=== PATIENT | male | born 1970 | race Caucasian/White ===

== ENCOUNTER 2016-12-28 08:43 | Inpatient (IN) | payer SELFPAY ==
[2016-12-28] MEDS ORDERED: ACETAMINOPHEN 325 MG SUPP.RECT PR ONE ×2 (09:20→09:38)
[2016-12-28] MEDS ORDERED: ACETAMINOPHEN 650 MG SUPP.RECT PR ONE ×2 (09:21→09:37)
[2016-12-28 09:29] LABS: ABSOLUTE MONOCYTES (AUTO) 1.3 10^3/uL (0.1-1.4); ABSOLUTE NEUT (AUTO) 7.9 10^3/uL (1.7-8.2); BASOPHILS % (AUTO) 0.4 % (0-2); HEMATOCRIT 46.1 % (37.9-51.0); HEMOGLOBIN 15.9 g/dL (13.5-17.0); HGB HCT DIFFERENCE 1.6; LYMPHOCYTES % (AUTO) 9.4 % (13-45); MEAN CORPUSCULAR HEMOGLOBIN 31.9 pg (27.0-33.4); MEAN CORPUSCULAR HGB CONC 34.5 g/dL (32.0-36.0); MEAN CORPUSCULAR VOLUME 92 fl (80-97); RED CELL DISTRIBUTION WIDTH 14.1 % (11.5-14.0); SEGMENTED NEUTROPHILS % (AUTO) 77.2 % (42-78); WHITE BLOOD COUNT 10.2 10^3/uL (4.0-10.5)
[2016-12-28] MEDS ORDERED: LIDOCAINE 1% INJ-PF (10 MG/ML) 30 ML SDV INJ ONE (09:38)
[2016-12-28 09:40] LABS: ALANINE AMINOTRANSFERASE 122 U/L (21-72); ALBUMIN 5.6 g/dL (3.5-5.0); ALKALINE PHOSPHATASE 91 U/L (38-126); ANION GAP 18 (5-19); ASPARTATE AMINO TRANSFERASE 123 U/L (17-59); BILIRUBIN,TOTAL 0.9 mg/dL (0.2-1.3); BLOOD UREA NITROGEN 10 mg/dL (7-20); CALCIUM 10.4 mg/dL (8.4-10.2); CARBON DIOXIDE 23 mmol/L (22-30); CHLORIDE 94 mmol/L (98-107); CREATININE RESULT 0.89 mg/dL (0.52-1.25); GLUCOSE 109 mg/dL (75-110); POTASSIUM 4.3 mmol/L (3.6-5.0); SODIUM 134.7 mmol/L (137-145); TOTAL PROTEIN 8.8 g/dL (6.3-8.2)
[2016-12-28 09:41] LABS: ALCOHOL < 10 mg/dL (NONE DETECTED)
[2016-12-28] MEDS ORDERED: PROPOFOL INJ 200 MG/20 ML VIAL IV ONE (09:52)
[2016-12-28] MEDS ORDERED: NORMAL SALINE 1000 ML 1,000 ML IV PRN ×3 (10:26→14:59)
[2016-12-28] MEDS ORDERED: CEFTRIAXONE 2 GM/D5W RTU 50 ML IV ONE (10:27)
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
[2016-12-28] MEDS ORDERED: MIDAZOLAM 2 MG/2 ML INJ ONE ×2 (10:33→11:26)
[2016-12-28] MEDS ORDERED: PROPOFOL 100 ML IV ONE ×2 (10:44→12:34)
[2016-12-28] MEDS ORDERED: ETOMIDATE INJ/PF 20 MG/10 ML SDV IV ONE (11:11)
[2016-12-28] MEDS ORDERED: MIDAZOLAM HCL 100 ML IV ONE (11:23)
--- NOTE | 2016-12-28 11:34 | EKG REPORT ---
SEVERITY:- ABNORMAL ECG - SINUS TACHYCARDIA PROBABLE LEFT ATRIAL ABNORMALITY ABNRM R PROG, CONSIDER ASMI OR LEAD PLACEMENT : Confirmed by: Jan Preston 28-Dec-2016 11:33:39
[2016-12-28] MEDS ORDERED: VANCOMYCIN HCL INJ 1000 MG VIAL IV ONE (11:50)
[2016-12-28 12:08] LABS: APPEARANCE,URINE CLEAR; BILIRUBIN,URINE NEGATIVE (NEGATIVE); GLUCOSE, URINE NEGATIVE (NEGATIVE); KETONES,URINE NEGATIVE (NEGATIVE); LEUKOCYTE ESTERASE,URINE NEGATIVE (NEGATIVE); NITRITE,URINE NEGATIVE (NEGATIVE); PROTEIN,URINE 100 mg/dL (NEGATIVE); URINE SPECIFIC GRAVITY 1.009; UROBILINOGEN,URINE NEGATIVE mg/dL (<2.0)
[2016-12-28 12:24] LABS: URINE BARBITURATES SCREEN NEGATIVE; URINE METHADONE SCREEN NEGATIVE; URINE OPIATES LOW NEGATIVE; URINE PHENCYCLIDINE SCREEN NEGATIVE
[2016-12-28] MEDS ORDERED: VANCOMYCIN HCL 0 MG in DEXTROSE 5%-WATER 250 ML IV NR (13:15)
[2016-12-28] MEDS ORDERED: VANCOMYCIN HCL 1,500 MG in DEXTROSE 5%-WATER 250 ML IV ONE (14:00)
--- NOTE | 2016-12-28 14:29 | PSYCHOLOGICAL NOTE ---
Psych Note - Psych Note Psych Note: Patient presented to [facility] ED for altered mental status. Patient has been intubated; mental health assessment will have to be conducted at a later time. Clinician will conduct daily check in to reevaluate mental status.
[2016-12-28] MEDS ORDERED: SUCCINYLCHOLINE CHLORIDE INJ 200 MG/10 ML VIAL ONE (14:53)
[2016-12-28] MEDS: NORMAL SALINE 1000 ML 1,000 ML with POTASSIUM CHLORIDE 20 MEQ, MAGNESIUM SULFATE 8 MEQ,... IV PRN ×5 (15:47)
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
[2016-12-28] MEDS: NORMAL SALINE 500 ML with ROCURONIUM BROMIDE 500 MG IV PRN ×2 (17:40)
[2016-12-28] MEDS: ACYCLOVIR SODIUM 800 MG in NORMAL SALINE 250 ML IV SCH (18:11)
[2016-12-28 18:25] LABS: ARTERIAL BLOOD BASE EXCESS 0.2 mmol/L; ARTERIAL BLOOD O2 SATURATION 90.1 % (94-98)
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
[2016-12-28] MEDS ORDERED: INFLUENZA ADLT QUAD (36MOS+) 2016-17 VAC 0.5 ML SYR IM PRN (18:45)
[2016-12-28] MEDS: PROPOFOL 100 ML IV PRN ×2 (19:44→21:48)
[2016-12-28] MEDS: CEFTRIAXONE 2 GM/D5W RTU 50 ML IV SCH (21:48)
[2016-12-28] MEDS: VANCOMYCIN HCL 1,000 MG in DEXTROSE 5%-WATER 250 ML IV SCH (21:50)
[2016-12-28] MEDS ORDERED: PANTOPRAZOLE SODIUM 40 MG VIAL IV SCH (22:00)
[2016-12-28 22:20] LABS: CREATINE KINASE MB 4.56 ng/mL (<4.55); TROPONIN I 0.015 ng/mL
[2016-12-28] MEDS ORDERED: PANTOPRAZOLE SODIUM 40 MG VIAL IV ONE (23:45)
[2016-12-29] MEDS: PROPOFOL 100 ML IV PRN ×6 (00:59→22:23)
[2016-12-29] MEDS: MIDAZOLAM HCL 100 ML IV PRN ×3 (01:21→17:20)
[2016-12-29] MEDS: ACYCLOVIR SODIUM 800 MG in NORMAL SALINE 250 ML IV SCH ×3 (01:22→17:19)
[2016-12-29] MEDS: NORMAL SALINE 500 ML with ROCURONIUM BROMIDE 500 MG IV PRN ×6 (03:10→22:23)
[2016-12-29 04:18] LABS: ABSOLUTE LYMPHOCYTES (AUTO) 1.2 10^3/uL (0.5-4.7); ABSOLUTE MONOCYTES (AUTO) 1.1 10^3/uL (0.1-1.4); ABSOLUTE NEUT (AUTO) 5.8 10^3/uL (1.7-8.2); BASOPHILS % (AUTO) 0.5 % (0-2); EOSINOPHILS % (AUTO) 0.4 % (0-6); HEMATOCRIT 43.8 % (37.9-51.0); HEMOGLOBIN 14.6 g/dL (13.5-17.0); LYMPHOCYTES % (AUTO) 14.4 % (13-45); MEAN CORPUSCULAR HEMOGLOBIN 31.5 pg (27.0-33.4); MEAN CORPUSCULAR HGB CONC 33.3 g/dL (32.0-36.0); MEAN CORPUSCULAR VOLUME 95 fl (80-97); MONOCYTES % (AUTO) 13.8 % (3-13); RED BLOOD COUNT 4.64 10^6/uL (4.35-5.55); RED CELL DISTRIBUTION WIDTH 14.5 % (11.5-14.0); SEGMENTED NEUTROPHILS % (AUTO) 70.9 % (42-78); WHITE BLOOD COUNT 8.2 10^3/uL (4.0-10.5)
[2016-12-29 04:21] LABS: PROTHROMBIN TIME 13.8 SEC (11.4-15.4)
[2016-12-29 04:22] LABS: PARTIAL THROMBOPLASTIN TIME 27.5 SEC (23.5-35.8)
[2016-12-29 04:32] LABS: MAGNESIUM 2.8 mg/dL (1.6-2.3)
[2016-12-29 04:33] LABS: PHOSPHORUS 4.2 mg/dL (2.5-4.5)
[2016-12-29 04:40] LABS: PREALBUMIN 20.6 mg/dL (17.6-36.0)
[2016-12-29 04:45] LABS: CREATINE KINASE MB 4.36 ng/mL (<4.55)
[2016-12-29 04:50] LABS: TROPONIN I < 0.012 ng/mL
[2016-12-29] MEDS: DEXTROSE 5%-NORMAL SALINE 1,000 ML IV PRN (04:59)
[2016-12-29] MEDS: VANCOMYCIN HCL 1,000 MG in DEXTROSE 5%-WATER 250 ML IV SCH ×3 (05:00→21:08)
[2016-12-29 06:25] LABS: ARTERIAL BLOOD BASE EXCESS -0.1 mmol/L; ARTERIAL BLOOD O2 SATURATION 91.3 % (94-98)
--- NOTE | 2016-12-29 08:30 | PDOC PROGRESS REPORT ---
Subjective Progress Note for:: 12/29/16 Subjective:: Patient was admitted yesterday with alcohol withdrawal and seizures ;severe encephalopathy with agitation , confusion and aggressive behavior Fever of unknown etiology He was i will ntubated in the emergency room to protect his airway; sedated; paralyzed with rocuronium and empirically treated for acute meningitis With ceftriaxone and vancomycin This morning patient is still intubated mechanically ventilated He did have any significant upper GI bleed during the night with red blood and coffee-ground which seems to have subsided He still has a low-grade fever; Chest x-ray was performed is unremarkable ED he does not have an elevated white blood count Physical Exam Vital Signs: Temp Pulse Resp BP Pulse Ox 99.2 F 99 12 185/101 H 97 12/29/16 08:00 12/29/16 08:00 12/29/16 08:00 12/29/16 08:00 12/29/16 08:00 Intake & Output 12/28/16 12/29/16 12/30/16 00:59 00:59 00:59 Intake Total 3050 Output Total 4325 1875 Balance -1275 -1875 Weight 87.8 kg 93 kg General appearance: PRESENT: mild distress, well-developed, well-nourished Head exam: PRESENT: atraumatic, normocephalic Eye exam: PRESENT: conjunctiva pink, EOMI, PERRLA. ABSENT: scleral icterus Respiratory exam: PRESENT: rhonchi, symmetrical, wheezes - Bilaterally Cardiovascular exam: PRESENT: RRR. ABSENT: diastolic murmur, rubs, systolic murmur Pulses: PRESENT: normal dorsalis pedis pul GI/Abdominal exam: PRESENT: normal bowel sounds, other - pulsations palpable mid abdomen no bruit. ABSENT: ascites Gentrourinary exam: ABSENT: ecchymosis, lesions Extremities exam: PRESENT: full ROM. ABSENT: calf tenderness, clubbing, pedal edema Neurological exam: PRESENT: other - Sedated and paralyzed Skin exam: PRESENT: dry, intact, warm. ABSENT: cyanosis, rash Results Laboratory Results: 12/29/16 03:57 12/28/16 12/28/16 12/29/16 14:34 18:08 03:57 WBC RBC Hgb Hct MCV MCH MCHC RDW Plt Count Seg Neutrophils % Lymphocytes % Monocytes % Eosinophils % Basophils % Absolute Neutrophils Absolute Lymphocytes Absolute Monocytes Absolute Eosinophils Absolute Basophils Carbonic Acid 1.35 HCO3/H2CO3 Ratio 19:1 ABG pH 7.38 ABG pCO2 44.9 ABG pO2 59.3 L ABG HCO3 25.7 ABG O2 Saturation 90.1 L ABG Base Excess 0.2 FiO2 45% Lactic Acid 1.2 0.8 Phosphorus Magnesium Ammonia Prealbumin Amylase Lipase TSH 12/29/16 12/29/16 12/29/16 03:57 03:57 03:57 WBC 8.2 RBC 4.64 Hgb 14.6 Hct 43.8 MCV 95 MCH 31.5 MCHC 33.3 RDW 14.5 H Plt Count 144 L Seg Neutrophils % 70.9 Lymphocytes % 14.4 Monocytes % 13.8 H Eosinophils % 0.4 Basophils % 0.5 Absolute Neutrophils 5.8 Absolute Lymphocytes 1.2 Absolute Monocytes 1.1 Absolute Eosinophils 0.0 Absolute Basophils 0.0 Carbonic Acid HCO3/H2CO3 Ratio ABG pH ABG pCO2 ABG pO2 ABG HCO3 ABG O2 Saturation ABG Base Excess FiO2 Lactic Acid Phosphorus 4.2 Magnesium 2.8 H Ammonia < 8.7 L Prealbumin 20.6 Amylase 65 Lipase 102.0 TSH 12/29/16 12/29/16 03:57 06:12 WBC RBC Hgb Hct MCV MCH MCHC RDW Plt Count Seg Neutrophils % Lymphocytes % Monocytes % Eosinophils % Basophils % Absolute Neutrophils Absolute Lymphocytes Absolute Monocytes Absolute Eosinophils Absolute Basophils Carbonic Acid 1.96 H HCO3/H2CO3 Ratio 14:1 ABG pH 7.26 L ABG pCO2 65.0 H ABG pO2 70.5 L ABG HCO3 28.7 H ABG O2 Saturation 91.3 L ABG Base Excess -0.1 FiO2 45% Lactic Acid Phosphorus Magnesium Ammonia Prealbumin Amylase Lipase TSH 0.55 12/28/16 12/28/16 12/29/16 21:44 21:44 03:57 Creatine Kinase 4118 H 3091 H CK-MB (CK-2) 4.56 H Troponin I 0.015 12/29/16 12/29/16 03:57 03:57 Creatine Kinase Cancelled CK-MB (CK-2) 4.36 Troponin I < 0.012 Impressions: Chest/Abdomen CTA 12/28/16 00:00 IMPRESSION: Small areas of patchy consolidation are present in the right middle and right upper lobes.. NO PULMONARY EMBOLI. Head CT 12/28/16 17:03 IMPRESSION: No acute intracranial findings.Small amounts of fluid are present in the all the paranasal sinuses consistent with acute disease. Chest X-Ray 12/29/16 06:00 IMPRESSION: STABLE APPEARANCE. NO ACUTE FINDINGS. Assessment & Plan - Diagnosis (1) Metabolic encephalopathy Is this a current diagnosis for this admission?: YesPlan: Likely secondary to sepsis and alcohol withdrawal Altered mental status may also be secondary to neuroleptic malignant syndrome Patient is empirically treated as acute bacterial meningitis and or meningoencephalitis We will initiate droplet precautions it is impossible to evaluate the patient at this time as he is heavily sedated and paralyzed (2) Alcohol withdrawal Qualifiers: Complication of substance-induced condition: with delirium Qualified Code(s): F10.231 - Alcohol dependence with withdrawal delirium Is this a current diagnosis for this admission?: YesPlan: continue the Versed drip (3) Sepsis Qualifiers: Sepsis type: sepsis due to unspecified organism Qualified Code(s): A41.9 - Sepsis, unspecified organism Is this a current diagnosis for this admission?: YesPlan: As above Lactic acid is down Continue Vanco ceftriaxone and acyclovir (4) On mechanically assisted ventilation Is this a current diagnosis for this admission?: Yes (5) Rhabdomyolysis Is this a current diagnosis for this admission?: YesPlan: Continue hydration Renal function is adequate at this time High CPK may also be related to neuroleptic malignant syndrome Continue Versed Avoid neuroleptic medications (6) GI bleed Qualifiers: GI bleed type/associated pathology: unspecified gastrointestinal hemorrhage type Qualified Code(s): K92.2 - Gastrointestinal hemorrhage, unspecified Is this a current diagnosis for this admission?: YesPlan: Upper GI bleed last night The NG tube is clear now; bleeding has stopped and H&H is stable Maybe secondary to gastritis Although patient is clinically but disease and may have esophageal varices continue Protonix if bleeding reccurs patient may need to be transferred for GI evaluation (7) Bronchospasm Is this a current diagnosis for this admission?: YesPlan: Patient has wheezes to this morning He may have underlying COPD We will initiate nebs - Time Critical Time spent with patient: 35 or more minutes
[2016-12-29 08:36] LABS: HEMATOCRIT 42.3 % (37.9-51.0); HEMOGLOBIN 14.2 g/dL (13.5-17.0); HGB HCT DIFFERENCE 0.3; MEAN CORPUSCULAR HEMOGLOBIN 31.6 pg (27.0-33.4); MEAN CORPUSCULAR HGB CONC 33.5 g/dL (32.0-36.0); MEAN CORPUSCULAR VOLUME 94 fl (80-97); RED BLOOD COUNT 4.49 10^6/uL (4.35-5.55); RED CELL DISTRIBUTION WIDTH 14.2 % (11.5-14.0); WHITE BLOOD COUNT 8.2 10^3/uL (4.0-10.5)
[2016-12-29 08:46] LABS: ALANINE AMINOTRANSFERASE 81 U/L (21-72); ALBUMIN 4.2 g/dL (3.5-5.0); ALKALINE PHOSPHATASE 70 U/L (38-126); ANION GAP 9 (5-19); ASPARTATE AMINO TRANSFERASE 82 U/L (17-59); BILIRUBIN,TOTAL 0.7 mg/dL (0.2-1.3); BLOOD UREA NITROGEN 7 mg/dL (7-20); CALCIUM 8.2 mg/dL (8.4-10.2); CARBON DIOXIDE 29 mmol/L (22-30); CHLORIDE 105 mmol/L (98-107); CREATININE RESULT 0.75 mg/dL (0.52-1.25); GLUCOSE 142 mg/dL (75-110); POTASSIUM 4.1 mmol/L (3.6-5.0); TOTAL PROTEIN 6.4 g/dL (6.3-8.2)
--- NOTE | 2016-12-29 08:55 | PSYCHOLOGICAL NOTE ---
Psych Note - Psych Note Psych Note: Patient presented to [facility] ED for altered mental status. Patient has been intubated; mental health assessment will have to be conducted at a later time. Daily checks will be conducted to assessment cognitive status to ascertain ability to communicate/engage in evaluation.
[2016-12-29 08:56] LABS: CREATINE KINASE 2731 U/L (55-170)
[2016-12-29 08:57] LABS: CREATINE KINASE MB 3.77 ng/mL (<4.55)
[2016-12-29 09:02] LABS: TROPONIN I < 0.012 ng/mL
[2016-12-29] MEDS: ENOXAPARIN SODIUM INJ 40 MG/0.4 ML DISP.SYRIN SUBCUT SCH (10:02)
[2016-12-29] MEDS: CEFTRIAXONE 2 GM/D5W RTU 50 ML IV SCH ×2 (10:06→21:07)
[2016-12-29] MEDS: HYDRALAZINE HCL INJ/PF 20 MG/1 ML SDV IV PRN (10:13)
[2016-12-29] MEDS: NORMAL SALINE 100 ML with PANTOPRAZOLE SODIUM 80 MG IV PRN ×4 (10:14→17:21)
[2016-12-29] MEDS: NORMAL SALINE 1000 ML 1,000 ML with POTASSIUM CHLORIDE 20 MEQ, MAGNESIUM SULFATE 8 MEQ,... IV PRN ×5 (10:19)
[2016-12-29 11:14] LABS: ARTERIAL BLOOD BASE EXCESS -5.1 mmol/L; ARTERIAL BLOOD O2 SATURATION 87.6 % (94-98)
[2016-12-29] MEDS ORDERED: PROMETHAZINE HCL INJ 25 MG/1 ML VIAL ONE (11:51)
[2016-12-29] MEDS ORDERED: DIPHENHYDRAMINE HCL 50 MG/ML VIAL ONE (11:51)
[2016-12-29] MEDS ORDERED: NALOXONE HCL INJ/PF 0.4 MG/1 ML SDV ONE (11:51)
[2016-12-29] MEDS ORDERED: ONDANSETRON HCL INJ/PF 4 MG/2 ML SDV ONE (11:51)
[2016-12-29] MEDS ORDERED: MIDAZOLAM 2 MG/2 ML INJ ONE (11:52)
[2016-12-29] MEDS ORDERED: FENTANYL CITRATE INJ/PF 100 MCG/2 ML AMPUL ONE (11:52)
[2016-12-29] MEDS ORDERED: GLUCAGON,HUMAN RECOMB 1 MG INJ ONE (11:52)
[2016-12-29] MEDS ORDERED: FLUMAZENIL INJ 0.5 MG/5 ML VIAL IV ONE (11:52)
[2016-12-29] MEDS ORDERED: EPINEPHRINE INJ 1 MG/10 ML DISP.SYRIN ONE (11:52)
--- NOTE | 2016-12-29 12:43 | Operative Report ---
Operative Report DATE OF SURGERY: 12/29/16 Operative Report: The risks benefits and alternatives of the procedure explained to the patient in detail and informed consent is obtained that GIF Olympus video scope was inserted into the patient's mouth and hypopharynx the esophagus is identified intubated and insufflated the scope was then advanced through the esophagus stomach and duodenum retroflexion maneuver is done the esophagus stomach and first and second portions of the duodenum examined PREOPERATIVE DIAGNOSIS: GI bleed, coffee-ground emesis question esophageal varices POSTOPERATIVE DIAGNOSIS: Esophageal ulceration not actively bleeding. Likely due to NG tube trauma. Nodular gastritis. No varices noted OPERATION: EGD with biopsy SURGEON: AURA KOHLI ANESTHESIA: LMAC TISSUE REMOVED OR ALTERED: Gastric specimen obtained rule out Helicobacter pylori COMPLICATIONS: None. ESTIMATED BLOOD LOSS: none. INTRAOPERATIVE FINDINGS: As noted above no esophageal varices. Esophageal ulceration. No active bleeding. Gastritis. No gastric ulcers. First and second portions of the duodenum normal PROCEDURE: Patient tolerated the procedure well He remains intubated Keep nothing by mouth Follow H&H Transfuse if necessary PPI as needed May need patient transfer if rebleeds
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
[2016-12-29] MEDS: IPRATROPIUM/ALBUTEROL 0.5-2.5 MG/3 ML AMPUL NEB SCH ×2 (14:14→20:24)
[2016-12-29 15:54] LABS: ARTERIAL BLOOD O2 SATURATION 94.8 % (94-98)
[2016-12-29 16:34] LABS: HEMATOCRIT 41.9 % (37.9-51.0); HEMOGLOBIN 13.9 g/dL (13.5-17.0); HGB HCT DIFFERENCE -0.2; MEAN CORPUSCULAR HGB CONC 33.2 g/dL (32.0-36.0); MEAN CORPUSCULAR VOLUME 93 fl (80-97); RED BLOOD COUNT 4.49 10^6/uL (4.35-5.55); RED CELL DISTRIBUTION WIDTH 14.4 % (11.5-14.0); WHITE BLOOD COUNT 11.3 10^3/uL (4.0-10.5)
[2016-12-29 17:45] LABS: ANION GAP 8 (5-19); BLOOD UREA NITROGEN 7 mg/dL (7-20); CALCIUM 8.7 mg/dL (8.4-10.2); CARBON DIOXIDE 28 mmol/L (22-30); CHLORIDE 106 mmol/L (98-107); CREATININE RESULT 0.74 mg/dL (0.52-1.25); GLUCOSE 122 mg/dL (75-110); POTASSIUM 3.7 mmol/L (3.6-5.0)
[2016-12-30] MEDS: IPRATROPIUM/ALBUTEROL 0.5-2.5 MG/3 ML AMPUL NEB SCH ×4 (01:05→20:40)
[2016-12-30] MEDS: DEXTROSE 5%-NORMAL SALINE 1,000 ML IV PRN (01:10)
[2016-12-30] MEDS: ACYCLOVIR SODIUM 800 MG in NORMAL SALINE 250 ML IV SCH ×3 (01:53→17:14)
[2016-12-30] MEDS: PROPOFOL 100 ML IV PRN ×6 (01:53→17:13)
[2016-12-30] MEDS: MIDAZOLAM HCL 100 ML IV PRN ×3 (01:53→17:15)
[2016-12-30] MEDS: NORMAL SALINE 100 ML with PANTOPRAZOLE SODIUM 80 MG IV PRN ×2 (02:24)
[2016-12-30] MEDS: HYDRALAZINE HCL INJ/PF 20 MG/1 ML SDV IV PRN ×2 (04:55→11:05)
[2016-12-30 05:13] LABS: ARTERIAL BLOOD BASE EXCESS 1.3 mmol/L
[2016-12-30] MEDS: VANCOMYCIN HCL 1,000 MG in DEXTROSE 5%-WATER 250 ML IV SCH (06:04)
[2016-12-30 06:11] LABS: ABSOLUTE EOSINOPHILS # (AUTO) 0.1 10^3/uL (0.0-0.6); ABSOLUTE LYMPHOCYTES (AUTO) 0.6 10^3/uL (0.5-4.7); ABSOLUTE MONOCYTES (AUTO) 0.9 10^3/uL (0.1-1.4); ABSOLUTE NEUT (AUTO) 7.2 10^3/uL (1.7-8.2); BASOPHILS % (AUTO) 0.5 % (0-2); EOSINOPHILS % (AUTO) 1.2 % (0-6); HEMATOCRIT 41.4 % (37.9-51.0); HEMOGLOBIN 13.8 g/dL (13.5-17.0); LYMPHOCYTES % (AUTO) 7.1 % (13-45); MEAN CORPUSCULAR HEMOGLOBIN 31.3 pg (27.0-33.4); MEAN CORPUSCULAR HGB CONC 33.4 g/dL (32.0-36.0); MEAN CORPUSCULAR VOLUME 94 fl (80-97); MONOCYTES % (AUTO) 10.1 % (3-13); RED CELL DISTRIBUTION WIDTH 14.3 % (11.5-14.0); SEGMENTED NEUTROPHILS % (AUTO) 81.1 % (42-78); WHITE BLOOD COUNT 8.9 10^3/uL (4.0-10.5)
[2016-12-30 06:34] LABS: ALANINE AMINOTRANSFERASE 66 U/L (21-72); ALBUMIN 3.5 g/dL (3.5-5.0); ALKALINE PHOSPHATASE 71 U/L (38-126); ANION GAP 9 (5-19); ASPARTATE AMINO TRANSFERASE 59 U/L (17-59); BILIRUBIN,TOTAL 0.5 mg/dL (0.2-1.3); BLOOD UREA NITROGEN 7 mg/dL (7-20); CALCIUM 8.5 mg/dL (8.4-10.2); CARBON DIOXIDE 28 mmol/L (22-30); CHLORIDE 107 mmol/L (98-107); CREATININE RESULT 0.81 mg/dL (0.52-1.25); GLUCOSE 122 mg/dL (75-110); MAGNESIUM 2.2 mg/dL (1.6-2.3); PHOSPHORUS 3.4 mg/dL (2.5-4.5); POTASSIUM 4.1 mmol/L (3.6-5.0); SODIUM 143.5 mmol/L (137-145); TOTAL PROTEIN 6.6 g/dL (6.3-8.2)
[2016-12-30] MEDS: NORMAL SALINE 500 ML with ROCURONIUM BROMIDE 500 MG IV PRN ×4 (09:35→17:14)
[2016-12-30] MEDS ORDERED: ACETYLCYSTEINE 10% NEB 400 MG/4 ML VIAL NEB PRN (10:00)
[2016-12-30] MEDS: LISINOPRIL 10 MG TABLET NG SCH ×2 (10:14→21:10)
[2016-12-30] MEDS: ENOXAPARIN SODIUM INJ 40 MG/0.4 ML DISP.SYRIN SUBCUT SCH (10:14)
[2016-12-30] MEDS: AMLODIPINE BESYLATE 10 MG TABLET NG SCH (10:15)
[2016-12-30] MEDS: CEFTRIAXONE 2 GM/D5W RTU 50 ML IV SCH ×2 (10:15→21:09)
[2016-12-30] MEDS: NORMAL SALINE 1000 ML 1,000 ML IV PRN (10:16)
[2016-12-30] MEDS: NORMAL SALINE 1000 ML 1,000 ML with POTASSIUM CHLORIDE 20 MEQ, MAGNESIUM SULFATE 8 MEQ,... IV PRN ×5 (10:17)
[2016-12-30] MEDS: ACETAMINOPHEN SOLN 325 MG/10.15 ML UDCUP PO PRN ×3 (10:51→23:52)
--- NOTE | 2016-12-30 11:01 | PDOC PROGRESS REPORT ---
Subjective Progress Note for:: 12/30/16 Subjective:: Patient is still febrile with a temperature 101 to 102 He is requiring higher FiO2 Still paralyzed and sedated Endoscopy was performed yesterday and was suggestive of an esophageal ulcer There were no esophageal varices There was no active bleeding PPI will be continued Chest x-ray done today is suggestive of left lower lobe collapse Physical Exam Vital Signs: Temp Pulse Resp BP Pulse Ox 102.2 F H 111 H 18 186/95 H 99 12/30/16 10:00 12/30/16 10:00 12/30/16 10:00 12/30/16 10:00 12/30/16 10:00 Intake & Output 12/29/16 12/30/16 12/31/16 00:59 00:59 00:59 Intake Total 3050 4732 3027 Output Total 4325 3785 1035 Balance -4931 165 5925 Weight 87.8 kg 93 kg 95.4 kg General appearance: PRESENT: mild distress, well-developed, well-nourished Head exam: PRESENT: atraumatic, normocephalic Eye exam: PRESENT: conjunctiva pink, EOMI, PERRLA. ABSENT: scleral icterus Neck exam: ABSENT: carotid bruit, JVD, lymphadenopathy, thyromegaly Respiratory exam: PRESENT: rhonchi - Bilaterally. ABSENT: accessory muscle use Cardiovascular exam: PRESENT: RRR. ABSENT: diastolic murmur, rubs, systolic murmur Pulses: PRESENT: normal dorsalis pedis pul GI/Abdominal exam: PRESENT: normal bowel sounds, soft. ABSENT: distended, guarding, mass, organolmegaly, rebound, tenderness Rectal exam: PRESENT: deferred Extremities exam: PRESENT: full ROM. ABSENT: calf tenderness, clubbing, pedal edema Results Laboratory Results: 12/30/16 06:00 12/30/16 06:00 12/29/16 12/29/16 12/29/16 10:45 15:45 16:05 WBC 11.3 H RBC 4.49 Hgb 13.9 Hct 41.9 MCV 93 MCH 31.0 MCHC 33.2 RDW 14.4 H Plt Count 149 L Seg Neutrophils % Lymphocytes % Monocytes % Eosinophils % Basophils % Absolute Neutrophils Absolute Lymphocytes Absolute Monocytes Absolute Eosinophils Absolute Basophils Carbonic Acid 1.39 H 1.29 HCO3/H2CO3 Ratio 15:1 20:1 ABG pH 7.29 L 7.42 ABG pCO2 46.3 H 42.8 ABG pO2 59.3 L 72.7 L ABG HCO3 21.7 26.8 H ABG O2 Saturation 87.6 L 94.8 ABG Base Excess -5.1 2.0 FiO2 40% 50% Sodium Potassium Chloride Carbon Dioxide Anion Gap BUN Creatinine Est GFR ( Amer) Est GFR (Non-Af Amer) Glucose Calcium Phosphorus Magnesium Total Bilirubin AST ALT Alkaline Phosphatase Total Protein Albumin 12/29/16 12/29/16 12/30/16 16:05 17:15 05:00 WBC RBC Hgb Hct MCV MCH MCHC RDW Plt Count Seg Neutrophils % Lymphocytes % Monocytes % Eosinophils % Basophils % Absolute Neutrophils Absolute Lymphocytes Absolute Monocytes Absolute Eosinophils Absolute Basophils Carbonic Acid 1.55 H HCO3/H2CO3 Ratio 17:1 ABG pH 7.35 ABG pCO2 51.6 H ABG pO2 61.1 L ABG HCO3 27.8 H ABG O2 Saturation 90.0 L ABG Base Excess 1.3 FiO2 50% Sodium Cancelled 142.0 Potassium Cancelled 3.7 Chloride Cancelled 106 Carbon Dioxide Cancelled 28 Anion Gap Cancelled 8 BUN Cancelled 7 Creatinine Cancelled 0.74 Est GFR ( Amer) Cancelled > 60 Est GFR (Non-Af Amer) Cancelled > 60 Glucose Cancelled 122 H Calcium Cancelled 8.7 Phosphorus Magnesium Total Bilirubin AST ALT Alkaline Phosphatase Total Protein Albumin 12/30/16 12/30/16 06:00 06:00 WBC 8.9 RBC 4.40 Hgb 13.8 Hct 41.4 MCV 94 MCH 31.3 MCHC 33.4 RDW 14.3 H Plt Count 152 Seg Neutrophils % 81.1 H Lymphocytes % 7.1 L Monocytes % 10.1 Eosinophils % 1.2 Basophils % 0.5 Absolute Neutrophils 7.2 Absolute Lymphocytes 0.6 Absolute Monocytes 0.9 Absolute Eosinophils 0.1 Absolute Basophils 0.0 Carbonic Acid HCO3/H2CO3 Ratio ABG pH ABG pCO2 ABG pO2 ABG HCO3 ABG O2 Saturation ABG Base Excess FiO2 Sodium 143.5 Potassium 4.1 Chloride 107 Carbon Dioxide 28 Anion Gap 9 BUN 7 Creatinine 0.81 Est GFR ( Amer) > 60 Est GFR (Non-Af Amer) > 60 Glucose 122 H Calcium 8.5 Phosphorus 3.4 Magnesium 2.2 Total Bilirubin 0.5 AST 59 ALT 66 Alkaline Phosphatase 71 Total Protein 6.6 Albumin 3.5 12/28/16 12/28/16 12/29/16 21:44 21:44 03:57 Creatine Kinase 4118 H 3091 H CK-MB (CK-2) 4.56 H Troponin I 0.015 12/29/16 12/29/16 12/29/16 03:57 03:57 08:24 Creatine Kinase Cancelled 2731 H CK-MB (CK-2) 4.36 Troponin I < 0.012 12/29/16 08:24 Creatine Kinase CK-MB (CK-2) 3.77 Troponin I < 0.012 Impressions: Chest/Abdomen CTA 12/28/16 00:00 IMPRESSION: Small areas of patchy consolidation are present in the right middle and right upper lobes.. NO PULMONARY EMBOLI. Head CT 12/28/16 17:03 IMPRESSION: No acute intracranial findings.Small amounts of fluid are present in the all the paranasal sinuses consistent with acute disease. Chest X-Ray 12/30/16 06:00 IMPRESSION: Interval development of complete opacity of the left lower lobe. Suspect mucous plug with left lower lobe collapse. SUPPORT DEVICE(S) IN EXPECTED LOCATIONS. Assessment & Plan - Diagnosis (1) Metabolic encephalopathy Is this a current diagnosis for this admission?: Yes (2) Alcohol withdrawal Qualifiers: Complication of substance-induced condition: with delirium Qualified Code(s): F10.231 - Alcohol dependence with withdrawal delirium Is this a current diagnosis for this admission?: Yes (3) Sepsis Qualifiers: Sepsis type: sepsis due to unspecified organism Qualified Code(s): A41.9 - Sepsis, unspecified organism Is this a current diagnosis for this admission?: YesPlan: Source is still unclear Patient is empirically treated for meningitis and aspiration pneumonia Diagnosis of neuroleptic malignant syndrome has not been excluded Continue benzos Discontinue psychotropic agents, anticholinergic, serotonergic agents . Continue ceftriaxone and vancomycin acyclovir and clindamycin A spinal tap will be performed when patient's condition permits (4) On mechanically assisted ventilation Is this a current diagnosis for this admission?: YesPlan: Patient developed collapse of the left lower lobe Likely secondary to mucous plugs Patient may have had also aspiration pneumonia We will add clindamycin 600 mg every 8 hours to present IV antibiotics Mucomyst and chest PT also were ordered Dr. Sanchez was notified and will be in to perform bronchoscopy (5) Rhabdomyolysis Is this a current diagnosis for this admission?: YesPlan: Is improving CPK on the downward trend (6) GI bleed Qualifiers: GI bleed type/associated pathology: unspecified gastrointestinal hemorrhage type Qualified Code(s): K92.2 - Gastrointestinal hemorrhage, unspecified Is this a current diagnosis for this admission?: YesPlan: Resolved GI bleed was secondary to an esophageal ulcer Continue PPI (7) Bronchospasm Is this a current diagnosis for this admission?: Yes - Time Critical Time spent with patient: 25-34 minutes
[2016-12-30] MEDS: MORPHINE SULFATE 10 MG/ML INJ IV PRN ×3 (11:05→23:52)
[2016-12-30] MEDS ORDERED: IPRATROPIUM/ALBUTEROL 0.5-2.5 MG/3 ML AMPUL NEB ONE (11:06)
[2016-12-30] MEDS: CLINDAMYCIN 600 MG/D5W RTU 600 MG/50 ML RTUPB IV SCH ×2 (12:26→20:09)
[2016-12-30] MEDS: SUCRALFATE SUSP 1 GM/10 ML UDCUP NG SCH ×3 (12:26→23:52)
[2016-12-30] MEDS: ACETYLCYSTEINE 10% NEB 400 MG/4 ML VIAL NEB SCH ×2 (13:38→20:00)
[2016-12-30] MEDS: VANCOMYCIN HCL 1,500 MG in DEXTROSE 5%-WATER 250 ML IV SCH ×2 (13:46→21:34)
[2016-12-30 17:09] LABS: FLUID APPEARANCE CLOUDY; FLUID RBC AVERAGE 2.5; FLUID RBC SIDE 1 2; FLUID RBC SIDE 2 3; FLUID TYPE BRONCHIAL WASH
[2016-12-30 17:10] LABS: FLUID RBC DILUENT USED NONE USED; FLUID RBC DILUTION FACTOR 1; TOTAL RBC SQUARES COUNTED FLD 225
[2016-12-30] MEDS: PANTOPRAZOLE SODIUM 40 MG VIAL IV SCH (21:09)
[2016-12-30] MEDS ORDERED: VANCOMYCIN HCL INJ 500 MG VIAL ONE (21:20)
[2016-12-30] MEDS ORDERED: VANCOMYCIN HCL INJ 1000 MG VIAL ONE (21:21)
[2016-12-31] MEDS: PROPOFOL 100 ML IV PRN ×6 (00:46→21:22)
[2016-12-31] MEDS: ACYCLOVIR SODIUM 800 MG in NORMAL SALINE 250 ML IV SCH ×3 (01:25→17:18)
[2016-12-31] MEDS: MIDAZOLAM HCL 100 ML IV PRN ×2 (02:12→12:41)
[2016-12-31] MEDS: CLINDAMYCIN 600 MG/D5W RTU 600 MG/50 ML RTUPB IV SCH ×3 (03:03→19:58)
[2016-12-31] MEDS: ACETYLCYSTEINE 10% NEB 400 MG/4 ML VIAL NEB SCH ×4 (03:11→21:22)
[2016-12-31] MEDS: IPRATROPIUM/ALBUTEROL 0.5-2.5 MG/3 ML AMPUL NEB SCH ×4 (03:12→21:22)
[2016-12-31] MEDS: NORMAL SALINE 500 ML with ROCURONIUM BROMIDE 500 MG IV PRN ×2 (03:23)
[2016-12-31] MEDS: SUCRALFATE SUSP 1 GM/10 ML UDCUP NG SCH ×3 (05:02→17:18)
[2016-12-31] MEDS: VANCOMYCIN HCL 1,500 MG in DEXTROSE 5%-WATER 250 ML IV SCH ×3 (05:04→21:19)
[2016-12-31 05:12] LABS: ABSOLUTE EOSINOPHILS # (AUTO) 0.1 10^3/uL (0.0-0.6); ABSOLUTE LYMPHOCYTES (AUTO) 0.9 10^3/uL (0.5-4.7); ABSOLUTE MONOCYTES (AUTO) 0.8 10^3/uL (0.1-1.4); ABSOLUTE NEUT (AUTO) 4.4 10^3/uL (1.7-8.2); BASOPHILS % (AUTO) 0.7 % (0-2); EOSINOPHILS % (AUTO) 2.3 % (0-6); HEMATOCRIT 34.9 % (37.9-51.0); HGB HCT DIFFERENCE -0.1; LYMPHOCYTES % (AUTO) 14.5 % (13-45); MEAN CORPUSCULAR HEMOGLOBIN 31.5 pg (27.0-33.4); MEAN CORPUSCULAR HGB CONC 33.3 g/dL (32.0-36.0); MEAN CORPUSCULAR VOLUME 95 fl (80-97); RED BLOOD COUNT 3.68 10^6/uL (4.35-5.55); RED CELL DISTRIBUTION WIDTH 14.1 % (11.5-14.0); SEGMENTED NEUTROPHILS % (AUTO) 69.5 % (42-78); WHITE BLOOD COUNT 6.3 10^3/uL (4.0-10.5)
[2016-12-31 05:16] LABS: HEMOGLOBIN 11.6 g/dL (13.5-17.0)
[2016-12-31 05:24] LABS: ALANINE AMINOTRANSFERASE 49 U/L (21-72); ALBUMIN 2.6 g/dL (3.5-5.0); ALKALINE PHOSPHATASE 56 U/L (38-126); ANION GAP 5 (5-19); ASPARTATE AMINO TRANSFERASE 42 U/L (17-59); BILIRUBIN,TOTAL 0.3 mg/dL (0.2-1.3); BLOOD UREA NITROGEN 6 mg/dL (7-20); CALCIUM 8.1 mg/dL (8.4-10.2); CARBON DIOXIDE 31 mmol/L (22-30); CHLORIDE 104 mmol/L (98-107); CREATINE KINASE 950 U/L (55-170); CREATININE RESULT 0.73 mg/dL (0.52-1.25); GLUCOSE 100 mg/dL (75-110); SODIUM 139.6 mmol/L (137-145); TOTAL PROTEIN 5.2 g/dL (6.3-8.2)
[2016-12-31 05:38] LABS: ARTERIAL BLOOD BASE EXCESS 1.2 mmol/L; ARTERIAL BLOOD O2 SATURATION 95.3 % (94-98)
--- NOTE | 2016-12-31 07:50 | PDOC PROGRESS REPORT ---
Subjective Progress Note for:: 12/31/16 Subjective:: Patient underwent bronchoscopy yesterday and his respiratory status is very much improved Is now oxygenating well at 40% FiO2 His blood pressure is lower And he hasn't had any arrhythmia He is tolerating tube feedings well Attempt a to her wean rocuronium will be made today if possible Physical Exam Vital Signs: Temp Pulse Resp BP Pulse Ox 98.6 F 87 18 105/58 L 97 12/31/16 02:00 12/31/16 03:16 12/31/16 06:01 12/31/16 06:01 12/31/16 06:01 Intake & Output 12/30/16 12/31/16 01/01/17 00:59 00:59 00:59 Intake Total 4768 7353 2637 Output Total 3781 2065 215 Balance 983 5288 2422 Weight 93 kg 95.4 kg 100.5 kg General appearance: PRESENT: well-developed, well-nourished Head exam: PRESENT: atraumatic, normocephalic Eye exam: PRESENT: conjunctiva pink, EOMI, PERRLA. ABSENT: scleral icterus Ear exam: PRESENT: normal external ear exam Mouth exam: PRESENT: moist, tongue midline Neck exam: ABSENT: carotid bruit, JVD, lymphadenopathy, thyromegaly Respiratory exam: PRESENT: decreased breath sounds, rhonchi. ABSENT: rales, wheezes Cardiovascular exam: PRESENT: RRR. ABSENT: diastolic murmur, rubs, systolic murmur Pulses: PRESENT: normal dorsalis pedis pul Vascular exam: PRESENT: normal capillary refill GI/Abdominal exam: PRESENT: normal bowel sounds, soft. ABSENT: distended, guarding, mass, organolmegaly, rebound, tenderness Rectal exam: PRESENT: deferred Extremities exam: PRESENT: full ROM. ABSENT: calf tenderness, clubbing, pedal edema Neurological exam: PRESENT: other - Sedated and paralyzed Skin exam: PRESENT: dry, intact, warm. ABSENT: cyanosis, rash Results Laboratory Results: 12/31/16 04:26 12/31/16 04:26 12/30/16 12/31/16 12/31/16 11:52 04:26 04:26 WBC 6.3 RBC 3.68 L Hgb 11.6 L D Hct 34.9 L MCV 95 MCH 31.5 MCHC 33.3 RDW 14.1 H Plt Count 139 L Seg Neutrophils % 69.5 Lymphocytes % 14.5 Monocytes % 13.0 Eosinophils % 2.3 Basophils % 0.7 Absolute Neutrophils 4.4 Absolute Lymphocytes 0.9 Absolute Monocytes 0.8 Absolute Eosinophils 0.1 Absolute Basophils 0.0 Carbonic Acid HCO3/H2CO3 Ratio ABG pH ABG pCO2 ABG pO2 ABG HCO3 ABG O2 Saturation ABG Base Excess FiO2 Sodium 139.6 Potassium 4.0 Chloride 104 Carbon Dioxide 31 H Anion Gap 5 BUN 6 L Creatinine 0.73 Est GFR ( Amer) > 60 Est GFR (Non-Af Amer) > 60 Glucose 100 Calcium 8.1 L Total Bilirubin 0.3 AST 42 ALT 49 Alkaline Phosphatase 56 Total Protein 5.2 L Albumin 2.6 L Fluid Type BRONCHIAL WASH Fluid Source LUNG Fluid Color STRAW Fluid Appearance CLOUDY Fluid Viscosity SLIGHTLY VISCOUS Fluid WBC 798 Fluid RBC 2 12/31/16 05:16 WBC RBC Hgb Hct MCV MCH MCHC RDW Plt Count Seg Neutrophils % Lymphocytes % Monocytes % Eosinophils % Basophils % Absolute Neutrophils Absolute Lymphocytes Absolute Monocytes Absolute Eosinophils Absolute Basophils Carbonic Acid 1.56 H HCO3/H2CO3 Ratio 17:1 ABG pH 7.35 ABG pCO2 51.7 H ABG pO2 81.1 ABG HCO3 27.6 H ABG O2 Saturation 95.3 ABG Base Excess 1.2 FiO2 40% Sodium Potassium Chloride Carbon Dioxide Anion Gap BUN Creatinine Est GFR ( Amer) Est GFR (Non-Af Amer) Glucose Calcium Total Bilirubin AST ALT Alkaline Phosphatase Total Protein Albumin Fluid Type Fluid Source Fluid Color Fluid Appearance Fluid Viscosity Fluid WBC Fluid RBC 12/28/16 12/28/16 12/29/16 21:44 21:44 03:57 Creatine Kinase 4118 H 3091 H CK-MB (CK-2) 4.56 H Troponin I 0.015 12/29/16 12/29/16 12/29/16 03:57 03:57 08:24 Creatine Kinase Cancelled 2731 H CK-MB (CK-2) 4.36 Troponin I < 0.012 12/29/16 12/31/16 08:24 04:26 Creatine Kinase 950 H CK-MB (CK-2) 3.77 Troponin I < 0.012 Impressions: Chest/Abdomen CTA 12/28/16 00:00 IMPRESSION: Small areas of patchy consolidation are present in the right middle and right upper lobes.. NO PULMONARY EMBOLI. Head CT 12/28/16 17:03 IMPRESSION: No acute intracranial findings.Small amounts of fluid are present in the all the paranasal sinuses consistent with acute disease. Chest X-Ray 12/31/16 06:00 IMPRESSION: Endotracheal tube tip at the level of the clavicular heads, 6 to 7 cm above the brandon. No focal infiltrates. No pleural effusion. No pneumothorax. Assessment & Plan - Diagnosis (1) Metabolic encephalopathy Is this a current diagnosis for this admission?: YesPlan: Patient is paralyzed and sedated Impossible to evaluate his metabolic encephalopathy Encephalopathy likely secondary to alcohol withdrawal Neuroleptic malignant syndrome cannot be ruled out Sepsis secondary to pneumonia likely Patient is still treated empirically for meningitis Continue antibiotics Patient to be reevaluated in 24-48 hours (2) Alcohol withdrawal Qualifiers: Complication of substance-induced condition: with delirium Qualified Code(s): F10.231 - Alcohol dependence with withdrawal delirium Is this a current diagnosis for this admission?: Yes (3) Sepsis Qualifiers: Sepsis type: sepsis due to unspecified organism Qualified Code(s): A41.9 - Sepsis, unspecified organism Is this a current diagnosis for this admission?: YesPlan: Continue broad-spectrum antibiotics we have added clindamycin yesterday (4) On mechanically assisted ventilation Is this a current diagnosis for this admission?: Yes (5) Rhabdomyolysis Is this a current diagnosis for this admission?: YesPlan: Is improving CPKs now in the 900 range Renal function is intact (6) GI bleed Qualifiers: GI bleed type/associated pathology: unspecified gastrointestinal hemorrhage type Qualified Code(s): K92.2 - Gastrointestinal hemorrhage, unspecified Is this a current diagnosis for this admission?: YesPlan: Was secondary to esophageal ulcer Continue Protonix , continue Carafate (7) Bronchospasm Is this a current diagnosis for this admission?: Yes (8) On tube feeding diet Is this a current diagnosis for this admission?: YesPlan: Feedings well tolerated Continue oxepa as ordered - Time Critical Time spent with patient: 25-34 minutes
[2016-12-31] MEDS: NORMAL SALINE 1000 ML 1,000 ML IV PRN (09:26)
[2016-12-31] MEDS: NORMAL SALINE 1000 ML 1,000 ML with POTASSIUM CHLORIDE 20 MEQ, MAGNESIUM SULFATE 8 MEQ,... IV PRN ×5 (09:27)
[2016-12-31] MEDS: LISINOPRIL 10 MG TABLET NG SCH ×2 (09:27→21:21)
[2016-12-31] MEDS: PANTOPRAZOLE SODIUM 40 MG VIAL IV SCH ×2 (09:27→21:18)
[2016-12-31] MEDS: ENOXAPARIN SODIUM INJ 40 MG/0.4 ML DISP.SYRIN SUBCUT SCH (09:28)
[2016-12-31] MEDS: MORPHINE SULFATE 10 MG/ML INJ IV PRN ×2 (09:30→20:11)
[2016-12-31] MEDS: CEFTRIAXONE 2 GM/D5W RTU 50 ML IV SCH ×2 (09:30→21:19)
[2016-12-31] MEDS: AMLODIPINE BESYLATE 10 MG TABLET NG SCH (09:31)
[2017-01-01] MEDS: SUCRALFATE SUSP 1 GM/10 ML UDCUP NG SCH ×4 (00:18→17:15)
[2017-01-01] MEDS: NORMAL SALINE 1000 ML 1,000 ML IV PRN (00:18)
[2017-01-01] MEDS: MIDAZOLAM HCL 100 ML IV PRN ×3 (01:49→21:22)
[2017-01-01] MEDS: PROPOFOL 100 ML IV PRN ×7 (01:49→21:22)
[2017-01-01] MEDS: ACYCLOVIR SODIUM 800 MG in NORMAL SALINE 250 ML IV SCH (01:51)
[2017-01-01] MEDS: IPRATROPIUM/ALBUTEROL 0.5-2.5 MG/3 ML AMPUL NEB SCH ×4 (02:13→19:49)
[2017-01-01] MEDS: ACETYLCYSTEINE 10% NEB 400 MG/4 ML VIAL NEB SCH ×4 (02:13→19:49)
[2017-01-01] MEDS: CLINDAMYCIN 600 MG/D5W RTU 600 MG/50 ML RTUPB IV SCH ×3 (03:56→19:58)
[2017-01-01] MEDS: VANCOMYCIN HCL 1,500 MG in DEXTROSE 5%-WATER 250 ML IV SCH (05:02)
[2017-01-01 05:37] LABS: ARTERIAL BLOOD BASE EXCESS 3.4 mmol/L; ARTERIAL BLOOD O2 SATURATION 94.4 % (94-98)
[2017-01-01 06:32] LABS: ABSOLUTE BASOPHILS # (AUTO) 0.1 10^3/uL (0.0-0.2); ABSOLUTE EOSINOPHILS # (AUTO) 0.4 10^3/uL (0.0-0.6); ABSOLUTE MONOCYTES (AUTO) 0.8 10^3/uL (0.1-1.4); ABSOLUTE NEUT (AUTO) 2.8 10^3/uL (1.7-8.2); BASOPHILS % (AUTO) 1.1 % (0-2); EOSINOPHILS % (AUTO) 7.5 % (0-6); HEMATOCRIT 34.3 % (37.9-51.0); HEMOGLOBIN 11.5 g/dL (13.5-17.0); HGB HCT DIFFERENCE 0.2; LYMPHOCYTES % (AUTO) 19.6 % (13-45); MEAN CORPUSCULAR HEMOGLOBIN 31.7 pg (27.0-33.4); MEAN CORPUSCULAR HGB CONC 33.6 g/dL (32.0-36.0); MEAN CORPUSCULAR VOLUME 94 fl (80-97); MONOCYTES % (AUTO) 16.1 % (3-13); RED BLOOD COUNT 3.64 10^6/uL (4.35-5.55); RED CELL DISTRIBUTION WIDTH 14.5 % (11.5-14.0); SEGMENTED NEUTROPHILS % (AUTO) 55.7 % (42-78)
[2017-01-01 06:33] LABS: ANION GAP 7 (5-19); BLOOD UREA NITROGEN 8 mg/dL (7-20); CALCIUM 8.5 mg/dL (8.4-10.2); CARBON DIOXIDE 29 mmol/L (22-30); CHLORIDE 104 mmol/L (98-107); CREATININE RESULT 0.62 mg/dL (0.52-1.25); GLUCOSE 92 mg/dL (75-110); POTASSIUM 3.8 mmol/L (3.6-5.0); SODIUM 139.8 mmol/L (137-145)
--- NOTE | 2017-01-01 07:46 | PDOC PROGRESS REPORT ---
Subjective Progress Note for:: 01/01/17 Subjective:: Patient is doing extremely well His mentation was appropriate when the sedation was withdrawn Rocuronium has been discontinued Patient's balance is to a positive for about 10 KG A lot of secretions are now suction from the ET tube Physical Exam Vital Signs: Temp Pulse Resp BP Pulse Ox 97.9 F 78 18 128/82 H 98 01/01/17 06:00 01/01/17 04:00 01/01/17 06:01 01/01/17 06:01 01/01/17 06:01 Intake & Output 12/31/16 01/01/17 01/02/17 00:59 00:59 00:59 Intake Total 7353 5963 2226 Output Total 2065 1509 800 Balance 5288 4454 1426 Weight 95.4 kg 100.5 kg 103.2 kg General appearance: PRESENT: no acute distress, well-developed, well-nourished Head exam: PRESENT: atraumatic, normocephalic Eye exam: PRESENT: conjunctiva pink, EOMI, PERRLA. ABSENT: scleral icterus Ear exam: PRESENT: normal external ear exam Mouth exam: PRESENT: moist, tongue midline Neck exam: ABSENT: carotid bruit, JVD, lymphadenopathy, thyromegaly Respiratory exam: PRESENT: rhonchi, wheezes. ABSENT: rales Cardiovascular exam: PRESENT: RRR. ABSENT: diastolic murmur, rubs, systolic murmur Pulses: PRESENT: normal dorsalis pedis pul Vascular exam: PRESENT: normal capillary refill GI/Abdominal exam: PRESENT: normal bowel sounds, soft. ABSENT: distended, guarding, mass, organolmegaly, rebound, tenderness Rectal exam: PRESENT: deferred Extremities exam: PRESENT: full ROM. ABSENT: calf tenderness, clubbing, pedal edema Skin exam: PRESENT: dry, intact, warm. ABSENT: cyanosis, rash Results Laboratory Results: 01/01/17 05:28 01/01/17 05:28 01/01/17 01/01/17 01/01/17 05:18 05:28 05:28 WBC 5.0 RBC 3.64 L Hgb 11.5 L Hct 34.3 L MCV 94 MCH 31.7 MCHC 33.6 RDW 14.5 H Plt Count 144 L Seg Neutrophils % 55.7 Lymphocytes % 19.6 Monocytes % 16.1 H Eosinophils % 7.5 H Basophils % 1.1 Absolute Neutrophils 2.8 Absolute Lymphocytes 1.0 Absolute Monocytes 0.8 Absolute Eosinophils 0.4 Absolute Basophils 0.1 Carbonic Acid 1.32 HCO3/H2CO3 Ratio 21:1 ABG pH 7.43 ABG pCO2 43.8 ABG pO2 69.9 L ABG HCO3 28.3 H ABG O2 Saturation 94.4 ABG Base Excess 3.4 FiO2 35% Sodium 139.8 Potassium 3.8 Chloride 104 Carbon Dioxide 29 Anion Gap 7 BUN 8 Creatinine 0.62 Est GFR ( Amer) > 60 Est GFR (Non-Af Amer) > 60 Glucose 92 Calcium 8.5 12/28/16 15:33 Sputum Gram Stain - Final 12/28/16 12/28/16 12/29/16 21:44 21:44 03:57 Creatine Kinase 4118 H 3091 H CK-MB (CK-2) 4.56 H Troponin I 0.015 12/29/16 12/29/16 12/29/16 03:57 03:57 08:24 Creatine Kinase Cancelled 2731 H CK-MB (CK-2) 4.36 Troponin I < 0.012 12/29/16 12/31/16 08:24 04:26 Creatine Kinase 950 H CK-MB (CK-2) 3.77 Troponin I < 0.012 Impressions: Chest/Abdomen CTA 12/28/16 00:00 IMPRESSION: Small areas of patchy consolidation are present in the right middle and right upper lobes.. NO PULMONARY EMBOLI. Head CT 12/28/16 17:03 IMPRESSION: No acute intracranial findings.Small amounts of fluid are present in the all the paranasal sinuses consistent with acute disease. Chest X-Ray 12/31/16 06:00 IMPRESSION: Endotracheal tube tip at the level of the clavicular heads, 6 to 7 cm above the brandon. No focal infiltrates. No pleural effusion. No pneumothorax. Assessment & Plan - Diagnosis (1) Metabolic encephalopathy Is this a current diagnosis for this admission?: YesPlan: Secondary to sepsis or alcohol withdrawal or post ictal state Has improved It appears that the patient is awake and alert when they sedation is withdrawn Is very unlikely that the patient has meningitis Source of SEPSIS likely was likely aspiration pneumonia EEG will be performed when patient is off sedation and extubated (2) Alcohol withdrawal Qualifiers: Complication of substance-induced condition: with delirium Qualified Code(s): F10.231 - Alcohol dependence with withdrawal delirium Is this a current diagnosis for this admission?: YesPlan: Continue Versed drip Continue thiamine (3) Sepsis Qualifiers: Sepsis type: sepsis due to unspecified organism Qualified Code(s): A41.9 - Sepsis, unspecified organism Is this a current diagnosis for this admission?: YesPlan: All cultures are negative so far Continue clindamycin IV We will discontinue ceftriaxone and vancomycin at this time (4) On mechanically assisted ventilation Is this a current diagnosis for this admission?: Yes (5) Rhabdomyolysis Is this a current diagnosis for this admission?: YesPlan: Has resolved CPK K elevation may have been related to an NMS (6) GI bleed Qualifiers: GI bleed type/associated pathology: unspecified gastrointestinal hemorrhage type Qualified Code(s): K92.2 - Gastrointestinal hemorrhage, unspecified Is this a current diagnosis for this admission?: YesPlan: Resolved Secondary to esophageal ulcer Continue Protonix Continue Carafate (7) Bronchospasm Is this a current diagnosis for this admission?: Yes (8) On tube feeding diet Is this a current diagnosis for this admission?: YesPlan: Tube feedings are on hold as patient was vomiting yesterday We will keep them on hold for another day, as we hope that patient will be extubated within 24-48 hours and diet may be initiated (9) Fluid overload Qualifiers: Hypervolemia type: unspecified Qualified Code(s): E87.70 - Fluid overload, unspecified Is this a current diagnosis for this admission?: YesPlan: We'll diurese - Time Critical Time spent with patient: 25-34 minutes
[2017-01-01] MEDS ORDERED: FUROSEMIDE INJ/PF 40 MG/4 ML SDV IV ONE (08:15)
[2017-01-01] MEDS: ENOXAPARIN SODIUM INJ 40 MG/0.4 ML DISP.SYRIN SUBCUT SCH (09:27)
[2017-01-01] MEDS: AMLODIPINE BESYLATE 10 MG TABLET NG SCH (09:56)
[2017-01-01] MEDS: PANTOPRAZOLE SODIUM 40 MG VIAL IV SCH ×2 (09:59→21:22)
[2017-01-01] MEDS: LISINOPRIL 10 MG TABLET NG SCH ×2 (09:59→21:21)
[2017-01-01] MEDS: MORPHINE SULFATE 10 MG/ML INJ IV PRN (09:59)
[2017-01-01] MEDS: NORMAL SALINE 1000 ML 1,000 ML with POTASSIUM CHLORIDE 20 MEQ, MAGNESIUM SULFATE 8 MEQ,... IV PRN ×5 (10:02)
[2017-01-01 15:37] LABS: A/G RATIO 1.3 (0.7-1.7); ALBUMIN 2 3.6 g/dL (2.9-4.4); ALPHA-1-GLOBULIN 2 0.3 g/dL (0.0-0.4); GAMMA GLOBULIN 0.8 g/dL (0.4-1.8); PROTEIN TOTAL SERUM 6.4 g/dL (6.0-8.5)
[2017-01-02] MEDS: SUCRALFATE SUSP 1 GM/10 ML UDCUP NG SCH ×3 (01:07→13:04)
[2017-01-02] MEDS: IPRATROPIUM/ALBUTEROL 0.5-2.5 MG/3 ML AMPUL NEB SCH ×4 (02:04→21:51)
[2017-01-02] MEDS: ACETYLCYSTEINE 10% NEB 400 MG/4 ML VIAL NEB SCH ×4 (02:04→21:51)
[2017-01-02] MEDS: PROPOFOL 100 ML IV PRN ×2 (02:08→08:51)
[2017-01-02] MEDS: NORMAL SALINE 1000 ML 1,000 ML IV PRN (02:08)
[2017-01-02] MEDS: CLINDAMYCIN 600 MG/D5W RTU 600 MG/50 ML RTUPB IV SCH ×3 (03:36→21:07)
[2017-01-02] MEDS: MIDAZOLAM HCL 100 ML IV PRN (03:37)
[2017-01-02 05:42] LABS: ARTERIAL BLOOD BASE EXCESS 2.4 mmol/L; ARTERIAL BLOOD O2 SATURATION 93.8 % (94-98)
[2017-01-02] MEDS ORDERED: SUCRALFATE SUSP 1 GM/10 ML UDCUP ONE (06:41)
[2017-01-02] MEDS: ENOXAPARIN SODIUM INJ 40 MG/0.4 ML DISP.SYRIN SUBCUT SCH (08:17)
[2017-01-02] MEDS: PANTOPRAZOLE SODIUM 40 MG VIAL IV SCH (09:14)
[2017-01-02] MEDS: AMLODIPINE BESYLATE 10 MG TABLET NG SCH (09:14)
[2017-01-02] MEDS: LISINOPRIL 10 MG TABLET NG SCH ×2 (09:14→21:08)
[2017-01-02] MEDS ORDERED: LORAZEPAM INJ 2 MG/1 ML VIAL IV PRN ×3 (12:55→20:49)
--- NOTE | 2017-01-02 15:32 | PDOC PROGRESS REPORT ---
Subjective Progress Note for:: 01/02/17 Subjective:: Reason for follow-up visit: Follow-up metabolic encephalopathy, and aspiration pneumonia, acute hypoxic respiratory failure, likely alcohol withdrawal Hospital course: "PRAMOD PRECIADO is a 46 year old male Brought to the ED altered agitated, tremulous Patient had to be intubated in the emergency room and placed on the Versed and propofol drip for sedation Further history is not available as family is not at the bedside Patient has had multiple visits to this emergency room with diagnosis of psychiatric illness, suicidal ideation, schizophrenia And alcohol abuse and withdrawal Patient was initially found to be febrile and a diagnosis of meningitis was entertained Spinal tap could not be performed and patient is empirically treated as an acute meningitis and sepsis He was subsequently admitted under hospitalist service to ICU" CT scan of the chest showed segmental atelectasis in the right middle and right upper lobes consistent with possible aspiration pneumonia for which he has received antibiotics per Dr. Judd. The patient remained intubated on mechanical ventilation until self extubation this morning. So far has been able to maintain his airway and adequate oxygenation though still requiring FiO2 of roughly 40%. Subjective: Patient remains confused and at times uncooperative with staff requiring soft restraints to prevent his pulling out lifelines. Staff know him from previous visits state this is his usual course. Review of systems: Unobtainable due to patient's mental state Physical Exam Vital Signs: Temp Pulse Resp BP Pulse Ox 98.6 F 108 H 20 167/110 H 95 01/02/17 12:00 01/02/17 14:15 01/02/17 14:15 01/02/17 14:00 01/02/17 14:15 Intake & Output 01/01/17 01/02/17 01/03/17 06:59 06:59 06:59 Intake Total 9437 7583 60 Output Total 7011 9737 4249 Balance 8832 -5073 -7591 Weight 103.2 kg 97.8 kg EXAM GENERAL: Disheveled, confused; well developed, well nourished; no obese; alert and awake but not oriented to person, place, time, or situation HEENT: normocephalic, atraumatic; no conjunctival injection, no scleral icterus ; oral mucosa moist; RESPIRATORY: no accessory muscle use, no increased WOB, good air entry bilaterally; no wheezes, rales, rhonchi; no inspiratory crackles CARDIO: no JVD; RRR; no systolic murmur; no tachycardia GI: soft; nondistended; normal bowel sounds; no hepato spleno megaly; no rebound, rigidity, guarding; nontender VASCULAR: no carotid bruit; no abdominal bruit; no pallor; 2+ radial, DP pulse ; normal capillary refill EXTREMITIES: no calf tender; no palpable cords in calf; no clubbing, cyanosis , bilateral ankle pedal edema PSYCH: Flat affect, agitated mood SKIN: warm; moist; no petechiae; no telengectasias; no jaundice; no rash NEURO: Moves all 4 extremities and will follow simple one-step commands, 2+ patellar reflexes bilaterally. Results Laboratory Results: 01/01/17 05:28 01/01/17 05:28 12/29/16 01/02/17 03:57 05:40 Carbonic Acid 1.19 HCO3/H2CO3 Ratio 22:1 ABG pH 7.45 ABG pCO2 39.4 ABG pO2 65.8 L ABG HCO3 26.5 H ABG O2 Saturation 93.8 L ABG Base Excess 2.4 FiO2 30% Total Protein 6.4 Albumin 3.6 12/30/16 11:52 Bronchial Washings Fungal Smear - Final 12/30/16 11:52 Bronchial Washings Fungal Smear - Final 12/30/16 11:52 Bronchial Washings Fungal Smear - Final 12/28/16 14:34 Blood Blood Culture - Final NO GROWTH IN 5 DAYS 12/30/16 11:52 Bronchial Washings Gram Stain - Final 12/30/16 11:52 Bronchial Washings Bronchial Washings Culture - Final NO GROWTH 3 DAYS 12/30/16 11:52 Bronchial Washings AFB Smear Concentration - Final 12/30/16 11:52 Bronchial Washings Acid Fast Bacilli Smear - Final 12/28/16 15:33 Sputum Gram Stain - Final 12/28/16 15:33 Sputum Sputum Culture - Final NORMAL PIOTR 12/28/16 12/28/16 12/29/16 21:44 21:44 03:57 Creatine Kinase 4118 H 3091 H CK-MB (CK-2) 4.56 H Troponin I 0.015 12/29/16 12/29/16 12/29/16 03:57 03:57 08:24 Creatine Kinase Cancelled 2731 H CK-MB (CK-2) 4.36 Troponin I < 0.012 12/29/16 12/31/16 08:24 04:26 Creatine Kinase 950 H CK-MB (CK-2) 3.77 Troponin I < 0.012 Impressions: Chest/Abdomen CTA 12/28/16 00:00 IMPRESSION: Small areas of patchy consolidation are present in the right middle and right upper lobes.. NO PULMONARY EMBOLI. Head CT 12/28/16 17:03 IMPRESSION: No acute intracranial findings.Small amounts of fluid are present in the all the paranasal sinuses consistent with acute disease. Chest X-Ray 01/02/17 00:00 IMPRESSION: NO ACUTE RADIOGRAPHIC FINDING IN THE CHEST. Status: Image reviewed by me - Chest x-ray reviewed by me and agree with radiology. Assessment & Plan - Diagnosis (1) Aspiration pneumonia Qualifiers: Aspiration pneumonia type: unspecified Laterality: right Lung location: middle lobe of lung Qualified Code(s): J69.0 - Pneumonitis due to inhalation of food and vomit Is this a current diagnosis for this admission?: YesPlan: Continue clindamycin, supplemental O2, pulmonary toilet this patient will tolerate. (2) Acute respiratory failure with hypoxia Is this a current diagnosis for this admission?: YesPlan: He self extubated this morning continue to monitor his respiratory status utilizing noninvasive positive pressure ventilation if possible and as needed (3) Alcohol withdrawal Qualifiers: Complication of substance-induced condition: with delirium Qualified Code(s): F10.231 - Alcohol dependence with withdrawal delirium Is this a current diagnosis for this admission?: YesPlan: Continue intermittent Ativan and careful monitoring in the ICU. Per staff, he has history of rapid decompensation and severe withdrawal symptoms. (4) Bronchospasm Is this a current diagnosis for this admission?: YesPlan: Resolved. Not evident on today's exam. (5) GI bleed Qualifiers: GI bleed type/associated pathology: unspecified gastrointestinal hemorrhage type Qualified Code(s): K92.2 - Gastrointestinal hemorrhage, unspecified Is this a current diagnosis for this admission?: YesPlan: Send stool for guaiac testing. Continue PPI and Carafate. Monitor H&H. No obvious source for overt blood loss at present. (6) Metabolic encephalopathy Is this a current diagnosis for this admission?: YesPlan: Likely multifactorial and largely related to his alcohol use. Acute meningitis ruled out per Dr. Judd, please see her notes. (7) Rhabdomyolysis Is this a current diagnosis for this admission?: YesPlan: Improved with IV fluids. Likely related to his chronic alcohol use. (8) Sepsis Qualifiers: Sepsis type: sepsis due to unspecified organism Qualified Code(s): A41.9 - Sepsis, unspecified organism Is this a current diagnosis for this admission?: YesPlan: Evidenced by tachypnea, tachycardia and source with the aspiration pneumonia. Improved - Time Time Spent with patient: 35 or more minutes Anticipated discharge: Other - Unclear - Plan Summary Plan Summary: Continue care in the ICU monitoring carefully for alcohol withdrawal symptoms. Follow up labs in the morning. Start physical therapy as patient will allow
--- NOTE | 2017-01-02 17:02 | PSYCHOLOGICAL NOTE ---
Psych Note - Psych Note Psych Note: Patient is a 46 year old male who has been admitted to [facility] Hospitalist[facility] due to acute alcohol withdrawal requiring intubation. Note, patient self extubated this morning and this afternoon is awake and able to engage in conversation. Patient is known to this clinician for multiple previous presentations while acutely intoxicated seeking assistance with SI and or detox treatment. Historically, patient would present overnight intoxicated well into the BAL of 300's range requesting assistance with detox or reporting SI. Patient would be clinically sober in the morning and deny suicidal ideations and further report not wanting treatment. Additionally, patient is known to have numerous barriers to treatment, to include no income, no insurance, no transportation, and few supports. 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 Patient states he had an "episode." Patient denies wanting to harm himself or anyone else. At this time it is unclear if the patient is guarded with information or not oriented to the circumstance prior to his arrival. Will attempt to gather collateral information and reevaluate at a later time. Person to Notify Morro Porter ([id number]) states the patient lives in the camper in front of his. Brother states the patient mostly stays to himself in the camper and works a little on the side. Brother reports that he does not really know what happened prior to the patient coming to the ED. Brother reports he was just told that the patient was going through alcohol withdrawals. He states the patient's girlfriend may know and provider her information, noted below. Patient's girlfriend, Perico Rasheed [phone] states: the patient walked to his nephews and they were at home and went to bed. She states around 02 or 03 in the morning he was running through the house, and attempted to open the window but broke it. He then sat on the bed, fell forward and hit his head on the tv. She states he got back up but then had a seizure. She states she called 911 and he was coherent when EMS left, and then they went back to bed; however, he had another seizure about 30-40 minutes later, and then started running around in the house disoriented yelling, etc. so she called 911 again. She states he had another seizure and this time was foaming in the mouth so he was brought in. She states he was trying to cut back on his ETOH intake and only had 2 shots that day. She states they have been dating for 2 months and was just made aware from his brother that he was schizophrenic. She denies that there was any sort of aggressive outburst, SI, or HI. She describes the events as the patient waking up from a nightmare and trying to get away, but experiencing seizure activity throughout the episode. Patient was alert and communicating. Mood was irritable with congruent affect. Patient denied suicidal/homicidal ideations, intent, plan, or means. Patient denies A/V H. Thought processes were limited and or guarded. Conversational speech was WNL for this patient. Intellectual abilities were estimated within average range. Attention and focus were poor. Insight, judgment, and impulse control were poor. 291.9 (F10.99) Unspecified Alcohol-Related Disorder 298.9 (F29) Unspecified Schizophrenia Spectrum and Other Psychotic Disorder, per history Will track patient and reevaluate again tomorrow, possibly to allow for additional time to orient post extubation.
[2017-01-02] MEDS: ACETAMINOPHEN SOLN 325 MG/10.15 ML UDCUP PO PRN (21:07)
[2017-01-02] MEDS: LORAZEPAM INJ 2 MG/1 ML VIAL IV PRN (21:08)
[2017-01-02] MEDS ORDERED: IPRATROPIUM/ALBUTEROL 0.5-2.5 MG/3 ML AMPUL NEB PRN (22:15)
[2017-01-03] MEDS ORDERED: SUCRALFATE SUSP 1 GM/10 ML UDCUP ONE (00:48)
[2017-01-03] MEDS: SUCRALFATE SUSP 1 GM/10 ML UDCUP NG SCH ×4 (01:09→17:10)
[2017-01-03] MEDS: LORAZEPAM INJ 2 MG/1 ML VIAL IV PRN ×3 (01:10→21:48)
[2017-01-03] MEDS: NORMAL SALINE 1000 ML 1,000 ML IV PRN (01:11)
[2017-01-03] MEDS: HYDRALAZINE HCL INJ/PF 20 MG/1 ML SDV IV PRN (02:24)
[2017-01-03 03:57] LABS: ABSOLUTE BASOPHILS # (AUTO) 0.1 10^3/uL (0.0-0.2); ABSOLUTE EOSINOPHILS # (AUTO) 0.3 10^3/uL (0.0-0.6); ABSOLUTE LYMPHOCYTES (AUTO) 1.7 10^3/uL (0.5-4.7); ABSOLUTE MONOCYTES (AUTO) 1.2 10^3/uL (0.1-1.4); BASOPHILS % (AUTO) 0.5 % (0-2); EOSINOPHILS % (AUTO) 2.8 % (0-6); HEMATOCRIT 40.3 % (37.9-51.0); HGB HCT DIFFERENCE 1.1; MEAN CORPUSCULAR HEMOGLOBIN 31.4 pg (27.0-33.4); MEAN CORPUSCULAR HGB CONC 34.1 g/dL (32.0-36.0); MEAN CORPUSCULAR VOLUME 92 fl (80-97); MONOCYTES % (AUTO) 10.3 % (3-13); RED BLOOD COUNT 4.39 10^6/uL (4.35-5.55); RED CELL DISTRIBUTION WIDTH 13.6 % (11.5-14.0); SEGMENTED NEUTROPHILS % (AUTO) 71.4 % (42-78)
[2017-01-03 03:59] LABS: PROTHROMBIN TIME 13.3 SEC (11.4-15.4)
[2017-01-03 04:10] LABS: WHITE BLOOD COUNT 11.3 10^3/uL (4.0-10.5)
[2017-01-03 04:11] LABS: HEMOGLOBIN 13.8 g/dL (13.5-17.0)
[2017-01-03 04:16] LABS: ALANINE AMINOTRANSFERASE 77 U/L (21-72); ALBUMIN 3.5 g/dL (3.5-5.0); ALKALINE PHOSPHATASE 71 U/L (38-126); ANION GAP 12 (5-19); ASPARTATE AMINO TRANSFERASE 127 U/L (17-59); BILIRUBIN,TOTAL 0.9 mg/dL (0.2-1.3); BLOOD UREA NITROGEN 11 mg/dL (7-20); CALCIUM 9.9 mg/dL (8.4-10.2); CARBON DIOXIDE 27 mmol/L (22-30); CHLORIDE 101 mmol/L (98-107); CREATININE RESULT 0.59 mg/dL (0.52-1.25); GLUCOSE 104 mg/dL (75-110); MAGNESIUM 1.8 mg/dL (1.6-2.3); PHOSPHORUS 3.7 mg/dL (2.5-4.5); POTASSIUM 3.9 mmol/L (3.6-5.0); TOTAL PROTEIN 6.8 g/dL (6.3-8.2)
[2017-01-03] MEDS: CLINDAMYCIN 600 MG/D5W RTU 600 MG/50 ML RTUPB IV SCH ×3 (05:04→19:42)
--- NOTE | 2017-01-03 08:04 | PDOC PROGRESS REPORT ---
Subjective Progress Note for:: 01/03/17 Subjective:: pathology has returned showing the presence of H.Pylori he does have esophageal ulceration likely to stasis of previously inserted OG tube no further bleeding is noted he will need to be treated patient does not want to be in the hospital will be very difficult at times he will need 2 week treatment with dual antibiotics of amoxicillin 1 gram po bid Biaxin 500mg po BID PPI daily along with Bismuth 262mg chewables BID if it is not likely that he will either start treatment or be able to complete then I would not start treatment since the organisms could become resistant due to incomplete treatment patient does have abnormal LFT's too, likely due to continuing alcohol use Physical Exam Vital Signs: Temp Pulse Resp BP Pulse Ox 98.3 F 111 H 24 H 153/102 H 85 L 01/03/17 04:00 01/02/17 23:00 01/03/17 06:01 01/03/17 06:00 01/03/17 06:01 Intake & Output 01/02/17 01/03/17 01/04/17 06:59 06:59 06:59 Intake Total 3688 2948 Output Total 5529 4228 Balance -8210 -2406 Weight 97.8 kg 91.3 kg General appearance: PRESENT: well-developed, well-nourished Head exam: PRESENT: atraumatic, normocephalic Eye exam: PRESENT: EOMI, PERRLA. ABSENT: nystagmus, periorbital swelling, scleral icterus Mouth exam: PRESENT: moist Neck exam: ABSENT: meningismus, tenderness, thyromegaly Respiratory exam: PRESENT: clear to auscultation hilda, symmetrical, unlabored Cardiovascular exam: PRESENT: RRR, +S1, +S2. ABSENT: gallop, rubs Pulses: PRESENT: normal carotid pulses GI/Abdominal exam: PRESENT: hypoactive bowel sounds, soft. ABSENT: rebound, rigid, tenderness Extremities exam: ABSENT: joint swelling Musculoskeletal exam: PRESENT: full ROM Neurological exam: PRESENT: alert, awake, oriented to time, reflexes normal, CN II-XII grossly intact Psychiatric exam: PRESENT: agitated Skin exam: PRESENT: normal color. ABSENT: mottled, pallor, petechiae, urticaria , vesicles Results Laboratory Results: 01/03/17 03:42 01/03/17 03:42 01/03/17 01/03/1717 03:42 03:42 03:42 WBC 11.3 H D RBC 4.39 Hgb 13.8 D Hct 40.3 MCV 92 MCH 31.4 MCHC 34.1 RDW 13.6 Plt Count 195 Seg Neutrophils % 71.4 Lymphocytes % 15.0 Monocytes % 10.3 Eosinophils % 2.8 Basophils % 0.5 Absolute Neutrophils 8.0 Absolute Lymphocytes 1.7 Absolute Monocytes 1.2 Absolute Eosinophils 0.3 Absolute Basophils 0.1 Sodium 140.0 Potassium 3.9 Chloride 101 Carbon Dioxide 27 Anion Gap 12 BUN 11 Creatinine 0.59 Est GFR ( Amer) > 60 Est GFR (Non-Af Amer) > 60 Glucose 104 Calcium 9.9 Phosphorus 3.7 Magnesium 1.8 Total Bilirubin 0.9 AST 127 H ALT 77 H Alkaline Phosphatase 71 Ammonia 14.9 Total Protein 6.8 Albumin 3.5 12/30/16 11:52 Bronchial Washings Fungal Smear - Final 12/30/16 11:52 Bronchial Washings Fungal Smear - Final 12/30/16 11:52 Bronchial Washings Fungal Smear - Final 12/28/16 14:34 Blood Blood Culture - Final NO GROWTH IN 5 DAYS 12/30/16 11:52 Bronchial Washings Gram Stain - Final 12/30/16 11:52 Bronchial Washings Bronchial Washings Culture - Final NO GROWTH 3 DAYS 12/30/16 11:52 Bronchial Washings AFB Smear Concentration - Final 12/30/16 11:52 Bronchial Washings Acid Fast Bacilli Smear - Final 12/28/16 12/28/16 12/29/16 21:44 21:44 03:57 Creatine Kinase 4118 H 3091 H CK-MB (CK-2) 4.56 H Troponin I 0.015 12/29/16 12/29/16 12/29/16 03:57 03:57 08:24 Creatine Kinase Cancelled 2731 H CK-MB (CK-2) 4.36 Troponin I < 0.012 12/29/16 12/31/16 08:24 04:26 Creatine Kinase 950 H CK-MB (CK-2) 3.77 Troponin I < 0.012 Impressions: Chest/Abdomen CTA 12/28/16 00:00 IMPRESSION: Small areas of patchy consolidation are present in the right middle and right upper lobes.. NO PULMONARY EMBOLI. Head CT 12/28/16 17:03 IMPRESSION: No acute intracranial findings.Small amounts of fluid are present in the all the paranasal sinuses consistent with acute disease. Chest X-Ray 01/02/17 00:00 IMPRESSION: NO ACUTE RADIOGRAPHIC FINDING IN THE CHEST. Assessment & Plan - Diagnosis (1) Alcohol withdrawal Qualifiers: Complication of substance-induced condition: with delirium Qualified Code(s): F10.231 - Alcohol dependence with withdrawal delirium Is this a current diagnosis for this admission?: YesPlan: substance abuse counselling however with patient's history, ? if he will continue destructive behavior (2) GI bleed Qualifiers: GI bleed type/associated pathology: unspecified gastrointestinal hemorrhage type Qualified Code(s): K92.2 - Gastrointestinal hemorrhage, unspecified Is this a current diagnosis for this admission?: YesPlan: stable esophageal ulcer stable PPI (3) Abnormal LFTs Plan: due to etoh hepatitis continue to follow (4) Helicobacter pylori gastritis Plan: recommendations as noted above again would not start medications if there is any chance there could be non compliance
[2017-01-03] MEDS: ENOXAPARIN SODIUM INJ 40 MG/0.4 ML DISP.SYRIN SUBCUT SCH (09:16)
[2017-01-03] MEDS: PANTOPRAZOLE SODIUM 40 MG VIAL IV SCH ×2 (10:50→17:10)
[2017-01-03] MEDS: LISINOPRIL 10 MG TABLET PO SCH ×2 (10:50→21:48)
[2017-01-03] MEDS: LORAZEPAM 0.5 MG TABLET PO SCH ×2 (10:51→17:10)
[2017-01-03] MEDS: AMLODIPINE BESYLATE 10 MG TABLET PO SCH (10:51)
--- NOTE | 2017-01-03 14:23 | PSYCHOLOGICAL NOTE ---
Psych Note - Psych Note Psych Note: Conducted check in with patient who is a 46 year old male admitted to [facility] and is now 24 hours post self-extubation. Patient today is accompanied by his girlfriend and another female friend or family members. Patient provided verbal consent so speak in front of these individuals. Patient states he is feeling well. Discussed with patient management of his psychiatric illness, to include medication compliance, engaging in treatment, and maintaining sobriety. Patient states, "it is worth a try." Discussed with patient how he would manage the afore mentioned concerns. Patient states he does not have a plan on how he would follow up. Patient was unable to verbalize any previous medications, and could not or would not verbalize his specific symptoms. Note, patient's girlfriend did engage in conversation as well , and reported they do not have transportation. She did add that his primary symptom was paranoia, in relation to "the outside" and "other people." Neither girlfriend or patient could or would identify a specific period of sobriety from alcohol which included paranoia. Patient is A&O. Mood is euthymic with smiling affect. Patient denied suicidal/ homicidal ideations, intent, plan, or means. Patient denies A/V h; delusions not noted. Thought processes were organized. Conversational speech was WNL for this patient. Intellectual abilities were estimated within average range. Attention and focus were fair. Insight, judgment, and impulse control were poor. 291.9 (F10.99) Unspecified Alcohol-Related Disorder 298.9 (F29) Unspecified Schizophrenia Spectrum and Other Psychotic Disorder, per history Patient is psychiatrically cleared for discharge. Patient has the necessary resources as he has been provided them numerous times in the past, as well as has prior treatment history with [facility]. Patient is not considered a good candidate for further psychiatric inpatient treatment or pharmacological intervention due to his chronic alcohol abuse, treatment noncompliance, and poor insight which is well documented throughout his chart. Patient is strongly encouraged to follow up with his identified provider, [facility] and pursue services to assist him with maintaining sobriety, and treating his reported psychiatric illness. Patient denies suicidal/homicidal ideations. I consulted with Dr. Cash in regards to the care and management of this patient. Hospitalist made aware of disposition and recommendations.
--- NOTE | 2017-01-03 15:58 | PDOC PROGRESS REPORT ---
Subjective Progress Note for:: 01/03/17 Subjective:: Reason for follow-up visit: Follow-up metabolic encephalopathy, and aspiration pneumonia, acute hypoxic respiratory failure, likely alcohol withdrawal Hospital course: "PRAMOD PRECIADO is a 46 year old male Brought to the ED altered agitated, tremulous Patient had to be intubated in the emergency room and placed on the Versed and propofol drip for sedation Further history is not available as family is not at the bedside Patient has had multiple visits to this emergency room with diagnosis of psychiatric illness, suicidal ideation, schizophrenia And alcohol abuse and withdrawal Patient was initially found to be febrile and a diagnosis of meningitis was entertained Spinal tap could not be performed and patient is empirically treated as an acute meningitis and sepsis He was subsequently admitted under hospitalist service to ICU" CT scan of the chest showed segmental atelectasis in the right middle and right upper lobes consistent with possible aspiration pneumonia for which he has received antibiotics per Dr. Judd. The patient remained intubated on mechanical ventilation until self extubation January 02. So far has been able to maintain his airway and adequate oxygenation though still requiring supplemental O2. Subjective: Patient remains confused but no longer uncooperative with staff or requiring soft restraints. Staff know him from previous visits state this is his usual course. Patient reports attempts at alcohol cessation prior to his presentation, acknowledging that he cut back to 2 shots of hard liquor daily which is a significant reduction in his usual daily dose. He also reports alcohol withdrawal seizures every time his attempted to do this in the past and usually presents to the hospital in similar fashion. This likely accounts for his presentation and aspiration pneumonia. He denies chest pain, palpitations, nausea or vomiting, fevers or chills. He reports breathlessness with minimal exertion. He is much more calm, cooperative and interactive with staff. ROS: per HPI plus a total of 10 systems reviewed, pertinent positives and negatives noted above, remaining systems negative. Physical Exam Vital Signs: Temp Pulse Resp BP Pulse Ox 98.1 F 87 16 139/94 H 100 01/03/17 12:00 01/03/17 12:00 01/03/17 15:00 01/03/17 12:00 01/03/17 12:00 Intake & Output 01/02/17 01/03/17 01/04/17 06:59 06:59 06:59 Intake Total 8985 0808 1021 Output Total 6965 4225 800 Balance -3280 -1277 221 Weight 97.8 kg 91.3 kg EXAM GENERAL: Disheveled, not as confused; well developed, well nourished; no obese; alert and awake and oriented to person, place, time, and situation HEENT: normocephalic, atraumatic; no conjunctival injection, no scleral icterus ; oral mucosa moist; RESPIRATORY: no accessory muscle use, no increased WOB, good air entry bilaterally; no wheezes, rales, rhonchi; no inspiratory crackles; still on 2 L supplemental O2 CARDIO: no JVD; RRR; no systolic murmur; no tachycardia GI: soft; nondistended; normal bowel sounds; no hepato spleno megaly; no rebound, rigidity, guarding; nontender to palpation VASCULAR: no carotid bruit; no abdominal bruit; no pallor; 2+ radial, DP pulse ; normal capillary refill EXTREMITIES: no calf tender; no palpable cords in calf; no clubbing, cyanosis ; 1+ bilateral ankle pedal edema PSYCH: Flat affect, calm mood SKIN: warm; moist; no petechiae; no telengectasias; no jaundice; no rash NEURO: Moves all 4 extremities and will follow simple one-step commands, 2+ patellar reflexes bilaterally. Results Laboratory Results: 01/03/17 03:42 01/03/17 03:42 01/03/17 01/03/17 01/03/17 03:42 03:42 03:42 WBC 11.3 H D RBC 4.39 Hgb 13.8 D Hct 40.3 MCV 92 MCH 31.4 MCHC 34.1 RDW 13.6 Plt Count 195 Seg Neutrophils % 71.4 Lymphocytes % 15.0 Monocytes % 10.3 Eosinophils % 2.8 Basophils % 0.5 Absolute Neutrophils 8.0 Absolute Lymphocytes 1.7 Absolute Monocytes 1.2 Absolute Eosinophils 0.3 Absolute Basophils 0.1 Sodium 140.0 Potassium 3.9 Chloride 101 Carbon Dioxide 27 Anion Gap 12 BUN 11 Creatinine 0.59 Est GFR ( Amer) > 60 Est GFR (Non-Af Amer) > 60 Glucose 104 Calcium 9.9 Phosphorus 3.7 Magnesium 1.8 Total Bilirubin 0.9 AST 127 H ALT 77 H Alkaline Phosphatase 71 Ammonia 14.9 Total Protein 6.8 Albumin 3.5 12/30/16 11:52 Bronchial Washings Fungal Smear - Final 12/30/16 11:52 Bronchial Washings Fungal Smear - Final 12/30/16 11:52 Bronchial Washings Fungal Smear - Final 12/28/16 14:34 Blood Blood Culture - Final NO GROWTH IN 5 DAYS 12/28/16 12/28/16 12/29/16 21:44 21:44 03:57 Creatine Kinase 4118 H 3091 H CK-MB (CK-2) 4.56 H Troponin I 0.015 12/29/16 12/29/16 12/29/16 03:57 03:57 08:24 Creatine Kinase Cancelled 2731 H CK-MB (CK-2) 4.36 Troponin I < 0.012 12/29/16 12/31/16 08:24 04:26 Creatine Kinase 950 H CK-MB (CK-2) 3.77 Troponin I < 0.012 Labs reviewed. Pathology came back positive for H. pylori. Overall trend of his labs are reassuring. Impressions: Chest/Abdomen CTA 12/28/16 00:00 IMPRESSION: Small areas of patchy consolidation are present in the right middle and right upper lobes.. NO PULMONARY EMBOLI. Head CT 12/28/16 17:03 IMPRESSION: No acute intracranial findings.Small amounts of fluid are present in the all the paranasal sinuses consistent with acute disease. Chest X-Ray 01/02/17 00:00 IMPRESSION: NO ACUTE RADIOGRAPHIC FINDING IN THE CHEST. Status: Imported from PACS - Reports reviewed previously Assessment & Plan - Diagnosis (1) Aspiration pneumonia Qualifiers: Aspiration pneumonia type: unspecified Laterality: right Lung location: middle lobe of lung Qualified Code(s): J69.0 - Pneumonitis due to inhalation of food and vomit Is this a current diagnosis for this admission?: YesPlan: Improved. Continue clindamycin, supplemental O2, pulmonary toilet as this patient will tolerate. (2) Acute respiratory failure with hypoxia Is this a current diagnosis for this admission?: YesPlan: Improved. As above (3) Alcohol withdrawal Qualifiers: Complication of substance-induced condition: with delirium Qualified Code(s): F10.231 - Alcohol dependence with withdrawal delirium Is this a current diagnosis for this admission?: YesPlan: Schedule low-dose and Continue intermittent Ativan. Okay for transfer to floor. Per staff, he has history of rapid decompensation and severe withdrawal symptoms. Per patient has a history of alcohol withdrawal seizures. (4) Bronchospasm Is this a current diagnosis for this admission?: YesPlan: Resolved. Not evident on today's exam. (5) GI bleed Qualifiers: GI bleed type/associated pathology: unspecified gastrointestinal hemorrhage type Qualified Code(s): K92.2 - Gastrointestinal hemorrhage, unspecified Is this a current diagnosis for this admission?: YesPlan: PUD with H. Pylori proven on Bx. ideally will need typical treatment is unclear whether the patient would be compliant thereby raising his risk of antibiotic resistance. For now we'll continue PPI therapy. Appreciate gastroenterology's input. (6) Metabolic encephalopathy Is this a current diagnosis for this admission?: YesPlan: Improved. Likely multifactorial and largely related to his alcohol use and withdrawal seizure at presentation. Acute meningitis ruled out per Dr. Judd, please see her notes. (7) Rhabdomyolysis Is this a current diagnosis for this admission?: YesPlan: Improved with IV fluids. Likely related to his chronic alcohol use. Check again in a.m. (8) Sepsis Qualifiers: Sepsis type: sepsis due to unspecified organism Qualified Code(s): A41.9 - Sepsis, unspecified organism Is this a current diagnosis for this admission?: YesPlan: Evidenced by tachypnea, tachycardia and source with the aspiration pneumonia. Improved with the above treatment. Continue same. - Time Time Spent with patient: 35 or more minutes
[2017-01-04] MEDS: SUCRALFATE SUSP 1 GM/10 ML UDCUP NG SCH ×2 (00:14→06:11)
[2017-01-04] MEDS: CLINDAMYCIN 600 MG/D5W RTU 600 MG/50 ML RTUPB IV SCH (04:29)
[2017-01-04] MEDS: ENOXAPARIN SODIUM INJ 40 MG/0.4 ML DISP.SYRIN SUBCUT SCH (08:06)
[2017-01-04] MEDS: PANTOPRAZOLE SODIUM 40 MG VIAL IV SCH (09:25)
[2017-01-04] MEDS ORDERED: ACETAMINOPHEN 325 MG TABLET ONE (09:37)
[2017-01-04] MEDS: AMLODIPINE BESYLATE 10 MG TABLET PO SCH (09:42)
[2017-01-04] MEDS: LORAZEPAM 0.5 MG TABLET PO SCH (09:43)
[2017-01-04] MEDS: LISINOPRIL 10 MG TABLET PO SCH (09:43)
[2017-01-04] MEDS ORDERED: INFLUENZA ADLT QUAD (36MOS+) 2016-17 VAC 0.5 ML SYR IM PRN (11:12)
[2017-01-04 11:14] VITALS: BP 136/86
--- NOTE | 2017-01-04 17:28 | PDOC DISCHARGE SUMMARY ---
General - Admit/Disc Date/PCP Admission Date/Primary Care Provider: 12/28/16 13:14 Discharge Date: 01/04/17 - Discharge Diagnosis (1) Aspiration pneumonia Is this a current diagnosis for this admission?: YesSummary: Successfully extubated several days ago and weaned off supplemental O2 he is currently 98% on room air for this provider at the bedside. He is to continue a 10 day course of Augmentin with rescue inhaler and a course of systemic steroids. (2) Acute respiratory failure with hypoxia Is this a current diagnosis for this admission?: YesSummary: Resolved. As above (3) Alcohol withdrawal Is this a current diagnosis for this admission?: YesSummary: Continue a gradual Ativan taper over the course of the next several days to prevent alcohol withdrawal seizures. He was once again counseled on alcohol cessation. (4) Bronchospasm Is this a current diagnosis for this admission?: YesSummary: Improved though not completely resolved. Continue course of systemic steroids and rescue inhaler as needed. (5) GI bleed Is this a current diagnosis for this admission?: YesSummary: Secondary to peptic ulcer discovered on endoscopy. He is also H. pylori positive however it seems clear to me by his behaviors and the financial stressors he suffers that he will not be compliant with appropriate medical regimen and is more likely to induce drug resistance than eradication. Therefore he'll be treated with PPI therapy and Carafate for the next 30 days. (6) Metabolic encephalopathy Is this a current diagnosis for this admission?: YesSummary: Resolved. Back to baseline. (7) Rhabdomyolysis Is this a current diagnosis for this admission?: YesSummary: Alcohol induced. Improved. Urine output is good, renal function is good. Instructed to maintain adequate hydration preferably with water and not alcohol. (8) Sepsis Is this a current diagnosis for this admission?: YesSummary: Resolved - Additional Information Resuscitation Status: Full Code Discharge Diet: As Tolerated Discharge Activity: Activity As Tolerated Home Medications: Acetaminophen [Tylenol Soln 325 mg/10.15 ml Udcup] 650 mg PO Q4HP PRN udc 01/04 Albuterol Sulfate [Proair Respiclick] 90 mcg IH QIDP PRN #1 aer.pow.[email or web address] 01/04/17 Amlodipine Besylate [Norvasc 10 mg Tablet] 10 mg PO DAILY #30 tablet 01/04/17 Amox Tr/Potassium Clavulanate [Augmentin 875-125 mg Tablet] 1 tab PO BID #20 tablet 01/04/17 Bismuth Subsalicylate [Bismuth] 262 mg PO BID #60 tab.chew 01/04/17 Lansoprazole [Prevacid 30 Mg Odt Tablet] 30 mg PO BID #60 tab.rap.dr 01/04/17 Lisinopril [Prinivil 10 mg Tablet] 20 mg PO Q12 #30 tablet 01/04/17 Lorazepam [Ativan 0.5 mg Tablet] 0.5 mg PO BID #10 tablet 01/04/17 Prednisone 20 mg PO BID #14 tablet 01/04/17 History of Present Illness Patient complains of: Brought to the ED altered agitated, tremulous. Patient had to be intubated in the emergency room and placed on the Versed and propofol drip for sedation History of Present Illness: PRAMOD PRECIADO is a 46 year old maleBrought to the ED altered agitated, tremulous Patient had to be intubated in the emergency room and placed on the Versed and propofol drip for sedation Hospital Course Hospital Course: Reason for follow-up visit: Follow-up metabolic encephalopathy, and aspiration pneumonia, acute hypoxic respiratory failure, likely alcohol withdrawal Hospital course: "PRAMOD PRECIADO is a 46 year old male Further history is not available as family is not at the bedside Patient has had multiple visits to this emergency room with diagnosis of psychiatric illness, suicidal ideation, schizophrenia And alcohol abuse and withdrawal Patient was initially found to be febrile and a diagnosis of meningitis was entertained Spinal tap could not be performed and patient is empirically treated as an acute meningitis and sepsis He was subsequently admitted under hospitalist service to ICU" CT scan of the chest showed segmental atelectasis in the right middle and right upper lobes consistent with possible aspiration pneumonia for which he has received antibiotics per Dr. Judd. The patient remained intubated on mechanical ventilation until self extubation January 02. So far has been able to maintain his airway and adequate oxygenation though still requiring supplemental O2. Patient remained at times confused but no longer uncooperative with staff or requiring soft restraints and is fully oriented and cooperative with me on the day of discharge. Staff know him from previous visits state this is his usual course. Patient reports attempts at alcohol cessation prior to his presentation , acknowledging that he cut back to 2 shots of hard liquor daily which is a significant reduction in his usual daily dose. He also reports alcohol withdrawal seizures every time his attempted to do this in the past and usually presents to the hospital in similar fashion. This likely accounts for his presentation and aspiration pneumonia. He denies chest pain, palpitations, nausea or vomiting, fevers or chills. He reports breathlessness with minimal exertion. He is much more calm, cooperative and interactive with staff. He had a calcaneal hospital course but seems to return to baseline. He is up ambulating independently in the halls without gait abnormality or difficulty, he is tolerating his diet without difficulty he is weaned off supplemental oxygen and though he still has cough and some mild bronchospasm I believe this can be managed adequately at home with appropriate therapies. Prescriptions were written for the appropriate medications including course of antibiotics and systemic steroids as well as antihypertensive medications and a titration schedule for short course of Ativan to prevent recurrent alcohol withdrawal seizures. He was counseled yet again on alcohol cessation as now would be a good time if able. board worker was consulted and will provide what assistance is available within the community for his medications. Case was discussed with his sister by phone who readily acknowledges the likelihood he will return to drinking. She is attempting to get him through SSI and disability so he can get the necessary medical attention and ongoing treatment to try to prevent recurrence in the future. She will be coming down to look after him as of January 27. She has several excellent questions that I attempted answered to the best of my ability she seems satisfied with my answers and cares received here understanding he remains in a very difficult situation based on his lifestyle choices. He is however hemodynamically stable for discharge home and cannot justify continued hospitalization at this point. The patient himself is anxious for discharge home and informs me he will likely sign out AGAINST MEDICAL ADVICE evening if I don't send him home. Physical Exam Vital Signs: Temp Pulse Resp BP Pulse Ox 98.6 F 105 H 20 136/86 H 96 01/04/17 11:13 01/04/17 11:13 01/04/17 11:13 01/04/17 11:13 01/04/17 11:13 Intake & Output 01/03/17 01/04/17 01/05/17 06:59 06:59 06:59 Intake Total 2948 2818 Output Total 4221 1000 Balance -1277 1818 Weight 91.3 kg 94.5 kg EXAM GENERAL: Disheveled, not as confused; well developed, well nourished; no obese; alert and awake and oriented to person, place, time, and situation HEENT: normocephalic, atraumatic; no conjunctival injection, no scleral icterus ; oral mucosa moist; RESPIRATORY: no accessory muscle use, no increased WOB, good air entry bilaterally; faint end expiratory wheezes, but no rales, rhonchi; and no inspiratory crackles; weaned off supplemental O2 and maintaining adequate oxygenation on room air. CARDIO: no JVD; RRR; no systolic murmur; no tachycardia GI: soft; nondistended; normal bowel sounds; no hepato spleno megaly; no rebound, rigidity, guarding; nontender to palpation VASCULAR: no carotid bruit; no abdominal bruit; no pallor; 2+ radial, DP pulse ; normal capillary refill EXTREMITIES: no calf tender; no palpable cords in calf; no clubbing, cyanosis ; 1+ bilateral ankle pedal edema PSYCH: Flat affect, calm mood SKIN: warm; moist; no petechiae; no telengectasias; no jaundice; no rash NEURO: Moves all 4 extremities and will follow commands, 2+ patellar reflexes bilaterally, ambulating independently in the hallway. Results Laboratory Results: 01/03/17 03:42 01/03/17 03:42 12/28/16 12/28/16 12/29/16 21:44 21:44 03:57 Creatine Kinase 4118 H 3091 H CK-MB (CK-2) 4.56 H Troponin I 0.015 12/29/16 12/29/16 12/29/16 03:57 03:57 08:24 Creatine Kinase Cancelled 2731 H CK-MB (CK-2) 4.36 Troponin I < 0.012 12/29/16 12/31/16 01/04/17 08:24 04:26 03:55 Creatine Kinase 950 H 1944 H CK-MB (CK-2) 3.77 Troponin I < 0.012 Impressions: Chest/Abdomen CTA 12/28/16 00:00 IMPRESSION: Small areas of patchy consolidation are present in the right middle and right upper lobes.. NO PULMONARY EMBOLI. Head CT 12/28/16 17:03 IMPRESSION: No acute intracranial findings.Small amounts of fluid are present in the all the paranasal sinuses consistent with acute disease. Chest X-Ray 01/02/17 00:00 IMPRESSION: NO ACUTE RADIOGRAPHIC FINDING IN THE CHEST. Qualifiers PATEINT BEING DISCHARGED WITH ANY OF THE FOLLOWING DIAGNOSIS?: No VTE patient discharged on overlapping Therapy?: Yes Plan Time Spent: Greater than 30 Minutes
--- NOTE | 2017-02-01 14:30 | Operative Report ---
Operative Report DATE OF SURGERY: 12/30/16 Operative Report: As long discussion with the attending he was agreed that the left lower lobe atelectasis that was persistent whether it may well be due to mucous plugging therefore we scheduled patient for fiberoptic bronchoscopy patient was intubated and sedated and taken to the bronchoscopy suite where multiple lavages were taken of his left lower lobe all the largest that mucopurulent precipitates within the bronchoalveolar lavage fluid. No abnormalities of the distal trachea no splaying of the brandon the right mainstem bronchus right upper lobe and right bronchus intermedius right middle lobe and right lower lobe were within normal limits there were no abnormalities of the left mainstem bronchus left upper lobe or lingula there were some erythema and submucosal swelling in the left lower lobe house subsequent subsegments were lavaged to try and relieve the atelectasis the patient tolerated procedure well his postprocedure SaO2 is 100% PREOPERATIVE DIAGNOSIS: LLL atelectasis OPERATION: Fiber optic bronchoscopy bronchoalveolar SURGEON: SABINE GALVEZ ANESTHESIA: LMAC TISSUE REMOVED OR ALTERED: Left lower lobe bronchoalveolar lavage fluid COMPLICATIONS: None ESTIMATED BLOOD LOSS: none.
--- NOTE | 2017-02-01 14:32 | PDOC PROGRESS REPORT ---
Subjective Progress Note for:: 12/30/16 Subjective:: sedated discussed with Dr Judd will proceed with fiberoptic brochoscopy Physical Exam Vital Signs: Temp Pulse Resp BP Pulse Ox 102.3 F H 108 H 17 164/88 H 97 12/30/16 11:22 12/30/16 11:22 12/30/16 11:22 12/30/16 11:22 12/30/16 11:22 Intake & Output 12/29/16 12/30/16 12/31/16 06:59 06:59 06:59 Intake Total 3050 7795 Output Total 6200 2400 545 Balance -3150 5395 -545 Weight 93 kg 95.4 kg General appearance: PRESENT: disheveled Head exam: PRESENT: atraumatic, normocephalic Eye exam: PRESENT: conjunctiva pale, EOMI Mouth exam: PRESENT: moist, neck supple, tongue midline Neck exam: ABSENT: carotid bruit, JVD, lymphadenopathy, thyromegaly Respiratory exam: PRESENT: decreased breath sounds, prolonged expiratory phas, rhonchi, symmetrical - Left side greater than right, unlabored Cardiovascular exam: PRESENT: RRR, +S1, +S2 Pulses: PRESENT: normal radial pulses GI/Abdominal exam: PRESENT: normal bowel sounds, soft. ABSENT: distended, guarding, mass, organolmegaly, rebound, tenderness Rectal exam: PRESENT: deferred Gentrourinary exam: PRESENT: indwelling catheter Musculoskeletal exam: PRESENT: normal inspection Skin exam: PRESENT: dry, intact Results Laboratory Results: 12/30/16 06:00 12/30/16 06:00 12/29/16 12/29/16 12/29/16 15:45 16:05 16:05 WBC 11.3 H RBC 4.49 Hgb 13.9 Hct 41.9 MCV 93 MCH 31.0 MCHC 33.2 RDW 14.4 H Plt Count 149 L Seg Neutrophils % Lymphocytes % Monocytes % Eosinophils % Basophils % Absolute Neutrophils Absolute Lymphocytes Absolute Monocytes Absolute Eosinophils Absolute Basophils Carbonic Acid 1.29 HCO3/H2CO3 Ratio 20:1 ABG pH 7.42 ABG pCO2 42.8 ABG pO2 72.7 L ABG HCO3 26.8 H ABG O2 Saturation 94.8 ABG Base Excess 2.0 FiO2 50% Sodium Cancelled Potassium Cancelled Chloride Cancelled Carbon Dioxide Cancelled Anion Gap Cancelled BUN Cancelled Creatinine Cancelled Est GFR ( Amer) Cancelled Est GFR (Non-Af Amer) Cancelled Glucose Cancelled Calcium Cancelled Phosphorus Magnesium Total Bilirubin AST ALT Alkaline Phosphatase Total Protein Albumin 12/29/16 12/30/16 12/30/16 17:15 05:00 06:00 WBC 8.9 RBC 4.40 Hgb 13.8 Hct 41.4 MCV 94 MCH 31.3 MCHC 33.4 RDW 14.3 H Plt Count 152 Seg Neutrophils % 81.1 H Lymphocytes % 7.1 L Monocytes % 10.1 Eosinophils % 1.2 Basophils % 0.5 Absolute Neutrophils 7.2 Absolute Lymphocytes 0.6 Absolute Monocytes 0.9 Absolute Eosinophils 0.1 Absolute Basophils 0.0 Carbonic Acid 1.55 H HCO3/H2CO3 Ratio 17:1 ABG pH 7.35 ABG pCO2 51.6 H ABG pO2 61.1 L ABG HCO3 27.8 H ABG O2 Saturation 90.0 L ABG Base Excess 1.3 FiO2 50% Sodium 142.0 Potassium 3.7 Chloride 106 Carbon Dioxide 28 Anion Gap 8 BUN 7 Creatinine 0.74 Est GFR ( Amer) > 60 Est GFR (Non-Af Amer) > 60 Glucose 122 H Calcium 8.7 Phosphorus Magnesium Total Bilirubin AST ALT Alkaline Phosphatase Total Protein Albumin 12/30/16 06:00 WBC RBC Hgb Hct MCV MCH MCHC RDW Plt Count Seg Neutrophils % Lymphocytes % Monocytes % Eosinophils % Basophils % Absolute Neutrophils Absolute Lymphocytes Absolute Monocytes Absolute Eosinophils Absolute Basophils Carbonic Acid HCO3/H2CO3 Ratio ABG pH ABG pCO2 ABG pO2 ABG HCO3 ABG O2 Saturation ABG Base Excess FiO2 Sodium 143.5 Potassium 4.1 Chloride 107 Carbon Dioxide 28 Anion Gap 9 BUN 7 Creatinine 0.81 Est GFR ( Amer) > 60 Est GFR (Non-Af Amer) > 60 Glucose 122 H Calcium 8.5 Phosphorus 3.4 Magnesium 2.2 Total Bilirubin 0.5 AST 59 ALT 66 Alkaline Phosphatase 71 Total Protein 6.6 Albumin 3.5 12/28/16 12/28/16 12/29/16 21:44 21:44 03:57 Creatine Kinase 4118 H 3091 H CK-MB (CK-2) 4.56 H Troponin I 0.015 12/29/16 12/29/16 12/29/16 03:57 03:57 08:24 Creatine Kinase Cancelled 2731 H CK-MB (CK-2) 4.36 Troponin I < 0.012 12/29/16 08:24 Creatine Kinase CK-MB (CK-2) 3.77 Troponin I < 0.012 Impressions: Chest/Abdomen CTA 12/28/16 00:00 IMPRESSION: Small areas of patchy consolidation are present in the right middle and right upper lobes.. NO PULMONARY EMBOLI. Head CT 12/28/16 17:03 IMPRESSION: No acute intracranial findings.Small amounts of fluid are present in the all the paranasal sinuses consistent with acute disease. Chest X-Ray 12/30/16 06:00 IMPRESSION: Interval development of complete opacity of the left lower lobe. Suspect mucous plug with left lower lobe collapse. SUPPORT DEVICE(S) IN EXPECTED LOCATIONS. Assessment & Plan - Diagnosis (1) Alcohol withdrawal Qualifiers: Complication of substance-induced condition: with delirium Qualified Code(s): F10.231 - Alcohol dependence with withdrawal delirium Is this a current diagnosis for this admission?: Yes (2) Fever Qualifiers: Fever type: unspecified Qualified Code(s): R50.9 - Fever, unspecified Is this a current diagnosis for this admission?: YesPlan: Resolved (3) Metabolic encephalopathy Is this a current diagnosis for this admission?: Yes (4) On mechanically assisted ventilation Is this a current diagnosis for this admission?: YesPlan: awaiting abg - Time Critical Time spent with patient: 35 or more minutes
--- NOTE | 2017-02-01 14:35 | PDOC PROGRESS REPORT ---
Subjective Progress Note for:: 12/29/16 Subjective:: sedated discussed with Dr Judd will proceed with fiberoptic brochoscopy Physical Exam Vital Signs: Temp Pulse Resp BP Pulse Ox 99.6 F 96 18 183/115 H 94 12/29/16 10:00 12/29/16 10:00 12/29/16 10:00 12/29/16 10:00 12/29/16 10:00 Intake & Output 12/28/16 12/29/16 12/30/16 06:59 06:59 06:59 Intake Total 3050 Output Total 6200 560 Balance -3150 -560 Weight 93 kg General appearance: PRESENT: disheveled, obese Head exam: PRESENT: atraumatic, normocephalic Eye exam: PRESENT: conjunctiva pale, EOMI Mouth exam: PRESENT: neck supple, tongue midline Neck exam: ABSENT: carotid bruit, JVD, lymphadenopathy, thyromegaly Respiratory exam: PRESENT: decreased breath sounds, prolonged expiratory phas Cardiovascular exam: PRESENT: RRR, +S1, +S2 Pulses: PRESENT: normal radial pulses GI/Abdominal exam: PRESENT: normal bowel sounds, soft. ABSENT: distended, guarding, mass, organolmegaly, rebound, tenderness Rectal exam: PRESENT: deferred Musculoskeletal exam: PRESENT: normal inspection Neurological exam: PRESENT: awake Skin exam: PRESENT: dry, intact Results Laboratory Results: 12/29/16 08:24 12/29/16 08:24 12/28/16 12/28/16 12/29/16 14:34 18:08 03:57 WBC RBC Hgb Hct MCV MCH MCHC RDW Plt Count Seg Neutrophils % Lymphocytes % Monocytes % Eosinophils % Basophils % Absolute Neutrophils Absolute Lymphocytes Absolute Monocytes Absolute Eosinophils Absolute Basophils Carbonic Acid 1.35 HCO3/H2CO3 Ratio 19:1 ABG pH 7.38 ABG pCO2 44.9 ABG pO2 59.3 L ABG HCO3 25.7 ABG O2 Saturation 90.1 L ABG Base Excess 0.2 FiO2 45% Sodium Potassium Chloride Carbon Dioxide Anion Gap BUN Creatinine Est GFR ( Amer) Est GFR (Non-Af Amer) Glucose Lactic Acid 1.2 0.8 Calcium Phosphorus Magnesium Total Bilirubin AST ALT Alkaline Phosphatase Ammonia Total Protein Albumin Prealbumin Amylase Lipase TSH 12/29/16 12/29/16 12/29/16 03:57 03:57 03:57 WBC 8.2 RBC 4.64 Hgb 14.6 Hct 43.8 MCV 95 MCH 31.5 MCHC 33.3 RDW 14.5 H Plt Count 144 L Seg Neutrophils % 70.9 Lymphocytes % 14.4 Monocytes % 13.8 H Eosinophils % 0.4 Basophils % 0.5 Absolute Neutrophils 5.8 Absolute Lymphocytes 1.2 Absolute Monocytes 1.1 Absolute Eosinophils 0.0 Absolute Basophils 0.0 Carbonic Acid HCO3/H2CO3 Ratio ABG pH ABG pCO2 ABG pO2 ABG HCO3 ABG O2 Saturation ABG Base Excess FiO2 Sodium Potassium Chloride Carbon Dioxide Anion Gap BUN Creatinine Est GFR ( Amer) Est GFR (Non-Af Amer) Glucose Lactic Acid Calcium Phosphorus 4.2 Magnesium 2.8 H Total Bilirubin AST ALT Alkaline Phosphatase Ammonia < 8.7 L Total Protein Albumin Prealbumin 20.6 Amylase 65 Lipase 102.0 TSH 12/29/16 12/29/16 12/29/16 03:57 06:12 08:24 WBC RBC Hgb Hct MCV MCH MCHC RDW Plt Count Seg Neutrophils % Lymphocytes % Monocytes % Eosinophils % Basophils % Absolute Neutrophils Absolute Lymphocytes Absolute Monocytes Absolute Eosinophils Absolute Basophils Carbonic Acid 1.96 H HCO3/H2CO3 Ratio 14:1 ABG pH 7.26 L ABG pCO2 65.0 H ABG pO2 70.5 L ABG HCO3 28.7 H ABG O2 Saturation 91.3 L ABG Base Excess -0.1 FiO2 45% Sodium 143.0 Potassium 4.1 Chloride 105 Carbon Dioxide 29 Anion Gap 9 BUN 7 Creatinine 0.75 Est GFR ( Amer) > 60 Est GFR (Non-Af Amer) > 60 Glucose 142 H Lactic Acid Calcium 8.2 L Phosphorus Magnesium Total Bilirubin 0.7 AST 82 H ALT 81 H Alkaline Phosphatase 70 Ammonia Total Protein 6.4 Albumin 4.2 Prealbumin Amylase Lipase TSH 0.55 12/29/16 08:24 WBC 8.2 RBC 4.49 Hgb 14.2 Hct 42.3 MCV 94 MCH 31.6 MCHC 33.5 RDW 14.2 H Plt Count 139 L Seg Neutrophils % Lymphocytes % Monocytes % Eosinophils % Basophils % Absolute Neutrophils Absolute Lymphocytes Absolute Monocytes Absolute Eosinophils Absolute Basophils Carbonic Acid HCO3/H2CO3 Ratio ABG pH ABG pCO2 ABG pO2 ABG HCO3 ABG O2 Saturation ABG Base Excess FiO2 Sodium Potassium Chloride Carbon Dioxide Anion Gap BUN Creatinine Est GFR ( Amer) Est GFR (Non-Af Amer) Glucose Lactic Acid Calcium Phosphorus Magnesium Total Bilirubin AST ALT Alkaline Phosphatase Ammonia Total Protein Albumin Prealbumin Amylase Lipase TSH 12/28/16 12/28/16 12/29/16 21:44 21:44 03:57 Creatine Kinase 4118 H 3091 H CK-MB (CK-2) 4.56 H Troponin I 0.015 12/29/16 12/29/16 12/29/16 03:57 03:57 08:24 Creatine Kinase Cancelled 2731 H CK-MB (CK-2) 4.36 Troponin I < 0.012 12/29/16 08:24 Creatine Kinase CK-MB (CK-2) 3.77 Troponin I < 0.012 Impressions: Chest/Abdomen CTA 12/28/16 00:00 IMPRESSION: Small areas of patchy consolidation are present in the right middle and right upper lobes.. NO PULMONARY EMBOLI. Head CT 12/28/16 17:03 IMPRESSION: No acute intracranial findings.Small amounts of fluid are present in the all the paranasal sinuses consistent with acute disease. Chest X-Ray 12/29/16 06:00 IMPRESSION: STABLE APPEARANCE. NO ACUTE FINDINGS. Assessment & Plan - Diagnosis (1) Alcohol withdrawal Qualifiers: Complication of substance-induced condition: with delirium Qualified Code(s): F10.231 - Alcohol dependence with withdrawal delirium Is this a current diagnosis for this admission?: Yes (2) Fever Qualifiers: Fever type: unspecified Qualified Code(s): R50.9 - Fever, unspecified Is this a current diagnosis for this admission?: YesPlan: Resolved (3) Metabolic encephalopathy Is this a current diagnosis for this admission?: YesPlan: intubated and sedated (4) On mechanically assisted ventilation Is this a current diagnosis for this admission?: YesPlan: awaiting abg - Time Critical Time spent with patient: 35 or more minutes
== END 2017-01-04 12:00 | disposition home or self-care (01) | DRG 896 ==
LOC: ER 08:43 → EH 11:28 → UNDOADMIN 11:28 → EH 13:14 → 3N 01-03 15:45
PROVIDERS: ADMIT Emergency Medicine; ATTEND Emergency Medicine
PROC: 0BH17EZ Insertion of Endotracheal Airway into Trachea, Via Natural or Artificial Opening (ICD-10-PCS; principal; 2016-12-28)
PROC: 5A1955Z Respiratory Ventilation, Greater than 96 Consecutive Hours (ICD-10-PCS; 2016-12-28)
PROC: 0DB68ZX Excision of Stomach, Via Natural or Artificial Opening Endoscopic, Diagnostic (ICD-10-PCS; 2016-12-29)
PROC: 0B9B8ZX Drainage of Left Lower Lobe Bronchus, Via Natural or Artificial Opening Endoscopic, Diagnostic (ICD-10-PCS; 2016-12-30)
PROC: 3E0234Z Introduction of Serum, Toxoid and Vaccine into Muscle, Percutaneous Approach (ICD-10-PCS; 2017-01-04)
DX: F10.231 Alcohol dependence with withdrawal delirium (principal); A41.9 Sepsis, unspecified organism; J69.0 Pneumonitis due to inhalation of food and vomit; J96.01 Acute respiratory failure with hypoxia; G03.9 Meningitis, unspecified; G40.509 Epileptic seizures related to external causes, not intractable, without status epilepticus; E87.2 Acidosis; M62.82 Rhabdomyolysis; K92.2 Gastrointestinal hemorrhage, unspecified; K22.10 Ulcer of esophagus without bleeding; J98.11 Atelectasis; K70.11 Alcoholic hepatitis with ascites; G31.2 Degeneration of nervous system due to alcohol; F12.90 Cannabis use, unspecified, uncomplicated; I50.9 Heart failure, unspecified; I10 Essential (primary) hypertension; J45.909 Unspecified asthma, uncomplicated; J44.9 Chronic obstructive pulmonary disease, unspecified; K29.70 Gastritis, unspecified, without bleeding; E87.70 Fluid overload, unspecified; F31.9 Bipolar disorder, unspecified; F20.9 Schizophrenia, unspecified; B96.81 Helicobacter pylori [H. pylori] as the cause of diseases classified elsewhere; Z78.1 Physical restraint status; Z23 Encounter for immunization; Z91.19 Patient's noncompliance with other medical treatment and regimen; Z59.8 Other problems related to housing and economic circumstances
CPT/HCPCS: 31624; 36415; 43239; 70450; 71010; 71275; 80048; 80053; 80202; 80307; 81001; 82140; 82150; 82550; 82553; 82803; 83605; 83690; 83735; 84100; 84134; 84165; 84443; 84484; 85025; 85027; 85610; 85652; 85730; 86140; 87015; 87040; 87070; 87101; 87116; 87205; 87206; 88305; 88342; 89050; 90686; 93005; 93010; 94002; 94003; 94640; 94667; 94668; 99291; J0133; J0171; J0330; J0360; J0696; J1200; J1610; J1650; J1940; J2060; J2250; J2270; J2310; J2405; J2550; J2704; J3010; J3370; J3411; J3475; J3480; J3490; J7030; J7040; J7050; J7060; J7620; S0164

== ENCOUNTER 2017-01-09 10:58 | Emergency (ER) | payer SELFPAY ==
[2017-01-09 11:04] VITALS: BP 131/86
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
[2017-01-09 11:46] LABS: ABSOLUTE BASOPHILS # (AUTO) 0.1 10^3/uL (0.0-0.2); ABSOLUTE LYMPHOCYTES (AUTO) 1.2 10^3/uL (0.5-4.7); ABSOLUTE MONOCYTES (AUTO) 0.4 10^3/uL (0.1-1.4); ABSOLUTE NEUT (AUTO) 7.5 10^3/uL (1.7-8.2); BASOPHILS % (AUTO) 0.8 % (0-2); EOSINOPHILS % (AUTO) 0.1 % (0-6); HEMATOCRIT 39.4 % (37.9-51.0); HEMOGLOBIN 13.5 g/dL (13.5-17.0); HGB HCT DIFFERENCE 1.1; LYMPHOCYTES % (AUTO) 13.3 % (13-45); MEAN CORPUSCULAR HEMOGLOBIN 31.3 pg (27.0-33.4); MEAN CORPUSCULAR HGB CONC 34.2 g/dL (32.0-36.0); MEAN CORPUSCULAR VOLUME 92 fl (80-97); RED CELL DISTRIBUTION WIDTH 13.6 % (11.5-14.0); SEGMENTED NEUTROPHILS % (AUTO) 81.8 % (42-78); WHITE BLOOD COUNT 9.1 10^3/uL (4.0-10.5)
[2017-01-09 12:10] LABS: ALANINE AMINOTRANSFERASE 127 U/L (21-72); ALKALINE PHOSPHATASE 87 U/L (38-126); ANION GAP 9 (5-19); ASPARTATE AMINO TRANSFERASE 74 U/L (17-59); BILIRUBIN,TOTAL 0.6 mg/dL (0.2-1.3); BLOOD UREA NITROGEN 11 mg/dL (7-20); CALCIUM 9.8 mg/dL (8.4-10.2); CARBON DIOXIDE 28 mmol/L (22-30); CHLORIDE 100 mmol/L (98-107); CREATININE RESULT 0.69 mg/dL (0.52-1.25); GLUCOSE 112 mg/dL (75-110); POTASSIUM 4.6 mmol/L (3.6-5.0); SODIUM 137.4 mmol/L (137-145); TOTAL PROTEIN 7.8 g/dL (6.3-8.2)
[2017-01-09] MEDS ORDERED: IPRATROPIUM/ALBUTEROL 0.5-2.5 MG/3 ML AMPUL NEB ONE (12:59)
[2017-01-09] MEDS ORDERED: PREDNISONE 20 MG TABLET PO ONE (12:59)
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
== END 2017-01-09 13:45 | disposition home or self-care (01) ==
LOC: ER 10:58
DX: J44.9 Chronic obstructive pulmonary disease, unspecified (principal); J45.909 Unspecified asthma, uncomplicated; R51 Headache; I10 Essential (primary) hypertension; R06.02 Shortness of breath; R05 Cough; F17.200 Nicotine dependence, unspecified, uncomplicated
CPT/HCPCS: 94640; 99285; 36415; 85025; 80053; 71020; J7512

== ENCOUNTER 2017-02-14 17:21 | Emergency (ER) | payer SELFPAY ==
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
[2017-02-14 20:17] VITALS: BP 157/103
== END 2017-02-14 19:51 | disposition home or self-care (01) ==
LOC: ER 17:21
DX: F10.120 Alcohol abuse with intoxication, uncomplicated (principal); R53.83 Other fatigue; F17.200 Nicotine dependence, unspecified, uncomplicated; J45.901 Unspecified asthma with (acute) exacerbation; I50.9 Heart failure, unspecified; I11.0 Hypertensive heart disease with heart failure
CPT/HCPCS: 99284

== ENCOUNTER 2017-07-12 17:04 | Emergency (ER) | payer MEDICAID ==
[2017-07-12 17:34] LABS: ABSOLUTE BASOPHILS # (AUTO) 0.1 10^3/uL (0.0-0.2); ABSOLUTE EOSINOPHILS # (AUTO) 0.3 10^3/uL (0.0-0.6); ABSOLUTE LYMPHOCYTES (AUTO) 3.5 10^3/uL (0.5-4.7); ABSOLUTE MONOCYTES (AUTO) 0.9 10^3/uL (0.1-1.4); ABSOLUTE NEUT (AUTO) 3.6 10^3/uL (1.7-8.2); EOSINOPHILS % (AUTO) 3.1 % (0-6); HEMOGLOBIN 13.5 g/dL (13.5-17.0); HGB HCT DIFFERENCE 1.5; MEAN CORPUSCULAR HEMOGLOBIN 32.9 pg (27.0-33.4); MEAN CORPUSCULAR HGB CONC 34.6 g/dL (32.0-36.0); MEAN CORPUSCULAR VOLUME 95 fl (80-97); MONOCYTES % (AUTO) 10.7 % (3-13); RED CELL DISTRIBUTION WIDTH 14.3 % (11.5-14.0); SEGMENTED NEUTROPHILS % (AUTO) 43.2 % (42-78); WHITE BLOOD COUNT 8.4 10^3/uL (4.0-10.5)
[2017-07-12 17:57] LABS: ALANINE AMINOTRANSFERASE 86 U/L (21-72); ALBUMIN 4.1 g/dL (3.5-5.0); ALKALINE PHOSPHATASE 82 U/L (38-126); ANION GAP 10 (5-19); ASPARTATE AMINO TRANSFERASE 83 U/L (17-59); BILIRUBIN,DIRECT 0.3 mg/dL (0.0-0.4); BILIRUBIN,TOTAL 0.3 mg/dL (0.2-1.3); BLOOD UREA NITROGEN 7 mg/dL (7-20); CALCIUM 8.7 mg/dL (8.4-10.2); CARBON DIOXIDE 24 mmol/L (22-30); CHLORIDE 111 mmol/L (98-107); CREATINE KINASE 334 U/L (55-170); CREATININE RESULT 0.72 mg/dL (0.52-1.25); GLUCOSE 93 mg/dL (75-110); POTASSIUM 3.8 mmol/L (3.6-5.0); SODIUM 145.3 mmol/L (137-145); TOTAL PROTEIN 6.9 g/dL (6.3-8.2)
[2017-07-12] MEDS ORDERED: IBUPROFEN 600 MG TABLET PO ONE (18:03)
[2017-07-12] MEDS ORDERED: ALBUTEROL SULFATE 0.083% NEB 2.5 MG/3 ML AMPUL NEB ONE (18:03)
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
[2017-07-12 18:10] LABS: CREATINE KINASE MB 1.97 ng/mL (<4.55); TROPONIN I < 0.012 ng/mL
[2017-07-12 19:35] VITALS: BP 135/94
--- NOTE | 2017-07-12 20:31 | EKG REPORT ---
SEVERITY:- BORDERLINE ECG - SINUS TACHYCARDIA PROBABLE LEFT ATRIAL ABNORMALITY BORDERLINE T WAVE ABNORMALITIES : Confirmed by: Stefano De Santiago MD 12-Jul-2017 20:30:30
--- NOTE | 2017-07-13 15:04 | RADIOLOGY REPORT (SQ) ---
EXAM DESCRIPTION: CT CHEST WITH COMPLETED DATE/TIME: 07/12/2017 7:39 pm REASON FOR STUDY: left lung hyperlucency COMPARISON: Earlier chest radiograph TECHNIQUE: CT scan of the chest performed using helical scanning technique with dynamic intravenous contrast injection. Images reviewed with lung, soft tissue and bone windows. Reconstructed coronal and sagittal MPR images reviewed. Additional 3 dimensional post-processing performed to develop Maximal Intensity Projection images (MD P). All images stored on PACS. All CT scanners at this facility use dose modulation, iterative reconstruction, and/or weight based d osing when appropriate to reduce radiation dose to as low as reasonably achievable (ALARA). [facility]: Dose Right [facility]: CareDose [facility]: Dose Right [facility]: Teradose 4D [facility]: Planitax CONTRAST TYPE AND DOSE: 100 mL Isovue 370- low osmolar. RENAL FUNCTION: None required. The patient is less than 50 years old. RADIATION DOSE: . LIMITATIONS: None. FINDINGS: LUNGS AND PLEURA: No masses, infiltrates, pneumothorax. No pleural effusions, calcificati ons. AORTA AND GREAT VESSELS: No aneurysm or dissection. HEART: No pericardial effusion. PULMONARY ARTERIES: No emboli visualized in the main pulmonary arteries or the segmental branches. HILAR AND MEDIASTINAL STRUCTURES: No identified masses or abnormal nodes. HARDWARE: None in the chest. UPPER ABDOMEN: No acute findings. Prior surgical changes in the right upper quadrant. THYROID AND OTHER SOFT TISSUES: No masses. No adenopathy. BONES: No acute finding. 3D MIPS: Confirm above findings. OTHER: No other significant finding. IMPRESSION: No emboli visualized in the main pulmonary arteries or the segmental branches. No acute finding. TECHNICAL DOCUMENTATION: JOB ID: [id number] Quality ID # [id number]: Final reports with documentation of one or more dose reduction techniques (e.g., Au tomated exposure control, adjustment of the mA and/or kV according to patient size, use of iterative reconstruction technique) 2010 [employer]- All Rights Reserved
--- NOTE | 2017-07-13 17:13 | RADIOLOGY REPORT (SQ) ---
EXAM DESCRIPTION: CHEST SINGLE VIEW COMPLETED DATE/TIME: 07/12/2017 5:32 pm REASON FOR STUDY: bed 19 cp COMPARISON: 01/09/2017 TECHNIQUE: Frontal and lateral radiographic views of the chest acquired. NUMBER OF VIEWS: Two view. LIMITATIONS: None. FINDINGS: LUNGS AND PLEURA: There left lung is relatively hyperlucent with respect to the right. No focal consolidation, pleural effusion, or pneumothorax. MEDIASTINUM AND HILAR STRUCTURES: No masses or contour abnormalities. HEART AND VASCULAR STRUCTURES: Heart normal size. No evidence for failure. BONES: No acute findings. HARDWARE: None in the chest. OTHER: No other significant finding. IMPRESSION: HYPERLUCENT LEFT LUNG WITH RESPECT TO THE RIGHT CAN REPRESENT A WESTERMARK SIGN IN THE S ETTING OF PULMONARY EMBOLUS. CORRELATE WITH SIDE OF CHEST PAIN AND CONSIDER CTA CHEST FOR FURTHER EV ALUATION. TECHNICAL DOCUMENTATION: JOB ID: [id number] [employer]- All Rights Reserved
== END 2017-07-12 20:00 | disposition left against medical advice (07) ==
LOC: ER 17:04
DX: F10.120 Alcohol abuse with intoxication, uncomplicated (principal); G89.29 Other chronic pain; M54.5 Low back pain; R51 Headache; R05 Cough; R11.10 Vomiting, unspecified; R10.816 Epigastric abdominal tenderness; I10 Essential (primary) hypertension; R00.0 Tachycardia, unspecified; F51.5 Nightmare disorder; J44.9 Chronic obstructive pulmonary disease, unspecified; F17.200 Nicotine dependence, unspecified, uncomplicated; Z91.14 Patient's other noncompliance with medication regimen; Z53.20 Procedure and treatment not carried out because of patient's decision for unspecified reasons
CPT/HCPCS: 36415; 71010; 71260; 80053; 82550; 82553; 83690; 84484; 85025; 93005; 93010; 99281

== ENCOUNTER 2017-07-20 18:21 | Emergency (ER) | payer MEDICAID, OTHER ==
[2017-07-20] MEDS ORDERED: IPRATROPIUM/ALBUTEROL 0.5-2.5 MG/3 ML AMPUL NEB ONE (18:37)
[2017-07-20] MEDS ORDERED: DEXAMETHASONE 4 MG TABLET PO ONE (18:37)
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
--- NOTE | 2017-07-20 19:15 | RADIOLOGY REPORT (SQ) ---
EXAM DESCRIPTION: CHEST SINGLE VIEW COMPLETED DATE/TIME: 07/20/2017 6:54 pm REASON FOR STUDY: sob COMPARISON: 07/12/2017 EXAM PARAMETERS: NUMBER OF VIEWS: One view. TECHNIQUE: Single frontal radiographic view of the chest acquired. RADIATION DOSE: NA LIMITATIONS: None. FINDINGS: LUNGS AND PLEURA: Minimal subsegmental atelectasis left lung base. No opacities, masses o r pneumothorax. No pleural effusion. MEDIASTINUM AND HILAR STRUCTURES: No masses. Contour normal. HEART AND VASCULAR STRUCTURES: Heart normal in size. Normal vasculature. BONES: No acute findings. HARDWARE: None in the chest. OTHER: No other significant finding. IMPRESSION: NO ACUTE RADIOGRAPHIC FINDING IN THE CHEST. TECHNICAL DOCUMENTATION: JOB ID: [id number]
[2017-07-20 19:32] LABS: ANION GAP 17 (5-19); BLOOD UREA NITROGEN 5 mg/dL (7-20); CALCIUM 9.7 mg/dL (8.4-10.2); CARBON DIOXIDE 25 mmol/L (22-30); CHLORIDE 103 mmol/L (98-107); CREATININE RESULT 0.73 mg/dL (0.52-1.25); GLUCOSE 107 mg/dL (75-110); POTASSIUM 3.4 mmol/L (3.6-5.0); SODIUM 145.2 mmol/L (137-145)
[2017-07-20 20:00] VITALS: BP 180/116
--- NOTE | 2017-07-21 00:11 | EKG REPORT ---
SEVERITY:- ABNORMAL ECG - SINUS TACHYCARDIA PROBABLE LEFT ATRIAL ABNORMALITY ABNRM R PROG, CONSIDER ASMI OR LEAD PLACEMENT NONSPECIFIC T ABNORMALITIES, LATERAL LEADS : Confirmed by: Jan Preston 21-Jul-2017 00:11:14
== END 2017-07-20 20:00 | disposition home or self-care (01) ==
LOC: ER 18:21
DX: R07.9 Chest pain, unspecified (principal); R09.89 Other specified symptoms and signs involving the circulatory and respiratory systems; F10.120 Alcohol abuse with intoxication, uncomplicated; F17.200 Nicotine dependence, unspecified, uncomplicated; J44.9 Chronic obstructive pulmonary disease, unspecified; I10 Essential (primary) hypertension; R00.0 Tachycardia, unspecified
CPT/HCPCS: 93005; 94640; 99285; 36415; 80048; 84484; 71010; 93010; J3490; J7620

== ENCOUNTER 2017-07-22 12:23 | Inpatient (IN) | payer MEDICAID ==
[2017-07-22] MEDS ORDERED: NORMAL SALINE 1000 ML 1,000 ML IV PRN ×2 (12:26→14:34)
[2017-07-22] MEDS ORDERED: ALBUTEROL SULFATE 0.083% NEB 2.5 MG/3 ML AMPUL NEB ONE (12:26)
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
[2017-07-22] MEDS ORDERED: METOPROLOL TARTRATE PF/INJ 5 MG/5 ML SDV IV ONE (12:34)
[2017-07-22 12:48] LABS: ABSOLUTE LYMPHOCYTES (AUTO) 0.7 10^3/uL (0.5-4.7); ABSOLUTE MONOCYTES (AUTO) 0.7 10^3/uL (0.1-1.4); ABSOLUTE NEUT (AUTO) 8.9 10^3/uL (1.7-8.2); BASOPHILS % (AUTO) 0.2 % (0-2); HEMATOCRIT 41.6 % (37.9-51.0); HEMOGLOBIN 14.7 g/dL (13.5-17.0); HGB HCT DIFFERENCE 2.5; LYMPHOCYTES % (AUTO) 7.1 % (13-45); MEAN CORPUSCULAR HGB CONC 35.2 g/dL (32.0-36.0); MEAN CORPUSCULAR VOLUME 94 fl (80-97); MONOCYTES % (AUTO) 7.1 % (3-13); RED BLOOD COUNT 4.44 10^6/uL (4.35-5.55); RED CELL DISTRIBUTION WIDTH 14.7 % (11.5-14.0); SEGMENTED NEUTROPHILS % (AUTO) 85.6 % (42-78); WHITE BLOOD COUNT 10.4 10^3/uL (4.0-10.5)
[2017-07-22] MEDS ORDERED: LORAZEPAM INJ 2 MG/1 ML VIAL ONE ×2 (12:54→18:12)
[2017-07-22] MEDS ORDERED: LORAZEPAM INJ 2 MG/1 ML VIAL IV ONE ×2 (12:58→13:27)
[2017-07-22 13:12] LABS: ALANINE AMINOTRANSFERASE 90 U/L (21-72); ALBUMIN 4.5 g/dL (3.5-5.0); ALKALINE PHOSPHATASE 93 U/L (38-126); ANION GAP 15 (5-19); ASPARTATE AMINO TRANSFERASE 134 U/L (17-59); BILIRUBIN,DIRECT 0.4 mg/dL (0.0-0.4); BILIRUBIN,TOTAL 0.8 mg/dL (0.2-1.3); BLOOD UREA NITROGEN 9 mg/dL (7-20); CALCIUM 8.8 mg/dL (8.4-10.2); CARBON DIOXIDE 23 mmol/L (22-30); CHLORIDE 97 mmol/L (98-107); CREATININE RESULT 0.72 mg/dL (0.52-1.25); GLUCOSE 98 mg/dL (75-110); MAGNESIUM 2.1 mg/dL (1.6-2.3); POTASSIUM 3.2 mmol/L (3.6-5.0); SODIUM 134.7 mmol/L (137-145); TOTAL PROTEIN 7.4 g/dL (6.3-8.2)
[2017-07-22 13:24] LABS: ALCOHOL < 10 mg/dL (NONE DETECTED)
[2017-07-22 13:40] LABS: APPEARANCE,URINE CLEAR; BILIRUBIN,URINE NEGATIVE (NEGATIVE); GLUCOSE, URINE 50 mg/dL (NEGATIVE); KETONES,URINE NEGATIVE (NEGATIVE); LEUKOCYTE ESTERASE,URINE NEGATIVE (NEGATIVE); NITRITE,URINE NEGATIVE (NEGATIVE); PROTEIN,URINE 100 mg/dL (NEGATIVE); URINE SPECIFIC GRAVITY 1.013; UROBILINOGEN,URINE NEGATIVE mg/dL (<2.0)
[2017-07-22] MEDS: DILTIAZEM HCL/D5W 125 MG/125 ML RTUINJ IV PRN (13:44)
[2017-07-22] MEDS ORDERED: ACETAMINOPHEN 325 MG TABLET PO PRN (13:45)
[2017-07-22] MEDS ORDERED: ONDANSETRON HCL INJ/PF 4 MG/2 ML SDV IV PRN (13:45)
[2017-07-22 13:50] LABS: URINE BARBITURATES SCREEN NEGATIVE; URINE METHADONE SCREEN NEGATIVE; URINE OPIATES LOW NEGATIVE; URINE PHENCYCLIDINE SCREEN NEGATIVE
[2017-07-22] MEDS ORDERED: LORAZEPAM INJ 2 MG/1 ML VIAL IV PRN (14:04)
[2017-07-22] MEDS ORDERED: DIAZEPAM INJ 10 MG/2 ML DISP.SYRIN IV ONE (14:05)
[2017-07-22] MEDS ORDERED: ALBUTEROL SULFATE HFA (90 MCG/PUFF) 8 GM MDI (1 MDI/ER DISP) IH PRN (14:09)
[2017-07-22] MEDS ORDERED: ALPRAZOLAM 0.5 MG TABLET PO PRN (14:09)
[2017-07-22] MEDS ORDERED: METOPROLOL TARTRATE PF/INJ 5 MG/5 ML SDV IV PRN (14:10)
[2017-07-22] MEDS: HEPARIN SOD (PORCINE) 5,000 UNIT/ML 1 ML SYRINGE SUBCUT SCH ×2 (15:15→21:29)
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
[2017-07-22] MEDS: DIAZEPAM INJ 10 MG/2 ML DISP.SYRIN IV SCH ×2 (16:26→21:30)
[2017-07-22] MEDS: POTASSI CL 20 MEQ/50 ML RIDER 20 MEQ/50 ML RTUPB IV SCH ×3 (16:53→22:35)
[2017-07-22] MEDS: DOCUSATE SODIUM 100 MG/10 ML UDC PO SCH (17:24)
[2017-07-22] MEDS: LORAZEPAM INJ 2 MG/1 ML VIAL IV PRN (17:37)
[2017-07-22] MEDS ORDERED: DIAZEPAM 5 MG TABLET PO SCH (18:00)
[2017-07-22] MEDS ORDERED: DIAZEPAM INJ 10 MG/2 ML DISP.SYRIN ONE (18:19)
[2017-07-22] MEDS: SERTRALINE HCL 50 MG TABLET PO SCH (21:28)
[2017-07-22] MEDS: FAMOTIDINE 20 MG TABLET PO SCH (21:28)
[2017-07-22 21:42] LABS: ANION GAP 7 (5-19); BLOOD UREA NITROGEN 9 mg/dL (7-20); CALCIUM 8.4 mg/dL (8.4-10.2); CARBON DIOXIDE 26 mmol/L (22-30); CHLORIDE 100 mmol/L (98-107); CREATININE RESULT 0.75 mg/dL (0.52-1.25); GLUCOSE 91 mg/dL (75-110); POTASSIUM 3.4 mmol/L (3.6-5.0); SODIUM 132.7 mmol/L (137-145)
[2017-07-22] MEDS ORDERED: POTASSI CL 20 MEQ/50 ML RIDER 20 MEQ/50 ML RTUPB IV ONE ×2 (23:21→23:30)
[2017-07-22] MEDS: NORMAL SALINE 1000 ML 1,000 ML with POTASSIUM CHLORIDE 20 MEQ, MAGNESIUM SULFATE 8 MEQ,... IV SCH ×5 (23:23)
[2017-07-23 00:36] LABS: ADD ON TESTING BLD IN LAB ACKNOWLEDGE
[2017-07-23 00:47] LABS: CREATINE KINASE 1316 U/L (55-170)
[2017-07-23] MEDS: LORAZEPAM INJ 2 MG/1 ML VIAL IV PRN ×7 (01:34→22:59)
[2017-07-23] MEDS: DIPHENHYDRAMINE HCL 50 MG/ML VIAL IV PRN ×2 (02:08→12:30)
[2017-07-23 03:43] LABS: ABSOLUTE LYMPHOCYTES (AUTO) 1.9 10^3/uL (0.5-4.7); ABSOLUTE MONOCYTES (AUTO) 0.7 10^3/uL (0.1-1.4); BASOPHILS % (AUTO) 0.4 % (0-2); EOSINOPHILS % (AUTO) 0.2 % (0-6); HEMATOCRIT 37.7 % (37.9-51.0); HGB HCT DIFFERENCE 1.3; LYMPHOCYTES % (AUTO) 22.1 % (13-45); MEAN CORPUSCULAR HEMOGLOBIN 32.6 pg (27.0-33.4); MEAN CORPUSCULAR HGB CONC 34.4 g/dL (32.0-36.0); MEAN CORPUSCULAR VOLUME 95 fl (80-97); MONOCYTES % (AUTO) 7.9 % (3-13); RED BLOOD COUNT 3.98 10^6/uL (4.35-5.55); RED CELL DISTRIBUTION WIDTH 14.6 % (11.5-14.0); SEGMENTED NEUTROPHILS % (AUTO) 69.4 % (42-78); WHITE BLOOD COUNT 8.7 10^3/uL (4.0-10.5)
[2017-07-23 03:53] LABS: ALANINE AMINOTRANSFERASE 73 U/L (21-72); ALKALINE PHOSPHATASE 74 U/L (38-126); ANION GAP 10 (5-19); ASPARTATE AMINO TRANSFERASE 102 U/L (17-59); BILIRUBIN,DIRECT 0.5 mg/dL (0.0-0.4); BILIRUBIN,TOTAL 1.4 mg/dL (0.2-1.3); BLOOD UREA NITROGEN 9 mg/dL (7-20); CALCIUM 8.5 mg/dL (8.4-10.2); CARBON DIOXIDE 21 mmol/L (22-30); CHLORIDE 104 mmol/L (98-107); CREATINE KINASE 1162 U/L (55-170); GLUCOSE 93 mg/dL (75-110); MAGNESIUM 2.4 mg/dL (1.6-2.3); POTASSIUM 3.6 mmol/L (3.6-5.0); SODIUM 134.9 mmol/L (137-145); TOTAL PROTEIN 6.7 g/dL (6.3-8.2)
[2017-07-23] MEDS: DIAZEPAM INJ 10 MG/2 ML DISP.SYRIN IV SCH ×3 (04:00→18:07)
[2017-07-23] MEDS: DILTIAZEM HCL/D5W 125 MG/125 ML RTUINJ IV PRN ×2 (04:28→12:51)
[2017-07-23] MEDS: HEPARIN SOD (PORCINE) 5,000 UNIT/ML 1 ML SYRINGE SUBCUT SCH ×2 (05:09→12:56)
[2017-07-23] MEDS ORDERED: METOPROLOL SUCCINATE 25 MG TAB.SR.24H PO SCH ×2 (10:00)
[2017-07-23] MEDS ORDERED: LISINOPRIL 5 MG TABLET PO SCH ×2 (10:00)
[2017-07-23] MEDS: METOPROLOL TARTRATE 50 MG TABLET PO SCH ×2 (10:32→22:59)
[2017-07-23] MEDS: FAMOTIDINE 20 MG TABLET PO SCH ×2 (10:32→22:58)
[2017-07-23] MEDS: DOCUSATE SODIUM 100 MG/10 ML UDC PO SCH (10:36)
[2017-07-23] MEDS: LANSOPRAZOLE 30 MG TAB.RAP.DR PO SCH (10:36)
--- NOTE | 2017-07-23 12:02 | PDOC PROGRESS REPORT ---
Subjective Progress Note for:: 07/23/17 Subjective:: Patient is seen on morning rounds. He is not as agitated and restless since yesterday. Has been receiving [id number] sedation for his alcohol withdrawal per continues with chronic persistent atrial fibrillation rate control is improved. He is still confused. He has had no further seizure activity. Nursing report him urinating on the floor he did have small blood clots in his urine. He was straight cathed in the emergency room. Platelet count is only 67,000. There is no family at bedside. Physical Exam Vital Signs: Temp Pulse Resp BP Pulse Ox 98.3 F 110 H 21 H 146/79 H 92 07/23/17 07:52 07/23/17 11:00 07/23/17 07:52 07/23/17 11:00 07/23/17 11:00 Intake & Output 07/22/17 07/23/17 07/24/17 06:59 06:59 06:59 Intake Total 2869 Output Total 1150 Balance 1719 Weight 102.8 kg General appearance: PRESENT: no acute distress, obese - reema compexion, well- developed, well-nourished Head exam: PRESENT: atraumatic, normocephalic Eye exam: PRESENT: conjunctiva pink, EOMI, PERRLA. ABSENT: scleral icterus Ear exam: PRESENT: bleeding Mouth exam: PRESENT: moist, tongue midline Neck exam: ABSENT: carotid bruit, JVD, lymphadenopathy, thyromegaly Respiratory exam: PRESENT: clear to auscultation hilda. ABSENT: rales, rhonchi, wheezes Cardiovascular exam: PRESENT: irregular rhythm, +S1, +S2 Pulses: PRESENT: normal dorsalis pedis pul Vascular exam: PRESENT: normal capillary refill GI/Abdominal exam: PRESENT: ascites Rectal exam: PRESENT: deferred Extremities exam: PRESENT: full ROM. ABSENT: calf tenderness, clubbing, pedal edema Musculoskeletal exam: PRESENT: ambulatory, full ROM Neurological exam: PRESENT: alert, altered, CN II-XII grossly intact Psychiatric exam: PRESENT: agitated, anxious Skin exam: PRESENT: dry, intact, warm. ABSENT: cyanosis, rash Results Laboratory Results: 07/23/17 03:25 07/23/17 03:25 07/22/17 07/22/17 07/23/17 21:02 21:02 03:25 WBC 8.7 RBC 3.98 L Hgb 13.0 L Hct 37.7 L MCV 95 MCH 32.6 MCHC 34.4 RDW 14.6 H Plt Count 68 L Seg Neutrophils % 69.4 Lymphocytes % 22.1 Monocytes % 7.9 Eosinophils % 0.2 Basophils % 0.4 Absolute Neutrophils 6.0 Absolute Lymphocytes 1.9 Absolute Monocytes 0.7 Absolute Eosinophils 0.0 Absolute Basophils 0.0 Sodium 132.7 L Potassium 3.4 L Chloride 100 Carbon Dioxide 26 Anion Gap 7 BUN 9 Creatinine 0.75 Est GFR ( Amer) > 60 Est GFR (Non-Af Amer) > 60 Glucose 91 Calcium 8.4 Magnesium Total Bilirubin AST ALT Alkaline Phosphatase Ammonia Total Protein Albumin TSH 3.75 07/23/17 07/23/17 03:25 03:25 WBC RBC Hgb Hct MCV MCH MCHC RDW Plt Count Seg Neutrophils % Lymphocytes % Monocytes % Eosinophils % Basophils % Absolute Neutrophils Absolute Lymphocytes Absolute Monocytes Absolute Eosinophils Absolute Basophils Sodium 134.9 L Potassium 3.6 Chloride 104 Carbon Dioxide 21 L Anion Gap 10 BUN 9 Creatinine 0.70 Est GFR ( Amer) > 60 Est GFR (Non-Af Amer) > 60 Glucose 93 Calcium 8.5 Magnesium 2.4 H Total Bilirubin 1.4 H AST 102 H ALT 73 H Alkaline Phosphatase 74 Ammonia 24.1 Total Protein 6.7 Albumin 4.0 TSH 07/22/17 07/22/17 07/23/17 21:02 21:02 03:25 Creatine Kinase 1316 H 1162 H Troponin I 0.078 07/23/17 03:25 Creatine Kinase Troponin I 0.061 Assessment & Plan - Diagnosis (1) Alcohol withdrawal Qualifiers: Complication of substance-induced condition: with unspecified complication Qualified Code(s): F10.239 - Alcohol dependence with withdrawal, unspecified Plan: Patient was placed on IV banana bag. IV Valium [id number]. As needed Ativan. (2) Altered mental state Qualifiers: Altered mental status type: disorientation Qualified Code(s): R41.0 - Disorientation, unspecified Is this a current diagnosis for this admission?: Yes (3) Atrial fibrillation with RVR Is this a current diagnosis for this admission?: Yes Plan: Patient is on metoprolol normally. He is very noncompliant with therapy. Was started on IV diltiazem infusion with as needed IV metoprolol. (4) Seizure Is this a current diagnosis for this admission?: Yes Plan: Secondary to alcohol withdrawal, as needed Ativan. (5) Abnormal LFTs Is this a current diagnosis for this admission?: Yes Plan: Likely secondary to heavy alcohol intake. - Time Time Spent with patient: 25-34 minutes Critical Time spent with patient: 15-24 minutes Medications reviewed and adjusted accordingly: Yes Anticipated discharge: Home - Inpatient Certification Based on my medical assessment, after consideration of the patient's comorbidities, presenting symptoms, or acuity I expect that the services needed warrant INPATIENT care.: Yes I certify that my determination is in accordance with my understanding of Medicare's requirements for reasonable and necessary INPATIENT services [42 CFR 412.3e].: Yes
[2017-07-23] MEDS ORDERED: LORAZEPAM INJ 2 MG/1 ML VIAL IV ONE ×2 (14:05→15:03)
[2017-07-23] MEDS ORDERED: LORAZEPAM INJ 2 MG/1 ML VIAL ONE ×2 (14:08→15:01)
[2017-07-23] MEDS ORDERED: ALBUTEROL SULFATE HFA (90 MCG/PUFF) 200 PUFF/8.5 GM MDI IH PRN (14:20)
[2017-07-23] MEDS ORDERED: ONDANSETRON HCL INJ/PF 4 MG/2 ML SDV IV PRN (14:30)
[2017-07-23] MEDS ORDERED: HALOPERIDOL LACTATE INJ 5 MG/1 ML VIAL IV ONE (15:03)
[2017-07-23] MEDS: NICOTINE 21 MG/24 HR PATCH.TD24 TD SCH (18:07)
[2017-07-23] MEDS: DOCUSATE SODIUM 100 MG CAPSULE PO SCH (18:15)
[2017-07-23] MEDS: NORMAL SALINE 1000 ML 1,000 ML with POTASSIUM CHLORIDE 20 MEQ, MAGNESIUM SULFATE 8 MEQ,... IV SCH ×5 (18:28)
[2017-07-23] MEDS: SERTRALINE HCL 50 MG TABLET PO SCH (22:59)
[2017-07-24] MEDS: DIAZEPAM INJ 10 MG/2 ML DISP.SYRIN IV SCH ×2 (01:48→06:03)
[2017-07-24] MEDS: LORAZEPAM INJ 2 MG/1 ML VIAL IV PRN ×2 (03:28→18:16)
[2017-07-24 07:03] LABS: ANION GAP 7 (5-19); BLOOD UREA NITROGEN 10 mg/dL (7-20); CALCIUM 8.8 mg/dL (8.4-10.2); CARBON DIOXIDE 21 mmol/L (22-30); CHLORIDE 107 mmol/L (98-107); CREATININE RESULT 0.62 mg/dL (0.52-1.25); GLUCOSE 86 mg/dL (75-110); MAGNESIUM 2.3 mg/dL (1.6-2.3); POTASSIUM 3.4 mmol/L (3.6-5.0); SODIUM 135.4 mmol/L (137-145)
[2017-07-24] MEDS: FAMOTIDINE 20 MG TABLET PO SCH ×2 (09:08→21:36)
[2017-07-24] MEDS: LANSOPRAZOLE 30 MG TAB.RAP.DR PO SCH (09:08)
[2017-07-24] MEDS: METOPROLOL TARTRATE 50 MG TABLET PO SCH ×2 (09:09→21:37)
[2017-07-24] MEDS: DOCUSATE SODIUM 100 MG CAPSULE PO SCH (09:12)
[2017-07-24] MEDS ORDERED: LISINOPRIL 10 MG TABLET PO SCH (10:00)
[2017-07-24] MEDS ORDERED: (PENDING PHARMACY ID) (Prazosin Hcl [Minipress] 1 MG) PO PRN (11:25)
[2017-07-24] MEDS ORDERED: METHYLPREDNISOLONE INJ 40 MG/1 ML SDV IV SCH (11:30)
[2017-07-24] MEDS ORDERED: POTASSIUM CHLORIDE 10 MEQ TABLET.SA PO ONE (11:45)
[2017-07-24] MEDS: IPRATROPIUM/ALBUTEROL 0.5-2.5 MG/3 ML AMPUL NEB SCH ×3 (11:48→19:58)
--- NOTE | 2017-07-24 12:23 | EKG REPORT ---
SEVERITY:- ABNORMAL ECG - ATRIAL FIBRILLATION, V-RATE 105-176(NEW SINCE 07/20/17) MINIMAL ST DEPRESSION, LATERAL LEADS : Confirmed by: Breanne Forbes MD 24-Jul-2017 12:22:43
[2017-07-24] MEDS: DIAZEPAM 5 MG TABLET PO SCH ×2 (12:46→18:15)
[2017-07-24] MEDS ORDERED: THIAMINE HCL 100 MG TABLET PO ONE (13:35)
[2017-07-24] MEDS: METHYLPREDNISOLONE INJ 125 MG/2 ML SDV IV SCH ×2 (14:13→21:37)
--- NOTE | 2017-07-24 16:51 | PDOC PROGRESS REPORT ---
Subjective Progress Note for:: 07/24/17 Subjective:: Patient is picking at his telemetry leads when I see him. He is seen with nurse at bedside. Patient seen earlier today on morning rounds Patient is much improved mood gray today. He reports he is having some difficulty breathing and some diarrhea. Patient denies chest pain, abdominal pain, nausea, vomiting, fevers, chills, constipation, headache, new onset weakness. Physical Exam Vital Signs: Temp Pulse Resp BP Pulse Ox 98.3 F 86 20 149/96 H 99 07/24/17 11:33 07/24/17 15:52 07/24/17 15:52 07/24/17 11:33 07/24/17 15:52 Intake & Output 07/23/17 07/24/17 07/25/17 06:59 06:59 06:59 Intake Total 2869 2104 358 Output Total 6712 991 0933 Balance 1719 1299 -1242 Weight 102.8 kg 97.1 kg Exam: General: Awake alert and oriented x2 (not to year), no acute respiratory distress HEENT: AT/NC, PERRL, EOMI, oropharynx is moist, pink, no scleral icterus, no conjunctival injection Neck: No JVD, trachea midline Chest: Prolonged expiratory phase, wheezes bilateral inspiratory and expiratory CV: Regular rate and rhythm, normal S1 and S2, no murmur, rub, or gallop Abdomen: Soft, nontender to palpation, nondistended, active bowel sounds; no rebound, rigidity, or guarding Extremities: No cyanosis, clubbing or edema Neuro: Cranial nerves II through XII are grossly intact without focal deficits; awake alert and oriented (not to year) Psych: flat mood and affect Skin: Multiple ecchymoses on bilateral shoulder, inferior lateral ribs Results Laboratory Results: 07/23/17 03:25 07/24/17 06:40 07/24/17 06:40 Sodium 135.4 L Potassium 3.4 L Chloride 107 Carbon Dioxide 21 L Anion Gap 7 BUN 10 Creatinine 0.62 Est GFR ( Amer) > 60 Est GFR (Non-Af Amer) > 60 Glucose 86 Calcium 8.8 Magnesium 2.3 07/22/17 07/22/17 07/23/17 21:02 21:02 03:25 Creatine Kinase 1316 H 1162 H Troponin I 0.078 07/23/17 07/24/17 03:25 06:40 Creatine Kinase 660 H Troponin I 0.061 Assessment & Plan - Diagnosis (1) COPD exacerbation Is this a current diagnosis for this admission?: Yes Plan: Initiate patient on Solu-Medrol and scheduled nebulized treatments. Patient does not have a white count at this time but will consider the addition of doxycycline (2) Tobacco abuse Is this a current diagnosis for this admission?: Yes Plan: Patient has been given nicotine patch (3) Alcohol withdrawal Qualifiers: Complication of substance-induced condition: with delirium Qualified Code(s ): F10.239 - Alcohol dependence with withdrawal, unspecified Is this a current diagnosis for this admission?: Yes Plan: Patient is currently on Valium 10 mg p.o. every 6 and have decreased his Ativan to 2 mg IV every 2 hours as needed. He appears to be doing well with this. Continue folic acid, thiamine, and multivitamin. Continue to monitor on telemetry for arrhythmia and continue to check his magnesium. (4) Altered mental state Qualifiers: Altered mental status type: disorientation Qualified Code(s): R41.0 - Disorientation, unspecified Is this a current diagnosis for this admission?: Yes Plan: Secondary to above (5) Atrial fibrillation with RVR Is this a current diagnosis for this admission?: Yes Plan: Patient is currently in sinus rhythm. He is maintained on metoprolol 50 p.o. twice daily. At this time, and reluctant to begin this patient on anticoagulation due to a GI bleed history and his chronic alcoholism - Time Time Spent with patient: 25-34 minutes Medications reviewed and adjusted accordingly: Yes Anticipated discharge: Home Within: Other - 4-5 days depending on improvement of patient's symptomatology
[2017-07-24] MEDS: NICOTINE 21 MG/24 HR PATCH.TD24 TD SCH (18:16)
[2017-07-24] MEDS ORDERED: LORAZEPAM INJ 2 MG/1 ML VIAL ONE ×3 (19:29→21:05)
[2017-07-24] MEDS: NORMAL SALINE 1000 ML 1,000 ML IV PRN (19:36)
[2017-07-24] MEDS ORDERED: LORAZEPAM INJ 2 MG/1 ML VIAL IV ONE ×2 (20:00→20:30)
[2017-07-24] MEDS: SERTRALINE HCL 50 MG TABLET PO SCH (21:36)
[2017-07-25] MEDS: DIAZEPAM 5 MG TABLET PO SCH ×2 (00:08→06:18)
[2017-07-25] MEDS: LORAZEPAM INJ 2 MG/1 ML VIAL IV PRN ×3 (00:09→09:01)
[2017-07-25] MEDS ORDERED: LORAZEPAM 24 MG/240 ML BAG IV PRN (02:08)
[2017-07-25] MEDS ORDERED: MORPHINE SULFATE 10 MG/ML INJ IV ONE (02:30)
[2017-07-25] MEDS ORDERED: OLANZAPINE INJ/PF 10 MG SDV IM ONE (02:30)
[2017-07-25] MEDS: NORMAL SALINE 1000 ML 1,000 ML IV PRN (03:47)
[2017-07-25] MEDS ORDERED: LORAZEPAM INJ 2 MG/1 ML VIAL ONE (04:21)
[2017-07-25] MEDS: METHYLPREDNISOLONE INJ 125 MG/2 ML SDV IV SCH (06:19)
[2017-07-25 06:30] LABS: ABSOLUTE LYMPHOCYTES (AUTO) 0.6 10^3/uL (0.5-4.7); ABSOLUTE MONOCYTES (AUTO) 0.3 10^3/uL (0.1-1.4); ABSOLUTE NEUT (AUTO) 7.9 10^3/uL (1.7-8.2); BASOPHILS % (AUTO) 0.2 % (0-2); HEMATOCRIT 38.5 % (37.9-51.0); HEMOGLOBIN 13.5 g/dL (13.5-17.0); LYMPHOCYTES % (AUTO) 7.2 % (13-45); MEAN CORPUSCULAR HEMOGLOBIN 33.3 pg (27.0-33.4); MEAN CORPUSCULAR HGB CONC 35.2 g/dL (32.0-36.0); MEAN CORPUSCULAR VOLUME 95 fl (80-97); MONOCYTES % (AUTO) 3.5 % (3-13); RED BLOOD COUNT 4.07 10^6/uL (4.35-5.55); RED CELL DISTRIBUTION WIDTH 13.8 % (11.5-14.0); SEGMENTED NEUTROPHILS % (AUTO) 89.1 % (42-78); WHITE BLOOD COUNT 8.9 10^3/uL (4.0-10.5)
[2017-07-25 06:36] LABS: ALANINE AMINOTRANSFERASE 54 U/L (21-72); ALKALINE PHOSPHATASE 82 U/L (38-126); ANION GAP 10 (5-19); ASPARTATE AMINO TRANSFERASE 35 U/L (17-59); BILIRUBIN,DIRECT 0.4 mg/dL (0.0-0.4); BILIRUBIN,TOTAL 0.7 mg/dL (0.2-1.3); BLOOD UREA NITROGEN 11 mg/dL (7-20); CALCIUM 10.2 mg/dL (8.4-10.2); CARBON DIOXIDE 21 mmol/L (22-30); CHLORIDE 107 mmol/L (98-107); CREATININE RESULT 0.61 mg/dL (0.52-1.25); GLUCOSE 148 mg/dL (75-110); MAGNESIUM 1.9 mg/dL (1.6-2.3); SODIUM 137.7 mmol/L (137-145); TOTAL PROTEIN 6.8 g/dL (6.3-8.2)
[2017-07-25 06:43] LABS: POTASSIUM 4.5 mmol/L (3.6-5.0)
[2017-07-25] MEDS ORDERED: IPRATROPIUM/ALBUTEROL 0.5-2.5 MG/3 ML AMPUL NEB ONE (08:38)
[2017-07-25] MEDS ORDERED: ZIPRASIDONE MESYLATE INJ/PF 20 MG SDV IM ONE (08:44)
[2017-07-25] MEDS ORDERED: ENALAPRILAT DIHYDRATE INJ/PF 1.25 MG/1 ML SDV IV SCH (09:00)
[2017-07-25] MEDS: DIPHENHYDRAMINE HCL 50 MG/ML VIAL IV PRN (09:00)
[2017-07-25] MEDS: LANSOPRAZOLE 30 MG TAB.RAP.DR PO SCH (09:01)
[2017-07-25] MEDS: IPRATROPIUM/ALBUTEROL 0.5-2.5 MG/3 ML AMPUL NEB SCH ×3 (09:06→20:22)
[2017-07-25] MEDS ORDERED: PROPOFOL 100 ML IV ONE (09:44)
[2017-07-25] MEDS ORDERED: PHARMACY COMMUNICATION ORDER MC NR (09:45)
[2017-07-25] MEDS: FAMOTIDINE INJ/PF 20 MG/2 ML SDV IV SCH ×2 (09:50→21:18)
[2017-07-25] MEDS ORDERED: ACETAMINOPHEN 325 MG TABLET NG PRN (10:00)
[2017-07-25] MEDS ORDERED: THIAMINE HCL 100 MG TABLET PO SCH (10:00)
[2017-07-25] MEDS ORDERED: MULTIVITAMIN TABLET PO SCH (10:00)
[2017-07-25] MEDS ORDERED: FOLIC ACID 1 MG TABLET PO SCH (10:00)
--- NOTE | 2017-07-25 10:50 | RADIOLOGY REPORT (SQ) ---
EXAM DESCRIPTION: CHEST SINGLE VIEW COMPLETED DATE/TIME: 07/25/2017 10:28 am REASON FOR STUDY: tube placement COMPARISON: Chest films 09/28/2013, 09/10/2016, 01/01/2017, 01/09/2017, 07/20/[address] chest 12/28/2016, 07/12/2017 EXAM PARAMETERS: NUMBER OF VIEWS: One view. TECHNIQUE: Single frontal radiographic view of the chest acquired. RADIATION DOSE: NA LIMITATIONS: None. FINDINGS: Endotracheal tube tip is 7 to 8 cm above the brandon, at the level of the clavicular heads. Nasogastric tube tip and side port in the stomach. This report was called to the patient's nurse Mariana Guajardo RN, 1040 hours, 07/25/2017 LUNGS AND PLEURA: No opacities, masses or pneumothorax. No pleural effusion. MEDIASTINUM AND HILAR STRUCTURES: No masses. Contour normal. HEART AND VASCULAR STRUCTURES: Heart normal in size. Normal vasculature. BONES: No acute findings. HARDWARE: As above OTHER: Old shrapnel in the right paraspinal region IMPRESSION: No acute infiltrates. No pleural effusion. No pneumothorax. Endotracheal tube tip 7 to 8 cm above the brandon. TECHNICAL DOCUMENTATION: JOB ID: [id number]
[2017-07-25] MEDS: DIAZEPAM 5 MG TABLET NG SCH ×3 (11:09→23:56)
[2017-07-25] MEDS: LANSOPRAZOLE 30 MG TAB.RAP.DR NG SCH (11:09)
[2017-07-25] MEDS: PROPOFOL 100 ML IV PRN ×4 (11:12→21:17)
--- NOTE | 2017-07-25 11:25 | RADIOLOGY REPORT (SQ) ---
EXAM DESCRIPTION: CHEST SINGLE VIEW COMPLETED DATE/TIME: 07/25/2017 11:17 am REASON FOR STUDY: ETT adjustment COMPARISON: None. EXAM PARAMETERS: NUMBER OF VIEWS: One view. TECHNIQUE: Single frontal radiographic view of the chest acquired. RADIATION DOSE: NA LIMITATIONS: None. FINDINGS: LUNGS AND PLEURA: No opacities, masses or pneumothorax. No pleural effusion. MEDIASTINUM AND HILAR STRUCTURES: No masses. Contour normal. HEART AND VASCULAR STRUCTURES: Heart normal in size. Normal vasculature. BONES: No acute findings. HARDWARE: There is new endotracheal tube with the tip of the tube near the level of the aortic arch. An NG tube extends to the stomach. OTHER: No other significant finding. IMPRESSION: Tube placement as described. No acute pulmonary infiltrate. TECHNICAL DOCUMENTATION: JOB ID: [id number]
[2017-07-25 11:28] LABS: ARTERIAL BLOOD BASE EXCESS -3.7 mmol/L; ARTERIAL BLOOD O2 SATURATION 97.3 % (94-98)
[2017-07-25] MEDS: MIDAZOLAM HCL 100 ML IV PRN ×2 (12:39→21:17)
[2017-07-25 13:51] LABS: ARTERIAL BLOOD BASE EXCESS -1.2 mmol/L; ARTERIAL BLOOD O2 SATURATION 93.7 % (94-98)
[2017-07-25] MEDS ORDERED: METHYLPREDNISOLONE INJ 40 MG/1 ML SDV IV SCH (14:00)
[2017-07-25] MEDS ORDERED: METHYLPREDNISOLONE INJ 125 MG/2 ML SDV IV SCH (14:00)
[2017-07-25] MEDS ORDERED: FENTANYL CITRATE INJ/PF 100 MCG/2 ML AMPUL IV PRN (15:17)
[2017-07-25] MEDS ORDERED: LEVALBUTEROL HCL NEB 1.25 MG/3 ML AMPUL NEB PRN (15:19)
[2017-07-25] MEDS ORDERED: ROCURONIUM BROMIDE INJ 50 MG/5 ML VIAL IV ONE (15:26)
--- NOTE | 2017-07-25 15:40 | PDOC PROGRESS REPORT ---
Subjective Progress Note for:: 07/25/17 Subjective:: Overnight, patient became violently combative and delirious requiring transfer to the ICU for Ativan drip. This morning when I see him with the nurse present at bedside, patient is in 4 point restraints and trying to rip the seizure pads off of the bedside and threatening staff. He was given Geodon in addition to his Ativan drip which was currently running at 8 mg/h. Patient subsequently began having some difficulty protecting his airway and the election was made to intubate patient for his safety. Currently, patient is intubated, sedated, mechanically ventilated and doing well. Physical Exam Vital Signs: Temp Pulse Resp BP Pulse Ox 97.9 F 82 19 160/99 H 97 07/25/17 09:09 07/25/17 08:00 07/25/17 09:09 07/25/17 08:00 07/25/17 09:21 Intake & Output 07/24/17 07/25/17 07/26/17 06:59 06:59 06:59 Intake Total 2104 2238 Output Total 805 3450 Balance 1299 -1212 Weight 97.1 kg 99.9 kg Exam: General: Intubated, sedated, mechanically ventilated HEENT: AT/NC, PERRL, EOMI, oropharynx is moist, ET tube in place, pink, no scleral icterus, no conjunctival injection Neck: No JVD, trachea midline Chest: Left lower lobe wheezes CV: Regular rate and rhythm, normal S1 and S2, no murmur, rub, or gallop Abdomen: Soft, nontender to palpation, nondistended, active bowel sounds; no rebound, rigidity, or guarding Extremities: No cyanosis, clubbing or edema Neuro: GCS 6T Results Laboratory Results: 07/25/17 06:03 07/25/17 06:03 07/25/17 07/25/17 06:03 06:03 WBC 8.9 RBC 4.07 L Hgb 13.5 Hct 38.5 MCV 95 MCH 33.3 MCHC 35.2 RDW 13.8 Plt Count 106 L Seg Neutrophils % 89.1 H Lymphocytes % 7.2 L Monocytes % 3.5 Eosinophils % 0.0 Basophils % 0.2 Absolute Neutrophils 7.9 Absolute Lymphocytes 0.6 Absolute Monocytes 0.3 Absolute Eosinophils 0.0 Absolute Basophils 0.0 Sodium 137.7 Potassium 4.5 D Chloride 107 Carbon Dioxide 21 L Anion Gap 10 BUN 11 Creatinine 0.61 Est GFR ( Amer) > 60 Est GFR (Non-Af Amer) > 60 Glucose 148 H Calcium 10.2 Magnesium 1.9 Total Bilirubin 0.7 AST 35 ALT 54 Alkaline Phosphatase 82 Total Protein 6.8 Albumin 4.0 07/22/17 07/22/17 07/23/17 21:02 21:02 03:25 Creatine Kinase 1316 H 1162 H Troponin I 0.078 07/23/17 07/24/17 03:25 06:40 Creatine Kinase 660 H Troponin I 0.061 Assessment & Plan - Diagnosis (1) Acute respiratory failure with hypoxia Is this a current diagnosis for this admission?: Yes Plan: Patient has been intubated and we have consulted pulmonary medicine for management of his ventilator (2) COPD exacerbation Is this a current diagnosis for this admission?: Yes Plan: On Solu-Medrol and Unasyn (3) Alcohol withdrawal Qualifiers: Complication of substance-induced condition: with delirium Qualified Code(s ): F10.231 - Alcohol dependence with withdrawal delirium Is this a current diagnosis for this admission?: Yes Plan: Patient on Valium 10 mg p.o. every 6 Thiamine, folic acid, multivitamin daily Monitor electrolytes and watch for arrhythmia Versed drip Ativan as needed (4) Altered mental state Qualifiers: Altered mental status type: disorientation Qualified Code(s): R41.0 - Disorientation, unspecified Is this a current diagnosis for this admission?: Yes Plan: Secondary to above (5) Atrial fibrillation with RVR Is this a current diagnosis for this admission?: Yes Plan: Patient is currently in sinus rhythm. He is maintained on metoprolol 50 p.o. twice daily. At this time, and reluctant to begin this patient on anticoagulation due to a GI bleed history and his chronic alcoholism (6) Seizure Is this a current diagnosis for this admission?: Yes Plan: on scheduled valium and versed ggt likely 2/[address] on keppra bid (7) Aspiration pneumonia Qualifiers: Aspiration pneumonia type: unspecified Laterality: right Lung location: middle lobe of lung Qualified Code(s): J69.0 - Pneumonitis due to inhalation of food and vomit Is this a current diagnosis for this admission?: Yes Plan: Concern for aspiration pneumonia. Will collect a sputum culture and start patient on Unasyn (8) Tobacco abuse Is this a current diagnosis for this admission?: Yes Plan: Patient has been given nicotine patch (9) Obesity Qualifiers: Obesity type: due to excess calories Obesity classification: adult class 1 (BMI 30 ? 34.9) Serious obesity comorbidity presence: with serious comorbidity Body mass index: BMI 30.0-30.9 Qualified Code(s): E66.09 - Other obesity due to excess calories; Z68.30 - Body mass index (BMI) 30.0-30.9, adult Is this a current diagnosis for this admission?: Yes Plan: Consult dietary - Time Critical Time spent with patient: 35 or more minutes Medications reviewed and adjusted accordingly: Yes
[2017-07-25] MEDS: NICOTINE 21 MG/24 HR PATCH.TD24 TD SCH (18:06)
[2017-07-25] MEDS: NORMAL SALINE 1000 ML 1,000 ML with POTASSIUM CHLORIDE 20 MEQ, MAGNESIUM SULFATE 8 MEQ,... IV SCH ×5 (18:14)
[2017-07-25] MEDS: AMPICILLIN SODIUM/SULBACTAM NA 3 GM in NORMAL SALINE 100 ML IV SCH ×2 (18:16→23:57)
[2017-07-25 18:25] LABS: ARTERIAL BLOOD BASE EXCESS -0.3 mmol/L; ARTERIAL BLOOD O2 SATURATION 97.4 % (94-98)
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
[2017-07-25] MEDS: METHYLPREDNISOLONE INJ 40 MG/1 ML SDV IV SCH (21:18)
[2017-07-25] MEDS: ENALAPRILAT DIHYDRATE INJ/PF 1.25 MG/1 ML SDV IV SCH (21:20)
[2017-07-25] MEDS: METOPROLOL TARTRATE 50 MG TABLET NG SCH (21:20)
[2017-07-25] MEDS: LEVETIRACETAM 500 MG/NACL-ISO 500 MG/100 ML RTUPB IV SCH (21:22)
[2017-07-26] MEDS: PROPOFOL 100 ML IV PRN ×7 (00:39→23:46)
[2017-07-26] MEDS: IPRATROPIUM/ALBUTEROL 0.5-2.5 MG/3 ML AMPUL NEB SCH ×4 (02:00→19:42)
[2017-07-26] MEDS: ENALAPRILAT DIHYDRATE INJ/PF 1.25 MG/1 ML SDV IV SCH ×4 (03:36→21:09)
[2017-07-26 04:14] LABS: PROTHROMBIN TIME 13.2 SEC (11.4-15.4)
[2017-07-26 04:16] LABS: HEMATOCRIT 36.1 % (37.9-51.0); HEMOGLOBIN 12.6 g/dL (13.5-17.0); HGB HCT DIFFERENCE 1.7; MEAN CORPUSCULAR HEMOGLOBIN 32.9 pg (27.0-33.4); MEAN CORPUSCULAR HGB CONC 34.8 g/dL (32.0-36.0); MEAN CORPUSCULAR VOLUME 95 fl (80-97); RED BLOOD COUNT 3.81 10^6/uL (4.35-5.55); RED CELL DISTRIBUTION WIDTH 14.2 % (11.5-14.0); WHITE BLOOD COUNT 13.3 10^3/uL (4.0-10.5)
[2017-07-26 04:23] LABS: ANION GAP 11 (5-19); BLOOD UREA NITROGEN 13 mg/dL (7-20); CALCIUM 8.7 mg/dL (8.4-10.2); CARBON DIOXIDE 20 mmol/L (22-30); CHLORIDE 110 mmol/L (98-107); CREATININE RESULT 0.61 mg/dL (0.52-1.25); GLUCOSE 119 mg/dL (75-110); MAGNESIUM 2.4 mg/dL (1.6-2.3); PHOSPHORUS 4.4 mg/dL (2.5-4.5); POTASSIUM 4.2 mmol/L (3.6-5.0); SODIUM 141.3 mmol/L (137-145)
[2017-07-26 04:57] LABS: BASOPHILS % (MANUAL) 0 % (0-2); EOSINOPHILS % (MANUAL) 0 % (0-6); LYMPHOCYTES % (MANUAL) 3 % (13-45); TOTAL CELLS COUNTED 100
[2017-07-26 05:02] LABS: ANISOCYTOSIS SLIGHT; POIKILOCYTOSIS SLIGHT; POLYCHROMASIA SLIGHT; ROULEAUX SLIGHT; STOMATOCYTES SLIGHT; TOXIC GRANULATION SLIGHT; TOXIC VACUOLATION PRESENT
[2017-07-26] MEDS: AMPICILLIN SODIUM/SULBACTAM NA 3 GM in NORMAL SALINE 100 ML IV SCH ×4 (05:05→23:12)
[2017-07-26 05:06] LABS: ARTERIAL BLOOD BASE EXCESS 1.2 mmol/L; ARTERIAL BLOOD O2 SATURATION 96.2 % (94-98)
[2017-07-26] MEDS: METHYLPREDNISOLONE INJ 40 MG/1 ML SDV IV SCH ×3 (05:06→21:10)
[2017-07-26] MEDS: DIAZEPAM 5 MG TABLET NG SCH ×4 (05:06→23:12)
[2017-07-26] MEDS: NORMAL SALINE 1000 ML 1,000 ML IV PRN (05:07)
[2017-07-26] MEDS ORDERED: DEXTROSE 50%-WATER 25 GM/50 ML DISP.SYRIN IV PRN ×2 (06:21)
[2017-07-26] MEDS ORDERED: GLUCAGON,HUMAN RECOMB 1 MG INJ SUBCUT PRN (06:21)
[2017-07-26] MEDS ORDERED: DEXTROSE 40% GEL 15 GM TUBE PO PRN ×2 (06:21)
--- NOTE | 2017-07-26 06:34 | RADIOLOGY REPORT (SQ) ---
EXAM DESCRIPTION: CHEST SINGLE VIEW COMPLETED DATE/TIME: 07/26/2017 5:43 am REASON FOR STUDY: resp failure COMPARISON: 07/25/2017. EXAM PARAMETERS: NUMBER OF VIEWS: One view. TECHNIQUE: Single frontal radiographic view of the chest acquired. RADIATION DOSE: NA LIMITATIONS: None. FINDINGS: LUNGS AND PLEURA: No opacities, masses or pneumothorax. No pleural effusion. MEDIASTINUM AND HILAR STRUCTURES: No masses. Contour normal. HEART AND VASCULAR STRUCTURES: Heart normal in size. Normal vasculature. BONES: No acute findings. HARDWARE: Adequate appearing endotracheal tube and nasogastric tube. OTHER: No other significant finding. IMPRESSION: No significant interval change. TECHNICAL DOCUMENTATION: JOB ID: [id number]
--- NOTE | 2017-07-26 09:48 | PDOC PROGRESS REPORT ---
Subjective Progress Note for:: 07/26/17 Subjective:: Intubated and sedated Physical Exam Vital Signs: Temp Pulse Resp BP Pulse Ox 97.7 F 71 12 120/84 100 07/26/17 06:09 07/26/17 07:30 07/26/17 07:30 07/26/17 06:09 07/26/17 07:30 Intake & Output 07/25/17 07/26/17 07/27/17 06:59 06:59 06:59 Intake Total 2238 2102 Output Total 3450 2845 75 Balance -1212 -743 -75 Weight 99.9 kg 98.4 kg General appearance: PRESENT: no acute distress, disheveled, well-developed Head exam: PRESENT: atraumatic, normocephalic Eye exam: PRESENT: conjunctiva pale Mouth exam: PRESENT: dry mucosa, neck supple, tongue midline, other - ET tube in place Neck exam: ABSENT: carotid bruit, JVD, lymphadenopathy, thyromegaly Respiratory exam: PRESENT: decreased breath sounds, prolonged expiratory phas, rales, rhonchi, symmetrical, unlabored. ABSENT: accessory muscle use, clear to auscultation hilda, crackles, retraction, tachypnea, wheezes Cardiovascular exam: PRESENT: RRR, +S1, +S2. ABSENT: bradycardia, rubs, tachycardia Pulses: PRESENT: normal radial pulses GI/Abdominal exam: PRESENT: normal bowel sounds, soft. ABSENT: distended, guarding, mass, organolmegaly, rebound, tenderness Rectal exam: PRESENT: deferred Gentrourinary exam: PRESENT: indwelling catheter Musculoskeletal exam: PRESENT: normal inspection Skin exam: PRESENT: dry, warm Results Laboratory Results: 07/26/17 03:55 07/26/17 03:55 07/25/17 07/25/17 07/25/17 11:03 13:31 18:12 WBC RBC Hgb Hct MCV MCH MCHC RDW Plt Count Seg Neutrophils % Lymphocytes % Monocytes % Eosinophils % Basophils % Absolute Neutrophils Absolute Lymphocytes Absolute Monocytes Absolute Eosinophils Absolute Basophils Carbonic Acid 1.48 H 1.14 1.02 L HCO3/H2CO3 Ratio 15:1 20:1 22:1 ABG pH 7.29 L 7.41 7.45 ABG pCO2 49.2 H 37.9 33.9 L ABG pO2 106.2 H 67.8 L 92.7 ABG HCO3 23.3 23.2 23.0 ABG O2 Saturation 97.3 93.7 L 97.4 ABG Base Excess -3.7 -1.2 -0.3 FiO2 40% 40% 40% Sodium Potassium Chloride Carbon Dioxide Anion Gap BUN Creatinine Est GFR ( Amer) Est GFR (Non-Af Amer) Glucose Calcium Phosphorus Magnesium 07/26/17 07/26/17 07/26/17 03:55 03:55 05:00 WBC 13.3 H RBC 3.81 L Hgb 12.6 L Hct 36.1 L MCV 95 MCH 32.9 MCHC 34.8 RDW 14.2 H Plt Count 126 L Seg Neutrophils % Not Reportable Lymphocytes % Not Reportable Monocytes % Not Reportable Eosinophils % Not Reportable Basophils % Not Reportable Absolute Neutrophils Not Reportable Absolute Lymphocytes Not Reportable Absolute Monocytes Not Reportable Absolute Eosinophils Not Reportable Absolute Basophils Not Reportable Carbonic Acid 1.22 HCO3/H2CO3 Ratio 21:1 ABG pH 7.42 ABG pCO2 40.4 ABG pO2 81.2 ABG HCO3 25.7 ABG O2 Saturation 96.2 ABG Base Excess 1.2 FiO2 40% Sodium 141.3 Potassium 4.2 Chloride 110 H Carbon Dioxide 20 L Anion Gap 11 BUN 13 Creatinine 0.61 Est GFR ( Amer) > 60 Est GFR (Non-Af Amer) > 60 Glucose 119 H Calcium 8.7 Phosphorus 4.4 Magnesium 2.4 H 07/22/17 07/22/17 07/23/17 21:02 21:02 03:25 Creatine Kinase 1316 H 1162 H Troponin I 0.078 07/23/17 07/24/17 03:25 06:40 Creatine Kinase 660 H Troponin I 0.061 Impressions: Chest X-Ray 07/26/17 06:00 IMPRESSION: No significant interval change. Assessment & Plan - Diagnosis (1) Acute respiratory failure Qualifiers: Respiratory failure complication: unspecified whether with hypoxia or hypercapnia Qualified Code(s): J96.00 - Acute respiratory failure, unspecified whether with hypoxia or hypercapnia Is this a current diagnosis for this admission?: Yes Plan: Oxygenating and ventilating well so far (2) Alcohol withdrawal Qualifiers: Complication of substance-induced condition: with delirium Qualified Code(s ): F10.231 - Alcohol dependence with withdrawal delirium Is this a current diagnosis for this admission?: Yes Plan: Stable dual sedation vacation for today (3) Atrial fibrillation with RVR Is this a current diagnosis for this admission?: Yes Plan: stable vr well controlled (4) COPD exacerbation Is this a current diagnosis for this admission?: Yes Plan: Nebulized bronchodilator therapy - Time Critical Time spent with patient: 35 or more minutes
[2017-07-26] MEDS: FAMOTIDINE INJ/PF 20 MG/2 ML SDV IV SCH ×2 (10:06→21:11)
[2017-07-26] MEDS: METOPROLOL TARTRATE 50 MG TABLET NG SCH ×2 (10:06→21:11)
[2017-07-26] MEDS: LEVETIRACETAM 500 MG/NACL-ISO 500 MG/100 ML RTUPB IV SCH ×2 (10:07→21:09)
[2017-07-26] MEDS: LANSOPRAZOLE 30 MG TAB.RAP.DR NG SCH (10:07)
[2017-07-26] MEDS: MIDAZOLAM HCL 100 ML IV PRN ×2 (11:55→23:45)
--- NOTE | 2017-07-26 14:13 | PDOC PROGRESS REPORT ---
Subjective Progress Note for:: 07/26/17 Subjective:: Patient is intubated, sedated, mechanically ventilated and doing well. Unable to obtain ROS secondary to this. No acute events overnight. Physical Exam Vital Signs: Temp Pulse Resp BP Pulse Ox 99.1 F 78 14 132/86 H 99 07/26/17 13:09 07/26/17 13:25 07/26/17 13:25 07/26/17 13:09 07/26/17 13:25 Intake & Output 07/25/17 07/26/17 07/27/17 06:59 06:59 06:59 Intake Total 2238 2102 Output Total 3450 7165 500 Balance -9938 -212 -500 Weight 99.9 kg 98.4 kg Exam: General: Intubated, sedated, mechanically ventilated HEENT: AT/NC, pupils 2mm, EOMI, oropharynx is moist, ET tube in place, pink, no scleral icterus, no conjunctival injection Neck: No JVD, trachea midline Chest: CTAB CV: Regular rate and rhythm, normal S1 and S2, no murmur, rub, or gallop Abdomen: Soft, nontender to palpation, nondistended, active bowel sounds; no rebound, rigidity, or guarding Extremities: No cyanosis, clubbing or edema Neuro: GCS 3T Results Laboratory Results: 07/26/17 03:55 07/26/17 03:55 07/25/17 07/25/17 07/26/17 13:31 18:12 03:55 WBC 13.3 H RBC 3.81 L Hgb 12.6 L Hct 36.1 L MCV 95 MCH 32.9 MCHC 34.8 RDW 14.2 H Plt Count 126 L Seg Neutrophils % Not Reportable Lymphocytes % Not Reportable Monocytes % Not Reportable Eosinophils % Not Reportable Basophils % Not Reportable Absolute Neutrophils Not Reportable Absolute Lymphocytes Not Reportable Absolute Monocytes Not Reportable Absolute Eosinophils Not Reportable Absolute Basophils Not Reportable Carbonic Acid 1.14 1.02 L HCO3/H2CO3 Ratio 20:1 22:1 ABG pH 7.41 7.45 ABG pCO2 37.9 33.9 L ABG pO2 67.8 L 92.7 ABG HCO3 23.2 23.0 ABG O2 Saturation 93.7 L 97.4 ABG Base Excess -1.2 -0.3 FiO2 40% 40% Sodium Potassium Chloride Carbon Dioxide Anion Gap BUN Creatinine Est GFR ( Amer) Est GFR (Non-Af Amer) Glucose Calcium Phosphorus Magnesium 07/26/17 07/26/17 03:55 05:00 WBC RBC Hgb Hct MCV MCH MCHC RDW Plt Count Seg Neutrophils % Lymphocytes % Monocytes % Eosinophils % Basophils % Absolute Neutrophils Absolute Lymphocytes Absolute Monocytes Absolute Eosinophils Absolute Basophils Carbonic Acid 1.22 HCO3/H2CO3 Ratio 21:1 ABG pH 7.42 ABG pCO2 40.4 ABG pO2 81.2 ABG HCO3 25.7 ABG O2 Saturation 96.2 ABG Base Excess 1.2 FiO2 40% Sodium 141.3 Potassium 4.2 Chloride 110 H Carbon Dioxide 20 L Anion Gap 11 BUN 13 Creatinine 0.61 Est GFR ( Amer) > 60 Est GFR (Non-Af Amer) > 60 Glucose 119 H Calcium 8.7 Phosphorus 4.4 Magnesium 2.4 H 07/22/17 07/22/17 07/23/17 21:02 21:02 03:25 Creatine Kinase 1316 H 1162 H Troponin I 0.078 07/23/17 07/24/17 03:25 06:40 Creatine Kinase 660 H Troponin I 0.061 Impressions: Chest X-Ray 07/26/17 06:00 IMPRESSION: No significant interval change. Assessment & Plan - Diagnosis (1) Acute respiratory failure with hypoxia Is this a current diagnosis for this admission?: Yes Plan: Patient has been intubated. pulmonary medicine will manage his ventilator (2) COPD exacerbation Is this a current diagnosis for this admission?: Yes Plan: On Solu-Medrol and Unasyn Pending sputum culture. Scheduled nebulized treatments (3) Alcohol withdrawal Qualifiers: Complication of substance-induced condition: with delirium Qualified Code(s ): F10.231 - Alcohol dependence with withdrawal delirium Is this a current diagnosis for this admission?: Yes Plan: Patient on Valium 10 mg NG every 6 hrs Thiamine, folic acid, multivitamin daily Monitor electrolytes and watch for arrhythmia Versed drip Ativan for seizures only (4) Altered mental state Qualifiers: Altered mental status type: disorientation Qualified Code(s): R41.0 - Disorientation, unspecified Is this a current diagnosis for this admission?: Yes Plan: Secondary to above (5) Atrial fibrillation with RVR Is this a current diagnosis for this admission?: Yes Plan: Patient is currently in sinus rhythm. Metoprolol 50mg NG twice daily. At this time, and reluctant to begin this patient on anticoagulation due to a GI bleed history and his chronic alcoholism (6) Seizure Is this a current diagnosis for this admission?: Yes Plan: on scheduled valium and versed ggt likely 2/[address] on keppra bid (7) Aspiration pneumonia Qualifiers: Aspiration pneumonia type: unspecified Laterality: right Lung location: middle lobe of lung Qualified Code(s): J69.0 - Pneumonitis due to inhalation of food and vomit Is this a current diagnosis for this admission?: Yes Plan: Concern for aspiration pneumonia. Pending sputum culture and on Unasyn (8) Tobacco abuse Is this a current diagnosis for this admission?: Yes Plan: Patient has been given nicotine patch (9) Obesity Qualifiers: Obesity type: due to excess calories Obesity classification: adult class 1 (BMI 30 ? 34.9) Serious obesity comorbidity presence: with serious comorbidity Body mass index: BMI 30.0-30.9 Qualified Code(s): E66.09 - Other obesity due to excess calories; Z68.30 - Body mass index (BMI) 30.0-30.9, adult Is this a current diagnosis for this admission?: Yes Plan: Consult dietary - Time Time Spent with patient: 25-34 minutes Medications reviewed and adjusted accordingly: Yes
[2017-07-26] MEDS: NICOTINE 21 MG/24 HR PATCH.TD24 TD SCH (17:20)
[2017-07-26] MEDS: NORMAL SALINE 1000 ML 1,000 ML with POTASSIUM CHLORIDE 20 MEQ, MAGNESIUM SULFATE 8 MEQ,... IV SCH ×5 (17:23)
[2017-07-26] MEDS: LORAZEPAM INJ 2 MG/1 ML VIAL IV PRN (21:12)
[2017-07-27] MEDS: IPRATROPIUM/ALBUTEROL 0.5-2.5 MG/3 ML AMPUL NEB SCH ×4 (01:54→19:42)
[2017-07-27] MEDS: ENALAPRILAT DIHYDRATE INJ/PF 1.25 MG/1 ML SDV IV SCH ×3 (02:33→15:58)
[2017-07-27] MEDS: PROPOFOL 100 ML IV PRN ×8 (02:33→22:39)
[2017-07-27 04:17] LABS: ABSOLUTE LYMPHOCYTES (AUTO) 0.5 10^3/uL (0.5-4.7); ABSOLUTE MONOCYTES (AUTO) 0.6 10^3/uL (0.1-1.4); ABSOLUTE NEUT (AUTO) 6.2 10^3/uL (1.7-8.2); BASOPHILS % (AUTO) 0.2 % (0-2); HEMATOCRIT 35.8 % (37.9-51.0); HEMOGLOBIN 12.4 g/dL (13.5-17.0); HGB HCT DIFFERENCE 1.4; LYMPHOCYTES % (AUTO) 6.5 % (13-45); MEAN CORPUSCULAR HEMOGLOBIN 33.2 pg (27.0-33.4); MEAN CORPUSCULAR HGB CONC 34.7 g/dL (32.0-36.0); MEAN CORPUSCULAR VOLUME 96 fl (80-97); MONOCYTES % (AUTO) 8.7 % (3-13); RED BLOOD COUNT 3.75 10^6/uL (4.35-5.55); RED CELL DISTRIBUTION WIDTH 14.2 % (11.5-14.0); SEGMENTED NEUTROPHILS % (AUTO) 84.6 % (42-78); WHITE BLOOD COUNT 7.4 10^3/uL (4.0-10.5)
[2017-07-27 04:28] LABS: ALANINE AMINOTRANSFERASE 50 U/L (21-72); ALBUMIN 3.1 g/dL (3.5-5.0); ALKALINE PHOSPHATASE 59 U/L (38-126); ANION GAP 7 (5-19); ASPARTATE AMINO TRANSFERASE 36 U/L (17-59); BILIRUBIN,DIRECT 0.4 mg/dL (0.0-0.4); BILIRUBIN,TOTAL 0.5 mg/dL (0.2-1.3); BLOOD UREA NITROGEN 13 mg/dL (7-20); CALCIUM 8.3 mg/dL (8.4-10.2); CARBON DIOXIDE 24 mmol/L (22-30); CHLORIDE 109 mmol/L (98-107); CREATININE RESULT 0.64 mg/dL (0.52-1.25); GLUCOSE 112 mg/dL (75-110); MAGNESIUM 2.6 mg/dL (1.6-2.3); PHOSPHORUS 3.5 mg/dL (2.5-4.5); POTASSIUM 4.1 mmol/L (3.6-5.0); SODIUM 140.2 mmol/L (137-145); TOTAL PROTEIN 5.2 g/dL (6.3-8.2)
[2017-07-27 04:53] LABS: ARTERIAL BLOOD BASE EXCESS 1.8 mmol/L; ARTERIAL BLOOD O2 SATURATION 97.2 % (94-98)
[2017-07-27] MEDS: AMPICILLIN SODIUM/SULBACTAM NA 3 GM in NORMAL SALINE 100 ML IV SCH ×4 (05:26→23:25)
[2017-07-27] MEDS: METHYLPREDNISOLONE INJ 40 MG/1 ML SDV IV SCH ×3 (05:27→22:00)
[2017-07-27] MEDS: DIAZEPAM 5 MG TABLET NG SCH ×3 (05:27→22:02)
[2017-07-27] MEDS: NORMAL SALINE 1000 ML 1,000 ML IV PRN (06:02)
--- NOTE | 2017-07-27 07:14 | RADIOLOGY REPORT (SQ) ---
EXAM DESCRIPTION: CHEST SINGLE VIEW COMPLETED DATE/TIME: 07/27/2017 5:50 am REASON FOR STUDY: resp failure COMPARISON: 07/26/2017. EXAM PARAMETERS: NUMBER OF VIEWS: One view. TECHNIQUE: Single frontal radiographic view of the chest acquired. RADIATION DOSE: NA LIMITATIONS: None. FINDINGS: LUNGS AND PLEURA: Moderate opacity -layered effusion of the left lower hemithorax. Modera te left lung volume. MEDIASTINUM AND HILAR STRUCTURES: No masses. Contour normal. HEART AND VASCULAR STRUCTURES: Heart normal in size. Normal vasculature. BONES: No acute findings. HARDWARE: Adequate appearing endotracheal tube and NG tube. OTHER: No other significant finding. IMPRESSION: Small-moderate left lower lobar opacity may indicate pneumonia, atelectasis, and/or effu dejan. Lines and tubes. TECHNICAL DOCUMENTATION: JOB ID: [id number]
[2017-07-27] MEDS: FAMOTIDINE INJ/PF 20 MG/2 ML SDV IV SCH ×2 (10:32→22:01)
[2017-07-27] MEDS: LANSOPRAZOLE 30 MG TAB.RAP.DR NG SCH (10:32)
[2017-07-27] MEDS: METOPROLOL TARTRATE 50 MG TABLET NG SCH ×2 (10:32→22:02)
[2017-07-27] MEDS: LEVETIRACETAM 500 MG/NACL-ISO 500 MG/100 ML RTUPB IV SCH ×2 (10:33→22:02)
[2017-07-27] MEDS: MIDAZOLAM HCL 100 ML IV PRN ×2 (11:03→18:42)
--- NOTE | 2017-07-27 15:38 | PDOC PROGRESS REPORT ---
Subjective Progress Note for:: 07/27/17 Subjective:: Patient remains intubated, sedated, mechanically ventilated and doing well. Unable to obtain ROS secondary to this. No acute events overnight. Physical Exam Vital Signs: Temp Pulse Resp BP Pulse Ox 97.9 F 56 L 20 144/93 H 96 07/27/17 14:00 07/27/17 13:38 07/27/17 13:38 07/27/17 13:58 07/27/17 14:00 Intake & Output 07/26/17 07/27/17 07/28/17 06:59 06:59 06:59 Intake Total 2102 4329 Output Total 2845 2750 800 Balance -743 1579 -800 Weight 98.4 kg 99.1 kg Exam: General: Intubated, sedated, mechanically ventilated HEENT: AT/NC, PERRL, EOMI, oropharynx is moist, ET tube in place, pink, no scleral icterus, no conjunctival injection Neck: No JVD, trachea midline Chest: occasional rhonchi CV: Regular rate and rhythm, normal S1 and S2, no murmur, rub, or gallop Abdomen: Soft, nontender to palpation, nondistended, active bowel sounds; no rebound, rigidity, or guarding Extremities: No cyanosis, clubbing or edema Neuro: GCS 6T Results Laboratory Results: 07/27/17 04:05 07/27/17 04:05 07/27/17 07/27/17 07/27/17 04:05 04:05 04:50 WBC 7.4 RBC 3.75 L Hgb 12.4 L Hct 35.8 L MCV 96 MCH 33.2 MCHC 34.7 RDW 14.2 H Plt Count 140 L Seg Neutrophils % 84.6 H Lymphocytes % 6.5 L Monocytes % 8.7 Eosinophils % 0.0 Basophils % 0.2 Absolute Neutrophils 6.2 Absolute Lymphocytes 0.5 Absolute Monocytes 0.6 Absolute Eosinophils 0.0 Absolute Basophils 0.0 Carbonic Acid 1.13 HCO3/H2CO3 Ratio 22:1 ABG pH 7.45 ABG pCO2 37.4 ABG pO2 89.3 ABG HCO3 25.6 ABG O2 Saturation 97.2 ABG Base Excess 1.8 FiO2 35% Sodium 140.2 Potassium 4.1 Chloride 109 H Carbon Dioxide 24 Anion Gap 7 BUN 13 Creatinine 0.64 Est GFR ( Amer) > 60 Est GFR (Non-Af Amer) > 60 Glucose 112 H Calcium 8.3 L Phosphorus 3.5 Magnesium 2.6 H Total Bilirubin 0.5 AST 36 ALT 50 Alkaline Phosphatase 59 Total Protein 5.2 L Albumin 3.1 L 07/25/17 19:40 Tracheal Aspirate Gram Stain - Final 07/22/17 07/22/17 07/23/17 21:02 21:02 03:25 Creatine Kinase 1316 H 1162 H Troponin I 0.078 07/23/17 07/24/17 03:25 06:40 Creatine Kinase 660 H Troponin I 0.061 Impressions: Chest X-Ray 07/27/17 06:00 IMPRESSION: Small-moderate left lower lobar opacity may indicate pneumonia, atelectasis, and/or effusion. Lines and tubes. Assessment & Plan - Diagnosis (1) Acute respiratory failure with hypoxia Is this a current diagnosis for this admission?: Yes Plan: Patient has been intubated. pulmonary medicine will manage his ventilator Continue weaning trial (2) COPD exacerbation Is this a current diagnosis for this admission?: Yes Plan: Decrease solumedrol Unasyn day#3 Sputum culture currently growing strep pneumoniae Scheduled nebulized treatments (3) Alcohol withdrawal Qualifiers: Complication of substance-induced condition: with delirium Qualified Code(s ): F10.231 - Alcohol dependence with withdrawal delirium Is this a current diagnosis for this admission?: Yes Plan: Decrease Valium 10 mg NG every 8 hrs, patient is currently day #5-6 from last drink Thiamine, folic acid, multivitamin daily Monitor electrolytes and watch for arrhythmia Versed drip Ativan for seizures only (4) Altered mental state Qualifiers: Altered mental status type: disorientation Qualified Code(s): R41.0 - Disorientation, unspecified Is this a current diagnosis for this admission?: Yes (5) Atrial fibrillation with RVR Is this a current diagnosis for this admission?: Yes Plan: Patient is currently in sinus rhythm. Metoprolol 50mg NG twice daily. At this time, and reluctant to begin this patient on anticoagulation due to a GI bleed history and his chronic alcoholism (6) Seizure Is this a current diagnosis for this admission?: Yes Plan: on scheduled valium and versed ggt likely 2/2 etoh withdrawal Ativan for seizure only Have placed patient on Keppra as this is not his first seizure. (7) Aspiration pneumonia Qualifiers: Aspiration pneumonia type: unspecified Laterality: right Lung location: middle lobe of lung Qualified Code(s): J69.0 - Pneumonitis due to inhalation of food and vomit Is this a current diagnosis for this admission?: Yes Plan: Is currently growing Streptococcus pneumoniae. Continue pulmonary toileting, scheduled nebulous treatments, and Unasyn (8) Tobacco abuse Is this a current diagnosis for this admission?: Yes Plan: Patient has been given nicotine patch (9) Obesity Qualifiers: Obesity type: due to excess calories Obesity classification: adult class 1 (BMI 30 ? 34.9) Serious obesity comorbidity presence: with serious comorbidity Body mass index: BMI 30.0-30.9 Qualified Code(s): E66.09 - Other obesity due to excess calories; Z68.30 - Body mass index (BMI) 30.0-30.9, adult Is this a current diagnosis for this admission?: Yes - Time Time Spent with patient: 25-34 minutes Medications reviewed and adjusted accordingly: Yes
[2017-07-27] MEDS: HEPARIN SOD (PORCINE) 5,000 UNIT/ML 1 ML SYRINGE SUBCUT SCH ×2 (15:57→22:00)
[2017-07-27] MEDS ORDERED: FUROSEMIDE INJ/PF 20 MG/2 ML SDV IV ONE (16:00)
[2017-07-27] MEDS: LACTULOSE SYRUP 20 GM/30 ML UDCUP NG SCH (18:18)
[2017-07-27] MEDS: NORMAL SALINE 1000 ML 1,000 ML with POTASSIUM CHLORIDE 20 MEQ, MAGNESIUM SULFATE 8 MEQ,... IV SCH ×5 (18:20)
[2017-07-27] MEDS: NICOTINE 21 MG/24 HR PATCH.TD24 TD SCH (18:20)
[2017-07-27] MEDS: LISINOPRIL 10 MG TABLET NG SCH (22:01)
[2017-07-27] MEDS: AMLODIPINE BESYLATE 5 MG TABLET NG SCH (22:02)
[2017-07-27] MEDS: OLANZAPINE 5 MG TABLET NG SCH (22:02)
--- NOTE | 2017-07-27 22:06 | EKG REPORT ---
SEVERITY:- ABNORMAL ECG - SINUS RHYTHM PROBABLE LEFT ATRIAL ABNORMALITY NONSPECIFIC T ABNORMALITIES, ANT-LAT LEADS : Confirmed by: Jan Preston 27-Jul-2017 22:05:54
[2017-07-28] MEDS: IPRATROPIUM/ALBUTEROL 0.5-2.5 MG/3 ML AMPUL NEB SCH ×4 (01:34→20:55)
[2017-07-28 04:08] LABS: HEMATOCRIT 38.4 % (37.9-51.0); HEMOGLOBIN 13.2 g/dL (13.5-17.0); HGB HCT DIFFERENCE 1.2; MEAN CORPUSCULAR HEMOGLOBIN 32.9 pg (27.0-33.4); MEAN CORPUSCULAR HGB CONC 34.3 g/dL (32.0-36.0); MEAN CORPUSCULAR VOLUME 96 fl (80-97); RED BLOOD COUNT 4.01 10^6/uL (4.35-5.55); RED CELL DISTRIBUTION WIDTH 14.1 % (11.5-14.0); WHITE BLOOD COUNT 8.2 10^3/uL (4.0-10.5)
[2017-07-28 04:17] LABS: ALANINE AMINOTRANSFERASE 92 U/L (21-72); ALBUMIN 3.3 g/dL (3.5-5.0); ALKALINE PHOSPHATASE 65 U/L (38-126); ANION GAP 10 (5-19); ASPARTATE AMINO TRANSFERASE 64 U/L (17-59); BILIRUBIN,DIRECT 0.4 mg/dL (0.0-0.4); BILIRUBIN,TOTAL 0.5 mg/dL (0.2-1.3); BLOOD UREA NITROGEN 15 mg/dL (7-20); CALCIUM 8.7 mg/dL (8.4-10.2); CARBON DIOXIDE 25 mmol/L (22-30); CHLORIDE 106 mmol/L (98-107); CREATININE RESULT 0.69 mg/dL (0.52-1.25); GLUCOSE 121 mg/dL (75-110); MAGNESIUM 2.6 mg/dL (1.6-2.3); PHOSPHORUS 3.8 mg/dL (2.5-4.5); POTASSIUM 4.2 mmol/L (3.6-5.0); SODIUM 141.1 mmol/L (137-145); TOTAL PROTEIN 5.9 g/dL (6.3-8.2); TRIGLYCERIDES 124 mg/dL (<150)
[2017-07-28 04:52] LABS: ARTERIAL BLOOD BASE EXCESS 3.6 mmol/L; ARTERIAL BLOOD O2 SATURATION 92.9 % (94-98)
[2017-07-28] MEDS: PROPOFOL 100 ML IV PRN ×5 (04:56→23:13)
[2017-07-28 05:10] LABS: BASOPHILS % (MANUAL) 0 % (0-2); EOSINOPHILS % (MANUAL) 0 % (0-6); LYMPHOCYTES % (MANUAL) 9 % (13-45); TOTAL CELLS COUNTED 100
[2017-07-28 05:12] LABS: ANISOCYTOSIS SLIGHT; TOXIC GRANULATION 1+
[2017-07-28] MEDS: DIAZEPAM 5 MG TABLET NG SCH ×2 (05:37→14:18)
[2017-07-28] MEDS: AMPICILLIN SODIUM/SULBACTAM NA 3 GM in NORMAL SALINE 100 ML IV SCH ×4 (05:38→23:38)
[2017-07-28] MEDS: METHYLPREDNISOLONE INJ 40 MG/1 ML SDV IV SCH ×3 (05:38→21:11)
[2017-07-28] MEDS: HEPARIN SOD (PORCINE) 5,000 UNIT/ML 1 ML SYRINGE SUBCUT SCH ×3 (05:39→21:11)
--- NOTE | 2017-07-28 07:11 | RADIOLOGY REPORT (SQ) ---
EXAM DESCRIPTION: CHEST SINGLE VIEW COMPLETED DATE/TIME: 07/28/2017 6:42 am REASON FOR STUDY: resp failure COMPARISON: Chest x-ray 07/27/2017. EXAM PARAMETERS: NUMBER OF VIEWS: One view TECHNIQUE: Single frontal radiograph of the chest. RADIATION DOSE: N/A LIMITATIONS: None. FINDINGS: TEMPORARY SUPPORT DEVICES:ETT in expected location. NG tube courses below the left estee-d iaphragm in to the stomach. LUNGS AND PLEURA: Interval decrease in the left basilar airspace opacity. Ground-glass opacity at th e right lung base. MEDIASTINUM AND HILAR STRUCTURES: No masses. Contour normal. HEART AND VASCULAR STRUCTURES: Heart size normal. No overt vascular congestion. BONES: No acute findings. IMPRESSION: Interval improvement in the aeration of the left lung with decrease in the left basilar airspace opacity. Ground-glass opacity at the right lung base, may represent atelectasis or developing pneumonia. TECHNICAL DOCUMENTATION: JOB ID: [id number] 2010 [employer]- All Rights Reserved
[2017-07-28] MEDS ORDERED: FUROSEMIDE INJ/PF 20 MG/2 ML SDV IV ONE (09:30)
[2017-07-28] MEDS: AMLODIPINE BESYLATE 5 MG TABLET NG SCH ×2 (10:06→21:11)
[2017-07-28] MEDS: LACTULOSE SYRUP 20 GM/30 ML UDCUP NG SCH ×2 (10:06→17:31)
[2017-07-28] MEDS: LANSOPRAZOLE 30 MG TAB.RAP.DR NG SCH (10:06)
[2017-07-28] MEDS: METOPROLOL TARTRATE 50 MG TABLET NG SCH ×2 (10:06→21:11)
[2017-07-28] MEDS: LISINOPRIL 10 MG TABLET NG SCH ×2 (10:06→21:11)
[2017-07-28] MEDS: FAMOTIDINE INJ/PF 20 MG/2 ML SDV IV SCH ×2 (10:07→21:11)
[2017-07-28] MEDS: LEVETIRACETAM 500 MG/NACL-ISO 500 MG/100 ML RTUPB IV SCH ×2 (10:07→21:11)
[2017-07-28] MEDS: MIDAZOLAM HCL 100 ML IV PRN ×2 (10:07→20:10)
--- NOTE | 2017-07-28 14:31 | PDOC PROGRESS REPORT ---
Subjective Progress Note for:: 07/28/17 Subjective:: T-max the last 24 hours is 99.7F Patient remains intubated, sedated, mechanically ventilated and doing well. Unable to obtain ROS secondary to this. No acute events overnight. Physical Exam Vital Signs: Temp Pulse Resp BP Pulse Ox 99.3 F 83 23 H 131/106 H 97 07/28/17 12:00 07/28/17 09:38 07/28/17 09:38 07/28/17 11:58 07/28/17 13:14 Intake & Output 07/27/17 07/28/17 07/29/17 06:59 06:59 06:59 Intake Total 4329 4114 Output Total 2751 9205 2049 Balance 1578 Weight 99.1 kg 98.9 kg Exam: General: Intubated, sedated, mechanically ventilated HEENT: AT/NC, PERRL, EOMI, oropharynx is moist, ET tube in place, pink, no scleral icterus, no conjunctival injection Neck: No JVD, trachea midline Chest: coarse bilaterally CV: Regular rate and rhythm, normal S1 and S2, no murmur, rub, or gallop Abdomen: Soft, nontender to palpation, nondistended, active bowel sounds; no rebound, rigidity, or guarding Extremities: No cyanosis, clubbing or trace edema Neuro: GCS 6T Results Laboratory Results: 07/28/17 03:52 07/28/17 03:52 07/28/17 07/28/17 07/28/17 03:52 03:52 04:30 WBC 8.2 RBC 4.01 L Hgb 13.2 L Hct 38.4 MCV 96 MCH 32.9 MCHC 34.3 RDW 14.1 H Plt Count 179 Seg Neutrophils % Not Reportable Lymphocytes % Not Reportable Monocytes % Not Reportable Eosinophils % Not Reportable Basophils % Not Reportable Absolute Neutrophils Not Reportable Absolute Lymphocytes Not Reportable Absolute Monocytes Not Reportable Absolute Eosinophils Not Reportable Absolute Basophils Not Reportable Carbonic Acid 1.11 HCO3/H2CO3 Ratio 24:1 ABG pH 7.48 H ABG pCO2 36.9 ABG pO2 60.3 L ABG HCO3 27.0 H ABG O2 Saturation 92.9 L ABG Base Excess 3.6 FiO2 25% Sodium 141.1 Potassium 4.2 Chloride 106 Carbon Dioxide 25 Anion Gap 10 BUN 15 Creatinine 0.69 Est GFR ( Amer) > 60 Est GFR (Non-Af Amer) > 60 Glucose 121 H Calcium 8.7 Phosphorus 3.8 Magnesium 2.6 H Total Bilirubin 0.5 AST 64 H ALT 92 H Alkaline Phosphatase 65 Total Protein 5.9 L Albumin 3.3 L Triglycerides 124 07/25/17 19:40 Tracheal Aspirate Gram Stain - Final 07/25/17 19:40 Tracheal Aspirate Sputum Culture - Final Streptococcus Pneumoniae Normal Bobbi Absent 07/22/17 07/22/17 07/23/17 21:02 21:02 03:25 Creatine Kinase 1316 H 1162 H Troponin I 0.078 07/23/17 07/24/17 03:25 06:40 Creatine Kinase 660 H Troponin I 0.061 Impressions: Chest X-Ray 07/28/17 06:00 IMPRESSION: Interval improvement in the aeration of the left lung with decrease in the left basilar airspace opacity. Ground-glass opacity at the right lung base, may represent atelectasis or developing pneumonia. Assessment & Plan - Diagnosis (1) Acute respiratory failure with hypoxia Is this a current diagnosis for this admission?: Yes Plan: Patient has been intubated. pulmonary medicine will manage his ventilator Plan for weaning trial today (2) COPD exacerbation Is this a current diagnosis for this admission?: Yes Plan: IV solumedrol Unasyn day#4 Sputum culture currently growing strep pneumoniae Scheduled nebulized treatments (3) Alcohol withdrawal Qualifiers: Complication of substance-induced condition: with delirium Qualified Code(s ): F10.231 - Alcohol dependence with withdrawal delirium Is this a current diagnosis for this admission?: Yes Plan: Decrease Valium 10 mg NG every 12 hrs, patient is currently day #7 from last drink Thiamine, folic acid, multivitamin daily Monitor electrolytes and watch for arrhythmia Versed drip Ativan for seizures only (4) Altered mental state Qualifiers: Altered mental status type: disorientation Qualified Code(s): R41.0 - Disorientation, unspecified Is this a current diagnosis for this admission?: Yes (5) Atrial fibrillation with RVR Is this a current diagnosis for this admission?: Yes Plan: Patient is currently in sinus rhythm. Metoprolol 50mg NG twice daily. At this time, and reluctant to begin this patient on anticoagulation due to a GI bleed history and his chronic alcoholism (6) Seizure Is this a current diagnosis for this admission?: Yes Plan: on scheduled valium and versed ggt stop valium after today likely 2/2 etoh withdrawal Ativan for seizure only Keppra BID (7) Aspiration pneumonia Qualifiers: Aspiration pneumonia type: unspecified Laterality: right Lung location: middle lobe of lung Qualified Code(s): J69.0 - Pneumonitis due to inhalation of food and vomit Is this a current diagnosis for this admission?: Yes Plan: Is currently growing Streptococcus pneumoniae. Continue pulmonary toileting, scheduled nebulous treatments, and Unasyn (8) Tobacco abuse Is this a current diagnosis for this admission?: Yes Plan: Patient has been given nicotine patch (9) Obesity Qualifiers: Obesity type: due to excess calories Obesity classification: adult class 1 (BMI 30 ? 34.9) Serious obesity comorbidity presence: with serious comorbidity Body mass index: BMI 30.0-30.9 Qualified Code(s): E66.09 - Other obesity due to excess calories; Z68.30 - Body mass index (BMI) 30.0-30.9, adult Is this a current diagnosis for this admission?: Yes - Time Critical Time spent with patient: 25-34 minutes Medications reviewed and adjusted accordingly: Yes
[2017-07-28] MEDS: NICOTINE 21 MG/24 HR PATCH.TD24 TD SCH (17:30)
[2017-07-28] MEDS: NORMAL SALINE 1000 ML 1,000 ML with POTASSIUM CHLORIDE 20 MEQ, MAGNESIUM SULFATE 8 MEQ,... IV SCH ×5 (17:31)
[2017-07-28] MEDS: OLANZAPINE 5 MG TABLET NG SCH (21:11)
[2017-07-28] MEDS ORDERED: DIAZEPAM 5 MG TABLET NG SCH (22:00)
[2017-07-29] MEDS: NORMAL SALINE 1000 ML 1,000 ML IV PRN (00:46)
[2017-07-29] MEDS: IPRATROPIUM/ALBUTEROL 0.5-2.5 MG/3 ML AMPUL NEB SCH ×4 (02:43→20:39)
[2017-07-29] MEDS: PROPOFOL 100 ML IV PRN ×6 (03:04→23:57)
[2017-07-29 04:02] LABS: HEMATOCRIT 40.4 % (37.9-51.0); HEMOGLOBIN 13.9 g/dL (13.5-17.0); HGB HCT DIFFERENCE 1.3; MEAN CORPUSCULAR HEMOGLOBIN 32.5 pg (27.0-33.4); MEAN CORPUSCULAR HGB CONC 34.4 g/dL (32.0-36.0); MEAN CORPUSCULAR VOLUME 94 fl (80-97); RED BLOOD COUNT 4.28 10^6/uL (4.35-5.55); RED CELL DISTRIBUTION WIDTH 14.3 % (11.5-14.0); WHITE BLOOD COUNT 8.8 10^3/uL (4.0-10.5)
[2017-07-29 04:11] LABS: ANION GAP 10 (5-19); BLOOD UREA NITROGEN 19 mg/dL (7-20); CARBON DIOXIDE 24 mmol/L (22-30); CHLORIDE 106 mmol/L (98-107); CREATININE RESULT 0.63 mg/dL (0.52-1.25); GLUCOSE 111 mg/dL (75-110); MAGNESIUM 2.6 mg/dL (1.6-2.3); POTASSIUM 4.4 mmol/L (3.6-5.0); SODIUM 139.9 mmol/L (137-145)
[2017-07-29 04:23] LABS: BAND NEUTROPHILS % (MANUAL) 1 % (3-5); BASOPHILS % (MANUAL) 0 % (0-2); EOSINOPHILS % (MANUAL) 0 % (0-6); LYMPHOCYTES % (MANUAL) 15 % (13-45); TOTAL CELLS COUNTED 100
[2017-07-29 04:24] LABS: TOXIC GRANULATION SLIGHT
[2017-07-29 04:25] LABS: ANISOCYTOSIS SLIGHT; BURR CELLS SLIGHT; PLATELET CLUMPS PRESENT
[2017-07-29] MEDS: MIDAZOLAM HCL 100 ML IV PRN ×2 (05:20→14:27)
[2017-07-29] MEDS: AMPICILLIN SODIUM/SULBACTAM NA 3 GM in NORMAL SALINE 100 ML IV SCH ×4 (05:20→23:28)
[2017-07-29] MEDS: METHYLPREDNISOLONE INJ 40 MG/1 ML SDV IV SCH ×3 (05:21→21:02)
[2017-07-29] MEDS: HEPARIN SOD (PORCINE) 5,000 UNIT/ML 1 ML SYRINGE SUBCUT SCH ×3 (05:21→21:04)
[2017-07-29 05:57] LABS: ARTERIAL BLOOD BASE EXCESS 1.5 mmol/L; ARTERIAL BLOOD O2 SATURATION 94.8 % (94-98)
--- NOTE | 2017-07-29 06:58 | RADIOLOGY REPORT (SQ) ---
EXAM DESCRIPTION: CHEST SINGLE VIEW COMPLETED DATE/TIME: 07/29/2017 6:36 am REASON FOR STUDY: pna/resp failure COMPARISON: Chest x-ray 07/28/2017. EXAM PARAMETERS: NUMBER OF VIEWS: One view TECHNIQUE: Single frontal radiograph of the chest. RADIATION DOSE: N/A LIMITATIONS: None. FINDINGS: TEMPORARY SUPPORT DEVICES:ETT in expected location. NG tube courses below the left estee-d iaphragm in to the stomach. LUNGS AND PLEURA: No consolidation, pleural effusion or pneumothorax. MEDIASTINUM AND HILAR STRUCTURES: No masses. Contour normal. HEART AND VASCULAR STRUCTURES: Heart size normal. No overt vascular congestion. BONES: No acute findings. IMPRESSION: No acute radiographic finding in the chest. Support devices in expected locations. TECHNICAL DOCUMENTATION: JOB ID: [id number] 2010 [employer]- All Rights Reserved
[2017-07-29] MEDS: LISINOPRIL 10 MG TABLET NG SCH ×2 (09:33→21:03)
[2017-07-29] MEDS: AMLODIPINE BESYLATE 5 MG TABLET NG SCH ×2 (09:34→21:04)
[2017-07-29] MEDS: FUROSEMIDE INJ/PF 20 MG/2 ML SDV IV SCH ×2 (09:34→21:02)
[2017-07-29] MEDS: METOPROLOL TARTRATE 50 MG TABLET NG SCH ×2 (09:34→21:06)
[2017-07-29] MEDS: LACTULOSE SYRUP 20 GM/30 ML UDCUP NG SCH ×2 (09:34→18:02)
[2017-07-29] MEDS: LANSOPRAZOLE 30 MG TAB.RAP.DR NG SCH (09:34)
[2017-07-29] MEDS: FAMOTIDINE INJ/PF 20 MG/2 ML SDV IV SCH ×2 (09:34→21:02)
[2017-07-29] MEDS: LEVETIRACETAM 500 MG/NACL-ISO 500 MG/100 ML RTUPB IV SCH ×2 (09:34→21:03)
[2017-07-29] MEDS: LORAZEPAM INJ 2 MG/1 ML VIAL IV PRN (16:45)
[2017-07-29] MEDS ORDERED: PHENYTOIN SODIUM INJ/PF 250 MG/5 ML SDV IV ONE (16:49)
--- NOTE | 2017-07-29 17:46 | RADIOLOGY REPORT (SQ) ---
EXAM DESCRIPTION: CT HEAD WITHOUT COMPLETED DATE/TIME: 07/29/2017 5:37 pm REASON FOR STUDY: new seizures COMPARISON: 12/28/2016. TECHNIQUE: Axial images acquired through the brain without intravenous contrast. Images reviewed wi th bone, brain and subdural windows. Images stored on PACS. All CT scanners at this facility use dose modulation, iterative reconstruction, and/or weight based d osing when appropriate to reduce radiation dose to as low as reasonably achievable (ALARA). [facility]: Dose Right [facility]: CareDose [facility]: Dose Right [facility]: Teradose 4D [facility]: Smart Publicfast RADIATION DOSE: Up-to-date CT equipment and radiation dose reduction techniques were employed. CTDIv ol: 64.6 mGy. DLP: 1163 mGy-cm. mGy. LIMITATIONS: None. FINDINGS: VENTRICLES: Normal size and contour. CEREBRUM: No masses. No hemorrhage. No midline shift. No evidence for acute infarction. Normal gra y/white matter differentiation. No areas of low density in the white matter. CEREBELLUM: No masses. No hemorrhage. No alteration of density. No evidence for acute infarction. EXTRAAXIAL SPACES: No fluid collections. No masses. ORBITS AND GLOBE: No intra- or extraconal masses. Normal contour of globe without masses. CALVARIUM: No fracture. PARANASAL SINUSES: No fluid or mucosal thickening. SOFT TISSUES: No mass or hematoma. OTHER: No other significant finding. IMPRESSION: NORMAL BRAIN CT WITHOUT CONTRAST. COMMENT: Quality ID # [id number]: Final reports with documentation of one or more dose reduction techniques (e.g., Automated exposure control, adjustment of the mA and/or kV according to patient size, use of iterative reconstruction technique) TECHNICAL DOCUMENTATION: JOB ID: [id number]- All Rights Reserved
[2017-07-29] MEDS: NORMAL SALINE 1000 ML 1,000 ML with POTASSIUM CHLORIDE 20 MEQ, MAGNESIUM SULFATE 8 MEQ,... IV SCH ×5 (18:02)
[2017-07-29] MEDS: NICOTINE 21 MG/24 HR PATCH.TD24 TD SCH (18:02)
--- NOTE | 2017-07-29 18:15 | PDOC PROGRESS REPORT ---
Subjective Progress Note for:: 07/27/17 Subjective:: Intubated and sedated Physical Exam Vital Signs: Temp Pulse Resp BP Pulse Ox 98.6 F 60 18 144/96 H 99 07/27/17 06:00 07/27/17 07:43 07/27/17 07:43 07/27/17 05:57 07/27/17 07:43 Intake & Output 07/26/17 07/27/17 07/28/17 06:59 06:59 06:59 Intake Total 2102 4329 Output Total 2845 8840 Balance -743 1579 Weight 98.4 kg 99.1 kg General appearance: PRESENT: no acute distress, disheveled, well-developed Head exam: PRESENT: atraumatic, normocephalic Eye exam: PRESENT: conjunctiva pale Mouth exam: PRESENT: dry mucosa, neck supple, tongue midline, other - ET tube Neck exam: ABSENT: carotid bruit, JVD, lymphadenopathy, thyromegaly Respiratory exam: PRESENT: decreased breath sounds, prolonged expiratory phas, rales Cardiovascular exam: PRESENT: RRR, +S1, +S2 Pulses: PRESENT: normal radial pulses GI/Abdominal exam: PRESENT: normal bowel sounds, soft. ABSENT: distended, guarding, mass, organolmegaly, rebound, tenderness Rectal exam: PRESENT: deferred Gentrourinary exam: PRESENT: urethral discharge Musculoskeletal exam: PRESENT: normal inspection Skin exam: PRESENT: dry, warm Results Laboratory Results: 07/27/17 04:05 07/27/17 04:05 07/27/17 07/27/17 07/27/17 04:05 04:05 04:50 WBC 7.4 RBC 3.75 L Hgb 12.4 L Hct 35.8 L MCV 96 MCH 33.2 MCHC 34.7 RDW 14.2 H Plt Count 140 L Seg Neutrophils % 84.6 H Lymphocytes % 6.5 L Monocytes % 8.7 Eosinophils % 0.0 Basophils % 0.2 Absolute Neutrophils 6.2 Absolute Lymphocytes 0.5 Absolute Monocytes 0.6 Absolute Eosinophils 0.0 Absolute Basophils 0.0 Carbonic Acid 1.13 HCO3/H2CO3 Ratio 22:1 ABG pH 7.45 ABG pCO2 37.4 ABG pO2 89.3 ABG HCO3 25.6 ABG O2 Saturation 97.2 ABG Base Excess 1.8 FiO2 35% Sodium 140.2 Potassium 4.1 Chloride 109 H Carbon Dioxide 24 Anion Gap 7 BUN 13 Creatinine 0.64 Est GFR ( Amer) > 60 Est GFR (Non-Af Amer) > 60 Glucose 112 H Calcium 8.3 L Phosphorus 3.5 Magnesium 2.6 H Total Bilirubin 0.5 AST 36 ALT 50 Alkaline Phosphatase 59 Total Protein 5.2 L Albumin 3.1 L 07/25/17 19:40 Tracheal Aspirate Gram Stain - Final 07/22/17 07/22/17 07/23/17 21:02 21:02 03:25 Creatine Kinase 1316 H 1162 H Troponin I 0.078 07/23/17 07/24/17 03:25 06:40 Creatine Kinase 660 H Troponin I 0.061 Impressions: Chest X-Ray 07/27/17 06:00 IMPRESSION: Small-moderate left lower lobar opacity may indicate pneumonia, atelectasis, and/or effusion. Lines and tubes. Assessment & Plan - Diagnosis (1) Acute respiratory failure Qualifiers: Respiratory failure complication: unspecified whether with hypoxia or hypercapnia Qualified Code(s): J96.00 - Acute respiratory failure, unspecified whether with hypoxia or hypercapnia Is this a current diagnosis for this admission?: Yes (2) Alcohol withdrawal Qualifiers: Complication of substance-induced condition: with delirium Qualified Code(s ): F10.231 - Alcohol dependence with withdrawal delirium Is this a current diagnosis for this admission?: Yes (3) Atrial fibrillation with RVR Is this a current diagnosis for this admission?: Yes (4) COPD exacerbation Is this a current diagnosis for this admission?: Yes - Time Critical Time spent with patient: 25-34 minutes
--- NOTE | 2017-07-29 18:17 | PDOC PROGRESS REPORT ---
Subjective Progress Note for:: 07/28/17 Subjective:: Intubated and sedated Physical Exam Vital Signs: Temp Pulse Resp BP Pulse Ox 99.3 F 83 23 H 141/96 H 96 07/28/17 06:00 07/28/17 09:38 07/28/17 09:38 07/28/17 05:58 07/28/17 09:38 Intake & Output 07/27/17 07/28/17 07/29/17 06:59 06:59 06:59 Intake Total 4329 4114 Output Total 2750 6325 325 Balance 1579 -2211 -325 Weight 99.1 kg 98.9 kg General appearance: PRESENT: no acute distress, disheveled, thin Head exam: PRESENT: atraumatic, normocephalic Eye exam: PRESENT: conjunctiva pale Mouth exam: PRESENT: dry mucosa, neck supple, tongue midline, other Neck exam: ABSENT: carotid bruit, JVD, lymphadenopathy, thyromegaly Respiratory exam: PRESENT: decreased breath sounds, prolonged expiratory phas, rales, symmetrical, unlabored. ABSENT: chest wall tenderness, rhonchi, tachypnea Cardiovascular exam: PRESENT: RRR, +S1, +S2. ABSENT: bradycardia, irregular rhythm, tachycardia Pulses: PRESENT: normal radial pulses GI/Abdominal exam: PRESENT: normal bowel sounds, soft. ABSENT: distended, guarding, mass, organolmegaly, rebound, tenderness Rectal exam: PRESENT: deferred Gentrourinary exam: PRESENT: indwelling catheter Musculoskeletal exam: PRESENT: normal inspection Skin exam: PRESENT: dry, warm Results Laboratory Results: 07/28/17 03:52 07/28/17 03:52 07/28/17 07/28/17 07/28/17 03:52 03:52 04:30 WBC 8.2 RBC 4.01 L Hgb 13.2 L Hct 38.4 MCV 96 MCH 32.9 MCHC 34.3 RDW 14.1 H Plt Count 179 Seg Neutrophils % Not Reportable Lymphocytes % Not Reportable Monocytes % Not Reportable Eosinophils % Not Reportable Basophils % Not Reportable Absolute Neutrophils Not Reportable Absolute Lymphocytes Not Reportable Absolute Monocytes Not Reportable Absolute Eosinophils Not Reportable Absolute Basophils Not Reportable Carbonic Acid 1.11 HCO3/H2CO3 Ratio 24:1 ABG pH 7.48 H ABG pCO2 36.9 ABG pO2 60.3 L ABG HCO3 27.0 H ABG O2 Saturation 92.9 L ABG Base Excess 3.6 FiO2 25% Sodium 141.1 Potassium 4.2 Chloride 106 Carbon Dioxide 25 Anion Gap 10 BUN 15 Creatinine 0.69 Est GFR ( Amer) > 60 Est GFR (Non-Af Amer) > 60 Glucose 121 H Calcium 8.7 Phosphorus 3.8 Magnesium 2.6 H Total Bilirubin 0.5 AST 64 H ALT 92 H Alkaline Phosphatase 65 Total Protein 5.9 L Albumin 3.3 L Triglycerides 124 07/25/17 19:40 Tracheal Aspirate Gram Stain - Final 07/22/17 07/22/17 07/23/17 21:02 21:02 03:25 Creatine Kinase 1316 H 1162 H Troponin I 0.078 07/23/17 07/24/17 03:25 06:40 Creatine Kinase 660 H Troponin I 0.061 Impressions: Chest X-Ray 07/28/17 06:00 IMPRESSION: Interval improvement in the aeration of the left lung with decrease in the left basilar airspace opacity. Ground-glass opacity at the right lung base, may represent atelectasis or developing pneumonia. Assessment & Plan - Diagnosis (1) Acute respiratory failure Qualifiers: Respiratory failure complication: unspecified whether with hypoxia or hypercapnia Qualified Code(s): J96.00 - Acute respiratory failure, unspecified whether with hypoxia or hypercapnia Is this a current diagnosis for this admission?: Yes (2) Alcohol withdrawal Qualifiers: Complication of substance-induced condition: with delirium Qualified Code(s ): F10.231 - Alcohol dependence with withdrawal delirium Is this a current diagnosis for this admission?: Yes (3) Atrial fibrillation with RVR Is this a current diagnosis for this admission?: Yes (4) COPD exacerbation Is this a current diagnosis for this admission?: Yes - Time Critical Time spent with patient: 25-34 minutes
--- NOTE | 2017-07-29 20:07 | TRANSFER SUMMARY E ---
Transfer Summary NAME: PRAMOD PRECIADO : 1970 AGE: 46Y ADMITTED: 07/22/2017 TRANSFERRED: 07/29/2017 DIAGNOSES AT TIME OF TRANSFER: 1. New onset seizure. 2. Acute respiratory failure with hypoxia. 3. COPD exacerbation. 4. Alcohol withdrawal. 5. Acute encephalopathy 6. AFib with RVR. 7. Aspiration pneumonia 8. Streptococcal pneumonia. 9. Tobacco abuse 10. Alcohol abuse. 11. Obesity. 12. Elevated LFTs. 13. Marijuana abuse. HOSPITAL COURSE: The patient is a 46-year-old male who presented to the emergency department for a possible seizure. The patient is a known alcoholic, heavy smoker, noncompliant with medications, and had his last alcoholic beverage approximately 1 day prior. The patient was found again to be in AFib with RVR when he presented, and was given 20 mg of IV Cardizem by EMS en route. Initially, patient was somewhat combative and belligerent, and this improved with IV Ativan, and had no further seizure-like activity. The patient was placed on IMCU and placed on IV Valium as well as p.r.n. Ativan and banana bag. Initially, it was thought the patient had an alcohol withdrawal seizure. Patient required increasing doses of benzodiazepines due to his hyperactivity with his alcohol withdrawal and subsequently resulting in the need for intubation. The patient was doing well, intubated, with scheduled Valium as well as Versed drip. Over the last several days, the patient has grown Streptococcal pneumoniae from his sputum and has been on Unasyn for this, and has also been placed on steroids for his COPD exacerbation, which is in the process of being tapered. Today, patient's sedation was lightened significantly enough for us to get him to be more cooperative with weaning trials, and as his Valium is currently being weaned off secondary to being now more than 7 days out from last known alcohol consumption. Patient currently developed seizure-like activity and developed a seizure with rhythmic facial movements which subsequently went down his left arm. The patient had a STAT head CT which did not reveal any acute pathology and, due to our lack of Neurology, inability to get an EEG, patient was transferred to the [facility] under the care of Dr. Diaz, to whom we are grateful for his intervention. The patient, prior to leaving this facility, was given 1 g of Dilantin and Valium was reinitiated on a schedule. CURRENT MEDICATIONS: 1. Tylenol 650 mg q. 4 p.r.n. 2. DuoNeb q6h 3. Norvasc 5 mg NG q. 12. 4. Unasyn 3 g IV q. 6. 5. Sliding scale insulin. 6. Valium 10 mg NG q. 12. 7. Pepcid 20 mg q. 12. 8. Lasix 20 mg IV q. 12. 9. Heparin 5000 units subcu q. 8. 10. Lactulose 20 g NG b.i.d. 11. Prevacid 30 mg NG daily. 12. Xopenex 1.25 mg q. 2 p.r.n. 13. Keppra 500 mg IV q. 12. 14. Lisinopril 20 mg NG q. 12. 15. Ativan 2 mg IV q. 4 p.r.n. 16. Solu-Medrol 40 mg IV q. 8. 17. Lopressor 5 mg IV q. 6 p.r.n. heart rate greater than 120. 18. Lopressor 50 mg NG q. 12 scheduled. 19. Versed drip. 20. Nicoderm patch 21 mg transdermal q. day. 21. Zyprexa 5 mg NG q.h.s. 22. Propofol. 23. Normal saline at 63 mL/hour. 24. Banana bag daily. CONDITION AT TIME OF DISCHARGE: Stable. DISPOSITION: Discharge to [facility]. DIET: He is receiving tube feedings. He is on Oxepa. ACTIVITY: He is on bed rest and turn q. 2. CODE STATUS: He is a full code. His sister is his surrogate decision maker. He did, however, elect his girlfriend to initially be his surrogate decision maker. TOTAL TIME: Total time spent with patient, including physical examination, coordination of care, formulation of this plan, and discussion with consultants was 45 minutes of time. DICTATING PHYSICIAN: GRACE LOPEZ M.D. [id number] PHY#: [id number] ID: [id number] JOB#: [id number] ACCT: [id number] cc:GRACE LOPEZ M.D. > [facility]
[2017-07-29] MEDS: OLANZAPINE 5 MG TABLET NG SCH (21:06)
[2017-07-29] MEDS ORDERED: DIAZEPAM 5 MG TABLET NG SCH (22:00)
[2017-07-29] MEDS ORDERED: PROPOFOL 0 ML IV ONE (22:00)
[2017-07-30] MEDS: IPRATROPIUM/ALBUTEROL 0.5-2.5 MG/3 ML AMPUL NEB SCH ×3 (02:18→13:51)
[2017-07-30] MEDS: MIDAZOLAM HCL 100 ML IV PRN (02:47)
[2017-07-30] MEDS: LORAZEPAM INJ 2 MG/1 ML VIAL IV PRN (03:04)
[2017-07-30] MEDS: PROPOFOL 100 ML IV PRN ×3 (03:48→14:18)
[2017-07-30] MEDS: NORMAL SALINE 1000 ML 1,000 ML IV PRN (03:48)
[2017-07-30] MEDS: HEPARIN SOD (PORCINE) 5,000 UNIT/ML 1 ML SYRINGE SUBCUT SCH (05:19)
[2017-07-30] MEDS: METHYLPREDNISOLONE INJ 40 MG/1 ML SDV IV SCH ×2 (05:19→13:38)
[2017-07-30] MEDS: AMPICILLIN SODIUM/SULBACTAM NA 3 GM in NORMAL SALINE 100 ML IV SCH ×2 (05:19→13:37)
[2017-07-30 05:45] LABS: ARTERIAL BLOOD BASE EXCESS 3.3 mmol/L; ARTERIAL BLOOD O2 SATURATION 94.6 % (94-98)
[2017-07-30 06:12] LABS: HEMATOCRIT 40.1 % (37.9-51.0); HEMOGLOBIN 13.9 g/dL (13.5-17.0); HGB HCT DIFFERENCE 1.6; MEAN CORPUSCULAR HEMOGLOBIN 32.8 pg (27.0-33.4); MEAN CORPUSCULAR HGB CONC 34.8 g/dL (32.0-36.0); MEAN CORPUSCULAR VOLUME 94 fl (80-97); RED BLOOD COUNT 4.26 10^6/uL (4.35-5.55); RED CELL DISTRIBUTION WIDTH 14.4 % (11.5-14.0); WHITE BLOOD COUNT 8.9 10^3/uL (4.0-10.5)
[2017-07-30 06:22] LABS: ALANINE AMINOTRANSFERASE 153 U/L (21-72); ALBUMIN 3.2 g/dL (3.5-5.0); ALKALINE PHOSPHATASE 59 U/L (38-126); ANION GAP 9 (5-19); ASPARTATE AMINO TRANSFERASE 71 U/L (17-59); BILIRUBIN,DIRECT 0.5 mg/dL (0.0-0.4); BILIRUBIN,TOTAL 0.5 mg/dL (0.2-1.3); BLOOD UREA NITROGEN 28 mg/dL (7-20); CALCIUM 8.7 mg/dL (8.4-10.2); CARBON DIOXIDE 24 mmol/L (22-30); CHLORIDE 106 mmol/L (98-107); CREATININE RESULT 0.63 mg/dL (0.52-1.25); GLUCOSE 102 mg/dL (75-110); MAGNESIUM 2.7 mg/dL (1.6-2.3); POTASSIUM 4.5 mmol/L (3.6-5.0); SODIUM 139.2 mmol/L (137-145); TOTAL PROTEIN 5.8 g/dL (6.3-8.2)
[2017-07-30 06:40] LABS: BAND NEUTROPHILS % (MANUAL) 1 % (3-5); BASOPHILS % (MANUAL) 0 % (0-2); EOSINOPHILS % (MANUAL) 0 % (0-6); LYMPHOCYTES % (MANUAL) 19 % (13-45); TOTAL CELLS COUNTED 100
[2017-07-30 06:42] LABS: ANISOCYTOSIS SLIGHT; POIKILOCYTOSIS SLIGHT; TARGET CELLS SLIGHT; TEAR DROP CELLS SLIGHT
--- NOTE | 2017-07-30 07:25 | RADIOLOGY REPORT (SQ) ---
EXAM DESCRIPTION: CHEST SINGLE VIEW COMPLETED DATE/TIME: 07/30/2017 7:01 am REASON FOR STUDY: resp fail COMPARISON: Chest x-ray 07/29/2017. EXAM PARAMETERS: NUMBER OF VIEWS: One view TECHNIQUE: Single frontal radiograph of the chest. RADIATION DOSE: N/A LIMITATIONS: Patient positioning. FINDINGS: TEMPORARY SUPPORT DEVICES:ETT in expected location. NG tube courses below the left estee-d iaphragm in to the stomach. LUNGS AND PLEURA: The patient is rotated. No consolidation, pleural effusion or pneumothorax. MEDIASTINUM AND HILAR STRUCTURES: No masses. Contour normal. HEART AND VASCULAR STRUCTURES: Heart size normal. No overt vascular congestion. BONES: No acute findings. IMPRESSION: No acute radiographic finding in the chest. TECHNICAL DOCUMENTATION: JOB ID: [id number] [employer]- All Rights Reserved
--- NOTE | 2017-07-30 09:54 | PDOC PROGRESS REPORT ---
Subjective Progress Note for:: 07/29/17 Subjective:: Intubated and sedated Physical Exam Vital Signs: Temp Pulse Resp BP Pulse Ox 98.8 F 77 18 133/92 H 96 07/29/17 06:00 07/29/17 02:45 07/29/17 06:00 07/29/17 05:58 07/29/17 06:00 Intake & Output 07/28/17 07/29/17 07/30/17 06:59 06:59 06:59 Intake Total 4114 3985 Output Total 6375 4400 Balance -2211 -415 Weight 98.9 kg 96.4 kg General appearance: PRESENT: no acute distress, disheveled, thin, well- developed. ABSENT: cooperative Head exam: PRESENT: atraumatic, normocephalic Eye exam: PRESENT: conjunctiva pale Mouth exam: PRESENT: dry mucosa, neck supple, tongue midline, other - ET tube Neck exam: ABSENT: carotid bruit, JVD, lymphadenopathy, thyromegaly Respiratory exam: PRESENT: decreased breath sounds, prolonged expiratory phas, rhonchi, symmetrical, unlabored. ABSENT: retraction, stridor, tachypnea, wheezes Cardiovascular exam: PRESENT: RRR, +S1, +S2. ABSENT: bradycardia, irregular rhythm, tachycardia Pulses: PRESENT: normal radial pulses GI/Abdominal exam: PRESENT: normal bowel sounds, soft. ABSENT: distended, guarding, mass, organolmegaly, rebound, tenderness Rectal exam: PRESENT: deferred Gentrourinary exam: PRESENT: indwelling catheter Musculoskeletal exam: PRESENT: normal inspection Skin exam: PRESENT: dry, warm Results Laboratory Results: 07/29/17 03:41 07/29/17 03:41 07/29/17 07/29/17 07/29/17 03:41 03:41 05:50 WBC 8.8 RBC 4.28 L Hgb 13.9 Hct 40.4 MCV 94 MCH 32.5 MCHC 34.4 RDW 14.3 H Plt Count 221 Seg Neutrophils % Not Reportable Lymphocytes % Not Reportable Monocytes % Not Reportable Eosinophils % Not Reportable Basophils % Not Reportable Absolute Neutrophils Not Reportable Absolute Lymphocytes Not Reportable Absolute Monocytes Not Reportable Absolute Eosinophils Not Reportable Absolute Basophils Not Reportable Carbonic Acid 0.96 L HCO3/H2CO3 Ratio 25:1 ABG pH 7.49 H ABG pCO2 32.0 L ABG pO2 66.7 L ABG HCO3 24.1 ABG O2 Saturation 94.8 ABG Base Excess 1.5 FiO2 25% Sodium 139.9 Potassium 4.4 Chloride 106 Carbon Dioxide 24 Anion Gap 10 BUN 19 Creatinine 0.63 Est GFR ( Amer) > 60 Est GFR (Non-Af Amer) > 60 Glucose 111 H Calcium 9.0 Magnesium 2.6 H 07/25/17 19:40 Tracheal Aspirate Gram Stain - Final 07/25/17 19:40 Tracheal Aspirate Sputum Culture - Final Streptococcus Pneumoniae Normal Bobbi Absent 07/22/17 07/22/17 07/23/17 21:02 21:02 03:25 Creatine Kinase 1316 H 1162 H Troponin I 0.078 07/23/17 07/24/17 03:25 06:40 Creatine Kinase 660 H Troponin I 0.061 Impressions: Chest X-Ray 07/29/17 06:00 IMPRESSION: No acute radiographic finding in the chest. Support devices in expected locations. Assessment & Plan - Diagnosis (1) Acute respiratory failure Qualifiers: Respiratory failure complication: unspecified whether with hypoxia or hypercapnia Qualified Code(s): J96.00 - Acute respiratory failure, unspecified whether with hypoxia or hypercapnia Is this a current diagnosis for this admission?: Yes Plan: Oxygenating and ventilating well so far PAO2/FIO2 = 286 (2) Alcohol withdrawal Qualifiers: Complication of substance-induced condition: with delirium Qualified Code(s ): F10.231 - Alcohol dependence with withdrawal delirium Is this a current diagnosis for this admission?: Yes Plan: new seizure noted (3) Atrial fibrillation with RVR Is this a current diagnosis for this admission?: Yes Plan: stable vr well controlled (4) COPD exacerbation Is this a current diagnosis for this admission?: Yes - Time Critical Time spent with patient: 25-34 minutes
--- NOTE | 2017-07-30 09:56 | PDOC PROGRESS REPORT ---
Subjective Progress Note for:: 07/30/17 Subjective:: Intubated and sedated Physical Exam Vital Signs: Temp Pulse Resp BP Pulse Ox 98.2 F 85 10 L 111/76 95 07/30/17 07:50 07/30/17 08:00 07/30/17 07:51 07/30/17 07:50 07/30/17 07:51 Intake & Output 07/29/17 07/30/17 07/31/17 06:59 06:59 06:59 Intake Total 3985 3300 277 Output Total 4400 4000 220 Balance -415 -700 57 Weight 96.4 kg 93.2 kg General appearance: PRESENT: no acute distress, disheveled, thin, well-developed Head exam: PRESENT: atraumatic, normocephalic Eye exam: PRESENT: conjunctiva pale Mouth exam: PRESENT: dry mucosa, neck supple, tongue midline, other - ET tube Neck exam: ABSENT: carotid bruit, JVD, lymphadenopathy, thyromegaly Respiratory exam: PRESENT: decreased breath sounds, prolonged expiratory phas, symmetrical. ABSENT: tachypnea, unlabored Cardiovascular exam: PRESENT: RRR, +S1, +S2 Pulses: PRESENT: normal radial pulses GI/Abdominal exam: PRESENT: normal bowel sounds, soft. ABSENT: distended, guarding, mass, organolmegaly, rebound, tenderness Rectal exam: PRESENT: deferred Gentrourinary exam: PRESENT: indwelling catheter Musculoskeletal exam: PRESENT: normal inspection Skin exam: PRESENT: dry, warm Results Laboratory Results: 07/30/17 05:40 07/30/17 05:40 07/30/17 07/30/17 07/30/17 05:30 05:40 05:40 WBC 8.9 RBC 4.26 L Hgb 13.9 Hct 40.1 MCV 94 MCH 32.8 MCHC 34.8 RDW 14.4 H Plt Count 205 Seg Neutrophils % Not Reportable Lymphocytes % Not Reportable Monocytes % Not Reportable Eosinophils % Not Reportable Basophils % Not Reportable Absolute Neutrophils Not Reportable Absolute Lymphocytes Not Reportable Absolute Monocytes Not Reportable Absolute Eosinophils Not Reportable Absolute Basophils Not Reportable Carbonic Acid 1.24 HCO3/H2CO3 Ratio 22:1 ABG pH 7.45 ABG pCO2 41.2 ABG pO2 69.6 L ABG HCO3 27.7 H ABG O2 Saturation 94.6 ABG Base Excess 3.3 FiO2 25% Sodium 139.2 Potassium 4.5 Chloride 106 Carbon Dioxide 24 Anion Gap 9 BUN 28 H Creatinine 0.63 Est GFR ( Amer) > 60 Est GFR (Non-Af Amer) > 60 Glucose 102 Calcium 8.7 Magnesium 2.7 H Total Bilirubin 0.5 AST 71 H ALT 153 H Alkaline Phosphatase 59 Total Protein 5.8 L Albumin 3.2 L 07/22/17 07/22/17 07/23/17 21:02 21:02 03:25 Creatine Kinase 1316 H 1162 H Troponin I 0.078 07/23/17 07/24/17 03:25 06:40 Creatine Kinase 660 H Troponin I 0.061 Impressions: Head CT 07/29/17 00:00 IMPRESSION: NORMAL BRAIN CT WITHOUT CONTRAST. Chest X-Ray 07/30/17 06:00 IMPRESSION: No acute radiographic finding in the chest. Assessment & Plan - Diagnosis (1) Acute respiratory failure Qualifiers: Respiratory failure complication: unspecified whether with hypoxia or hypercapnia Qualified Code(s): J96.00 - Acute respiratory failure, unspecified whether with hypoxia or hypercapnia Is this a current diagnosis for this admission?: Yes Plan: stable (2) Alcohol withdrawal Qualifiers: Complication of substance-induced condition: with delirium Qualified Code(s ): F10.231 - Alcohol dependence with withdrawal delirium Is this a current diagnosis for this admission?: Yes (3) Atrial fibrillation with RVR Is this a current diagnosis for this admission?: Yes Plan: stable vr well controlled (4) COPD exacerbation Is this a current diagnosis for this admission?: Yes Plan: Nebulized bronchodilator therapy - Time Critical Time spent with patient: 25-34 minutes
[2017-07-30] MEDS ORDERED: LEVETIRACETAM 1000 MG/NACL-ISO 1,000 MG/100 ML RTUPB IV SCH (10:00)
[2017-07-30] MEDS: FAMOTIDINE INJ/PF 20 MG/2 ML SDV IV SCH (10:01)
[2017-07-30] MEDS: LACTULOSE SYRUP 20 GM/30 ML UDCUP NG SCH (10:03)
[2017-07-30] MEDS: LISINOPRIL 10 MG TABLET NG SCH (10:03)
[2017-07-30] MEDS: AMLODIPINE BESYLATE 5 MG TABLET NG SCH (10:03)
[2017-07-30] MEDS: LANSOPRAZOLE 30 MG TAB.RAP.DR NG SCH (10:03)
[2017-07-30] MEDS: FUROSEMIDE INJ/PF 20 MG/2 ML SDV IV SCH (10:03)
[2017-07-30] MEDS: METOPROLOL TARTRATE 50 MG TABLET NG SCH (10:04)
--- NOTE | 2017-07-30 12:42 | TRANSFER SUMMARY E ---
Transfer Summary NAME: PRAMOD PRECIADO : 1970 AGE: 46Y ADMITTED: 07/22/2017 TRANSFERRED: 07/30/2017 DIAGNOSES TO TIME OF TRANSFER: 1. New onset seizure. 2. Acute respiratory failure with hypoxia. 3. COPD exacerbation. 4. Streptococcal pneumonia. 5. Alcohol withdrawal with delirium tremens. 6. Acute encephalopathy. 7. AFib with RVR. 8. Elevated LFTs. 9. Tobacco abuse. 10. Alocohol abuse. 11. Obesity with a BMI initially of 31. 12. Marijuana abuse. HOSPITAL COURSE: The patient is a 46-year-old male who is well known to the emergency department and the hospitalist service for a history of alcoholism, tobacco abuse, and noncompliance who had his last alcoholic beverage approximately 1 day prior to presentation. He was brought in for possible seizure at that time. He was found to be in AFib with RVR on presentation and was given 20 mg of IV Cardizem by EMS en route. Initially patient was somewhat combative and belligerent but this improved with IV Ativan and he had no further seizure like activity. Patient was placed on IMCU and placed on scheduled valium as well as p.r.n. Ativan and thiamine and folic acid. Initially it was thought the patient had alcohol withdrawal seizure. Subsequently patient required increasing dose of benzodiazepine due to his hyperactivity with his alcohol withdrawal and subsequently needed to be intubated. Patient was doing well intubated and sedated with scheduled Valium as well as Versed drip. Patient had done well. He did grow out Streptococcal pneumoniae from his sputum and has been on Unasyn for this and was placed on tapering doses of Solu-Medrol for the COPD component. Patient's sedation was significantly lightened to be more cooperative with weaning trials and patient's Valium was being weaned secondary to being now more than 7 days out from last known alcohol consumption. Patient subsequently developed seizure like activity with rhythmic facial movements that subsequently also went up his left arm. The patient had a stat head CT which did not reveal any acute pathology and currently due to our lack neurology, inability to obtain an EEG, patient has been accepted kindly in transfer by Dr. De La O of [facility]. Patient has been loaded with 1 g of Dilantin and scheduled Valium was restarted. Patient was continued on Versed drip as well as propofol. CURRENT MEDICATIONS: 1. Tylenol 650 p.o. q.4 p.r.n. 2. DuoNebs q.6 hours. 3. Norvasc 5 mg NG q.12. 4. Unasyn 3 g IV q.6. 5. Sliding scale insulin. 6. Valium 10 mg NG q.12. 7. Pepcid 20 mg q.12. 8. Lasix 20 mg IV q.12. 9. Heparin 5000 units subcutaneous q.8. 10. Lactulose 20 g NG b.i.d. 11. Prevacid 30 mg NG b.i.d. 12. Xopenex 1.25 mg q.2 p.r.n. 13. Keppra 1000 mg IV q.12. 14. Lisinopril 20 mg NG q.12. 15. Ativan 2 mg IV every q.4 p.r.n. witnessed seizure. 16. Solu-Medrol 40 mg IV q.8. 17. Lopressor 5 mg IV q.6 p.r.n. heart rate greater than 120. 18. Lopressor 50 mg NG q.12. 19. Versed drip. 20. Nicoderm patch 21 mg transdermal daily. 21. Zyprexa 5 mg NG at bedtime. 22. Propofol for sedation. 23. Normal saline at 63 mL/hour. 23. Banana bag. PHYSICAL EXAMINATION: VITAL SIGNS: Patient's temperature is 98.6, pulse of 87, blood pressure of 121/88, respiratory rate 20, saturation 93% on 25% FiO2. GENERAL: The patient is intubated and sedated and mechanically ventilated. HEENT: He is atraumatic, normocephalic. His pupils are equal, round, and reactive to light. He has no icterus. He has no conjunctival injection. His mucous is pink and moist. NECK: His neck is supple and soft. His trachea is midline. He has no JVD. He has no lymphadenopathy. CHEST: Clear to auscultation bilaterally with some very light scattered wheezing. CARDIOVASCULAR: Regular rate and rhythm without appreciable murmur, rub, or gallop. ABDOMEN: Soft, nontender to palpation, and nondistended with active bowel sounds. EXTREMITIES: Reveal no cyanosis. He does have mild clubbing. He has no peripheral edema. NEUROLOGIC: Unable to assess due to intubated and sedated status. CONDITION AT TIME OF DISCHARGE: Stable. DISPOSITION: Discharged to [facility]. DIET: Patient is receiving Oxepa tube feeds. ACTIVITY: He is on bed rest and turned q.2. CODE STATUS: He is a FULL CODE. His sister is his surrogate decision maker. Total time spent with patient including physical examination, coordination of care, formulation of this plan, and discussion with consultants was 45 minutes of critical care time. DICTATING PHYSICIAN: GRACE LOPEZ M.D. [id number] PHY#: [id number] ID: [id number] JOB#: [id number] ACCT: [id number] cc:GRACE LOPEZ M.D. >
[2017-07-30] MEDS ORDERED: DIAZEPAM 5 MG TABLET NG SCH (14:00)
[2017-07-30] MEDS ORDERED: PHENYTOIN SODIUM INJ/PF 100 MG/2 ML SDV IV SCH (14:00)
[2017-07-30 14:36] VITALS: BP 119/82
== END 2017-07-30 14:54 | disposition short-term general hospital (02) | DRG 100 ==
LOC: ER 12:23 → EH 13:46 → UNDOADMIN 13:52 → EH 15:25 → 3S 15:25 → ICU 07-25 02:37
PROVIDERS: ADMIT Emergency Medicine; ATTEND Emergency Medicine
PROC: 0BH17EZ Insertion of Endotracheal Airway into Trachea, Via Natural or Artificial Opening (ICD-10-PCS; principal; 2017-07-25)
PROC: 5A1955Z Respiratory Ventilation, Greater than 96 Consecutive Hours (ICD-10-PCS; 2017-07-25)
DX: G40.89 Other seizures (principal); J96.01 Acute respiratory failure with hypoxia; J69.0 Pneumonitis due to inhalation of food and vomit; J13 Pneumonia due to Streptococcus pneumoniae; G93.40 Encephalopathy, unspecified; J44.0 Chronic obstructive pulmonary disease with (acute) lower respiratory infection; J44.1 Chronic obstructive pulmonary disease with (acute) exacerbation; F10.231 Alcohol dependence with withdrawal delirium; I48.91 Unspecified atrial fibrillation; I11.0 Hypertensive heart disease with heart failure; I50.9 Heart failure, unspecified; K21.9 Gastro-esophageal reflux disease without esophagitis; E66.9 Obesity, unspecified; Z68.31 Body mass index [BMI] 31.0-31.9, adult; Z78.1 Physical restraint status; F12.10 Cannabis abuse, uncomplicated; Z79.899 Other long term (current) drug therapy; F17.210 Nicotine dependence, cigarettes, uncomplicated; Z91.14 Patient's other noncompliance with medication regimen
CPT/HCPCS: 31500; 36415; 51701; 70450; 71010; 80048; 80053; 80074; 80307; 81001; 82140; 82550; 82803; 82962; 83735; 84100; 84443; 84478; 84484; 85025; 85379; 85610; 87070; 87077; 87186; 87205; 93005; 93010; 94002; 94003; 94640; 96361; 96374; 96375; 96376; 99291; J0295; J1165; J1200; J1630; J1644; J1940; J1953; J2060; J2250; J2270; J2704; J2920; J2930; J3360; J3411; J3475; J3480; J3486; J3490; J7030; J7620; S0028

== ENCOUNTER 2017-08-09 18:17 | Emergency (ER) | payer MEDICAID ==
[2017-08-09] MEDS ORDERED: NORMAL SALINE 1000 ML 1,000 ML IV ONE (19:26)
[2017-08-09 20:17] LABS: APPEARANCE,URINE CLEAR; BILIRUBIN,URINE NEGATIVE (NEGATIVE); GLUCOSE, URINE NEGATIVE (NEGATIVE); KETONES,URINE NEGATIVE (NEGATIVE); LEUKOCYTE ESTERASE,URINE NEGATIVE (NEGATIVE); NITRITE,URINE NEGATIVE (NEGATIVE); PROTEIN,URINE NEGATIVE (NEGATIVE); URINE SPECIFIC GRAVITY 1.004; UROBILINOGEN,URINE NEGATIVE mg/dL (<2.0)
[2017-08-09 20:27] LABS: ABSOLUTE BASOPHILS # (AUTO) 0.1 10^3/uL (0.0-0.2); ABSOLUTE EOSINOPHILS # (AUTO) 0.3 10^3/uL (0.0-0.6); ABSOLUTE LYMPHOCYTES (AUTO) 2.2 10^3/uL (0.5-4.7); ABSOLUTE MONOCYTES (AUTO) 0.7 10^3/uL (0.1-1.4); ABSOLUTE NEUT (AUTO) 6.1 10^3/uL (1.7-8.2); BASOPHILS % (AUTO) 1.4 % (0-2); EOSINOPHILS % (AUTO) 3.4 % (0-6); HEMATOCRIT 37.9 % (37.9-51.0); HEMOGLOBIN 13.1 g/dL (13.5-17.0); HGB HCT DIFFERENCE 1.4; LYMPHOCYTES % (AUTO) 23.8 % (13-45); MEAN CORPUSCULAR HEMOGLOBIN 32.4 pg (27.0-33.4); MEAN CORPUSCULAR HGB CONC 34.5 g/dL (32.0-36.0); MEAN CORPUSCULAR VOLUME 94 fl (80-97); MONOCYTES % (AUTO) 6.9 % (3-13); RED BLOOD COUNT 4.03 10^6/uL (4.35-5.55); RED CELL DISTRIBUTION WIDTH 13.8 % (11.5-14.0); SEGMENTED NEUTROPHILS % (AUTO) 64.5 % (42-78); WHITE BLOOD COUNT 9.4 10^3/uL (4.0-10.5)
[2017-08-09 20:33] LABS: URINE BARBITURATES SCREEN NEGATIVE; URINE METHADONE SCREEN NEGATIVE; URINE OPIATES LOW NEGATIVE; URINE PHENCYCLIDINE SCREEN NEGATIVE
[2017-08-09 20:44] LABS: ALANINE AMINOTRANSFERASE 65 U/L (21-72); ALBUMIN 3.9 g/dL (3.5-5.0); ALKALINE PHOSPHATASE 86 U/L (38-126); ANION GAP 14 (5-19); ASPARTATE AMINO TRANSFERASE 39 U/L (17-59); BILIRUBIN,DIRECT 0.3 mg/dL (0.0-0.4); BILIRUBIN,TOTAL 0.3 mg/dL (0.2-1.3); BLOOD UREA NITROGEN 8 mg/dL (7-20); CARBON DIOXIDE 24 mmol/L (22-30); CHLORIDE 100 mmol/L (98-107); CREATININE RESULT 0.65 mg/dL (0.52-1.25); GLUCOSE 98 mg/dL (75-110); LIPASE 216.2 U/L (23-300); POTASSIUM 3.7 mmol/L (3.6-5.0); SODIUM 137.8 mmol/L (137-145); TOTAL PROTEIN 6.8 g/dL (6.3-8.2)
[2017-08-09 20:45] LABS: ALCOHOL < 10 mg/dL (NONE DETECTED)
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
[2017-08-09 23:26] VITALS: BP 112/68
== END 2017-08-09 23:25 | disposition home or self-care (01) ==
LOC: ER 18:17
DX: F10.10 Alcohol abuse, uncomplicated (principal); K21.9 Gastro-esophageal reflux disease without esophagitis; F17.200 Nicotine dependence, unspecified, uncomplicated; I50.9 Heart failure, unspecified; I11.0 Hypertensive heart disease with heart failure; J44.9 Chronic obstructive pulmonary disease, unspecified; J45.909 Unspecified asthma, uncomplicated
CPT/HCPCS: 99285; 96360; 36415; 80307 ×2; 83690; 85025; 80053; 81001; J7030

== ENCOUNTER 2017-09-06 17:43 | Emergency (ER) | payer MEDICAID, OTHER ==
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
[2017-09-06 18:34] LABS: ABSOLUTE BASOPHILS # (AUTO) 0.1 10^3/uL (0.0-0.2); ABSOLUTE EOSINOPHILS # (AUTO) 0.2 10^3/uL (0.0-0.6); ABSOLUTE MONOCYTES (AUTO) 0.8 10^3/uL (0.1-1.4); ABSOLUTE NEUT (AUTO) 2.2 10^3/uL (1.7-8.2); BASOPHILS % (AUTO) 1.2 % (0-2); HEMATOCRIT 43.9 % (37.9-51.0); HEMOGLOBIN 15.1 g/dL (13.5-17.0); HGB HCT DIFFERENCE 1.4; LYMPHOCYTES % (AUTO) 47.5 % (13-45); MEAN CORPUSCULAR HEMOGLOBIN 31.8 pg (27.0-33.4); MEAN CORPUSCULAR HGB CONC 34.3 g/dL (32.0-36.0); MEAN CORPUSCULAR VOLUME 93 fl (80-97); MONOCYTES % (AUTO) 12.2 % (3-13); RED BLOOD COUNT 4.73 10^6/uL (4.35-5.55); RED CELL DISTRIBUTION WIDTH 14.4 % (11.5-14.0); SEGMENTED NEUTROPHILS % (AUTO) 35.1 % (42-78); WHITE BLOOD COUNT 6.2 10^3/uL (4.0-10.5)
--- NOTE | 2017-09-06 18:39 | RADIOLOGY REPORT (SQ) ---
EXAM DESCRIPTION: CHEST SINGLE VIEW COMPLETED DATE/TIME: 09/06/2017 6:25 pm REASON FOR STUDY: bed 41 cp/suicidal COMPARISON: 07/30/2017 EXAM PARAMETERS: NUMBER OF VIEWS: One view. TECHNIQUE: Single frontal radiographic view of the chest acquired. RADIATION DOSE: NA LIMITATIONS: None. FINDINGS: LUNGS AND PLEURA: No acute opacities, masses or pneumothorax. No pleural effusion. MEDIASTINUM AND HILAR STRUCTURES: Stable. HEART AND VASCULAR STRUCTURES: Stable. BONES: No acute findings. HARDWARE: None in the chest. OTHER: No other significant finding. IMPRESSION: NO ACUTE RADIOGRAPHIC FINDING IN THE CHEST. TECHNICAL DOCUMENTATION: JOB ID: [id number]
[2017-09-06 18:44] LABS: APPEARANCE,URINE CLEAR; BILIRUBIN,URINE NEGATIVE (NEGATIVE); GLUCOSE, URINE NEGATIVE (NEGATIVE); KETONES,URINE NEGATIVE (NEGATIVE); LEUKOCYTE ESTERASE,URINE NEGATIVE (NEGATIVE); NITRITE,URINE NEGATIVE (NEGATIVE); PROTEIN,URINE NEGATIVE (NEGATIVE); URINE SPECIFIC GRAVITY 1.001; UROBILINOGEN,URINE NEGATIVE mg/dL (<2.0)
[2017-09-06 19:00] LABS: URINE BARBITURATES SCREEN NEGATIVE; URINE METHADONE SCREEN NEGATIVE; URINE OPIATES LOW NEGATIVE; URINE PHENCYCLIDINE SCREEN NEGATIVE
[2017-09-06 19:09] LABS: CREATINE KINASE MB 1.84 ng/mL (<4.55)
[2017-09-06 19:16] LABS: TROPONIN I < 0.012 ng/mL
[2017-09-06 19:30] LABS: BLOOD UREA NITROGEN 6 mg/dL (7-20); CREATININE RESULT 0.74 mg/dL (0.52-1.25); GLUCOSE 82 mg/dL (75-110)
[2017-09-06 19:31] LABS: ALANINE AMINOTRANSFERASE 46 U/L (21-72); ALBUMIN 4.5 g/dL (3.5-5.0); ALKALINE PHOSPHATASE 93 U/L (38-126); ANION GAP 15 (5-19); ASPARTATE AMINO TRANSFERASE 45 U/L (17-59); CARBON DIOXIDE 25 mmol/L (22-30); CHLORIDE 109 mmol/L (98-107); POTASSIUM 3.1 mmol/L (3.6-5.0)
[2017-09-06 19:32] LABS: BILIRUBIN,DIRECT 0.4 mg/dL (0.0-0.4); BILIRUBIN,TOTAL 0.4 mg/dL (0.2-1.3); CREATINE KINASE 165 U/L (55-170)
[2017-09-06 19:33] LABS: TOTAL PROTEIN 7.5 g/dL (6.3-8.2)
[2017-09-06 19:44] LABS: ALCOHOL 364 mg/dL (NONE DETECTED)
[2017-09-06] MEDS ORDERED: POTASSIUM CHLORIDE 10 MEQ TABLET.SA PO ONE (19:46)
--- NOTE | 2017-09-06 19:56 | EKG REPORT ---
SEVERITY:- ABNORMAL ECG - SINUS RHYTHM FIRST DEGREE AV BLOCK : Confirmed by: Stefano De Santiago MD 06-Sep-2017 19:55:58
--- NOTE | 2017-09-06 20:51 | RADIOLOGY REPORT (SQ) ---
EXAM DESCRIPTION: HIP LEFT AP/LATERAL COMPLETED DATE/TIME: 09/06/2017 8:25 pm REASON FOR STUDY: left hip pain COMPARISON: None. NUMBER OF VIEWS: Two views. TECHNIQUE: AP pelvis and additional frog-leg view of the left hip. LIMITATIONS: None. FINDINGS: MINERALIZATION: Normal. LEFT HIP: No fracture or dislocation. Chronic benign-appearing cortical thickening in the lateral le ft femoral diaphysis, incompletely imaged. . RIGHT HIP: No fracture or dislocation. No worrisome bone lesions. PUBIS AND ISCHIUM: No fracture. PELVIS: No fracture. SACRUM: No fracture or dislocation. No worrisome bone lesions. LOWER LUMBAR SPINE: No fracture or dislocation. No worrisome bone lesions. No significant disc disea se. SOFT TISSUES: No findings. OTHER: No other significant finding. IMPRESSION: NO RADIOGRAPHIC EVIDENCE OF ACUTE INJURY. Chronic benign-appearing cortical thickening in the lateral left femoral diaphysis, incompletely imaged. TECHNICAL DOCUMENTATION: JOB ID: [id number] [employer]- All Rights Reserved
[2017-09-07 07:45] VITALS: BP 151/94
== END 2017-09-07 07:46 | disposition home or self-care (01) ==
LOC: ER 17:43
DX: R07.89 Other chest pain (principal); F32.9 Major depressive disorder, single episode, unspecified; R45.851 Suicidal ideations; E87.6 Hypokalemia; F10.229 Alcohol dependence with intoxication, unspecified; Y90.8 Blood alcohol level of 240 mg/100 ml or more; F17.200 Nicotine dependence, unspecified, uncomplicated; I10 Essential (primary) hypertension; J44.9 Chronic obstructive pulmonary disease, unspecified; Z91.14 Patient's other noncompliance with medication regimen
CPT/HCPCS: 36415; 71010; 80053; 80307; 81001; 82550; 82553; 84484; 85025; 93005; 93010; 99285

== ENCOUNTER 2017-09-13 03:15 | Emergency (ER) | payer MEDICAID ==
[2017-09-13] MEDS ORDERED: LORAZEPAM INJ 2 MG/1 ML VIAL ONE (04:29)
[2017-09-13] MEDS ORDERED: THIAMINE HCL 100 MG, FOLIC ACID 1 MG in NORMAL SALINE 250 ML IV ONE (04:40)
[2017-09-13] MEDS ORDERED: FOLIC ACID INJ 5 MG/1 ML 10 ML VIAL IV PRN (04:59)
[2017-09-13] MEDS ORDERED: THIAMINE HCL INJ 200 MG/2 ML VIAL IV PRN (04:59)
[2017-09-13 05:02] LABS: ABSOLUTE BASOPHILS # (AUTO) 0.1 10^3/uL (0.0-0.2); ABSOLUTE EOSINOPHILS # (AUTO) 0.1 10^3/uL (0.0-0.6); ABSOLUTE LYMPHOCYTES (AUTO) 1.2 10^3/uL (0.5-4.7); ABSOLUTE NEUT (AUTO) 10.2 10^3/uL (1.7-8.2); BASOPHILS % (AUTO) 0.4 % (0-2); EOSINOPHILS % (AUTO) 0.7 % (0-6); HEMATOCRIT 41.2 % (37.9-51.0); HEMOGLOBIN 14.8 g/dL (13.5-17.0); HGB HCT DIFFERENCE 3.2; LYMPHOCYTES % (AUTO) 9.3 % (13-45); MEAN CORPUSCULAR HEMOGLOBIN 32.8 pg (27.0-33.4); MEAN CORPUSCULAR HGB CONC 35.8 g/dL (32.0-36.0); MEAN CORPUSCULAR VOLUME 92 fl (80-97); MONOCYTES % (AUTO) 8.3 % (3-13); SEGMENTED NEUTROPHILS % (AUTO) 81.3 % (42-78); WHITE BLOOD COUNT 12.6 10^3/uL (4.0-10.5)
[2017-09-13] MEDS ORDERED: LEVETIRACETAM INJ/PF 500 MG/5 ML SDV IV ONE (05:08)
[2017-09-13 05:09] LABS: ALANINE AMINOTRANSFERASE 47 U/L (21-72); ALBUMIN 4.4 g/dL (3.5-5.0); ALKALINE PHOSPHATASE 88 U/L (38-126); ANION GAP 13 (5-19); ASPARTATE AMINO TRANSFERASE 41 U/L (17-59); BILIRUBIN,DIRECT 0.4 mg/dL (0.0-0.4); BILIRUBIN,TOTAL 1.1 mg/dL (0.2-1.3); BLOOD UREA NITROGEN 7 mg/dL (7-20); CALCIUM 9.3 mg/dL (8.4-10.2); CARBON DIOXIDE 24 mmol/L (22-30); CHLORIDE 103 mmol/L (98-107); CREATININE RESULT 0.78 mg/dL (0.52-1.25); GLUCOSE 109 mg/dL (75-110); LIPASE 154.9 U/L (23-300); MAGNESIUM 1.4 mg/dL (1.6-2.3); POTASSIUM 4.1 mmol/L (3.6-5.0); TOTAL PROTEIN 6.9 g/dL (6.3-8.2)
[2017-09-13] MEDS ORDERED: LORAZEPAM 1 MG TABLET PO ONE (05:09)
[2017-09-13 05:10] LABS: ALCOHOL < 10 mg/dL (NONE DETECTED)
[2017-09-13] MEDS ORDERED: MAGNESIUM OXIDE 400 MG TABLET PO ONE (05:17)
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
[2017-09-13 05:20] LABS: CREATINE KINASE MB 1.27 ng/mL (<4.55)
[2017-09-13] MEDS ORDERED: METOPROLOL SUCCINATE 25 MG TAB.SR.24H PO ONE (05:20)
[2017-09-13] MEDS ORDERED: LISINOPRIL 5 MG TABLET PO ONE (05:20)
[2017-09-13 05:21] LABS: APPEARANCE,URINE CLEAR; BILIRUBIN,URINE NEGATIVE (NEGATIVE); GLUCOSE, URINE NEGATIVE (NEGATIVE); KETONES,URINE TRACE mg/dL (NEGATIVE); LEUKOCYTE ESTERASE,URINE NEGATIVE (NEGATIVE); NITRITE,URINE NEGATIVE (NEGATIVE); PROTEIN,URINE 30 mg/dL (NEGATIVE); URINE SPECIFIC GRAVITY 1.023
[2017-09-13 05:24] LABS: TROPONIN I < 0.012 ng/mL
[2017-09-13 05:33] LABS: URINE BARBITURATES SCREEN NEGATIVE; URINE METHADONE SCREEN NEGATIVE; URINE OPIATES LOW NEGATIVE; URINE PHENCYCLIDINE SCREEN NEGATIVE
[2017-09-13 09:06] VITALS: BP 143/86
--- NOTE | 2017-09-13 20:24 | EKG REPORT ---
SEVERITY:- BORDERLINE ECG - SINUS RHYTHM PROBABLE LEFT ATRIAL ABNORMALITY : Confirmed by: Breanne Forbes MD 13-Sep-2017 20:23:31
== END 2017-09-13 09:04 | disposition home or self-care (01) ==
LOC: ER 03:15
DX: G40.909 Epilepsy, unspecified, not intractable, without status epilepticus (principal); Z91.14 Patient's other noncompliance with medication regimen; F17.200 Nicotine dependence, unspecified, uncomplicated; F10.239 Alcohol dependence with withdrawal, unspecified; I50.9 Heart failure, unspecified; I11.0 Hypertensive heart disease with heart failure; J44.9 Chronic obstructive pulmonary disease, unspecified
CPT/HCPCS: 93005; 96376; 99284; 96375; 96365; 36415; 82553; 80307 ×2; 83690; 83735; 85025; 80053; 81001; 84484; 93010; J3490 ×4; J2060; J3411; J1953

== ENCOUNTER 2017-09-13 12:00 | Emergency (ER) | payer MEDICAID ==
[2017-09-13] MEDS ORDERED: ACETAMINOPHEN 325 MG TABLET PO ONE (13:20)
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
--- NOTE | 2017-09-13 13:39 | RADIOLOGY REPORT (SQ) ---
EXAM DESCRIPTION: FOOT LEFT COMPLETE; ANKLE LEFT COMPLETE COMPLETED DATE/TIME: 09/13/2017 1:21 pm REASON FOR STUDY: injury last evening COMPARISON: 09/10/2016 NUMBER OF VIEWS: Three views. TECHNIQUE: AP, lateral and oblique radiographic images acquired of the left foot. LIMITATIONS: None. FINDINGS: MINERALIZATION: Normal. BONES: Accessory ossicle or old avulsion fracture along medial malleolus. No acute fracture or dislo cation. No worrisome bone lesions. Small calcaneal spur at the insertion of the Achilles. JOINTS: No effusions. On the oblique view of the ankle, there appears to be some mild widening of ranjit int space laterally raising the possibility of ligamentous injury. SOFT TISSUES: Mild soft tissue swelling at the ankle. OTHER: No other significant finding. IMPRESSION: 1. Soft tissue swelling without evidence of acute fracture. 2. Lateral aspect of the ankle joint appears mildly widened on the oblique view raising the possibil ity of ligamentous injury. TECHNICAL DOCUMENTATION: JOB ID: [id number] [employer]- All Rights Reserved
[2017-09-13 14:00] VITALS: BP 149/91
== END 2017-09-13 14:00 | disposition home or self-care (01) ==
LOC: ER 12:00
DX: S99.912A Unspecified injury of left ankle, initial encounter (principal); X58.XXXA Exposure to other specified factors, initial encounter; F17.200 Nicotine dependence, unspecified, uncomplicated; I50.9 Heart failure, unspecified; I11.0 Hypertensive heart disease with heart failure; J44.9 Chronic obstructive pulmonary disease, unspecified
CPT/HCPCS: 99283; 73610; 73630; L1902; J3490

== ENCOUNTER 2017-11-26 17:39 | Inpatient (IN) | payer MEDICAID ==
[2017-11-26] MEDS ORDERED: DIPHENHYDRAMINE HCL 50 MG/ML VIAL ONE (17:55)
[2017-11-26] MEDS ORDERED: HALOPERIDOL LACTATE INJ 5 MG/1 ML VIAL ONE ×2 (17:55→18:00)
[2017-11-26] MEDS ORDERED: LORAZEPAM INJ 2 MG/1 ML VIAL IV ONE (18:11)
[2017-11-26] MEDS ORDERED: DIPHENHYDRAMINE HCL 50 MG/ML VIAL IV ONE (18:13)
[2017-11-26] MEDS ORDERED: HALOPERIDOL LACTATE INJ 5 MG/1 ML VIAL IM ONE (18:13)
[2017-11-26] MEDS ORDERED: NORMAL SALINE 1000 ML 3,000 ML IV ONE (18:14)
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
[2017-11-26 18:28] LABS: ACETAMINOPHEN < 10 ug/mL (10-30); ALANINE AMINOTRANSFERASE 112 U/L (21-72); ALBUMIN 4.2 g/dL (3.5-5.0); ALCOHOL < 10 mg/dL (NONE DETECTED); ALKALINE PHOSPHATASE 114 U/L (38-126); ANION GAP 12 (5-19); ASPARTATE AMINO TRANSFERASE 183 U/L (17-59); BILIRUBIN,DIRECT 0.3 mg/dL (0.0-0.4); BILIRUBIN,TOTAL 0.4 mg/dL (0.2-1.3); BLOOD UREA NITROGEN 5 mg/dL (7-20); CALCIUM 8.3 mg/dL (8.4-10.2); CARBON DIOXIDE 26 mmol/L (22-30); CHLORIDE 100 mmol/L (98-107); GLUCOSE 108 mg/dL (75-110); HEMATOCRIT 41.1 % (37.9-51.0); HEMOGLOBIN 13.8 g/dL (13.5-17.0); LIPASE 372.8 U/L (23-300); MAGNESIUM 2.3 mg/dL (1.6-2.3); MEAN CORPUSCULAR HEMOGLOBIN 31.4 pg (27.0-33.4); MEAN CORPUSCULAR HGB CONC 33.6 g/dL (32.0-36.0); MEAN CORPUSCULAR VOLUME 93 fl (80-97); POTASSIUM 3.5 mmol/L (3.6-5.0); RED CELL DISTRIBUTION WIDTH 13.9 % (11.5-14.0); SALICYLATE < 1.0 mg/dL (2.0-20.0); TOTAL PROTEIN 6.7 g/dL (6.3-8.2)
[2017-11-26 18:49] LABS: URINE AMPHETAMINES SCREEN NEGATIVE; URINE BARBITURATES SCREEN NEGATIVE; URINE BENZODIAZEPINES SCREEN UNCONFIRMED POSITIVE; URINE COCAINE SCREEN NEGATIVE; URINE MARIJUANA (THC) SCREEN UNCONFIRMED POSITIVE; URINE METHADONE SCREEN NEGATIVE; URINE PHENCYCLIDINE SCREEN NEGATIVE
[2017-11-26 18:51] LABS: PLATELET COUNT 79 10^3/uL (150-450)
--- NOTE | 2017-11-26 18:51 | RADIOLOGY REPORT (SQ) ---
EXAM DESCRIPTION: CT HEAD WITHOUT COMPLETED DATE/TIME: 11/26/2017 6:42 pm REASON FOR STUDY: altered mental status COMPARISON: 07/29/2017. TECHNIQUE: Axial images acquired through the brain without intravenous contrast. Images reviewed wi th bone, brain and subdural windows. Images stored on PACS. All CT scanners at this facility use dose modulation, iterative reconstruction, and/or weight based d osing when appropriate to reduce radiation dose to as low as reasonably achievable (ALARA). [facility]: Dose Right [facility]: CareDose [facility]: Dose Right [facility]: Teradose 4D [facility]: Smart [employer] RADIATION DOSE: CT Rad equipment meets quality standard of care and radiation dose reduction techniq ues were employed. CTDIvol: 67.0 mGy. DLP: 1316 mGy-cm. mGy. LIMITATIONS: None. FINDINGS: VENTRICLES: Normal size and contour. CEREBRUM: No masses. No hemorrhage. No midline shift. No evidence for acute infarction. Normal gra y/white matter differentiation. No areas of low density in the white matter. CEREBELLUM: No masses. No hemorrhage. No alteration of density. No evidence for acute infarction. EXTRAAXIAL SPACES: No fluid collections. No masses. ORBITS AND GLOBE: No intra- or extraconal masses. Normal contour of globe without masses. CALVARIUM: No fracture. PARANASAL SINUSES: No fluid or mucosal thickening. SOFT TISSUES: Right periorbital soft tissue swelling. OTHER: No other significant finding. IMPRESSION: 1. Soft tissue swelling about the right orbit, presumably related to trauma. No acute i ntracranial abnormality. EVIDENCE OF ACUTE STROKE: NO. COMMENT: Quality ID # [id number]: Final reports with documentation of one or more dose reduction techniques (e.g., Automated exposure control, adjustment of the mA and/or kV according to patient size, use of iterative reconstruction technique) TECHNICAL DOCUMENTATION: JOB ID: [id number] [employer]- All Rights Reserved
[2017-11-26 18:55] LABS: ABSOLUTE LYMPHOCYTES# (MANUAL) 0.1 10^3/uL (0.5-4.7); ABSOLUTE MONOCYTES # (MANUAL) 0.5 10^3/uL (0.1-1.4); ABSOLUTE NEUTROPHILS# (MANUAL) 7.4 10^3/uL (1.7-8.2); BASOPHILS % (MANUAL) 0 % (0-2); EOSINOPHILS % (MANUAL) 0 % (0-6); LYMPHOCYTES % (MANUAL) 1 % (13-45); MONOCYTES % (MANUAL) 6 % (3-13); SEGMENTED NEUTROPHILS % (MAN) 93 % (42-78); TOTAL CELLS COUNTED 100
[2017-11-26 18:56] LABS: ANISOCYTOSIS SLIGHT; POLYCHROMASIA SLIGHT
[2017-11-26 18:56] LABS: APPEARANCE,URINE CLEAR; BILIRUBIN,URINE NEGATIVE (NEGATIVE); COLOR,URINE STRAW; GLUCOSE, URINE NEGATIVE (NEGATIVE); KETONES,URINE NEGATIVE (NEGATIVE); LEUKOCYTE ESTERASE,URINE NEGATIVE (NEGATIVE); NITRITE,URINE NEGATIVE (NEGATIVE); PROTEIN,URINE 100 mg/dL (NEGATIVE); URINE SPECIFIC GRAVITY 1.011; UROBILINOGEN,URINE NEGATIVE mg/dL (<2.0)
[2017-11-26 18:57] LABS: PLATELET COMMENT DECREASED; PLATELET LARGE PRESENT
[2017-11-26 21:33] LABS: CREATINE KINASE MB 3.96 ng/mL (<4.55)
[2017-11-26 21:35] LABS: TROPONIN I 0.079 ng/mL
[2017-11-26] MEDS ORDERED: LEVETIRACETAM 1500 MG/NACL-ISO 1,500 MG/100 ML RTUPB IV ONE (23:49)
[2017-11-27] MEDS ORDERED: LEVETIRACETAM 1000 MG/NACL-ISO 1,000 MG/100 ML RTUPB IV ONE (00:17)
[2017-11-27] MEDS ORDERED: LEVETIRACETAM 500 MG/NACL-ISO 500 MG/100 ML RTUPB IV ONE (00:18)
[2017-11-27] MEDS ORDERED: ONDANSETRON HCL INJ/PF 4 MG/2 ML SDV IV PRN (00:54)
[2017-11-27] MEDS ORDERED: DIAZEPAM 5 MG TABLET PO ONE (02:00)
[2017-11-27] MEDS: MAGNESIUM SULFATE/D5W 1 GM/100 ML RTUPB IV SCH ×2 (02:15→06:16)
[2017-11-27] MEDS: NORMAL SALINE 1000 ML 1,000 ML IV PRN (02:38)
[2017-11-27 03:44] LABS: APPEARANCE,URINE CLEAR; BILIRUBIN,URINE NEGATIVE (NEGATIVE); COLOR,URINE YELLOW; GLUCOSE, URINE NEGATIVE (NEGATIVE); KETONES,URINE NEGATIVE (NEGATIVE); LEUKOCYTE ESTERASE,URINE NEGATIVE (NEGATIVE); NITRITE,URINE NEGATIVE (NEGATIVE); PROTEIN,URINE NEGATIVE (NEGATIVE); URINE SPECIFIC GRAVITY 1.006; UROBILINOGEN,URINE NEGATIVE mg/dL (<2.0)
[2017-11-27] MEDS ORDERED: INFLUENZA ADLT QUAD (36MOS+) 2017-18 VAC 0.5 ML SYR IM PRN (04:53)
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
[2017-11-27] MEDS ORDERED: ENALAPRILAT DIHYDRATE INJ/PF 1.25 MG/1 ML SDV IV ONE (05:30)
[2017-11-27] MEDS: DIAZEPAM 5 MG TABLET PO SCH ×3 (06:13→17:22)
[2017-11-27] MEDS: HEPARIN SOD (PORCINE) 5,000 UNIT/ML 1 ML SYRINGE SUBCUT SCH ×3 (06:16→20:26)
[2017-11-27 06:58] LABS: INTERNATIONAL RATION (INR) 0.99; PARTIAL THROMBOPLASTIN TIME 26.9 SEC (23.5-35.8); PROTHROMBIN TIME 13.8 SEC (11.4-15.4)
--- NOTE | 2017-11-27 09:39 | EKG REPORT ---
SEVERITY:- ABNORMAL ECG - SINUS TACHYCARDIA LEFT ATRIAL ABNORMALITY CONSIDER ANTEROSEPTAL INFARCT : Confirmed by: Jan Preston 27-Nov-2017 09:38:32
[2017-11-27] MEDS: LEVETIRACETAM 1500 MG/NACL-ISO 1,500 MG/100 ML RTUPB IV SCH (09:57)
--- NOTE | 2017-11-27 12:16 | RADIOLOGY REPORT (SQ) ---
EXAM DESCRIPTION: CHEST SINGLE VIEW COMPLETED DATE/TIME: 11/27/2017 9:19 am REASON FOR STUDY: fever COMPARISON: 10/03/2017. EXAM PARAMETERS: NUMBER OF VIEWS: One view. TECHNIQUE: Single frontal radiographic view of the chest acquired. RADIATION DOSE: NA LIMITATIONS: None. FINDINGS: LUNGS AND PLEURA: No opacities, masses or pneumothorax. No pleural effusion. MEDIASTINUM AND HILAR STRUCTURES: No masses. Contour normal. HEART AND VASCULAR STRUCTURES: Heart normal in size. Normal vasculature. BONES: No acute findings. HARDWARE: None in the chest. OTHER: No other significant finding. IMPRESSION: NO ACUTE RADIOGRAPHIC FINDING IN THE CHEST. TECHNICAL DOCUMENTATION: JOB ID: [id number] [employer]- All Rights Reserved
[2017-11-27] MEDS: ENALAPRILAT DIHYDRATE INJ/PF 1.25 MG/1 ML SDV IV SCH ×2 (13:47→18:22)
[2017-11-27 16:47] LABS: APPEARANCE,URINE CLEAR; BILIRUBIN,URINE NEGATIVE (NEGATIVE); COLOR,URINE YELLOW; GLUCOSE, URINE NEGATIVE (NEGATIVE); KETONES,URINE NEGATIVE (NEGATIVE); LEUKOCYTE ESTERASE,URINE NEGATIVE (NEGATIVE); NITRITE,URINE NEGATIVE (NEGATIVE); PROTEIN,URINE NEGATIVE (NEGATIVE); URINE SPECIFIC GRAVITY 1.009
[2017-11-27] MEDS ORDERED: NORMAL SALINE 1000 ML 1,000 ML with POTASSIUM CHLORIDE 20 MEQ, MAGNESIUM SULFATE 8 MEQ,... IV SCH ×5 (18:00)
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
[2017-11-28] MEDS: ENALAPRILAT DIHYDRATE INJ/PF 1.25 MG/1 ML SDV IV SCH ×3 (00:05→14:05)
[2017-11-28] MEDS: DIAZEPAM 5 MG TABLET PO SCH ×5 (00:05→23:20)
[2017-11-28] MEDS: LEVETIRACETAM 1500 MG/NACL-ISO 1,500 MG/100 ML RTUPB IV SCH ×2 (00:07→10:48)
[2017-11-28] MEDS: KETOROLAC TROMETHAMINE INJ/PF 30 MG/1 ML SDV IV PRN ×2 (01:50→10:49)
[2017-11-28] MEDS: LORAZEPAM INJ 2 MG/1 ML VIAL IV PRN ×4 (04:12→16:15)
[2017-11-28] MEDS: HEPARIN SOD (PORCINE) 5,000 UNIT/ML 1 ML SYRINGE SUBCUT SCH ×3 (05:53→22:04)
[2017-11-28 07:22] LABS: ABSOLUTE EOSINOPHILS # (AUTO) 0.1 10^3/uL (0.0-0.6); ABSOLUTE LYMPHOCYTES (AUTO) 1.2 10^3/uL (0.5-4.7); ABSOLUTE MONOCYTES (AUTO) 0.6 10^3/uL (0.1-1.4); BASOPHILS % (AUTO) 0.9 % (0-2); HEMATOCRIT 37.9 % (37.9-51.0); HEMOGLOBIN 12.8 g/dL (13.5-17.0); LYMPHOCYTES % (AUTO) 24.1 % (13-45); MEAN CORPUSCULAR HEMOGLOBIN 31.1 pg (27.0-33.4); MEAN CORPUSCULAR HGB CONC 33.6 g/dL (32.0-36.0); MEAN CORPUSCULAR VOLUME 93 fl (80-97); MONOCYTES % (AUTO) 12.4 % (3-13); RED CELL DISTRIBUTION WIDTH 13.8 % (11.5-14.0); SEGMENTED NEUTROPHILS % (AUTO) 60.6 % (42-78); TOTAL CELLS COUNTED % (AUTO) 100 %
[2017-11-28 07:35] LABS: ALANINE AMINOTRANSFERASE 138 U/L (21-72); ALBUMIN 3.4 g/dL (3.5-5.0); ALKALINE PHOSPHATASE 82 U/L (38-126); ANION GAP 8 (5-19); ASPARTATE AMINO TRANSFERASE 243 U/L (17-59); BILIRUBIN,DIRECT 0.3 mg/dL (0.0-0.4); BILIRUBIN,TOTAL 1.1 mg/dL (0.2-1.3); BLOOD UREA NITROGEN 9 mg/dL (7-20); CALCIUM 8.5 mg/dL (8.4-10.2); CARBON DIOXIDE 26 mmol/L (22-30); CHLORIDE 104 mmol/L (98-107); GLUCOSE 84 mg/dL (75-110); MAGNESIUM 2.3 mg/dL (1.6-2.3); PHOSPHORUS 2.4 mg/dL (2.5-4.5); POTASSIUM 3.5 mmol/L (3.6-5.0); SODIUM 137.8 mmol/L (137-145); TOTAL PROTEIN 5.7 g/dL (6.3-8.2)
[2017-11-28 07:49] LABS: PLATELET COUNT 62 10^3/uL (150-450)
[2017-11-28] MEDS: NORMAL SALINE 1000 ML 1,000 ML IV PRN (07:56)
--- NOTE | 2017-11-28 16:53 | PDOC PROGRESS REPORT ---
Subjective Progress Note for:: 11/28/17 Subjective:: Patient states he wishes to go home He has been quite tremulous and had several doses of Ativan the last one was at 4 PM His blood pressures been quite elevated as well He has otherwise been extremely cooperative sitter at the bedside sitter Reason For Visit: RHABDOMYOLYSIS Physical Exam Vital Signs: Temp Pulse Resp BP Pulse Ox 97.9 F 79 22 H 171/105 H 100 11/28/17 13:43 11/28/17 13:43 11/28/17 13:43 11/28/17 13:43 11/28/17 13:43 Intake & Output 11/27/17 11/28/17 11/29/17 00:59 00:59 00:59 Intake Total 2384 1575 Output Total 4748 800 Balance -2341 775 Weight 99.9 kg 100.7 kg General appearance: PRESENT: no acute distress, cooperative Head exam: PRESENT: normocephalic, other - Ecchymoses right periorbital area Eye exam: PRESENT: conjunctiva pink, EOMI, PERRLA, other - Subconjunctival hemorrhage right eye. ABSENT: scleral icterus Respiratory exam: PRESENT: clear to auscultation hilda. ABSENT: rales, rhonchi, wheezes Cardiovascular exam: PRESENT: RRR. ABSENT: diastolic murmur, rubs, systolic murmur Vascular exam: PRESENT: normal capillary refill GI/Abdominal exam: PRESENT: normal bowel sounds, soft. ABSENT: distended, guarding, mass, organolmegaly, rebound, tenderness Neurological exam: PRESENT: alert, awake, oriented to person, oriented to place , oriented to time, oriented to situation, CN II-XII grossly intact. ABSENT: motor sensory deficit Results Laboratory Results: 11/28/17 06:59 11/28/17 06:59 11/28/17 11/28/17 06:59 06:59 WBC 5.0 RBC 4.10 L Hgb 12.8 L Hct 37.9 MCV 93 MCH 31.1 MCHC 33.6 RDW 13.8 Plt Count 62 L Seg Neutrophils % 60.6 Lymphocytes % 24.1 Monocytes % 12.4 Eosinophils % 2.0 Basophils % 0.9 Absolute Neutrophils 3.0 Absolute Lymphocytes 1.2 Absolute Monocytes 0.6 Absolute Eosinophils 0.1 Absolute Basophils 0.0 Sodium 137.8 Potassium 3.5 L Chloride 104 Carbon Dioxide 26 Anion Gap 8 BUN 9 Creatinine 0.73 Est GFR ( Amer) > 60 Est GFR (Non-Af Amer) > 60 Glucose 84 Calcium 8.5 Phosphorus 2.4 L Magnesium 2.3 Total Bilirubin 1.1 AST 243 H ALT 138 H Alkaline Phosphatase 82 Total Protein 5.7 L Albumin 3.4 L 11/27/17 11/27/17 06:34 12:20 Troponin I 0.087 0.048 Impressions: Head CT 11/26/17 18:12 IMPRESSION: 1. Soft tissue swelling about the right orbit, presumably related to trauma. No acute intracranial abnormality. EVIDENCE OF ACUTE STROKE: NO. Chest X-Ray 11/27/17 00:00 IMPRESSION: NO ACUTE RADIOGRAPHIC FINDING IN THE CHEST. Assessment & Plan - Diagnosis (1) Alcohol use disorder Is this a current diagnosis for this admission?: Yes (2) Elevated troponin I level Is this a current diagnosis for this admission?: Yes (3) Rhabdomyolysis Qualifiers: Rhabdomyolysis type: traumatic Encounter type: initial encounter Qualified Code(s): T79.6XXA - Traumatic ischemia of muscle, initial encounter Is this a current diagnosis for this admission?: Yes (4) Seizure disorder Is this a current diagnosis for this admission?: Yes (5) Abnormal LFTs Is this a current diagnosis for this admission?: Yes - Time Time Spent with patient: 15-24 minutes - Plan Summary Plan Summary: We will discontinue IV fluids All meds p.o. DC Morales catheter Consider discharge in a.m. if stable Reevaluated treatment for hypertension Norvasc and lisinopril ordered;
[2017-11-28] MEDS: LISINOPRIL 10 MG TABLET PO SCH (17:51)
[2017-11-28] MEDS: LEVETIRACETAM 500 MG TABLET PO SCH (17:51)
[2017-11-28] MEDS: AMLODIPINE BESYLATE 5 MG TABLET PO SCH (17:52)
[2017-11-29] MEDS: HEPARIN SOD (PORCINE) 5,000 UNIT/ML 1 ML SYRINGE SUBCUT SCH ×2 (04:57→13:53)
[2017-11-29] MEDS: LEVETIRACETAM 500 MG TABLET PO SCH ×2 (05:01→16:46)
[2017-11-29] MEDS: LISINOPRIL 10 MG TABLET PO SCH ×2 (05:01→16:46)
[2017-11-29] MEDS: DIAZEPAM 5 MG TABLET PO SCH ×3 (05:01→16:45)
[2017-11-29] MEDS: LORAZEPAM INJ 2 MG/1 ML VIAL IV PRN (06:19)
[2017-11-29 06:46] LABS: ANION GAP 10 (5-19); BLOOD UREA NITROGEN 7 mg/dL (7-20); CALCIUM 9.8 mg/dL (8.4-10.2); CARBON DIOXIDE 25 mmol/L (22-30); CHLORIDE 102 mmol/L (98-107); CREATINE KINASE 1431 U/L (55-170); GLUCOSE 98 mg/dL (75-110); POTASSIUM 3.2 mmol/L (3.6-5.0); SODIUM 136.6 mmol/L (137-145)
[2017-11-29] MEDS ORDERED: POTASSIUM CHLORIDE 10 MEQ TABLET.SA PO ONE (15:24)
[2017-11-29 16:18] VITALS: BP 142/98
[2017-11-29] MEDS: AMLODIPINE BESYLATE 5 MG TABLET PO SCH (16:45)
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
== END 2017-11-29 17:02 | disposition home or self-care (01) | DRG 565 ==
LOC: ER 17:39 → EH 11-27 01:24 → 4S 11-27 04:10
PROVIDERS: ADMIT Family Medicine; ATTEND Family Medicine
DX: T79.6XXA Traumatic ischemia of muscle, initial encounter (principal); F10.959 Alcohol use, unspecified with alcohol-induced psychotic disorder, unspecified; G40.909 Epilepsy, unspecified, not intractable, without status epilepticus; R79.89 Other specified abnormal findings of blood chemistry; I11.0 Hypertensive heart disease with heart failure; R74.8 Abnormal levels of other serum enzymes; F10.20 Alcohol dependence, uncomplicated; F17.200 Nicotine dependence, unspecified, uncomplicated; I48.91 Unspecified atrial fibrillation; I50.9 Heart failure, unspecified; K21.9 Gastro-esophageal reflux disease without esophagitis; F32.9 Major depressive disorder, single episode, unspecified; R41.82 Altered mental status, unspecified; E66.09 Other obesity due to excess calories; T14.8XXD Other injury of unspecified body region, subsequent encounter; X58.XXXD Exposure to other specified factors, subsequent encounter; F20.9 Schizophrenia, unspecified; Z79.899 Other long term (current) drug therapy; Z91.19 Patient's noncompliance with other medical treatment and regimen; Z78.1 Physical restraint status; Z68.30 Body mass index [BMI] 30.0-30.9, adult
CPT/HCPCS: 36415; 70450; 71045; 80048; 80053; 80307; 81001; 82550; 82553; 83690; 83735; 84100; 84484; 85025; 85610; 85730; 87040; 93005; 93010; 96361; 96365; 96367; 96372; 96375; 99291; J1200; J1630; J1885; J1953; J2060; J3411; J3475; J3480; J3490; J7030

== ENCOUNTER 2018-01-03 18:11 | Emergency (ER) | payer MEDICAID ==
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
[2018-01-03 21:13] LABS: ABSOLUTE BASOPHILS # (AUTO) 0.2 10^3/uL (0.0-0.2); ABSOLUTE EOSINOPHILS # (AUTO) 0.1 10^3/uL (0.0-0.6); ABSOLUTE LYMPHOCYTES (AUTO) 3.1 10^3/uL (0.5-4.7); ABSOLUTE MONOCYTES (AUTO) 0.7 10^3/uL (0.1-1.4); ABSOLUTE NEUT (AUTO) 2.4 10^3/uL (1.7-8.2); BASOPHILS % (AUTO) 2.5 % (0-2); EOSINOPHILS % (AUTO) 1.4 % (0-6); HEMATOCRIT 41.7 % (37.9-51.0); HEMOGLOBIN 14.1 g/dL (13.5-17.0); LYMPHOCYTES % (AUTO) 48.2 % (13-45); MEAN CORPUSCULAR HGB CONC 33.7 g/dL (32.0-36.0); MEAN CORPUSCULAR VOLUME 92 fl (80-97); MONOCYTES % (AUTO) 10.9 % (3-13); PLATELET COUNT 183 10^3/uL (150-450); RED BLOOD COUNT 4.54 10^6/uL (4.35-5.55); RED CELL DISTRIBUTION WIDTH 14.1 % (11.5-14.0); TOTAL CELLS COUNTED % (AUTO) 100 %; WHITE BLOOD COUNT 6.5 10^3/uL (4.0-10.5)
[2018-01-03 21:38] LABS: ALANINE AMINOTRANSFERASE 92 U/L (21-72); ALBUMIN 4.1 g/dL (3.5-5.0); ALKALINE PHOSPHATASE 78 U/L (38-126); ANION GAP 11 (5-19); ASPARTATE AMINO TRANSFERASE 84 U/L (17-59); BILIRUBIN,DIRECT 0.2 mg/dL (0.0-0.4); BILIRUBIN,TOTAL 0.2 mg/dL (0.2-1.3); BLOOD UREA NITROGEN 6 mg/dL (7-20); CALCIUM 8.4 mg/dL (8.4-10.2); CARBON DIOXIDE 24 mmol/L (22-30); CHLORIDE 109 mmol/L (98-107); CREATINE KINASE 228 U/L (55-170); GLUCOSE 87 mg/dL (75-110); POTASSIUM 3.4 mmol/L (3.6-5.0); TOTAL PROTEIN 6.7 g/dL (6.3-8.2)
[2018-01-03 21:45] LABS: CREATINE KINASE MB 1.42 ng/mL (<4.55)
[2018-01-03 21:49] LABS: TROPONIN I < 0.012 ng/mL
--- NOTE | 2018-01-03 22:49 | EKG REPORT ---
SEVERITY:- NORMAL ECG - SINUS RHYTHM : Confirmed by: Jan Preston 03-Jan-2018 22:48:43
== END 2018-01-03 22:39 | disposition home or self-care (01) ==
LOC: ER 18:11
DX: R07.9 Chest pain, unspecified (principal); F10.929 Alcohol use, unspecified with intoxication, unspecified; F17.200 Nicotine dependence, unspecified, uncomplicated
CPT/HCPCS: 36415; 80053; 82550; 82553; 84484; 85025; 93005; 93010; 99285

== ENCOUNTER 2018-01-04 04:19 | Emergency (ER) | payer MEDICAID ==
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
[2018-01-04] MEDS ORDERED: PHENOBARBITAL INJ 65 MG/ML VIAL IV ONE (07:22)
[2018-01-04] MEDS ORDERED: NORMAL SALINE 1000 ML 1,000 ML IV ONE (07:24)
[2018-01-04] MEDS ORDERED: PHENOBARBITAL SODIUM IV ONE (08:30)
[2018-01-04] MEDS ORDERED: NORMAL SALINE IV ONE (08:30)
--- NOTE | 2018-01-04 10:04 | EKG REPORT ---
SEVERITY:- BORDERLINE ECG - SINUS TACHYCARDIA PROBABLE LEFT ATRIAL ABNORMALITY BORDERLINE T ABNORMALITIES, LATERAL LEADS : Confirmed by: Jan Preston 04-Jan-2018 10:03:56
[2018-01-04 10:40] VITALS: BP 182/100
== END 2018-01-04 10:40 | disposition home or self-care (01) ==
LOC: ER 04:19
DX: F10.230 Alcohol dependence with withdrawal, uncomplicated (principal); R03.0 Elevated blood-pressure reading, without diagnosis of hypertension
CPT/HCPCS: 93005; 93010; J2560; J7030

== ENCOUNTER 2018-04-11 14:10 | Inpatient (IN) | payer MEDICAID ==
[~2018-04-11 14:10] MED LIST: SUCCINYLCHOLINE CHLORIDE INJ 200 MG/10 ML VIAL ONE
[2018-04-11] MEDS ORDERED: AMLODIPINE BESYLATE 10 MG TABLET PO ONE (14:14)
[2018-04-11] MEDS ORDERED: LISINOPRIL 10 MG TABLET PO ONE (14:14)
[2018-04-11] MEDS ORDERED: LEVETIRACETAM 500 MG TABLET PO ONE (14:14)
[2018-04-11] MEDS ORDERED: LEVETIRACETAM 1000 MG/NACL-ISO 1,000 MG/100 ML RTUPB IV ONE (14:24)
[2018-04-11 14:53] LABS: ABSOLUTE BASOPHILS # (AUTO) 0.1 10^3/uL (0.0-0.2); ABSOLUTE EOSINOPHILS # (AUTO) 0.1 10^3/uL (0.0-0.6); ABSOLUTE LYMPHOCYTES (AUTO) 2.3 10^3/uL (0.5-4.7); ABSOLUTE MONOCYTES (AUTO) 1.2 10^3/uL (0.1-1.4); ABSOLUTE NEUT (AUTO) 6.3 10^3/uL (1.7-8.2); BASOPHILS % (AUTO) 0.8 % (0-2); EOSINOPHILS % (AUTO) 0.5 % (0-6); HEMATOCRIT 49.6 % (37.9-51.0); HEMOGLOBIN 16.2 g/dL (13.5-17.0); LYMPHOCYTES % (AUTO) 23.1 % (13-45); MEAN CORPUSCULAR HEMOGLOBIN 31.3 pg (27.0-33.4); MEAN CORPUSCULAR HGB CONC 32.7 g/dL (32.0-36.0); MEAN CORPUSCULAR VOLUME 96 fl (80-97); RED BLOOD COUNT 5.19 10^6/uL (4.35-5.55); RED CELL DISTRIBUTION WIDTH 14.4 % (11.5-14.0); SEGMENTED NEUTROPHILS % (AUTO) 63.6 % (42-78); TOTAL CELLS COUNTED % (AUTO) 100 %; WHITE BLOOD COUNT 9.9 10^3/uL (4.0-10.5)
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
[2018-04-11] MEDS ORDERED: LORAZEPAM INJ 2 MG/1 ML VIAL IM ONE (15:07)
[2018-04-11] MEDS ORDERED: HALOPERIDOL LACTATE INJ 5 MG/1 ML VIAL IM ONE (15:07)
[2018-04-11] MEDS ORDERED: DIPHENHYDRAMINE HCL 50 MG/ML VIAL IM ONE (15:07)
[2018-04-11 15:08] LABS: ALANINE AMINOTRANSFERASE 120 U/L (21-72); ALBUMIN 5.4 g/dL (3.5-5.0); ALKALINE PHOSPHATASE 141 U/L (38-126); ASPARTATE AMINO TRANSFERASE 318 U/L (17-59); BILIRUBIN,DIRECT 0.9 mg/dL (0.0-0.4); BILIRUBIN,TOTAL 1.5 mg/dL (0.2-1.3); BLOOD UREA NITROGEN 8 mg/dL (7-20); CALCIUM 10.5 mg/dL (8.4-10.2); CARBON DIOXIDE 16 mmol/L (22-30); CHLORIDE 99 mmol/L (98-107); GLUCOSE 129 mg/dL (75-110); POTASSIUM 3.8 mmol/L (3.6-5.0); TOTAL PROTEIN 8.9 g/dL (6.3-8.2)
[2018-04-11] MEDS ORDERED: HALOPERIDOL LACTATE INJ 5 MG/1 ML VIAL ONE (15:09)
[2018-04-11] MEDS ORDERED: LORAZEPAM INJ 2 MG/1 ML VIAL ONE (15:09)
[2018-04-11] MEDS ORDERED: DIPHENHYDRAMINE HCL 50 MG/ML VIAL ONE (15:10)
[2018-04-11 15:11] LABS: ALCOHOL < 10 mg/dL (NONE DETECTED)
[2018-04-11 15:15] LABS: PLATELET COUNT 71 10^3/uL (150-450); SODIUM 149.4 mmol/L (137-145)
[2018-04-11 15:16] LABS: ANION GAP 34 (5-19)
[2018-04-11] MEDS ORDERED: LORAZEPAM INJ 2 MG/1 ML VIAL IV ONE (15:51)
[2018-04-11] MEDS ORDERED: DEXMEDETOMIDINE 400 MCG/NS 100 ML BOT IV PRN (16:08)
[2018-04-11] MEDS ORDERED: NORMAL SALINE 1000 ML 1,000 ML IV ONE (16:25)
[2018-04-11] MEDS ORDERED: DEXTROSE 40% GEL 15 GM TUBE PO PRN ×2 (17:29)
[2018-04-11] MEDS ORDERED: GLUCAGON,HUMAN RECOMB 1 MG INJ SUBCUT PRN (17:29)
[2018-04-11] MEDS ORDERED: DEXTROSE 50%-WATER 25 GM/50 ML DISP.SYRIN IV PRN ×2 (17:29)
[2018-04-11] MEDS ORDERED: PHARMACY COMMUNICATION ORDER MC NR ×2 (17:30→18:00)
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
[2018-04-11] MEDS ORDERED: METOPROLOL TARTRATE PF/INJ 5 MG/5 ML SDV IV PRN (18:21)
[2018-04-11] MEDS ORDERED: HYDRALAZINE HCL INJ/PF 20 MG/1 ML SDV IV ONE (18:30)
[2018-04-11] MEDS ORDERED: PROPOFOL INJ 200 MG/20 ML VIAL IV ONE (19:13)
[2018-04-11] MEDS: PROPOFOL 100 ML IV PRN ×3 (19:19→23:54)
[2018-04-11] MEDS: LORAZEPAM 24 MG/240 ML BAG IV PRN ×2 (19:19→21:57)
[2018-04-11] MEDS: POTASSI CL 20 MEQ/D5-1/2NS 1L 1,000 ML IV PRN (19:20)
[2018-04-11] MEDS ORDERED: ACETAMINOPHEN SOLN 325 MG/10.15 ML UDCUP NG PRN (19:23)
--- NOTE | 2018-04-11 19:27 | EKG REPORT ---
SEVERITY:- BORDERLINE ECG - SINUS RHYTHM PROBABLE LEFT ATRIAL ABNORMALITY : Confirmed by: Jan Preston 11-Apr-2018 19:26:40
--- NOTE | 2018-04-11 19:40 | RADIOLOGY REPORT (SQ) ---
EXAM DESCRIPTION: CHEST SINGLE VIEW COMPLETED DATE/TIME: 04/11/2018 7:27 pm REASON FOR STUDY: after intubation COMPARISON: 11/27/2017 EXAM PARAMETERS: NUMBER OF VIEWS: One view. TECHNIQUE: Single frontal radiographic view of the chest acquired. RADIATION DOSE: NA LIMITATIONS: None. FINDINGS: LUNGS AND PLEURA: No opacities, masses or pneumothorax. No pleural effusion. MEDIASTINUM AND HILAR STRUCTURES: No masses. Contour normal. HEART AND VASCULAR STRUCTURES: Heart normal in size. Normal vasculature. BONES: No acute findings. HARDWARE: Endotracheal tube 4.5 cm above the brandon. Nasogastric tube in expected location of the st omach. OTHER: Stable scattered retained metallic foreign bodies. IMPRESSION: SATISFACTORY PLACEMENT OF ENDOTRACHEAL TUBE AND NASOGASTRIC TUBE. NO ACUTE FINDINGS. TECHNICAL DOCUMENTATION: JOB ID: [id number] [employer]- All Rights Reserved Reading location - IP/workstation name: [email or web address]
[2018-04-11] MEDS: ACETAMINOPHEN SOLN 325 MG/10.15 ML UDCUP NG PRN (19:53)
[2018-04-11 20:30] LABS: ARTERIAL BLOOD FIO2 50%; ARTERIAL BLOOD H2CO3 1.03 mmol/L (1.05-1.35); ARTERIAL BLOOD HCO3 24.2 mmol/L (20-26); ARTERIAL BLOOD PCO2 34.3 mmHg (35-45); ARTERIAL BLOOD PH 7.47 (7.35-7.45); ARTERIAL BLOOD PO2 51.9 mmHg (80-100); ARTERIAL BLOOD TOTAL CO2 25.2 mmol/L (23-27)
[2018-04-11] MEDS: NORMAL SALINE 1000 ML 1,000 ML with MAGNESIUM SULFATE 8 MEQ, THIAMINE HCL 100 MG, MVI, ... IV SCH ×4 (21:56)
[2018-04-11] MEDS ORDERED: LEVETIRACETAM INJ/PF 500 MG/5 ML SDV IV ONE (22:12)
[2018-04-11] MEDS: LEVETIRACETAM 1000 MG/NACL-ISO 1,000 MG/100 ML RTUPB IV SCH (22:28)
[2018-04-12] MEDS: POTASSI CL 20 MEQ/D5-1/2NS 1L 1,000 ML IV PRN (02:08)
[2018-04-12] MEDS: LORAZEPAM 24 MG/240 ML BAG IV PRN ×3 (02:08→21:12)
[2018-04-12] MEDS: PROPOFOL 100 ML IV PRN ×4 (04:27→21:05)
[2018-04-12 04:34] LABS: ABSOLUTE EOSINOPHILS # (AUTO) 0.1 10^3/uL (0.0-0.6); ABSOLUTE LYMPHOCYTES (AUTO) 1.3 10^3/uL (0.5-4.7); ABSOLUTE MONOCYTES (AUTO) 0.5 10^3/uL (0.1-1.4); ABSOLUTE NEUT (AUTO) 3.5 10^3/uL (1.7-8.2); BASOPHILS % (AUTO) 0.7 % (0-2); EOSINOPHILS % (AUTO) 2.1 % (0-6); LYMPHOCYTES % (AUTO) 23.6 % (13-45); MEAN CORPUSCULAR HEMOGLOBIN 30.7 pg (27.0-33.4); MEAN CORPUSCULAR HGB CONC 33.6 g/dL (32.0-36.0); MONOCYTES % (AUTO) 9.8 % (3-13); PROTHROMBIN TIME 14.8 SEC (11.4-15.4); RED BLOOD COUNT 4.37 10^6/uL (4.35-5.55); RED CELL DISTRIBUTION WIDTH 13.9 % (11.5-14.0); SEGMENTED NEUTROPHILS % (AUTO) 63.8 % (42-78); TOTAL CELLS COUNTED % (AUTO) 100 %; WHITE BLOOD COUNT 5.4 10^3/uL (4.0-10.5)
[2018-04-12 04:49] LABS: ARTERIAL BLOOD BASE EXCESS -0.1 mmol/L; ARTERIAL BLOOD H2CO3 1.11 mmol/L (1.05-1.35); ARTERIAL BLOOD HCO3 23.8 mmol/L (20-26); ARTERIAL BLOOD O2 SATURATION 97.3 % (94-98); ARTERIAL BLOOD PCO2 36.8 mmHg (35-45); ARTERIAL BLOOD PH 7.43 (7.35-7.45); ARTERIAL BLOOD PO2 92.4 mmHg (80-100)
[2018-04-12 04:50] LABS: ARTERIAL BLOOD FIO2 40%
[2018-04-12 04:50] LABS: ALANINE AMINOTRANSFERASE 92 U/L (21-72); ALBUMIN 3.3 g/dL (3.5-5.0); ALKALINE PHOSPHATASE 85 U/L (38-126); ANION GAP 13 (5-19); ASPARTATE AMINO TRANSFERASE 166 U/L (17-59); BILIRUBIN,DIRECT 0.6 mg/dL (0.0-0.4); BILIRUBIN,TOTAL 1.1 mg/dL (0.2-1.3); BLOOD UREA NITROGEN 12 mg/dL (7-20); CALCIUM 8.4 mg/dL (8.4-10.2); CARBON DIOXIDE 25 mmol/L (22-30); CHLORIDE 100 mmol/L (98-107); CREATINE KINASE 316 U/L (55-170); GLUCOSE 100 mg/dL (75-110); POTASSIUM 3.1 mmol/L (3.6-5.0); SODIUM 137.8 mmol/L (137-145); TOTAL PROTEIN 6.3 g/dL (6.3-8.2)
[2018-04-12 05:06] LABS: MEAN CORPUSCULAR VOLUME 92 fl (80-97)
[2018-04-12 05:13] LABS: HEMOGLOBIN 13.4 g/dL (13.5-17.0)
[2018-04-12 05:15] LABS: PLATELET COUNT 46 10^3/uL (150-450)
--- NOTE | 2018-04-12 08:27 | EKG REPORT ---
SEVERITY:- ABNORMAL ECG - SINUS RHYTHM LOW VOLTAGE IN FRONTAL LEADS BORDERLINE R WAVE PROGRESSION, ANTERIOR LEADS BORDERLINE T ABNORMALITIES, ANT-LAT LEADS PROLONGED QT INTERVAL : Confirmed by: Jan Preston 12-Apr-2018 05:25:52
[2018-04-12] MEDS ORDERED: POTASSIUM CHLORIDE 20 MEQ/15 ML UDCUP PO ONE (09:40)
--- NOTE | 2018-04-12 09:44 | PDOC PROGRESS REPORT ---
Subjective Progress Note for:: 04/12/18 Subjective:: Patient is sedated mechanically ventilated No further seizures Clinically stable Reason For Visit: ALCOHOL WITHDRAWAL,HYPERTENSIVE URGENCY Physical Exam Vital Signs: Temp Pulse Resp BP Pulse Ox 97.5 F 81 17 106/72 97 04/12/18 03:21 04/12/18 06:08 04/12/18 06:00 04/12/18 05:58 04/12/18 06:00 Intake & Output 04/11/18 04/12/18 04/13/18 00:59 00:59 00:59 Intake Total 3624 Output Total 445 1375 Balance -445 7623 Weight 97.2 kg 92.6 kg General appearance: PRESENT: disheveled, mild distress, well-developed, well- nourished Head exam: PRESENT: atraumatic, normocephalic Eye exam: PRESENT: other - Subconjunctival hemorrhage right eye Neck exam: ABSENT: carotid bruit, JVD, lymphadenopathy, thyromegaly Respiratory exam: PRESENT: clear to auscultation hilda. ABSENT: rales, rhonchi, wheezes Cardiovascular exam: PRESENT: RRR, tachycardia. ABSENT: diastolic murmur, rubs , systolic murmur Pulses: PRESENT: normal dorsalis pedis pul Musculoskeletal exam: PRESENT: full ROM. ABSENT: deformity Neurological exam sedated cannot assess Psychiatric exam: PRESENT: other - Cannot evaluate Results Laboratory Results: 04/12/18 03:55 04/12/18 03:55 04/11/18 04/12/18 04/12/18 20:20 03:55 03:55 WBC 5.4 RBC 4.37 Hgb 13.4 L D Hct 40.0 MCV 92 D MCH 30.7 MCHC 33.6 RDW 13.9 Plt Count 46 L Seg Neutrophils % 63.8 Lymphocytes % 23.6 Monocytes % 9.8 Eosinophils % 2.1 Basophils % 0.7 Absolute Neutrophils 3.5 Absolute Lymphocytes 1.3 Absolute Monocytes 0.5 Absolute Eosinophils 0.1 Absolute Basophils 0.0 Carbonic Acid 1.03 L HCO3/H2CO3 Ratio 23:1 ABG pH 7.47 H ABG pCO2 34.3 L ABG pO2 51.9 L ABG HCO3 24.2 ABG O2 Saturation 89.0 L ABG Base Excess 1.0 FiO2 50% Sodium 137.8 Potassium 3.1 L Chloride 100 Carbon Dioxide 25 Anion Gap 13 BUN 12 Creatinine 0.82 Est GFR ( Amer) > 60 Est GFR (Non-Af Amer) > 60 Glucose 100 Calcium 8.4 Total Bilirubin 1.1 AST 166 H ALT 92 H Alkaline Phosphatase 85 Total Protein 6.3 Albumin 3.3 L TSH 04/12/18 04/12/18 03:55 04:35 WBC RBC Hgb Hct MCV MCH MCHC RDW Plt Count Seg Neutrophils % Lymphocytes % Monocytes % Eosinophils % Basophils % Absolute Neutrophils Absolute Lymphocytes Absolute Monocytes Absolute Eosinophils Absolute Basophils Carbonic Acid 1.11 HCO3/H2CO3 Ratio 21:1 ABG pH 7.43 ABG pCO2 36.8 ABG pO2 92.4 ABG HCO3 23.8 ABG O2 Saturation 97.3 ABG Base Excess -0.1 FiO2 40% Sodium Potassium Chloride Carbon Dioxide Anion Gap BUN Creatinine Est GFR ( Amer) Est GFR (Non-Af Amer) Glucose Calcium Total Bilirubin AST ALT Alkaline Phosphatase Total Protein Albumin TSH 2.62 04/12/18 03:55 Creatine Kinase 316 H Impressions: Chest X-Ray 04/11/18 18:00 IMPRESSION: SATISFACTORY PLACEMENT OF ENDOTRACHEAL TUBE AND NASOGASTRIC TUBE. NO ACUTE FINDINGS. Assessment & Plan - Diagnosis (2) Alcohol withdrawal Qualifiers: Complication of substance-induced condition: uncomplicated Qualified Code(s ): F10.230 - Alcohol dependence with withdrawal, uncomplicated Is this a current diagnosis for this admission?: Yes (3) History of atrial fibrillation Is this a current diagnosis for this admission?: Yes (4) Thrombocytopenia Is this a current diagnosis for this admission?: Yes (5) Elevated LFTs Is this a current diagnosis for this admission?: Yes - Time Time Spent with patient: Continue present management Continue sedation and mechanical ventilation Replace electrolytes Initiate PPI Perform CT of the head to exclude subdural hematomas Patient is not a candidate for Lovenox prophylaxis as his platelet count is only 40 Time Spent with patient: 15-24 minutes - Inpatient Certification Based on my medical assessment, after consideration of the patient's comorbidities, presenting symptoms, or acuity I expect that the services needed warrant INPATIENT care.: Yes I certify that my determination is in accordance with my understanding of Medicare's requirements for reasonable and necessary INPATIENT services [42 CFR 412.3e].: Yes Medical Necessity: Need For IV Fluids, Need For Continuous Telemetry Monitoring , Risk of Complication if Not Cared For in Hospital
[2018-04-12] MEDS ORDERED: DEXTROSE 5%-NORMAL SALINE 1,000 ML with POTASSIUM CHLORIDE 40 MEQ IV PRN ×2 (09:49)
[2018-04-12] MEDS: LEVETIRACETAM 1000 MG/NACL-ISO 1,000 MG/100 ML RTUPB IV SCH ×2 (10:45→21:55)
[2018-04-12] MEDS ORDERED: PANTOPRAZOLE SODIUM 40 MG VIAL IV ONE (11:00)
--- NOTE | 2018-04-12 16:09 | RADIOLOGY REPORT (SQ) ---
EXAM DESCRIPTION: CT HEAD WITHOUT COMPLETED DATE/TIME: 04/12/2018 3:52 pm REASON FOR STUDY: seizures etoh COMPARISON: Multiple since 2011 most recently 11/26/2017 TECHNIQUE: Axial images acquired through the brain without intravenous contrast. Images reviewed wi th bone, brain and subdural windows. Additional sagittal and coronal reconstructions were generated. Images stored on PACS. All CT scanners at this facility use dose modulation, iterative reconstruction, and/or weight based d osing when appropriate to reduce radiation dose to as low as reasonably achievable (ALARA). [facility]: Dose Right [facility]: CareDose [facility]: Dose Right [facility]: Teradose 4D [facility]: [employer] RADIATION DOSE: CT Rad equipment meets quality standard of care and radiation dose reduction techniq ues were employed. CTDIvol: 48.7 mGy. DLP: 979 mGy-cm. mGy. LIMITATIONS: None. FINDINGS: VENTRICLES: Normal size and contour. CEREBRUM: No masses. No hemorrhage. No midline shift. No evidence for acute infarction. Normal gra y/white matter differentiation. No areas of low density in the white matter. CEREBELLUM: No masses. No hemorrhage. No alteration of density. No evidence for acute infarction. EXTRAAXIAL SPACES: No fluid collections. No masses. ORBITS AND GLOBE: No intra- or extraconal masses. Normal contour of globe without masses. CALVARIUM: No fracture. PARANASAL SINUSES: No fluid or mucosal thickening. SOFT TISSUES: No mass or hematoma. OTHER: No other significant finding. IMPRESSION: NORMAL BRAIN CT WITHOUT CONTRAST. EVIDENCE OF ACUTE STROKE: NO. COMMENT: Quality ID # [id number]: Final reports with documentation of one or more dose reduction techniques (e.g., Automated exposure control, adjustment of the mA and/or kV according to patient size, use of iterative reconstruction technique) TECHNICAL DOCUMENTATION: JOB ID: [id number] [employer]- All Rights Reserved Reading location - IP/workstation name: [email or web address]
[2018-04-12] MEDS: POTASSI CL 40 MEQ/D5-1/2NS 1L 1000 ML IV PRN (17:43)
[2018-04-12] MEDS: PANTOPRAZOLE SODIUM 40 MG VIAL IV SCH (21:55)
[2018-04-12] MEDS: NORMAL SALINE 1000 ML 1,000 ML with MAGNESIUM SULFATE 8 MEQ, THIAMINE HCL 100 MG, MVI, ... IV SCH ×4 (21:56)
[2018-04-13] MEDS: PROPOFOL 100 ML IV PRN ×8 (00:52→21:57)
[2018-04-13] MEDS: LORAZEPAM 24 MG/240 ML BAG IV PRN ×4 (03:13→22:18)
[2018-04-13 04:27] LABS: ABSOLUTE EOSINOPHILS # (AUTO) 0.1 10^3/uL (0.0-0.6); ABSOLUTE LYMPHOCYTES (AUTO) 0.9 10^3/uL (0.5-4.7); ABSOLUTE MONOCYTES (AUTO) 0.4 10^3/uL (0.1-1.4); ABSOLUTE NEUT (AUTO) 3.5 10^3/uL (1.7-8.2); BASOPHILS % (AUTO) 0.9 % (0-2); EOSINOPHILS % (AUTO) 2.6 % (0-6); HEMATOCRIT 40.8 % (37.9-51.0); HEMOGLOBIN 13.6 g/dL (13.5-17.0); LYMPHOCYTES % (AUTO) 17.6 % (13-45); MEAN CORPUSCULAR HGB CONC 33.5 g/dL (32.0-36.0); MEAN CORPUSCULAR VOLUME 93 fl (80-97); MONOCYTES % (AUTO) 8.2 % (3-13); RED BLOOD COUNT 4.41 10^6/uL (4.35-5.55); SEGMENTED NEUTROPHILS % (AUTO) 70.7 % (42-78); TOTAL CELLS COUNTED % (AUTO) 100 %
[2018-04-13 04:35] LABS: ANION GAP 7 (5-19); BLOOD UREA NITROGEN 8 mg/dL (7-20); CALCIUM 8.6 mg/dL (8.4-10.2); CARBON DIOXIDE 23 mmol/L (22-30); CHLORIDE 111 mmol/L (98-107); GLUCOSE 100 mg/dL (75-110); PHOSPHORUS 3.1 mg/dL (2.5-4.5); POTASSIUM 3.9 mmol/L (3.6-5.0)
[2018-04-13 04:45] LABS: PLATELET COUNT 56 10^3/uL (150-450)
[2018-04-13 06:16] LABS: ARTERIAL BLOOD BASE EXCESS -2.6 mmol/L; ARTERIAL BLOOD H2CO3 0.98 mmol/L (1.05-1.35); ARTERIAL BLOOD HCO3 20.9 mmol/L (20-26); ARTERIAL BLOOD PCO2 32.5 mmHg (35-45); ARTERIAL BLOOD PH 7.43 (7.35-7.45); ARTERIAL BLOOD PO2 78.2 mmHg (80-100); ARTERIAL BLOOD TOTAL CO2 21.9 mmol/L (23-27)
[2018-04-13 06:19] LABS: ARTERIAL BLOOD FIO2 40%
--- NOTE | 2018-04-13 08:19 | RADIOLOGY REPORT (SQ) ---
EXAM DESCRIPTION: CHEST SINGLE VIEW COMPLETED DATE/TIME: 04/13/2018 7:58 am REASON FOR STUDY: resp failure COMPARISON: 04/11/2018. EXAM PARAMETERS: NUMBER OF VIEWS: One view. TECHNIQUE: Single frontal radiographic view of the chest acquired. RADIATION DOSE: NA LIMITATIONS: None. FINDINGS: LUNGS AND PLEURA: No opacities, masses or pneumothorax. No pleural effusion. MEDIASTINUM AND HILAR STRUCTURES: No masses. Contour normal. HEART AND VASCULAR STRUCTURES: Heart normal in size. Normal vasculature. BONES: No acute findings. HARDWARE: Stable endotracheal tube and nasogastric tube. OTHER: No other significant finding. IMPRESSION: STABLE APPEARANCE OF THE CHEST. NO ACUTE FINDINGS. TECHNICAL DOCUMENTATION: JOB ID: [id number] [employer]- All Rights Reserved Reading location - IP/workstation name: [email or web address]
[2018-04-13] MEDS: PANTOPRAZOLE SODIUM 40 MG VIAL IV SCH ×2 (09:55→21:34)
[2018-04-13] MEDS: LEVETIRACETAM 1000 MG/NACL-ISO 1,000 MG/100 ML RTUPB IV SCH ×2 (09:56→21:35)
[2018-04-13] MEDS: POTASSI CL 40 MEQ/D5-1/2NS 1L 1000 ML IV PRN ×2 (15:03→21:33)
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
--- NOTE | 2018-04-13 18:15 | PDOC PROGRESS REPORT ---
Subjective Progress Note for:: 04/13/18 Subjective:: Intubated and sedated has failed trial sedation vacation Reason For Visit: ALCOHOL WITHDRAWAL,HYPERTENSIVE URGENCY Physical Exam Vital Signs: Temp Pulse Resp BP Pulse Ox 98.6 F 75 24 H 118/83 97 04/12/18 18:00 04/12/18 22:00 04/13/18 07:00 04/13/18 06:59 04/13/18 08:05 Intake & Output 04/12/18 04/13/18 04/14/18 06:59 06:59 06:59 Intake Total 3624 3317 Output Total 1420 3650 Balance 2204 -333 Weight 92.6 kg General appearance: PRESENT: no acute distress, disheveled. ABSENT: cooperative Head exam: PRESENT: atraumatic, normocephalic Eye exam: PRESENT: conjunctiva pale. ABSENT: nystagmus, periorbital swelling, scleral icterus Mouth exam: PRESENT: dry mucosa, neck supple, tongue midline, other - ET tube in place Neck exam: ABSENT: carotid bruit, JVD, lymphadenopathy, thyromegaly, tracheal deviation, tracheostomy Respiratory exam: PRESENT: decreased breath sounds, prolonged expiratory phas, rales, rhonchi, tachypnea, unlabored, wheezes. ABSENT: retraction, stridor Cardiovascular exam: PRESENT: RRR, +S1, +S2, tachycardia Pulses: PRESENT: normal radial pulses GI/Abdominal exam: PRESENT: diminished bowel sounds, soft Extremities exam: ABSENT: clubbing, joint swelling Musculoskeletal exam: ABSENT: ambulatory, deformity, dislocation Neurological exam: ABSENT: awake, oriented to person Skin exam: PRESENT: dry, warm Results Laboratory Results: 04/13/18 04:16 04/13/18 04:16 04/13/18 04/13/18 04/13/18 04:16 04:16 06:05 WBC 5.0 RBC 4.41 Hgb 13.6 Hct 40.8 MCV 93 MCH 31.0 MCHC 33.5 RDW 14.0 Plt Count 56 L Seg Neutrophils % 70.7 Lymphocytes % 17.6 Monocytes % 8.2 Eosinophils % 2.6 Basophils % 0.9 Absolute Neutrophils 3.5 Absolute Lymphocytes 0.9 Absolute Monocytes 0.4 Absolute Eosinophils 0.1 Absolute Basophils 0.0 Carbonic Acid 0.98 L HCO3/H2CO3 Ratio 21:1 ABG pH 7.43 ABG pCO2 32.5 L ABG pO2 78.2 L ABG HCO3 20.9 ABG O2 Saturation 96.0 ABG Base Excess -2.6 FiO2 40% Sodium 141.0 Potassium 3.9 Chloride 111 H Carbon Dioxide 23 Anion Gap 7 BUN 8 Creatinine 0.57 Est GFR ( Amer) > 60 Est GFR (Non-Af Amer) > 60 Glucose 100 Calcium 8.6 Phosphorus 3.1 Magnesium 2.4 H 04/12/18 03:55 Creatine Kinase 316 H Impressions: Head CT 04/12/18 09:51 IMPRESSION: NORMAL BRAIN CT WITHOUT CONTRAST. EVIDENCE OF ACUTE STROKE: NO. Chest X-Ray 04/13/18 06:00 IMPRESSION: STABLE APPEARANCE OF THE CHEST. NO ACUTE FINDINGS. Assessment & Plan - Diagnosis (1) Alcohol withdrawal seizure Qualifiers: Complication of substance-induced condition: with delirium Qualified Code(s ): F10.231 - Alcohol dependence with withdrawal delirium Is this a current diagnosis for this admission?: Yes Plan: None reported over the last 24 hours (2) History of atrial fibrillation Is this a current diagnosis for this admission?: Yes Plan: Currently normal sinus rhythm-sinus tachycardia (3) Thrombocytopenia Is this a current diagnosis for this admission?: Yes Plan: Unchanged suspect secondary to bone marrow suppression due to alcohol (4) Acute respiratory failure with hypoxia Is this a current diagnosis for this admission?: Yes Plan: Oxygenate to keep SaO2 90-95% ventilate to keep pH at or near 7.40; - Time Total Critical Time (Minutes): 45
[2018-04-13] MEDS: NORMAL SALINE 1000 ML 1,000 ML with MAGNESIUM SULFATE 8 MEQ, THIAMINE HCL 100 MG, MVI, ... IV SCH ×4 (21:34)
[2018-04-14] MEDS: LORAZEPAM 24 MG/240 ML BAG IV PRN ×6 (02:00→22:20)
[2018-04-14] MEDS: PROPOFOL 100 ML IV PRN ×8 (02:55→21:43)
[2018-04-14 04:22] LABS: HEMATOCRIT 40.6 % (37.9-51.0); HEMOGLOBIN 13.4 g/dL (13.5-17.0); MEAN CORPUSCULAR HEMOGLOBIN 30.7 pg (27.0-33.4); MEAN CORPUSCULAR HGB CONC 33.2 g/dL (32.0-36.0); MEAN CORPUSCULAR VOLUME 93 fl (80-97); RED BLOOD COUNT 4.37 10^6/uL (4.35-5.55); RED CELL DISTRIBUTION WIDTH 14.4 % (11.5-14.0); WHITE BLOOD COUNT 6.9 10^3/uL (4.0-10.5)
[2018-04-14 04:36] LABS: ANION GAP 11 (5-19); BLOOD UREA NITROGEN 4 mg/dL (7-20); CALCIUM 8.4 mg/dL (8.4-10.2); CARBON DIOXIDE 24 mmol/L (22-30); CHLORIDE 106 mmol/L (98-107); GLUCOSE 190 mg/dL (75-110); PHOSPHORUS 3.9 mg/dL (2.5-4.5); POTASSIUM 4.2 mmol/L (3.6-5.0); SODIUM 140.7 mmol/L (137-145)
[2018-04-14 04:48] LABS: PLATELET COUNT 84 10^3/uL (150-450)
--- NOTE | 2018-04-14 05:59 | RADIOLOGY REPORT (SQ) ---
EXAM DESCRIPTION: Single view of the chest CLINICAL HISTORY: resp failure COMPARISON: 04/13/2018 FINDINGS: Single frontal view of the chest. Endotracheal tube with tip 5 cm above the brandon. NG tube with tip below the diaphragm. Leads overlie the chest. No consolidation, pneumothorax, or pleural effusion. No displaced rib fractures identified. Upper abdominal soft tissues are unremarkable. IMPRESSION: 1. Stable appearance of the chest.
[2018-04-14 06:37] LABS: ARTERIAL BLOOD BASE EXCESS -1.9 mmol/L; ARTERIAL BLOOD H2CO3 1.13 mmol/L (1.05-1.35); ARTERIAL BLOOD HCO3 22.5 mmol/L (20-26); ARTERIAL BLOOD O2 SATURATION 97.1 % (94-98); ARTERIAL BLOOD PCO2 37.4 mmHg (35-45); ARTERIAL BLOOD PO2 91.9 mmHg (80-100); ARTERIAL BLOOD TOTAL CO2 23.7 mmol/L (23-27)
[2018-04-14 06:38] LABS: ARTERIAL BLOOD FIO2 40%
[2018-04-14] MEDS: PANTOPRAZOLE SODIUM 40 MG VIAL IV SCH ×2 (09:03→21:22)
[2018-04-14] MEDS: LEVETIRACETAM 1000 MG/NACL-ISO 1,000 MG/100 ML RTUPB IV SCH ×2 (09:03→21:21)
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
[2018-04-14] MEDS: POTASSI CL 40 MEQ/D5-1/2NS 1L 40 MEQ/1,000 ML RTUINJ IV PRN (16:47)
[2018-04-14] MEDS: ACETAMINOPHEN SOLN 325 MG/10.15 ML UDCUP NG PRN (18:16)
--- NOTE | 2018-04-14 19:08 | PDOC PROGRESS REPORT ---
Subjective Progress Note for:: 04/14/18 Subjective:: Intubated and sedated has again failed trial sedation vacation Reason For Visit: ALCOHOL WITHDRAWAL,HYPERTENSIVE URGENCY Physical Exam Vital Signs: Temp Pulse Resp BP Pulse Ox 98.6 F 82 17 123/94 H 99 04/12/18 18:00 04/13/18 20:00 04/14/18 06:41 04/14/18 06:41 04/14/18 06:41 Intake & Output 04/13/18 04/14/18 04/15/18 06:59 06:59 06:59 Intake Total 3317 6036 Output Total 3650 3790 Balance -333 2246 Weight 92.8 kg General appearance: PRESENT: no acute distress, disheveled. ABSENT: cooperative Head exam: PRESENT: atraumatic, normocephalic Eye exam: PRESENT: conjunctiva pale. ABSENT: EOMI, nystagmus, periorbital swelling, scleral icterus Mouth exam: PRESENT: dry mucosa, neck supple, tongue midline, other - ET tube Neck exam: ABSENT: carotid bruit, JVD, lymphadenopathy, thyromegaly, tracheal deviation, tracheostomy Respiratory exam: PRESENT: decreased breath sounds, prolonged expiratory phas, rales, rhonchi, unlabored. ABSENT: stridor Cardiovascular exam: PRESENT: RRR, +S1, +S2, tachycardia Pulses: PRESENT: normal radial pulses GI/Abdominal exam: PRESENT: normal bowel sounds, soft Extremities exam: ABSENT: calf tenderness, clubbing, joint swelling Musculoskeletal exam: ABSENT: ambulatory, deformity, dislocation Neurological exam: ABSENT: awake, oriented to person Skin exam: PRESENT: dry, warm Results Laboratory Results: 04/14/18 04:11 04/14/18 04:11 04/14/18 04/14/18 04/14/18 04:11 04:11 06:27 WBC 6.9 RBC 4.37 Hgb 13.4 L Hct 40.6 MCV 93 MCH 30.7 MCHC 33.2 RDW 14.4 H Plt Count 84 L Carbonic Acid 1.13 HCO3/H2CO3 Ratio 19:1 ABG pH 7.40 ABG pCO2 37.4 ABG pO2 91.9 ABG HCO3 22.5 ABG O2 Saturation 97.1 ABG Base Excess -1.9 FiO2 40% Sodium 140.7 Potassium 4.2 Chloride 106 Carbon Dioxide 24 Anion Gap 11 BUN 4 L Creatinine 0.56 Est GFR ( Amer) > 60 Est GFR (Non-Af Amer) > 60 Glucose 190 H Calcium 8.4 Phosphorus 3.9 Magnesium 2.0 04/12/18 03:55 Creatine Kinase 316 H Impressions: Head CT 04/12/18 09:51 IMPRESSION: NORMAL BRAIN CT WITHOUT CONTRAST. EVIDENCE OF ACUTE STROKE: NO. Chest X-Ray 04/14/18 06:00 IMPRESSION: 1. Stable appearance of the chest. Assessment & Plan - Diagnosis (1) Alcohol withdrawal seizure Qualifiers: Complication of substance-induced condition: with delirium Qualified Code(s ): F10.231 - Alcohol dependence with withdrawal delirium Is this a current diagnosis for this admission?: Yes Plan: None reported over the last 24 hours (2) History of atrial fibrillation Is this a current diagnosis for this admission?: Yes (3) Thrombocytopenia Is this a current diagnosis for this admission?: Yes Plan: Unchanged suspect secondary to bone marrow suppression due to alcohol (4) Acute respiratory failure with hypoxia Is this a current diagnosis for this admission?: Yes Plan: Oxygenate to keep SaO2 90-95% ventilate to keep pH at or near 7.40; - Time Total Critical Time (Minutes): 40
[2018-04-14] MEDS: NORMAL SALINE 1000 ML 1,000 ML with MAGNESIUM SULFATE 8 MEQ, THIAMINE HCL 100 MG, MVI, ... IV SCH ×4 (21:22)
[2018-04-15] MEDS: PROPOFOL 100 ML IV PRN ×9 (00:31→22:22)
[2018-04-15] MEDS: LORAZEPAM 24 MG/240 ML BAG IV PRN ×6 (02:22→22:22)
[2018-04-15 04:29] LABS: ANION GAP 9 (5-19); BLOOD UREA NITROGEN 4 mg/dL (7-20); CALCIUM 8.6 mg/dL (8.4-10.2); CARBON DIOXIDE 23 mmol/L (22-30); CHLORIDE 110 mmol/L (98-107); GLUCOSE 101 mg/dL (75-110); POTASSIUM 3.9 mmol/L (3.6-5.0); SODIUM 142.3 mmol/L (137-145)
[2018-04-15 04:58] LABS: ARTERIAL BLOOD H2CO3 1.11 mmol/L (1.05-1.35); ARTERIAL BLOOD HCO3 23.1 mmol/L (20-26); ARTERIAL BLOOD O2 SATURATION 97.2 % (94-98); ARTERIAL BLOOD PH 7.41 (7.35-7.45); ARTERIAL BLOOD PO2 91.9 mmHg (80-100); ARTERIAL BLOOD TOTAL CO2 24.3 mmol/L (23-27)
[2018-04-15 05:01] LABS: ARTERIAL BLOOD FIO2 40%
--- NOTE | 2018-04-15 07:59 | RADIOLOGY REPORT (SQ) ---
EXAM DESCRIPTION: CHEST SINGLE VIEW COMPLETED DATE/TIME: 04/15/2018 6:45 am REASON FOR STUDY: resp failure COMPARISON: AP chest 04/14/2018, 04/13/2018, 04/11/2018, 11/27/2017 EXAM PARAMETERS: NUMBER OF VIEWS: One view. TECHNIQUE: Single frontal radiographic view of the chest acquired. RADIATION DOSE: NA LIMITATIONS: None. FINDINGS: LUNGS AND PLEURA: Minimal left retrocardiac airspace disease atelectasis versus pneumonia. Lungs are otherwise well inflated and clear. No pleural effusion. No pneumothorax. MEDIASTINUM AND HILAR STRUCTURES: No masses. Contour normal. HEART AND VASCULAR STRUCTURES: No cardiomegaly BONES: No acute findings. HARDWARE: Endotracheal tube tip 5 cm above the brandon. Nasogastric tube tip and side port in the sto mach. OTHER: Minimal right shoulder soft tissue shrapnel, unchanged IMPRESSION: Endotracheal and nasogastric tubes in good positioning. Left retrocardiac consolidation . TECHNICAL DOCUMENTATION: JOB ID: [id number] [employer]- All Rights Reserved Reading location - IP/workstation name: [email or web address]-[email or web address]
[2018-04-15] MEDS: PANTOPRAZOLE SODIUM 40 MG VIAL IV SCH ×2 (09:13→21:23)
[2018-04-15] MEDS: LEVETIRACETAM 1000 MG/NACL-ISO 1,000 MG/100 ML RTUPB IV SCH ×2 (09:13→21:24)
--- NOTE | 2018-04-15 11:46 | PDOC PROGRESS REPORT ---
Subjective Progress Note for:: 04/15/18 Subjective:: Intubated and sedated failed trial sedation vacation, [id number] Reason For Visit: ALCOHOL WITHDRAWAL,HYPERTENSIVE URGENCY Physical Exam Vital Signs: Temp Pulse Resp BP Pulse Ox 98.2 F 64 29 H 128/83 H 94 04/15/18 10:00 04/15/18 10:00 04/15/18 10:00 04/15/18 10:00 04/15/18 10:00 Intake & Output 04/14/18 04/15/18 04/16/18 06:59 06:59 06:59 Intake Total 6036 4747 Output Total 3790 3900 725 Balance 2246 847 -725 Weight 92.8 kg 93.5 kg General appearance: PRESENT: no acute distress, disheveled. ABSENT: cooperative Head exam: PRESENT: atraumatic, normocephalic Eye exam: PRESENT: conjunctiva pale. ABSENT: nystagmus, periorbital swelling, scleral icterus Mouth exam: PRESENT: dry mucosa, neck supple, tongue midline, other - ET tube Neck exam: ABSENT: carotid bruit, JVD, lymphadenopathy, thyromegaly, tracheal deviation, tracheostomy Respiratory exam: PRESENT: decreased breath sounds, prolonged expiratory phas, rales, rhonchi, tachypnea, unlabored. ABSENT: retraction, stridor Cardiovascular exam: PRESENT: RRR, +S1, +S2, tachycardia Pulses: PRESENT: normal radial pulses GI/Abdominal exam: PRESENT: hypoactive bowel sounds, soft Extremities exam: ABSENT: calf tenderness, clubbing, joint swelling, pedal edema Musculoskeletal exam: ABSENT: deformity, dislocation Neurological exam: ABSENT: awake, oriented to person Skin exam: PRESENT: dry, warm Results Laboratory Results: 04/14/18 04:11 04/15/18 04:06 04/15/18 04/15/18 04/15/18 04:06 04:06 04:52 Carbonic Acid 1.11 HCO3/H2CO3 Ratio 20:1 ABG pH 7.41 ABG pCO2 37.0 ABG pO2 91.9 ABG HCO3 23.1 ABG O2 Saturation 97.2 ABG Base Excess -1.0 FiO2 40% Sodium 142.3 Potassium 3.9 Chloride 110 H Carbon Dioxide 23 Anion Gap 9 BUN 4 L Creatinine 0.49 L Est GFR ( Amer) > 60 Est GFR (Non-Af Amer) > 60 Glucose 101 Calcium 8.6 Magnesium 2.2 04/12/18 03:55 Creatine Kinase 316 H Impressions: Head CT 04/12/18 09:51 IMPRESSION: NORMAL BRAIN CT WITHOUT CONTRAST. EVIDENCE OF ACUTE STROKE: NO. Chest X-Ray 04/15/18 06:00 IMPRESSION: Endotracheal and nasogastric tubes in good positioning. Left retrocardiac consolidation. Assessment & Plan - Diagnosis (1) Alcohol withdrawal seizure Qualifiers: Complication of substance-induced condition: with delirium Qualified Code(s ): F10.231 - Alcohol dependence with withdrawal delirium Is this a current diagnosis for this admission?: Yes Plan: None reported over the last 24 hours (2) History of atrial fibrillation Is this a current diagnosis for this admission?: Yes (3) Thrombocytopenia Is this a current diagnosis for this admission?: Yes Plan: Unchanged suspect secondary to bone marrow suppression due to alcohol (4) Acute respiratory failure with hypoxia Is this a current diagnosis for this admission?: Yes Plan: Oxygenate to keep SaO2 90-95% ventilate to keep pH at or near 7.40; - Time Total Critical Time (Minutes): 45
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
[2018-04-15] MEDS: POTASSI CL 40 MEQ/D5-1/2NS 1L 40 MEQ/1,000 ML RTUINJ IV PRN (13:51)
[2018-04-15] MEDS: NORMAL SALINE 1000 ML 1,000 ML with MAGNESIUM SULFATE 8 MEQ, THIAMINE HCL 100 MG, MVI, ... IV SCH ×4 (21:24)
[2018-04-16] MEDS: PROPOFOL 100 ML IV PRN ×6 (00:51→18:20)
[2018-04-16] MEDS: POTASSI CL 40 MEQ/D5-1/2NS 1L 40 MEQ/1,000 ML RTUINJ IV PRN (02:17)
[2018-04-16 04:14] LABS: HEMATOCRIT 39.8 % (37.9-51.0); HEMOGLOBIN 13.3 g/dL (13.5-17.0); MEAN CORPUSCULAR HGB CONC 33.3 g/dL (32.0-36.0); MEAN CORPUSCULAR VOLUME 93 fl (80-97); PLATELET COUNT 143 10^3/uL (150-450); RED BLOOD COUNT 4.29 10^6/uL (4.35-5.55); WHITE BLOOD COUNT 7.2 10^3/uL (4.0-10.5)
[2018-04-16 04:24] LABS: ANION GAP 10 (5-19); BLOOD UREA NITROGEN 6 mg/dL (7-20); CALCIUM 8.8 mg/dL (8.4-10.2); CARBON DIOXIDE 26 mmol/L (22-30); CHLORIDE 108 mmol/L (98-107); GLUCOSE 106 mg/dL (75-110); POTASSIUM 4.2 mmol/L (3.6-5.0); SODIUM 143.5 mmol/L (137-145)
[2018-04-16] MEDS: LORAZEPAM 24 MG/240 ML BAG IV PRN ×2 (05:35→08:18)
[2018-04-16 05:41] LABS: ARTERIAL BLOOD BASE EXCESS -0.1 mmol/L; ARTERIAL BLOOD H2CO3 1.19 mmol/L (1.05-1.35); ARTERIAL BLOOD HCO3 24.4 mmol/L (20-26); ARTERIAL BLOOD O2 SATURATION 95.6 % (94-98); ARTERIAL BLOOD PCO2 39.5 mmHg (35-45); ARTERIAL BLOOD PH 7.41 (7.35-7.45); ARTERIAL BLOOD PO2 77.2 mmHg (80-100); ARTERIAL BLOOD TOTAL CO2 25.6 mmol/L (23-27)
[2018-04-16 05:42] LABS: ARTERIAL BLOOD FIO2 40%
--- NOTE | 2018-04-16 07:41 | RADIOLOGY REPORT (SQ) ---
EXAM DESCRIPTION: XR CHEST 1 VIEW CLINICAL HISTORY: 47 years Male, resp failure COMPARISON: One day prior. NUMBER OF VIEWS/TECHNIQUE: 1/AP FINDINGS: Moderate lung volume, clear parenchyma, adequate appearing endotracheal tube, adequate appearing enteric tube, normal cardiac silhouette. No pneumothorax. No acute bone defect. IMPRESSION: No significant change.
[2018-04-16] MEDS: LEVETIRACETAM 1000 MG/NACL-ISO 1,000 MG/100 ML RTUPB IV SCH ×2 (09:21→21:18)
[2018-04-16] MEDS: PANTOPRAZOLE SODIUM 40 MG VIAL IV SCH ×2 (09:21→21:19)
[2018-04-16] MEDS ORDERED: SCOPOLAMINE HYDROBROMIDE 1.5 MG PATCH.TD72 TD ONE (10:30)
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
--- NOTE | 2018-04-16 13:43 | PDOC PROGRESS REPORT ---
Subjective Progress Note for:: 04/16/18 Subjective:: Intubated and sedated again failed trial sedation vacation, Reason For Visit: ALCOHOL WITHDRAWAL,HYPERTENSIVE URGENCY Physical Exam Vital Signs: Temp Pulse Resp BP Pulse Ox 98.2 F 66 16 140/96 H 98 04/16/18 08:00 04/16/18 08:00 04/16/18 08:00 04/16/18 08:00 04/16/18 08:00 Intake & Output 04/15/18 04/16/18 04/17/18 06:59 06:59 06:59 Intake Total 4747 6671 Output Total 3900 4320 540 Balance 847 2351 -540 Weight 93.5 kg 93.9 kg General appearance: PRESENT: no acute distress, disheveled, obese, well- developed, well-nourished. ABSENT: cooperative Head exam: PRESENT: atraumatic, normocephalic Eye exam: PRESENT: conjunctiva pale. ABSENT: nystagmus, periorbital swelling, scleral icterus Mouth exam: PRESENT: dry mucosa, neck supple, tongue midline, other - ET tube Neck exam: ABSENT: carotid bruit, JVD, lymphadenopathy, thyromegaly, tracheal deviation, tracheostomy Respiratory exam: PRESENT: decreased breath sounds, prolonged expiratory phas, rales, rhonchi, unlabored Cardiovascular exam: PRESENT: RRR, +S1, +S2, tachycardia Pulses: PRESENT: normal radial pulses GI/Abdominal exam: PRESENT: hypoactive bowel sounds, soft Extremities exam: ABSENT: calf tenderness, clubbing, joint swelling Musculoskeletal exam: ABSENT: deformity, dislocation Neurological exam: ABSENT: awake, oriented to person Skin exam: PRESENT: dry, warm Results Laboratory Results: 04/16/18 03:47 04/16/18 03:47 04/15/18 04/16/18 04/16/18 04:06 03:47 03:47 WBC 7.2 RBC 4.29 L Hgb 13.3 L Hct 39.8 MCV 93 MCH 31.0 MCHC 33.3 RDW 14.0 Plt Count 143 L Carbonic Acid HCO3/H2CO3 Ratio ABG pH ABG pCO2 ABG pO2 ABG HCO3 ABG O2 Saturation ABG Base Excess FiO2 Sodium 143.5 Potassium 4.2 Chloride 108 H Carbon Dioxide 26 Anion Gap 10 BUN 6 L Creatinine 0.50 L Est GFR ( Amer) > 60 Est GFR (Non-Af Amer) > 60 Glucose 106 Calcium 8.8 Phosphorus 4.0 Magnesium 2.2 2.1 04/16/18 05:29 WBC RBC Hgb Hct MCV MCH MCHC RDW Plt Count Carbonic Acid 1.19 HCO3/H2CO3 Ratio 20:1 ABG pH 7.41 ABG pCO2 39.5 ABG pO2 77.2 L ABG HCO3 24.4 ABG O2 Saturation 95.6 ABG Base Excess -0.1 FiO2 40% Sodium Potassium Chloride Carbon Dioxide Anion Gap BUN Creatinine Est GFR ( Amer) Est GFR (Non-Af Amer) Glucose Calcium Phosphorus Magnesium 04/12/18 03:55 Creatine Kinase 316 H Impressions: Head CT 04/12/18 09:51 IMPRESSION: NORMAL BRAIN CT WITHOUT CONTRAST. EVIDENCE OF ACUTE STROKE: NO. Chest X-Ray 04/16/18 06:00 IMPRESSION: No significant change. Assessment & Plan - Diagnosis (1) Alcohol withdrawal seizure Qualifiers: Complication of substance-induced condition: with delirium Qualified Code(s ): F10.231 - Alcohol dependence with withdrawal delirium Is this a current diagnosis for this admission?: Yes Plan: None reported over the last 24 hours (2) History of atrial fibrillation Is this a current diagnosis for this admission?: Yes Plan: Currently normal sinus rhythm-sinus tachycardia (3) Thrombocytopenia Is this a current diagnosis for this admission?: Yes Plan: Unchanged suspect secondary to bone marrow suppression due to alcohol (4) Acute respiratory failure with hypoxia Is this a current diagnosis for this admission?: Yes Plan: Oxygenate to keep SaO2 90-95% ventilate to keep pH at or near 7.40; - Time Total Critical Time (Minutes): 40
[2018-04-16] MEDS ORDERED: DEXTROSE 50%-WATER 25 GM/50 ML DISP.SYRIN IV PRN ×2 (14:31)
[2018-04-16] MEDS ORDERED: DEXTROSE 40% GEL 15 GM TUBE PO PRN ×2 (14:32→14:33)
[2018-04-16] MEDS ORDERED: GLUCAGON,HUMAN RECOMB 1 MG INJ SUBCUT PRN (14:33)
[2018-04-16] MEDS: LORAZEPAM 24 MG/ D5W 240 ML IV PRN (15:42)
[2018-04-16] MEDS ORDERED: NORMAL SALINE 1000 ML 1,000 ML with MAGNESIUM SULFATE 8 MEQ, THIAMINE HCL 100 MG, MVI, ... IV SCH ×4 (22:00)
[2018-04-17] MEDS: PROPOFOL 100 ML IV PRN ×7 (01:02→21:47)
[2018-04-17] MEDS: LORAZEPAM 24 MG/ D5W 240 ML IV PRN ×3 (01:03→18:02)
[2018-04-17 04:12] LABS: ABSOLUTE BASOPHILS # (AUTO) 0.1 10^3/uL (0.0-0.2); ABSOLUTE EOSINOPHILS # (AUTO) 0.2 10^3/uL (0.0-0.6); ABSOLUTE LYMPHOCYTES (AUTO) 1.1 10^3/uL (0.5-4.7); ABSOLUTE MONOCYTES (AUTO) 1.2 10^3/uL (0.1-1.4); ABSOLUTE NEUT (AUTO) 3.9 10^3/uL (1.7-8.2); BASOPHILS % (AUTO) 0.9 % (0-2); EOSINOPHILS % (AUTO) 3.2 % (0-6); HEMATOCRIT 41.3 % (37.9-51.0); HEMOGLOBIN 13.7 g/dL (13.5-17.0); LYMPHOCYTES % (AUTO) 17.1 % (13-45); MEAN CORPUSCULAR HEMOGLOBIN 30.6 pg (27.0-33.4); MEAN CORPUSCULAR HGB CONC 33.1 g/dL (32.0-36.0); MEAN CORPUSCULAR VOLUME 92 fl (80-97); MONOCYTES % (AUTO) 18.9 % (3-13); PLATELET COUNT 190 10^3/uL (150-450); RED BLOOD COUNT 4.47 10^6/uL (4.35-5.55); RED CELL DISTRIBUTION WIDTH 14.1 % (11.5-14.0); SEGMENTED NEUTROPHILS % (AUTO) 59.9 % (42-78); TOTAL CELLS COUNTED % (AUTO) 100 %; WHITE BLOOD COUNT 6.5 10^3/uL (4.0-10.5)
[2018-04-17 04:24] LABS: ANION GAP 8 (5-19); BLOOD UREA NITROGEN 7 mg/dL (7-20); CALCIUM 9.1 mg/dL (8.4-10.2); CARBON DIOXIDE 27 mmol/L (22-30); CHLORIDE 109 mmol/L (98-107); GLUCOSE 95 mg/dL (75-110); PHOSPHORUS 4.7 mg/dL (2.5-4.5); POTASSIUM 4.3 mmol/L (3.6-5.0); SODIUM 144.2 mmol/L (137-145)
[2018-04-17] MEDS: POTASSI CL 40 MEQ/D5-1/2NS 1L 1000 ML IV PRN (04:27)
[2018-04-17 05:34] LABS: ARTERIAL BLOOD BASE EXCESS 0.5 mmol/L; ARTERIAL BLOOD H2CO3 1.19 mmol/L (1.05-1.35); ARTERIAL BLOOD HCO3 24.9 mmol/L (20-26); ARTERIAL BLOOD O2 SATURATION 97.7 % (94-98); ARTERIAL BLOOD PCO2 39.5 mmHg (35-45); ARTERIAL BLOOD PH 7.42 (7.35-7.45); ARTERIAL BLOOD TOTAL CO2 26.1 mmol/L (23-27)
[2018-04-17 05:36] LABS: ARTERIAL BLOOD FIO2 40%
--- NOTE | 2018-04-17 06:49 | RADIOLOGY REPORT (SQ) ---
EXAM DESCRIPTION: XR CHEST 1 VIEW CLINICAL HISTORY: 47 years Male, Pt intubated COMPARISON: One day prior. NUMBER OF VIEWS/TECHNIQUE: 1/AP FINDINGS: Adequate appearing endotracheal tube tip is 6.3 cm from the brandon, adequate appearing enteric tube, clear lungs, and normal cardiac silhouette. No pneumothorax. No acute bone defect. IMPRESSION: No significant change.
[2018-04-17] MEDS ORDERED: SUCCINYLCHOLINE CHLORIDE INJ 200 MG/10 ML VIAL ONE (08:54)
[2018-04-17] MEDS: LEVETIRACETAM 1000 MG/NACL-ISO 1,000 MG/100 ML RTUPB IV SCH ×2 (09:27→21:46)
[2018-04-17] MEDS: PANTOPRAZOLE SODIUM 40 MG VIAL IV SCH ×2 (09:28→21:47)
[2018-04-17] MEDS ORDERED: TOBRAMYCIN SULFATE NEB 40 MG/ML 30 ML NEB ONE (10:00)
[2018-04-17] MEDS ORDERED: TOBRAMYCIN SULFATE INJ 80 MG/2 ML VIAL NEB ONE (10:00)
[2018-04-17] MEDS ORDERED: IPRATROPIUM/ALBUTEROL 0.5-2.5 MG/3 ML AMPUL NEB ONE ×2 (10:27→11:15)
[2018-04-17] MEDS ORDERED: FUROSEMIDE INJ/PF 20 MG/2 ML SDV ONE (10:28)
[2018-04-17] MEDS ORDERED: FUROSEMIDE INJ/PF 20 MG/2 ML SDV IV ONE (10:45)
[2018-04-17] MEDS ORDERED: LEVALBUTEROL HCL NEB 1.25 MG/3 ML AMPUL NEB PRN (10:50)
--- NOTE | 2018-04-17 13:08 | RADIOLOGY REPORT (SQ) ---
EXAM DESCRIPTION: KUB/ABDOMEN (SINGLE VIEW) COMPLETED DATE/TIME: 04/17/2018 12:56 pm REASON FOR STUDY: ngt insertion COMPARISON: Chest film 04/17/2018 NUMBER OF VIEWS: One view. TECHNIQUE: Supine radiographic image of the abdomen acquired. LIMITATIONS: Film obtained for NG tube placement. Pelvis not included in the field of view FINDINGS: There is a nasogastric tube present, with the tip and side port in the stomach. Left retrocardiac consolidation atelectasis versus pneumonia is unchanged. Nonobstructive bowel gas pattern. Old shrapnel over the right upper quadrant. IMPRESSION: Nasogastric tube tip and side port in the stomach. TECHNICAL DOCUMENTATION: JOB ID: [id number] [employer]- All Rights Reserved Reading location - IP/workstation name: [email or web address]
--- NOTE | 2018-04-17 13:10 | RADIOLOGY REPORT (SQ) ---
EXAM DESCRIPTION: CHEST SINGLE VIEW COMPLETED DATE/TIME: 04/17/2018 12:56 pm REASON FOR STUDY: ET TUBE PLACEMENT COMPARISON: Chest films 04/17/2018, 04/16/2018, 04/13/2018, 04/11/2018, 10/03/2017 EXAM PARAMETERS: NUMBER OF VIEWS: One view. TECHNIQUE: Single frontal radiographic view of the chest acquired. RADIATION DOSE: NA LIMITATIONS: None. FINDINGS: LUNGS AND PLEURA: Persistent left retrocardiac consolidation atelectasis versus pneumonia. Right lung clear. No gross pleural effusion or pneumothorax. MEDIASTINUM AND HILAR STRUCTURES: No masses. Contour normal. HEART AND VASCULAR STRUCTURES: Heart normal in size. Normal vasculature. BONES: No acute findings. HARDWARE: Endotracheal tube tip 5 cm above the brandon. Nasogastric tube tip and side port in the sto mach. OTHER: Old shrapnel over the right upper quadrant and bilateral shoulders. IMPRESSION: Persistent left retrocardiac consolidation atelectasis versus pneumonia. Endotracheal and nasogastric tubes in good positioning TECHNICAL DOCUMENTATION: JOB ID: [id number] [employer]- All Rights Reserved Reading location - IP/workstation name: [email or web address]
--- NOTE | 2018-04-17 13:16 | EKG REPORT ---
SEVERITY:- ABNORMAL ECG - SINUS TACHYCARDIA PROBABLE LEFT ATRIAL ABNORMALITY ABNORMAL T, CONSIDER ISCHEMIA, ANT-LAT LEADS : Confirmed by: Stefano De Santiago MD 17-Apr-2018 13:16:25
[2018-04-17] MEDS: ACETAMINOPHEN SOLN 325 MG/10.15 ML UDCUP NG PRN ×2 (13:48→16:39)
[2018-04-17 13:59] LABS: ARTERIAL BLOOD BASE EXCESS 2.7 mmol/L; ARTERIAL BLOOD H2CO3 1.14 mmol/L (1.05-1.35); ARTERIAL BLOOD HCO3 26.4 mmol/L (20-26); ARTERIAL BLOOD O2 SATURATION 92.6 % (94-98); ARTERIAL BLOOD PCO2 37.9 mmHg (35-45); ARTERIAL BLOOD PH 7.46 (7.35-7.45); ARTERIAL BLOOD PO2 60.6 mmHg (80-100); ARTERIAL BLOOD TOTAL CO2 27.6 mmol/L (23-27)
[2018-04-17 14:02] LABS: ARTERIAL BLOOD FIO2 60%
--- NOTE | 2018-04-17 14:10 | PDOC PROGRESS REPORT ---
Subjective Progress Note for:: 04/17/18 Subjective:: Intubated and sedated Reason For Visit: ALCOHOL WITHDRAWAL,HYPERTENSIVE URGENCY Physical Exam Vital Signs: Temp Pulse Resp BP Pulse Ox 98.2 F 77 24 H 151/102 H 97 04/17/18 08:00 04/17/18 08:00 04/17/18 08:00 04/17/18 08:00 04/17/18 08:00 Intake & Output 04/16/18 04/17/18 04/18/18 06:59 06:59 06:59 Intake Total 6671 5108 Output Total 4320 5265 400 Balance 6559 -814 -431 Weight 93.9 kg 93 kg General appearance: PRESENT: no acute distress, cooperative, disheveled Head exam: PRESENT: atraumatic, normocephalic Eye exam: PRESENT: conjunctiva pale, EOMI, PERRLA, other - Trace scleral edema. ABSENT: nystagmus, periorbital swelling, scleral icterus Mouth exam: PRESENT: dry mucosa, neck supple, tongue midline, other - ET tube Neck exam: ABSENT: carotid bruit, JVD, lymphadenopathy, thyromegaly, tracheal deviation, tracheostomy Cardiovascular exam: PRESENT: RRR, +S1, +S2, tachycardia Pulses: PRESENT: normal radial pulses GI/Abdominal exam: PRESENT: normal bowel sounds, soft Extremities exam: ABSENT: calf tenderness, clubbing, joint swelling Musculoskeletal exam: ABSENT: deformity, dislocation Neurological exam: PRESENT: awake, oriented to person Skin exam: PRESENT: dry, warm Results Laboratory Results: 04/17/18 03:42 04/17/18 03:42 04/17/18 04/17/18 04/17/18 03:42 03:42 05:20 WBC 6.5 RBC 4.47 Hgb 13.7 Hct 41.3 MCV 92 MCH 30.6 MCHC 33.1 RDW 14.1 H Plt Count 190 Seg Neutrophils % 59.9 Lymphocytes % 17.1 Monocytes % 18.9 H Eosinophils % 3.2 Basophils % 0.9 Absolute Neutrophils 3.9 Absolute Lymphocytes 1.1 Absolute Monocytes 1.2 Absolute Eosinophils 0.2 Absolute Basophils 0.1 Carbonic Acid 1.19 HCO3/H2CO3 Ratio 20:1 ABG pH 7.42 ABG pCO2 39.5 ABG pO2 100.0 ABG HCO3 24.9 ABG O2 Saturation 97.7 ABG Base Excess 0.5 FiO2 40% Sodium 144.2 Potassium 4.3 Chloride 109 H Carbon Dioxide 27 Anion Gap 8 BUN 7 Creatinine 0.49 L Est GFR ( Amer) > 60 Est GFR (Non-Af Amer) > 60 Glucose 95 Calcium 9.1 Phosphorus 4.7 H Magnesium 2.1 04/11/18 20:15 Blood Blood Culture - Final NO GROWTH IN 5 DAYS 04/11/18 19:50 Blood Blood Culture - Final NO GROWTH IN 5 DAYS 04/12/18 03:55 Creatine Kinase 316 H Impressions: Head CT 04/12/18 09:51 IMPRESSION: NORMAL BRAIN CT WITHOUT CONTRAST. EVIDENCE OF ACUTE STROKE: NO. Chest X-Ray 04/17/18 06:00 IMPRESSION: No significant change. Assessment & Plan - Diagnosis (1) Alcohol withdrawal seizure Qualifiers: Complication of substance-induced condition: with delirium Is this a current diagnosis for this admission?: Yes Plan: None reported over the last 24 hours (2) History of atrial fibrillation Is this a current diagnosis for this admission?: Yes Plan: Currently normal sinus rhythm-sinus tachycardia (3) Thrombocytopenia Is this a current diagnosis for this admission?: No (4) Acute respiratory failure with hypoxia Is this a current diagnosis for this admission?: Yes Plan: Minute ventilation is decreased respiratory rate is stable FiO2 is low airway pressures are well within normal limits patient responding to commands patient should extubate successfully proceed with extubation - Time Total Critical Time (Minutes): 70 - Plan Summary Plan Summary: Patient failed extubation due to copious secretions tachycardia and tachypnea these were not abated even though place and was placed on BiPAP he subsequently was reintubated.
[2018-04-17] MEDS: IPRATROPIUM/ALBUTEROL 0.5-2.5 MG/3 ML AMPUL NEB SCH ×2 (14:11→19:19)
[2018-04-17] MEDS: METOPROLOL TARTRATE PF/INJ 5 MG/5 ML SDV IV PRN (14:35)
[2018-04-17 15:21] LABS: APPEARANCE,URINE CLEAR; BILIRUBIN,URINE NEGATIVE (NEGATIVE); COLOR,URINE YELLOW; GLUCOSE, URINE NEGATIVE (NEGATIVE); KETONES,URINE NEGATIVE (NEGATIVE); LEUKOCYTE ESTERASE,URINE NEGATIVE (NEGATIVE); NITRITE,URINE NEGATIVE (NEGATIVE); PROTEIN,URINE NEGATIVE (NEGATIVE); URINE SPECIFIC GRAVITY 1.025
[2018-04-17 15:22] LABS: ALANINE AMINOTRANSFERASE 147 U/L (21-72); ALBUMIN 3.5 g/dL (3.5-5.0); ALKALINE PHOSPHATASE 115 U/L (38-126); ANION GAP 12 (5-19); ASPARTATE AMINO TRANSFERASE 252 U/L (17-59); BILIRUBIN,DIRECT 0.8 mg/dL (0.0-0.4); BILIRUBIN,TOTAL 0.9 mg/dL (0.2-1.3); BLOOD UREA NITROGEN 8 mg/dL (7-20); CALCIUM 9.3 mg/dL (8.4-10.2); CARBON DIOXIDE 28 mmol/L (22-30); CHLORIDE 102 mmol/L (98-107); CREATINE KINASE 95 U/L (55-170); GLUCOSE 159 mg/dL (75-110); POTASSIUM 4.4 mmol/L (3.6-5.0); SODIUM 142.1 mmol/L (137-145); TOTAL PROTEIN 7.1 g/dL (6.3-8.2)
[2018-04-17 15:35] LABS: CREATINE KINASE MB < 0.22 ng/mL (<4.55); TROPONIN I < 0.012 ng/mL
[2018-04-17] MEDS: CEFEPIME 2 GM/D5W RTU 2 GM/50 ML RTUPB IV SCH (16:21)
[2018-04-17] MEDS: FUROSEMIDE INJ/PF 20 MG/2 ML SDV IV SCH (16:41)
--- NOTE | 2018-04-17 17:07 | PDOC PROGRESS REPORT ---
Subjective Progress Note for:: 04/17/18 Subjective:: Seen this morning after he was extubated. He was on BiPAP, and had copious upper airway secretions. He was essentially unresponsive when I saw him. He was reintubated later this afternoon for decreasing oxygen saturations. Reason For Visit: ALCOHOL WITHDRAWAL,HYPERTENSIVE URGENCY Physical Exam Vital Signs: Temp Pulse Resp BP Pulse Ox 101.3 F H 98 23 H 140/99 H 99 04/17/18 16:00 04/17/18 16:00 04/17/18 16:20 04/17/18 16:20 04/17/18 16:20 Intake & Output 04/16/18 04/17/18 04/18/18 05:59 05:59 05:59 Intake Total 9058 5108 936 Output Total 4583 5252 2140 Balance 2905 -157 1200 Weight 207 lb 0.225 oz 205 lb 0.478 oz General appearance: PRESENT: no acute distress Respiratory exam: PRESENT: clear to auscultation hilda, rhonchi - Upper airway/ pharyngeal with copious secretions Cardiovascular exam: PRESENT: tachycardia GI/Abdominal exam: PRESENT: soft Extremities exam: ABSENT: pedal edema Neurological exam: PRESENT: other - Moving all 4 extremities Psychiatric exam: PRESENT: other - Essentially unresponsive, will move in response to stimulation Skin exam: PRESENT: warm Results Laboratory Results: 04/17/18 03:42 04/17/18 14:40 04/17/18 04/17/18 04/17/18 03:42 03:42 05:20 WBC 6.5 RBC 4.47 Hgb 13.7 Hct 41.3 MCV 92 MCH 30.6 MCHC 33.1 RDW 14.1 H Plt Count 190 Seg Neutrophils % 59.9 Lymphocytes % 17.1 Monocytes % 18.9 H Eosinophils % 3.2 Basophils % 0.9 Absolute Neutrophils 3.9 Absolute Lymphocytes 1.1 Absolute Monocytes 1.2 Absolute Eosinophils 0.2 Absolute Basophils 0.1 Carbonic Acid 1.19 HCO3/H2CO3 Ratio 20:1 ABG pH 7.42 ABG pCO2 39.5 ABG pO2 100.0 ABG HCO3 24.9 ABG O2 Saturation 97.7 ABG Base Excess 0.5 FiO2 40% Sodium 144.2 Potassium 4.3 Chloride 109 H Carbon Dioxide 27 Anion Gap 8 BUN 7 Creatinine 0.49 L Est GFR ( Amer) > 60 Est GFR (Non-Af Amer) > 60 Glucose 95 Calcium 9.1 Phosphorus 4.7 H Magnesium 2.1 Total Bilirubin AST ALT Alkaline Phosphatase Total Protein Albumin Urine Color Urine Appearance Urine pH Ur Specific [place] Urine Protein Urine Glucose (UA) Urine Ketones Urine Blood Urine Nitrite Ur Leukocyte Esterase Urine WBC (Auto) Urine RBC (Auto) 04/17/18 04/17/18 04/17/18 13:30 14:40 14:40 WBC RBC Hgb Hct MCV MCH MCHC RDW Plt Count Seg Neutrophils % Lymphocytes % Monocytes % Eosinophils % Basophils % Absolute Neutrophils Absolute Lymphocytes Absolute Monocytes Absolute Eosinophils Absolute Basophils Carbonic Acid 1.14 HCO3/H2CO3 Ratio 23:1 ABG pH 7.46 H ABG pCO2 37.9 ABG pO2 60.6 L ABG HCO3 26.4 H ABG O2 Saturation 92.6 L ABG Base Excess 2.7 FiO2 60% Sodium 142.1 Potassium 4.4 Chloride 102 Carbon Dioxide 28 Anion Gap 12 BUN 8 Creatinine 0.65 Est GFR ( Amer) > 60 Est GFR (Non-Af Amer) > 60 Glucose 159 H Calcium 9.3 Phosphorus Magnesium Total Bilirubin 0.9 AST 252 H ALT 147 H Alkaline Phosphatase 115 Total Protein 7.1 Albumin 3.5 Urine Color YELLOW Urine Appearance CLEAR Urine pH 5.0 Ur Specific [place] 1.025 Urine Protein NEGATIVE Urine Glucose (UA) NEGATIVE Urine Ketones NEGATIVE Urine Blood NEGATIVE Urine Nitrite NEGATIVE Ur Leukocyte Esterase NEGATIVE Urine WBC (Auto) 1 Urine RBC (Auto) 17 04/11/18 20:15 Blood Blood Culture - Final NO GROWTH IN 5 DAYS 04/11/18 19:50 Blood Blood Culture - Final NO GROWTH IN 5 DAYS 04/12/18 04/17/18 04/17/18 03:55 14:40 14:40 Creatine Kinase 316 H 95 CK-MB (CK-2) < 0.22 Troponin I < 0.012 Impressions: Head CT 04/12/18 09:51 IMPRESSION: NORMAL BRAIN CT WITHOUT CONTRAST. EVIDENCE OF ACUTE STROKE: NO. KUB X-Ray 04/17/18 00:00 IMPRESSION: Nasogastric tube tip and side port in the stomach. Chest X-Ray 04/17/18 06:00 IMPRESSION: No significant change. Assessment & Plan - Diagnosis (1) Acute respiratory failure with hypoxia Is this a current diagnosis for this admission?: Yes Plan: I suspect he aspirated on his secretions. Continue respiratory support. I will cover him with empiric antibiotics. (2) Alcohol withdrawal Qualifiers: Complication of substance-induced condition: uncomplicated Qualified Code(s ): F10.230 - Alcohol dependence with withdrawal, uncomplicated Is this a current diagnosis for this admission?: Yes Plan: Day 6 of withdrawal (3) Fluid overload Qualifiers: Hypervolemia type: unspecified Qualified Code(s): E87.70 - Fluid overload, unspecified Is this a current diagnosis for this admission?: Yes Plan: Agree with IV diuretics. Follow his labs closely. (4) On mechanically assisted ventilation Is this a current diagnosis for this admission?: Yes Plan: Management per pulmonology
[2018-04-17] MEDS: THIAMINE HCL 100 MG, FOLIC ACID 1 MG in NORMAL SALINE 250 ML IV SCH (17:44)
[2018-04-17 18:35] LABS: ARTERIAL BLOOD BASE EXCESS 2.7 mmol/L; ARTERIAL BLOOD H2CO3 1.14 mmol/L (1.05-1.35); ARTERIAL BLOOD HCO3 26.5 mmol/L (20-26); ARTERIAL BLOOD O2 SATURATION 98.7 % (94-98); ARTERIAL BLOOD PH 7.46 (7.35-7.45); ARTERIAL BLOOD PO2 129.5 mmHg (80-100); ARTERIAL BLOOD TOTAL CO2 27.6 mmol/L (23-27)
[2018-04-17 18:37] LABS: ARTERIAL BLOOD FIO2 60%
[2018-04-17] MEDS: BUDESONIDE NEB 0.5 MG/2 ML AMPUL NEB SCH (19:19)
[2018-04-17] MEDS: TOBRAMYCIN SULFATE NEB 40 MG/ML 30 ML NEB SCH (19:20)
[2018-04-17] MEDS ORDERED: TOBRAMYCIN SULFATE INJ 80 MG/2 ML VIAL NEB SCH (20:00)
[2018-04-17] MEDS ORDERED: FUROSEMIDE INJ/PF 20 MG/2 ML SDV IV SCH (22:00)
[2018-04-18] MEDS: FUROSEMIDE INJ/PF 20 MG/2 ML SDV IV SCH ×4 (00:04→18:11)
[2018-04-18] MEDS: PROPOFOL 100 ML IV PRN ×6 (00:29→18:10)
[2018-04-18] MEDS: LORAZEPAM 24 MG/ D5W 240 ML IV PRN ×3 (00:29→18:11)
[2018-04-18] MEDS: IPRATROPIUM/ALBUTEROL 0.5-2.5 MG/3 ML AMPUL NEB SCH ×4 (01:39→20:00)
[2018-04-18] MEDS: CEFEPIME 2 GM/D5W RTU 2 GM/50 ML RTUPB IV SCH ×2 (03:16→18:01)
[2018-04-18 04:14] LABS: ABSOLUTE BASOPHILS # (AUTO) 0.1 10^3/uL (0.0-0.2); ABSOLUTE EOSINOPHILS # (AUTO) 0.1 10^3/uL (0.0-0.6); ABSOLUTE MONOCYTES (AUTO) 1.3 10^3/uL (0.1-1.4); ABSOLUTE NEUT (AUTO) 5.7 10^3/uL (1.7-8.2); BASOPHILS % (AUTO) 1.3 % (0-2); EOSINOPHILS % (AUTO) 1.7 % (0-6); HEMATOCRIT 40.1 % (37.9-51.0); HEMOGLOBIN 13.6 g/dL (13.5-17.0); LYMPHOCYTES % (AUTO) 12.3 % (13-45); MEAN CORPUSCULAR HEMOGLOBIN 30.8 pg (27.0-33.4); MEAN CORPUSCULAR VOLUME 91 fl (80-97); PLATELET COUNT 222 10^3/uL (150-450); RED BLOOD COUNT 4.41 10^6/uL (4.35-5.55); RED CELL DISTRIBUTION WIDTH 14.1 % (11.5-14.0); SEGMENTED NEUTROPHILS % (AUTO) 68.7 % (42-78); TOTAL CELLS COUNTED % (AUTO) 100 %; WHITE BLOOD COUNT 8.3 10^3/uL (4.0-10.5)
[2018-04-18 04:24] LABS: ALANINE AMINOTRANSFERASE 123 U/L (21-72); ALBUMIN 3.3 g/dL (3.5-5.0); ALKALINE PHOSPHATASE 96 U/L (38-126); ANION GAP 10 (5-19); ASPARTATE AMINO TRANSFERASE 176 U/L (17-59); BILIRUBIN,DIRECT 0.7 mg/dL (0.0-0.4); BILIRUBIN,TOTAL 0.8 mg/dL (0.2-1.3); BLOOD UREA NITROGEN 11 mg/dL (7-20); CALCIUM 9.1 mg/dL (8.4-10.2); CARBON DIOXIDE 28 mmol/L (22-30); CHLORIDE 104 mmol/L (98-107); GLUCOSE 110 mg/dL (75-110); PHOSPHORUS 5.4 mg/dL (2.5-4.5); SODIUM 141.9 mmol/L (137-145); TOTAL PROTEIN 6.5 g/dL (6.3-8.2)
[2018-04-18 05:33] LABS: ARTERIAL BLOOD BASE EXCESS 3.8 mmol/L; ARTERIAL BLOOD H2CO3 1.32 mmol/L (1.05-1.35); ARTERIAL BLOOD HCO3 28.7 mmol/L (20-26); ARTERIAL BLOOD O2 SATURATION 95.7 % (94-98); ARTERIAL BLOOD PCO2 43.9 mmHg (35-45); ARTERIAL BLOOD PH 7.43 (7.35-7.45); ARTERIAL BLOOD PO2 76.9 mmHg (80-100)
[2018-04-18 05:34] LABS: ARTERIAL BLOOD FIO2 30%
[2018-04-18] MEDS: POTASSI CL 40 MEQ/D5-1/2NS 1L 1000 ML IV PRN (06:19)
--- NOTE | 2018-04-18 07:17 | RADIOLOGY REPORT (SQ) ---
EXAM DESCRIPTION: XR CHEST 1 VIEW CLINICAL HISTORY: 47 years Male, resp failure COMPARISON: One day prior. NUMBER OF VIEWS/TECHNIQUE: 1/AP FINDINGS: Small left lower lobar opacity, normal cardiac silhouette, tip of an endotracheal tube is 4.4 cm from the brandon, adequate appearing enteric tube. Suture-clips at the left glenohumeral joint. No pneumothorax. No acute bone defect. IMPRESSION: No significant change.
[2018-04-18] MEDS: TOBRAMYCIN SULFATE NEB 40 MG/ML 30 ML NEB SCH ×2 (08:26→20:00)
[2018-04-18] MEDS: BUDESONIDE NEB 0.5 MG/2 ML AMPUL NEB SCH ×2 (08:26→20:00)
[2018-04-18] MEDS: LEVETIRACETAM 1000 MG/NACL-ISO 1,000 MG/100 ML RTUPB IV SCH ×2 (11:24→21:17)
[2018-04-18] MEDS: PANTOPRAZOLE SODIUM 40 MG VIAL IV SCH ×2 (11:27→21:16)
--- NOTE | 2018-04-18 15:13 | PDOC PROGRESS REPORT ---
Subjective Progress Note for:: 04/18/18 Subjective:: Remains on the vent. Secretions appear to have improved. Sedation is currently off and he is arousable, but does not follow commands. Reason For Visit: ALCOHOL WITHDRAWAL,HYPERTENSIVE URGENCY Physical Exam Vital Signs: Temp Pulse Resp BP Pulse Ox 100.8 F H 74 19 112/82 96 04/17/18 18:00 04/18/18 13:45 04/18/18 14:51 04/18/18 14:51 04/18/18 14:51 Intake & Output 04/17/18 04/18/18 04/19/18 05:59 05:59 05:59 Intake Total 5108 936 2341 Output Total 5272 4065 1950 Balance -157 3125 391 Weight 205 lb 0.478 oz 197 lb 12.074 oz General appearance: PRESENT: no acute distress Respiratory exam: PRESENT: clear to auscultation hilda Cardiovascular exam: PRESENT: RRR GI/Abdominal exam: PRESENT: soft Musculoskeletal exam: PRESENT: normal inspection Neurological exam: PRESENT: awake Skin exam: PRESENT: warm Results Laboratory Results: 04/18/18 03:50 04/18/18 03:50 04/17/18 04/17/18 04/17/18 14:40 14:40 18:20 WBC RBC Hgb Hct MCV MCH MCHC RDW Plt Count Seg Neutrophils % Lymphocytes % Monocytes % Eosinophils % Basophils % Absolute Neutrophils Absolute Lymphocytes Absolute Monocytes Absolute Eosinophils Absolute Basophils Carbonic Acid 1.14 HCO3/H2CO3 Ratio 23:1 ABG pH 7.46 H ABG pCO2 38.0 ABG pO2 129.5 H ABG HCO3 26.5 H ABG O2 Saturation 98.7 H ABG Base Excess 2.7 FiO2 60% Sodium 142.1 Potassium 4.4 Chloride 102 Carbon Dioxide 28 Anion Gap 12 BUN 8 Creatinine 0.65 Est GFR ( Amer) > 60 Est GFR (Non-Af Amer) > 60 Glucose 159 H Calcium 9.3 Phosphorus Magnesium Total Bilirubin 0.9 AST 252 H ALT 147 H Alkaline Phosphatase 115 Total Protein 7.1 Albumin 3.5 Urine Color YELLOW Urine Appearance CLEAR Urine pH 5.0 Ur Specific [place] 1.025 Urine Protein NEGATIVE Urine Glucose (UA) NEGATIVE Urine Ketones NEGATIVE Urine Blood NEGATIVE Urine Nitrite NEGATIVE Ur Leukocyte Esterase NEGATIVE Urine WBC (Auto) 1 Urine RBC (Auto) 17 04/18/18 04/18/18 04/18/18 03:50 03:50 05:20 WBC 8.3 RBC 4.41 Hgb 13.6 Hct 40.1 MCV 91 MCH 30.8 MCHC 34.0 RDW 14.1 H Plt Count 222 Seg Neutrophils % 68.7 Lymphocytes % 12.3 L Monocytes % 16.0 H Eosinophils % 1.7 Basophils % 1.3 Absolute Neutrophils 5.7 Absolute Lymphocytes 1.0 Absolute Monocytes 1.3 Absolute Eosinophils 0.1 Absolute Basophils 0.1 Carbonic Acid 1.32 HCO3/H2CO3 Ratio 21:1 ABG pH 7.43 ABG pCO2 43.9 ABG pO2 76.9 L ABG HCO3 28.7 H ABG O2 Saturation 95.7 ABG Base Excess 3.8 FiO2 30% Sodium 141.9 Potassium 4.0 Chloride 104 Carbon Dioxide 28 Anion Gap 10 BUN 11 Creatinine 0.58 Est GFR ( Amer) > 60 Est GFR (Non-Af Amer) > 60 Glucose 110 Calcium 9.1 Phosphorus 5.4 H Magnesium 1.8 Total Bilirubin 0.8 AST 176 H ALT 123 H Alkaline Phosphatase 96 Total Protein 6.5 Albumin 3.3 L Urine Color Urine Appearance Urine pH Ur Specific [place] Urine Protein Urine Glucose (UA) Urine Ketones Urine Blood Urine Nitrite Ur Leukocyte Esterase Urine WBC (Auto) Urine RBC (Auto) 04/16/18 08:45 Tracheal Aspirate Gram Stain - Final 04/16/18 08:45 Tracheal Aspirate Sputum Culture - Final Klebsiella Pneumoniae Haemophilus Influenzae Reduced Normal Bobbi 04/12/18 04/17/18 04/17/18 03:55 14:40 14:40 Creatine Kinase 316 H 95 CK-MB (CK-2) < 0.22 Troponin I < 0.012 Impressions: Head CT 04/12/18 09:51 IMPRESSION: NORMAL BRAIN CT WITHOUT CONTRAST. EVIDENCE OF ACUTE STROKE: NO. KUB X-Ray 04/17/18 00:00 IMPRESSION: Nasogastric tube tip and side port in the stomach. Chest X-Ray 04/18/18 06:00 IMPRESSION: No significant change. Assessment & Plan - Diagnosis (1) Acute respiratory failure with hypoxia Is this a current diagnosis for this admission?: Yes Plan: I suspect he aspirated on his secretions. Afebrile over 24 hours. Continue respiratory support. Continue empiric antibiotics. Sputum culture grew out Klebsiella and Haemophilus. Cefepime should cover. (2) Alcohol withdrawal Qualifiers: Complication of substance-induced condition: uncomplicated Qualified Code(s ): F10.230 - Alcohol dependence with withdrawal, uncomplicated Is this a current diagnosis for this admission?: Yes Plan: Day 7 since his last drink (3) Fluid overload Qualifiers: Hypervolemia type: unspecified Qualified Code(s): E87.70 - Fluid overload, unspecified Is this a current diagnosis for this admission?: Yes Plan: Agree with IV diuretics. Follow his labs closely. Took about 3 L off yesterday. Renal function holding. Continue (4) On mechanically assisted ventilation Is this a current diagnosis for this admission?: Yes Plan: Management per pulmonology
[2018-04-18] MEDS: THIAMINE HCL 100 MG, FOLIC ACID 1 MG in NORMAL SALINE 250 ML IV SCH (18:11)
[2018-04-19] MEDS: FUROSEMIDE INJ/PF 20 MG/2 ML SDV IV SCH ×2 (00:03→05:41)
[2018-04-19] MEDS: LORAZEPAM 24 MG/ D5W 240 ML IV PRN ×3 (00:03→17:58)
[2018-04-19] MEDS: PROPOFOL 100 ML IV PRN ×6 (00:04→21:31)
[2018-04-19] MEDS: IPRATROPIUM/ALBUTEROL 0.5-2.5 MG/3 ML AMPUL NEB SCH ×4 (01:14→20:10)
[2018-04-19] MEDS: CEFEPIME 2 GM/D5W RTU 2 GM/50 ML RTUPB IV SCH ×2 (04:13→18:02)
[2018-04-19 04:52] LABS: ABSOLUTE BASOPHILS # (AUTO) 0.1 10^3/uL (0.0-0.2); ABSOLUTE EOSINOPHILS # (AUTO) 0.2 10^3/uL (0.0-0.6); ABSOLUTE LYMPHOCYTES (AUTO) 1.3 10^3/uL (0.5-4.7); ABSOLUTE MONOCYTES (AUTO) 1.4 10^3/uL (0.1-1.4); ABSOLUTE NEUT (AUTO) 6.1 10^3/uL (1.7-8.2); BASOPHILS % (AUTO) 1.2 % (0-2); EOSINOPHILS % (AUTO) 2.5 % (0-6); HEMATOCRIT 41.4 % (37.9-51.0); HEMOGLOBIN 14.1 g/dL (13.5-17.0); LYMPHOCYTES % (AUTO) 14.2 % (13-45); MEAN CORPUSCULAR HEMOGLOBIN 30.8 pg (27.0-33.4); MEAN CORPUSCULAR VOLUME 91 fl (80-97); MONOCYTES % (AUTO) 15.8 % (3-13); PLATELET COUNT 237 10^3/uL (150-450); RED BLOOD COUNT 4.57 10^6/uL (4.35-5.55); SEGMENTED NEUTROPHILS % (AUTO) 66.3 % (42-78); TOTAL CELLS COUNTED % (AUTO) 100 %; WHITE BLOOD COUNT 9.1 10^3/uL (4.0-10.5)
[2018-04-19 05:19] LABS: ALANINE AMINOTRANSFERASE 150 U/L (21-72); ALBUMIN 3.6 g/dL (3.5-5.0); ALKALINE PHOSPHATASE 101 U/L (38-126); ANION GAP 13 (5-19); ASPARTATE AMINO TRANSFERASE 234 U/L (17-59); BILIRUBIN,DIRECT 0.8 mg/dL (0.0-0.4); BILIRUBIN,TOTAL 0.8 mg/dL (0.2-1.3); BLOOD UREA NITROGEN 20 mg/dL (7-20); CALCIUM 9.6 mg/dL (8.4-10.2); CARBON DIOXIDE 29 mmol/L (22-30); CHLORIDE 102 mmol/L (98-107); GLUCOSE 108 mg/dL (75-110); POTASSIUM 4.7 mmol/L (3.6-5.0); SODIUM 143.6 mmol/L (137-145); TOTAL PROTEIN 7.2 g/dL (6.3-8.2)
[2018-04-19 05:44] LABS: ARTERIAL BLOOD BASE EXCESS 4.9 mmol/L; ARTERIAL BLOOD H2CO3 1.39 mmol/L (1.05-1.35); ARTERIAL BLOOD O2 SATURATION 94.8 % (94-98); ARTERIAL BLOOD PCO2 46.1 mmHg (35-45); ARTERIAL BLOOD PH 7.43 (7.35-7.45); ARTERIAL BLOOD PO2 71.9 mmHg (80-100); ARTERIAL BLOOD TOTAL CO2 31.5 mmol/L (23-27)
[2018-04-19 05:45] LABS: ARTERIAL BLOOD FIO2 40%
--- NOTE | 2018-04-19 06:26 | RADIOLOGY REPORT (SQ) ---
EXAM DESCRIPTION: XR CHEST 1 VIEW CLINICAL HISTORY: 47 years Male, resp failure COMPARISON: One day prior. NUMBER OF VIEWS/TECHNIQUE: 1/AP FINDINGS: Moderate hazy opacity-layered effusion of the left lower hemithorax, normal cardiac silhouette, tip of an endotracheal tube is 5.5 cm from the brandon, adequate appearing enteric tube obscured at its tip. No pneumothorax. No acute bone defect. IMPRESSION: No significant change.
[2018-04-19] MEDS: TOBRAMYCIN SULFATE NEB 40 MG/ML 30 ML NEB SCH ×2 (08:27→20:10)
[2018-04-19] MEDS: BUDESONIDE NEB 0.5 MG/2 ML AMPUL NEB SCH ×2 (08:27→20:10)
--- NOTE | 2018-04-19 09:42 | PDOC PROGRESS REPORT ---
Subjective Progress Note for:: 04/19/18 Subjective:: Intubated and sedated x 48 hrs Reason For Visit: ALCOHOL WITHDRAWAL,HYPERTENSIVE URGENCY Physical Exam Vital Signs: Temp Pulse Resp BP Pulse Ox 98.2 F 93 16 122/85 97 04/19/18 05:44 04/19/18 01:14 04/19/18 06:00 04/19/18 05:51 04/19/18 06:00 Intake & Output 04/18/18 04/19/18 04/20/18 06:59 06:59 06:59 Intake Total 3277 2948 Output Total 4660 4378 Balance -1387 -330 Weight 89.7 kg 88 kg General appearance: PRESENT: no acute distress, disheveled. ABSENT: obese Head exam: PRESENT: atraumatic, normocephalic Eye exam: PRESENT: conjunctiva pale, EOMI. ABSENT: nystagmus, periorbital swelling, scleral icterus Mouth exam: PRESENT: dry mucosa, neck supple, tongue midline, other - ET tube Neck exam: ABSENT: carotid bruit, JVD, lymphadenopathy, thyromegaly, tracheal deviation, tracheostomy Respiratory exam: PRESENT: decreased breath sounds, prolonged expiratory phas, rales, rhonchi, unlabored. ABSENT: retraction, stridor Cardiovascular exam: PRESENT: RRR, +S1, +S2, tachycardia Pulses: PRESENT: normal radial pulses GI/Abdominal exam: PRESENT: hypoactive bowel sounds, soft Extremities exam: ABSENT: calf tenderness, clubbing, joint swelling Musculoskeletal exam: ABSENT: ambulatory, deformity, dislocation Neurological exam: PRESENT: awake. ABSENT: oriented to person, oriented to place, oriented to time, oriented to situation Skin exam: PRESENT: dry, warm Results Laboratory Results: 04/19/18 04:25 04/19/18 04:25 04/19/18 04/19/18 04/19/18 04:25 04:25 05:15 WBC 9.1 RBC 4.57 Hgb 14.1 Hct 41.4 MCV 91 MCH 30.8 MCHC 34.0 RDW 14.0 Plt Count 237 Seg Neutrophils % 66.3 Lymphocytes % 14.2 Monocytes % 15.8 H Eosinophils % 2.5 Basophils % 1.2 Absolute Neutrophils 6.1 Absolute Lymphocytes 1.3 Absolute Monocytes 1.4 Absolute Eosinophils 0.2 Absolute Basophils 0.1 Carbonic Acid 1.39 H HCO3/H2CO3 Ratio 21:1 ABG pH 7.43 ABG pCO2 46.1 H ABG pO2 71.9 L ABG HCO3 30.0 H ABG O2 Saturation 94.8 ABG Base Excess 4.9 FiO2 40% Sodium 143.6 Potassium 4.7 Chloride 102 Carbon Dioxide 29 Anion Gap 13 BUN 20 Creatinine 0.54 Est GFR ( Amer) > 60 Est GFR (Non-Af Amer) > 60 Glucose 108 Calcium 9.6 Magnesium 2.3 Total Bilirubin 0.8 AST 234 H ALT 150 H Alkaline Phosphatase 101 Total Protein 7.2 Albumin 3.6 04/16/18 08:45 Tracheal Aspirate Gram Stain - Final 04/16/18 08:45 Tracheal Aspirate Sputum Culture - Final Klebsiella Pneumoniae Haemophilus Influenzae Reduced Normal Bobbi 04/12/18 04/17/18 04/17/18 03:55 14:40 14:40 Creatine Kinase 316 H 95 CK-MB (CK-2) < 0.22 Troponin I < 0.012 Impressions: Head CT 04/12/18 09:51 IMPRESSION: NORMAL BRAIN CT WITHOUT CONTRAST. EVIDENCE OF ACUTE STROKE: NO. KUB X-Ray 04/17/18 00:00 IMPRESSION: Nasogastric tube tip and side port in the stomach. Chest X-Ray 04/19/18 06:00 IMPRESSION: No significant change. Assessment & Plan - Diagnosis (1) Alcohol withdrawal seizure Qualifiers: Complication of substance-induced condition: with delirium Is this a current diagnosis for this admission?: Yes Plan: None reported over the last 24 hours (2) History of atrial fibrillation Is this a current diagnosis for this admission?: Yes Plan: Currently normal sinus rhythm-sinus tachycardia (3) Thrombocytopenia Is this a current diagnosis for this admission?: No (4) Acute respiratory failure with hypoxia Is this a current diagnosis for this admission?: Yes Plan: copious secretions Labs- All tests 24 hr 04/19/18 05:15 ABG pH 7.43 ABG pCO2 46.1 H ABG pO2 71.9 L ABG O2 Saturation 94.8 FiO2 40% 04/17/18 14:40 Gram Stain - Final Tracheal Aspirate Sputum Culture - Final Enterobacter Cloacae Greatly Reduced Normal Bobbi 04/16/18 08:45 Gram Stain - Final Tracheal Aspirate Sputum Culture - Final Klebsiella Pneumoniae Haemophilus Influenzae Reduced Normal Bobbi - Time Total Critical Time (Minutes): 45
--- NOTE | 2018-04-19 09:44 | PDOC PROGRESS REPORT ---
Subjective Progress Note for:: 04/18/18 Subjective:: Intubated and sedated x 48 hrs Reason For Visit: ALCOHOL WITHDRAWAL,HYPERTENSIVE URGENCY Physical Exam Vital Signs: Temp Pulse Resp BP Pulse Ox 100.8 F H 81 20 102/65 94 04/17/18 18:00 04/18/18 01:39 04/18/18 06:20 04/18/18 06:20 04/18/18 06:20 Intake & Output 04/17/18 04/18/18 04/19/18 06:59 06:59 06:59 Intake Total 5108 3277 Output Total 5265 4665 650 Balance -157 -6019 -483 Weight 93 kg 89.7 kg General appearance: PRESENT: no acute distress, disheveled Head exam: PRESENT: atraumatic, normocephalic Eye exam: PRESENT: conjunctiva pale, EOMI. ABSENT: nystagmus, periorbital swelling, scleral icterus Mouth exam: PRESENT: dry mucosa, neck supple, tongue midline - ET tube Neck exam: ABSENT: carotid bruit, JVD, lymphadenopathy, thyromegaly, tracheal deviation, tracheostomy Respiratory exam: PRESENT: decreased breath sounds, prolonged expiratory phas, rales, rhonchi, unlabored Cardiovascular exam: PRESENT: RRR, +S1, +S2, tachycardia Pulses: PRESENT: normal radial pulses GI/Abdominal exam: PRESENT: hypoactive bowel sounds, soft Extremities exam: ABSENT: calf tenderness, clubbing, joint swelling Musculoskeletal exam: ABSENT: deformity, dislocation Neurological exam: PRESENT: awake. ABSENT: oriented to person, oriented to place, oriented to time, oriented to situation Skin exam: PRESENT: dry, warm Results Laboratory Results: 04/18/18 03:50 04/18/18 03:50 04/17/18 04/17/18 04/17/18 13:30 14:40 14:40 WBC RBC Hgb Hct MCV MCH MCHC RDW Plt Count Seg Neutrophils % Lymphocytes % Monocytes % Eosinophils % Basophils % Absolute Neutrophils Absolute Lymphocytes Absolute Monocytes Absolute Eosinophils Absolute Basophils Carbonic Acid 1.14 HCO3/H2CO3 Ratio 23:1 ABG pH 7.46 H ABG pCO2 37.9 ABG pO2 60.6 L ABG HCO3 26.4 H ABG O2 Saturation 92.6 L ABG Base Excess 2.7 FiO2 60% Sodium 142.1 Potassium 4.4 Chloride 102 Carbon Dioxide 28 Anion Gap 12 BUN 8 Creatinine 0.65 Est GFR ( Amer) > 60 Est GFR (Non-Af Amer) > 60 Glucose 159 H Calcium 9.3 Phosphorus Magnesium Total Bilirubin 0.9 AST 252 H ALT 147 H Alkaline Phosphatase 115 Total Protein 7.1 Albumin 3.5 Urine Color YELLOW Urine Appearance CLEAR Urine pH 5.0 Ur Specific [place] Switch 1.025 Urine Protein NEGATIVE Urine Glucose (UA) NEGATIVE Urine Ketones NEGATIVE Urine Blood NEGATIVE Urine Nitrite NEGATIVE Ur Leukocyte Esterase NEGATIVE Urine WBC (Auto) 1 Urine RBC (Auto) 17 04/17/18 04/18/18 04/18/18 18:20 03:50 03:50 WBC 8.3 RBC 4.41 Hgb 13.6 Hct 40.1 MCV 91 MCH 30.8 MCHC 34.0 RDW 14.1 H Plt Count 222 Seg Neutrophils % 68.7 Lymphocytes % 12.3 L Monocytes % 16.0 H Eosinophils % 1.7 Basophils % 1.3 Absolute Neutrophils 5.7 Absolute Lymphocytes 1.0 Absolute Monocytes 1.3 Absolute Eosinophils 0.1 Absolute Basophils 0.1 Carbonic Acid 1.14 HCO3/H2CO3 Ratio 23:1 ABG pH 7.46 H ABG pCO2 38.0 ABG pO2 129.5 H ABG HCO3 26.5 H ABG O2 Saturation 98.7 H ABG Base Excess 2.7 FiO2 60% Sodium 141.9 Potassium 4.0 Chloride 104 Carbon Dioxide 28 Anion Gap 10 BUN 11 Creatinine 0.58 Est GFR ( Amer) > 60 Est GFR (Non-Af Amer) > 60 Glucose 110 Calcium 9.1 Phosphorus 5.4 H Magnesium 1.8 Total Bilirubin 0.8 AST 176 H ALT 123 H Alkaline Phosphatase 96 Total Protein 6.5 Albumin 3.3 L Urine Color Urine Appearance Urine pH Ur Specific [place] Switch Urine Protein Urine Glucose (UA) Urine Ketones Urine Blood Urine Nitrite Ur Leukocyte Esterase Urine WBC (Auto) Urine RBC (Auto) 04/18/18 05:20 WBC RBC Hgb Hct MCV MCH MCHC RDW Plt Count Seg Neutrophils % Lymphocytes % Monocytes % Eosinophils % Basophils % Absolute Neutrophils Absolute Lymphocytes Absolute Monocytes Absolute Eosinophils Absolute Basophils Carbonic Acid 1.32 HCO3/H2CO3 Ratio 21:1 ABG pH 7.43 ABG pCO2 43.9 ABG pO2 76.9 L ABG HCO3 28.7 H ABG O2 Saturation 95.7 ABG Base Excess 3.8 FiO2 30% Sodium Potassium Chloride Carbon Dioxide Anion Gap BUN Creatinine Est GFR ( Amer) Est GFR (Non-Af Amer) Glucose Calcium Phosphorus Magnesium Total Bilirubin AST ALT Alkaline Phosphatase Total Protein Albumin Urine Color Urine Appearance Urine pH Ur Specific [place] Switch Urine Protein Urine Glucose (UA) Urine Ketones Urine Blood Urine Nitrite Ur Leukocyte Esterase Urine WBC (Auto) Urine RBC (Auto) 04/12/18 04/17/18 04/17/18 03:55 14:40 14:40 Creatine Kinase 316 H 95 CK-MB (CK-2) < 0.22 Troponin I < 0.012 Impressions: Head CT 04/12/18 09:51 IMPRESSION: NORMAL BRAIN CT WITHOUT CONTRAST. EVIDENCE OF ACUTE STROKE: NO. KUB X-Ray 04/17/18 00:00 IMPRESSION: Nasogastric tube tip and side port in the stomach. Chest X-Ray 04/18/18 06:00 IMPRESSION: No significant change. Assessment & Plan - Diagnosis (1) Alcohol withdrawal seizure Qualifiers: Complication of substance-induced condition: with delirium Is this a current diagnosis for this admission?: Yes Plan: None reported over the last 24 hours (2) History of atrial fibrillation Is this a current diagnosis for this admission?: Yes Plan: Currently normal sinus rhythm-sinus tachycardia (3) Thrombocytopenia Is this a current diagnosis for this admission?: No (4) Acute respiratory failure with hypoxia Is this a current diagnosis for this admission?: Yes Plan: copious secretions Labs- All tests 24 hr 04/19/18 05:15 ABG pH 7.43 ABG pCO2 46.1 H ABG pO2 71.9 L ABG O2 Saturation 94.8 FiO2 40% 04/17/18 14:40 Gram Stain - Final Tracheal Aspirate Sputum Culture - Final Enterobacter Cloacae Greatly Reduced Normal Bobbi 04/16/18 08:45 Gram Stain - Final Tracheal Aspirate Sputum Culture - Final Klebsiella Pneumoniae Haemophilus Influenzae Reduced Normal Bobbi - Time Total Critical Time (Minutes): 45
[2018-04-19] MEDS ORDERED: SCOPOLAMINE HYDROBROMIDE 1.5 MG PATCH.TD72 TD SCH (10:00)
[2018-04-19] MEDS: SCOPOLAMINE HYDROBROMIDE 1.5 MG PATCH.TD72 TD SCH (10:06)
[2018-04-19] MEDS: PANTOPRAZOLE SODIUM 40 MG VIAL IV SCH ×2 (10:07→21:31)
[2018-04-19] MEDS: LEVETIRACETAM 1000 MG/NACL-ISO 1,000 MG/100 ML RTUPB IV SCH ×2 (10:07→21:28)
--- NOTE | 2018-04-19 11:32 | PDOC PROGRESS REPORT ---
Subjective Progress Note for:: 04/19/18 Subjective:: Remains on the vent. Secretions appear to have improved. Propofol at 20 and he is arousable, but does not follow commands. Reason For Visit: ALCOHOL WITHDRAWAL,HYPERTENSIVE URGENCY Physical Exam Vital Signs: Temp Pulse Resp BP Pulse Ox 99.7 F 94 14 126/83 H 97 04/19/18 10:00 04/19/18 10:00 04/19/18 10:22 04/19/18 10:22 04/19/18 10:59 Intake & Output 04/18/18 04/19/18 04/20/18 05:59 05:59 05:59 Intake Total 936 3427 1862 Output Total 4061 7742 850 Balance -4277 -162 1012 Weight 194 lb 0.108 oz General appearance: PRESENT: no acute distress Respiratory exam: PRESENT: clear to auscultation hilda Cardiovascular exam: PRESENT: RRR GI/Abdominal exam: PRESENT: soft Extremities exam: ABSENT: +1 edema Neurological exam: PRESENT: awake - But not interactive, does not follow commands Skin exam: PRESENT: dry, warm Results Laboratory Results: 04/19/18 04:25 04/19/18 04:25 04/19/18 04/19/18 04/19/18 04:25 04:25 05:15 WBC 9.1 RBC 4.57 Hgb 14.1 Hct 41.4 MCV 91 MCH 30.8 MCHC 34.0 RDW 14.0 Plt Count 237 Seg Neutrophils % 66.3 Lymphocytes % 14.2 Monocytes % 15.8 H Eosinophils % 2.5 Basophils % 1.2 Absolute Neutrophils 6.1 Absolute Lymphocytes 1.3 Absolute Monocytes 1.4 Absolute Eosinophils 0.2 Absolute Basophils 0.1 Carbonic Acid 1.39 H HCO3/H2CO3 Ratio 21:1 ABG pH 7.43 ABG pCO2 46.1 H ABG pO2 71.9 L ABG HCO3 30.0 H ABG O2 Saturation 94.8 ABG Base Excess 4.9 FiO2 40% Sodium 143.6 Potassium 4.7 Chloride 102 Carbon Dioxide 29 Anion Gap 13 BUN 20 Creatinine 0.54 Est GFR ( Amer) > 60 Est GFR (Non-Af Amer) > 60 Glucose 108 Calcium 9.6 Magnesium 2.3 Total Bilirubin 0.8 AST 234 H ALT 150 H Alkaline Phosphatase 101 Total Protein 7.2 Albumin 3.6 04/17/18 14:40 Catheterized Urine Urine Culture - Final NO GROWTH 2 DAYS 04/17/18 14:40 Tracheal Aspirate Gram Stain - Final 04/17/18 14:40 Tracheal Aspirate Sputum Culture - Final Enterobacter Cloacae Greatly Reduced Normal Bobbi 04/16/18 08:45 Tracheal Aspirate Gram Stain - Final 04/16/18 08:45 Tracheal Aspirate Sputum Culture - Final Klebsiella Pneumoniae Haemophilus Influenzae Reduced Normal Bobbi 04/12/18 04/17/18 04/17/18 03:55 14:40 14:40 Creatine Kinase 316 H 95 CK-MB (CK-2) < 0.22 Troponin I < 0.012 Impressions: Head CT 04/12/18 09:51 IMPRESSION: NORMAL BRAIN CT WITHOUT CONTRAST. EVIDENCE OF ACUTE STROKE: NO. KUB X-Ray 04/17/18 00:00 IMPRESSION: Nasogastric tube tip and side port in the stomach. Chest X-Ray 04/19/18 06:00 IMPRESSION: No significant change. Assessment & Plan - Diagnosis (1) Acute respiratory failure with hypoxia Is this a current diagnosis for this admission?: Yes Plan: I suspect he aspirated on his secretions. Afebrile over 24 hours. Continue respiratory support. Continue empiric antibiotics. Sputum culture grew out Klebsiella and Haemophilus. Cefepime should cover. (2) Alcohol withdrawal Qualifiers: Complication of substance-induced condition: uncomplicated Qualified Code(s ): F10.230 - Alcohol dependence with withdrawal, uncomplicated Is this a current diagnosis for this admission?: Yes Plan: Should be through withdrawal by now (3) Fluid overload Qualifiers: Hypervolemia type: unspecified Qualified Code(s): E87.70 - Fluid overload, unspecified Is this a current diagnosis for this admission?: Yes Plan: Edema appears to have resolved, secretions have decreased. I will back off on his Lasix, and attempted balance his I's and O's (4) On mechanically assisted ventilation Is this a current diagnosis for this admission?: Yes Plan: Management per pulmonology
[2018-04-19] MEDS: POTASSI CL 20 MEQ/D5-1/2NS 1L 1,000 ML IV PRN (12:18)
[2018-04-19] MEDS: THIAMINE HCL 100 MG, FOLIC ACID 1 MG in NORMAL SALINE 250 ML IV SCH (17:58)
[2018-04-19] MEDS: ACETYLCYSTEINE 20% SOLN 800 MG/4 ML VIAL.NEB NEB SCH (20:10)
[2018-04-20] MEDS: PROPOFOL 100 ML IV PRN ×7 (00:45→23:35)
[2018-04-20] MEDS: IPRATROPIUM/ALBUTEROL 0.5-2.5 MG/3 ML AMPUL NEB SCH ×4 (02:19→20:17)
[2018-04-20] MEDS: LORAZEPAM 24 MG/ D5W 240 ML IV PRN ×2 (03:49→15:20)
[2018-04-20 04:14] LABS: ABSOLUTE EOSINOPHILS # (AUTO) 0.2 10^3/uL (0.0-0.6); ABSOLUTE LYMPHOCYTES (AUTO) 1.2 10^3/uL (0.5-4.7); ABSOLUTE NEUT (AUTO) 4.7 10^3/uL (1.7-8.2); BASOPHILS % (AUTO) 0.3 % (0-2); HEMATOCRIT 41.9 % (37.9-51.0); HEMOGLOBIN 14.2 g/dL (13.5-17.0); LYMPHOCYTES % (AUTO) 16.7 % (13-45); MEAN CORPUSCULAR HGB CONC 33.9 g/dL (32.0-36.0); MEAN CORPUSCULAR VOLUME 92 fl (80-97); MONOCYTES % (AUTO) 14.4 % (3-13); PLATELET COUNT 288 10^3/uL (150-450); RED BLOOD COUNT 4.58 10^6/uL (4.35-5.55); RED CELL DISTRIBUTION WIDTH 13.9 % (11.5-14.0); SEGMENTED NEUTROPHILS % (AUTO) 65.6 % (42-78); TOTAL CELLS COUNTED % (AUTO) 100 %; WHITE BLOOD COUNT 7.2 10^3/uL (4.0-10.5)
[2018-04-20] MEDS: CEFEPIME 2 GM/D5W RTU 2 GM/50 ML RTUPB IV SCH ×2 (04:37→16:01)
[2018-04-20 04:39] LABS: ARTERIAL BLOOD BASE EXCESS 3.6 mmol/L; ARTERIAL BLOOD H2CO3 1.29 mmol/L (1.05-1.35); ARTERIAL BLOOD HCO3 28.3 mmol/L (20-26); ARTERIAL BLOOD O2 SATURATION 96.5 % (94-98); ARTERIAL BLOOD PCO2 42.9 mmHg (35-45); ARTERIAL BLOOD PH 7.44 (7.35-7.45); ARTERIAL BLOOD PO2 83.2 mmHg (80-100); ARTERIAL BLOOD TOTAL CO2 29.6 mmol/L (23-27)
[2018-04-20 04:43] LABS: ARTERIAL BLOOD FIO2 40%
[2018-04-20 04:45] LABS: ANION GAP 14 (5-19); BLOOD UREA NITROGEN 20 mg/dL (7-20); CALCIUM 9.6 mg/dL (8.4-10.2); CARBON DIOXIDE 24 mmol/L (22-30); CHLORIDE 104 mmol/L (98-107); GLUCOSE 114 mg/dL (75-110); POTASSIUM 4.4 mmol/L (3.6-5.0); SODIUM 141.5 mmol/L (137-145)
[2018-04-20] MEDS: POTASSI CL 20 MEQ/D5-1/2NS 1L 1,000 ML IV PRN ×2 (08:04→23:36)
--- NOTE | 2018-04-20 08:11 | RADIOLOGY REPORT (SQ) ---
EXAM DESCRIPTION: CHEST SINGLE VIEW COMPLETED DATE/TIME: 04/20/2018 7:23 am REASON FOR STUDY: resp failure COMPARISON: 04/19/2018. EXAM PARAMETERS: NUMBER OF VIEWS: One view. TECHNIQUE: Single frontal radiographic view of the chest acquired. RADIATION DOSE: NA LIMITATIONS: None. FINDINGS: LUNGS AND PLEURA: No change in the left basilar density. Right lung clear. MEDIASTINUM AND HILAR STRUCTURES: No masses. Contour normal. HEART AND VASCULAR STRUCTURES: Heart normal in size. Normal vasculature. BONES: No acute findings. HARDWARE: Stable endotracheal tube and nasogastric tube. OTHER: No other significant finding. IMPRESSION: NO CHANGE IN APPEARANCE OF THE CHEST. TECHNICAL DOCUMENTATION: JOB ID: [id number] [employer]- All Rights Reserved Reading location - IP/workstation name: [email or web address]
[2018-04-20] MEDS: BUDESONIDE NEB 0.5 MG/2 ML AMPUL NEB SCH ×2 (08:30→20:17)
[2018-04-20] MEDS: ACETYLCYSTEINE 20% SOLN 800 MG/4 ML VIAL.NEB NEB SCH ×2 (08:30→20:17)
[2018-04-20] MEDS: TOBRAMYCIN SULFATE NEB 40 MG/ML 30 ML NEB SCH ×2 (08:31→20:17)
[2018-04-20] MEDS: LEVETIRACETAM 1000 MG/NACL-ISO 1,000 MG/100 ML RTUPB IV SCH ×2 (09:37→21:00)
[2018-04-20] MEDS: PANTOPRAZOLE SODIUM 40 MG VIAL IV SCH ×2 (09:38→21:01)
[2018-04-20] MEDS: FUROSEMIDE INJ/PF 20 MG/2 ML SDV IV SCH (09:38)
--- NOTE | 2018-04-20 10:39 | PDOC PROGRESS REPORT ---
Subjective Progress Note for:: 04/20/18 Subjective:: Intubated and sedated x 48 hrs Reason For Visit: ALCOHOL WITHDRAWAL,HYPERTENSIVE URGENCY Physical Exam Vital Signs: Temp Pulse Resp BP Pulse Ox 99.0 F 90 23 H 115/80 94 04/19/18 19:29 04/20/18 08:30 04/20/18 08:30 04/20/18 05:53 04/20/18 08:30 Intake & Output 04/19/18 04/20/18 04/21/18 06:59 06:59 06:59 Intake Total 2948 0255 Output Total 3329 7525 575 Balance -377 -110 -575 Weight 88 kg 87.4 kg General appearance: PRESENT: no acute distress, disheveled Head exam: PRESENT: atraumatic, normocephalic Eye exam: PRESENT: conjunctiva pale Mouth exam: PRESENT: dry mucosa, neck supple, tongue midline, other Neck exam: ABSENT: carotid bruit, JVD, lymphadenopathy, thyromegaly, tracheal deviation, tracheostomy Respiratory exam: PRESENT: decreased breath sounds, prolonged expiratory phas, rhonchi, unlabored Cardiovascular exam: PRESENT: RRR, +S1, +S2 Pulses: PRESENT: normal radial pulses GI/Abdominal exam: PRESENT: normal bowel sounds, soft Gentrourinary exam: PRESENT: indwelling catheter Extremities exam: PRESENT: calf tenderness, clubbing, joint swelling Musculoskeletal exam: PRESENT: deformity, dislocation Neurological exam: ABSENT: awake Skin exam: PRESENT: dry, warm - [id number] Results Laboratory Results: 04/20/18 03:46 04/20/18 03:46 04/20/18 04/20/18 04/20/18 03:46 03:46 04:12 WBC 7.2 RBC 4.58 Hgb 14.2 Hct 41.9 MCV 92 MCH 31.0 MCHC 33.9 RDW 13.9 Plt Count 288 Seg Neutrophils % 65.6 Lymphocytes % 16.7 Monocytes % 14.4 H Eosinophils % 3.0 Basophils % 0.3 Absolute Neutrophils 4.7 Absolute Lymphocytes 1.2 Absolute Monocytes 1.0 Absolute Eosinophils 0.2 Absolute Basophils 0.0 Carbonic Acid 1.29 HCO3/H2CO3 Ratio 21:1 ABG pH 7.44 ABG pCO2 42.9 ABG pO2 83.2 ABG HCO3 28.3 H ABG O2 Saturation 96.5 ABG Base Excess 3.6 FiO2 40% Sodium 141.5 Potassium 4.4 Chloride 104 Carbon Dioxide 24 Anion Gap 14 BUN 20 Creatinine 0.52 Est GFR ( Amer) > 60 Est GFR (Non-Af Amer) > 60 Glucose 114 H Calcium 9.6 Phosphorus 4.0 Magnesium 2.2 04/17/18 14:40 Catheterized Urine Urine Culture - Final NO GROWTH 2 DAYS 04/17/18 14:40 Tracheal Aspirate Gram Stain - Final 04/17/18 14:40 Tracheal Aspirate Sputum Culture - Final Enterobacter Cloacae Greatly Reduced Normal Bobbi 04/12/18 04/17/18 04/17/18 03:55 14:40 14:40 Creatine Kinase 316 H 95 CK-MB (CK-2) < 0.22 Troponin I < 0.012 Impressions: Head CT 04/12/18 09:51 IMPRESSION: NORMAL BRAIN CT WITHOUT CONTRAST. EVIDENCE OF ACUTE STROKE: NO. KUB X-Ray 04/17/18 00:00 IMPRESSION: Nasogastric tube tip and side port in the stomach. Chest X-Ray 04/20/18 06:00 IMPRESSION: NO CHANGE IN APPEARANCE OF THE CHEST. Assessment & Plan - Diagnosis (1) Alcohol withdrawal seizure Qualifiers: Complication of substance-induced condition: with delirium Is this a current diagnosis for this admission?: Yes Plan: None reported over the last 24 hours (2) History of atrial fibrillation Is this a current diagnosis for this admission?: Yes Plan: Currently normal sinus rhythm-sinus tachycardia (3) Thrombocytopenia Is this a current diagnosis for this admission?: No (4) Acute respiratory failure with hypoxia Is this a current diagnosis for this admission?: Yes Plan: copious secretions - Time Total Critical Time (Minutes): 45
--- NOTE | 2018-04-20 14:20 | PDOC PROGRESS REPORT ---
Subjective Progress Note for:: 04/20/18 Subjective:: Remains sedated and on the vent. Reason For Visit: ALCOHOL WITHDRAWAL,HYPERTENSIVE URGENCY Physical Exam Vital Signs: Temp Pulse Resp BP Pulse Ox 99.0 F 90 22 H 138/103 H 97 04/19/18 19:29 04/20/18 08:30 04/20/18 10:23 04/20/18 10:23 04/20/18 11:39 Intake & Output 04/19/18 04/20/18 04/21/18 05:59 05:59 05:59 Intake Total 3427 3163 1134 Output Total 3925 2145 1700 Balance -498 1018 -566 Weight 194 lb 0.108 oz 192 lb 10.944 oz General appearance: PRESENT: no acute distress Respiratory exam: PRESENT: clear to auscultation hilda Cardiovascular exam: PRESENT: RRR GI/Abdominal exam: PRESENT: soft Extremities exam: ABSENT: +1 edema Neurological exam: PRESENT: other - Sedated. Moving all 4 extremities Skin exam: PRESENT: warm Results Laboratory Results: 04/20/18 03:46 04/20/18 03:46 04/20/18 04/20/18 04/20/18 03:46 03:46 04:12 WBC 7.2 RBC 4.58 Hgb 14.2 Hct 41.9 MCV 92 MCH 31.0 MCHC 33.9 RDW 13.9 Plt Count 288 Seg Neutrophils % 65.6 Lymphocytes % 16.7 Monocytes % 14.4 H Eosinophils % 3.0 Basophils % 0.3 Absolute Neutrophils 4.7 Absolute Lymphocytes 1.2 Absolute Monocytes 1.0 Absolute Eosinophils 0.2 Absolute Basophils 0.0 Carbonic Acid 1.29 HCO3/H2CO3 Ratio 21:1 ABG pH 7.44 ABG pCO2 42.9 ABG pO2 83.2 ABG HCO3 28.3 H ABG O2 Saturation 96.5 ABG Base Excess 3.6 FiO2 40% Sodium 141.5 Potassium 4.4 Chloride 104 Carbon Dioxide 24 Anion Gap 14 BUN 20 Creatinine 0.52 Est GFR ( Amer) > 60 Est GFR (Non-Af Amer) > 60 Glucose 114 H Calcium 9.6 Phosphorus 4.0 Magnesium 2.2 04/12/18 04/17/18 04/17/18 03:55 14:40 14:40 Creatine Kinase 316 H 95 CK-MB (CK-2) < 0.22 Troponin I < 0.012 Impressions: Head CT 04/12/18 09:51 IMPRESSION: NORMAL BRAIN CT WITHOUT CONTRAST. EVIDENCE OF ACUTE STROKE: NO. KUB X-Ray 04/17/18 00:00 IMPRESSION: Nasogastric tube tip and side port in the stomach. Chest X-Ray 04/20/18 06:00 IMPRESSION: NO CHANGE IN APPEARANCE OF THE CHEST. Assessment & Plan - Diagnosis (1) Acute respiratory failure with hypoxia Is this a current diagnosis for this admission?: Yes Plan: I suspect he aspirated on his secretions. Afebrile over 24 hours. Continue respiratory support. Continue empiric antibiotics. Sputum culture grew out Klebsiella and Haemophilus. Cefepime should cover. (2) On mechanically assisted ventilation Is this a current diagnosis for this admission?: Yes Plan: Management per pulmonology
[2018-04-20] MEDS: THIAMINE HCL 100 MG, FOLIC ACID 1 MG in NORMAL SALINE 250 ML IV SCH (17:02)
[2018-04-20] MEDS: METOPROLOL TARTRATE PF/INJ 5 MG/5 ML SDV IV PRN (17:03)
[2018-04-21] MEDS: IPRATROPIUM/ALBUTEROL 0.5-2.5 MG/3 ML AMPUL NEB SCH ×4 (02:45→20:17)
[2018-04-21] MEDS: PROPOFOL 100 ML IV PRN ×6 (03:13→23:22)
[2018-04-21] MEDS: LORAZEPAM 24 MG/ D5W 240 ML IV PRN ×2 (03:14→15:54)
[2018-04-21 04:03] LABS: ABSOLUTE BASOPHILS # (AUTO) 0.1 10^3/uL (0.0-0.2); ABSOLUTE EOSINOPHILS # (AUTO) 0.2 10^3/uL (0.0-0.6); ABSOLUTE LYMPHOCYTES (AUTO) 1.4 10^3/uL (0.5-4.7); ABSOLUTE NEUT (AUTO) 5.9 10^3/uL (1.7-8.2); BASOPHILS % (AUTO) 1.3 % (0-2); EOSINOPHILS % (AUTO) 2.2 % (0-6); HEMATOCRIT 43.3 % (37.9-51.0); HEMOGLOBIN 14.5 g/dL (13.5-17.0); MEAN CORPUSCULAR HEMOGLOBIN 30.4 pg (27.0-33.4); MEAN CORPUSCULAR HGB CONC 33.4 g/dL (32.0-36.0); MEAN CORPUSCULAR VOLUME 91 fl (80-97); MONOCYTES % (AUTO) 12.1 % (3-13); PLATELET COUNT 297 10^3/uL (150-450); RED BLOOD COUNT 4.76 10^6/uL (4.35-5.55); RED CELL DISTRIBUTION WIDTH 13.9 % (11.5-14.0); SEGMENTED NEUTROPHILS % (AUTO) 68.4 % (42-78); TOTAL CELLS COUNTED % (AUTO) 100 %; WHITE BLOOD COUNT 8.6 10^3/uL (4.0-10.5)
[2018-04-21 04:04] LABS: ARTERIAL BLOOD BASE EXCESS 0.7 mmol/L; ARTERIAL BLOOD H2CO3 1.19 mmol/L (1.05-1.35); ARTERIAL BLOOD HCO3 25.1 mmol/L (20-26); ARTERIAL BLOOD O2 SATURATION 94.6 % (94-98); ARTERIAL BLOOD PCO2 39.7 mmHg (35-45); ARTERIAL BLOOD PH 7.42 (7.35-7.45); ARTERIAL BLOOD PO2 71.1 mmHg (80-100); ARTERIAL BLOOD TOTAL CO2 26.3 mmol/L (23-27)
[2018-04-21 04:23] LABS: ANION GAP 11 (5-19); BLOOD UREA NITROGEN 17 mg/dL (7-20); CALCIUM 9.4 mg/dL (8.4-10.2); CARBON DIOXIDE 28 mmol/L (22-30); CHLORIDE 106 mmol/L (98-107); GLUCOSE 116 mg/dL (75-110); POTASSIUM 4.3 mmol/L (3.6-5.0); SODIUM 144.9 mmol/L (137-145)
[2018-04-21] MEDS: CEFEPIME 2 GM/D5W RTU 2 GM/50 ML RTUPB IV SCH ×2 (04:25→16:13)
[2018-04-21 04:40] LABS: ARTERIAL BLOOD FIO2 30%
[2018-04-21] MEDS: ACETYLCYSTEINE 20% SOLN 800 MG/4 ML VIAL.NEB NEB SCH ×2 (08:35→20:17)
[2018-04-21] MEDS: TOBRAMYCIN SULFATE NEB 40 MG/ML 30 ML NEB SCH ×2 (08:35→20:18)
[2018-04-21] MEDS: BUDESONIDE NEB 0.5 MG/2 ML AMPUL NEB SCH ×2 (08:35→20:17)
[2018-04-21] MEDS: PANTOPRAZOLE SODIUM 40 MG VIAL IV SCH ×2 (09:20→21:19)
[2018-04-21] MEDS: FUROSEMIDE INJ/PF 20 MG/2 ML SDV IV SCH (09:20)
[2018-04-21] MEDS: LEVETIRACETAM 1000 MG/NACL-ISO 1,000 MG/100 ML RTUPB IV SCH ×2 (09:20→21:16)
[2018-04-21] MEDS: METOPROLOL TARTRATE PF/INJ 5 MG/5 ML SDV IV PRN (10:23)
--- NOTE | 2018-04-21 13:36 | PDOC PROGRESS REPORT ---
Subjective Progress Note for:: 04/21/18 Subjective:: Remained stable on the vent. His eyes are open but he does not interact in any way. Reason For Visit: ALCOHOL WITHDRAWAL,HYPERTENSIVE URGENCY Physical Exam Vital Signs: Temp Pulse Resp BP Pulse Ox 99.9 F 107 H 20 151/110 H 91 L 04/20/18 19:38 04/21/18 08:35 04/21/18 10:00 04/21/18 09:53 04/21/18 11:18 Intake & Output 04/20/18 04/21/18 04/22/18 05:59 05:59 05:59 Intake Total 3163 4978 Output Total 2145 3600 1175 Balance 1018 1378 -1175 Weight 192 lb 10.944 oz 192 lb 7.417 oz General appearance: PRESENT: no acute distress Neck exam: ABSENT: JVD Respiratory exam: PRESENT: clear to auscultation hilda Cardiovascular exam: PRESENT: RRR GI/Abdominal exam: PRESENT: soft Extremities exam: PRESENT: other - No edema Neurological exam: PRESENT: other - Horizontal nystagmus. ABSENT: motor sensory deficit - Moving all 4 extremities Skin exam: PRESENT: warm Results Laboratory Results: 04/21/18 03:53 04/21/18 03:53 04/21/18 04/21/18 04/21/18 03:53 03:53 04:00 WBC 8.6 RBC 4.76 Hgb 14.5 Hct 43.3 MCV 91 MCH 30.4 MCHC 33.4 RDW 13.9 Plt Count 297 Seg Neutrophils % 68.4 Lymphocytes % 16.0 Monocytes % 12.1 Eosinophils % 2.2 Basophils % 1.3 Absolute Neutrophils 5.9 Absolute Lymphocytes 1.4 Absolute Monocytes 1.0 Absolute Eosinophils 0.2 Absolute Basophils 0.1 Carbonic Acid 1.19 HCO3/H2CO3 Ratio 21:1 ABG pH 7.42 ABG pCO2 39.7 ABG pO2 71.1 L ABG HCO3 25.1 ABG O2 Saturation 94.6 ABG Base Excess 0.7 FiO2 30% Sodium 144.9 Potassium 4.3 Chloride 106 Carbon Dioxide 28 Anion Gap 11 BUN 17 Creatinine 0.54 Est GFR ( Amer) > 60 Est GFR (Non-Af Amer) > 60 Glucose 116 H Calcium 9.4 Magnesium 2.2 04/12/18 04/17/18 04/17/18 03:55 14:40 14:40 Creatine Kinase 316 H 95 CK-MB (CK-2) < 0.22 Troponin I < 0.012 Impressions: Head CT 04/12/18 09:51 IMPRESSION: NORMAL BRAIN CT WITHOUT CONTRAST. EVIDENCE OF ACUTE STROKE: NO. KUB X-Ray 04/17/18 00:00 IMPRESSION: Nasogastric tube tip and side port in the stomach. Chest X-Ray 04/20/18 06:00 IMPRESSION: NO CHANGE IN APPEARANCE OF THE CHEST. Assessment & Plan - Diagnosis (1) Acute respiratory failure with hypoxia Is this a current diagnosis for this admission?: Yes Plan: I suspect he aspirated on his secretions. Afebrile. Continue respiratory support. Continue empiric antibiotics. Sputum culture grew out Klebsiella and Haemophilus. Cefepime should cover. (2) On mechanically assisted ventilation Is this a current diagnosis for this admission?: Yes Plan: Management per pulmonology (3) Encephalopathy Is this a current diagnosis for this admission?: Yes Plan: Quite persistent. He is well outside the window for alcohol withdrawal, but shows no evidence of cognition. Continue to monitor (4) On tube feeding diet Is this a current diagnosis for this admission?: Yes Plan: Tolerating without problem
[2018-04-21] MEDS: THIAMINE HCL 100 MG, FOLIC ACID 1 MG in NORMAL SALINE 250 ML IV SCH (17:11)
[2018-04-22] MEDS: IPRATROPIUM/ALBUTEROL 0.5-2.5 MG/3 ML AMPUL NEB SCH ×4 (01:39→21:05)
[2018-04-22] MEDS: PROPOFOL 100 ML IV PRN ×5 (03:10→23:44)
[2018-04-22] MEDS: POTASSI CL 20 MEQ/D5-1/2NS 1L 1,000 ML IV PRN ×2 (03:11→13:34)
[2018-04-22] MEDS: LORAZEPAM 24 MG/ D5W 240 ML IV PRN ×2 (03:12→21:18)
[2018-04-22] MEDS: CEFEPIME 2 GM/D5W RTU 2 GM/50 ML RTUPB IV SCH ×2 (04:00→16:12)
[2018-04-22 04:11] LABS: ARTERIAL BLOOD BASE EXCESS 2.4 mmol/L; ARTERIAL BLOOD H2CO3 1.28 mmol/L (1.05-1.35); ARTERIAL BLOOD HCO3 27.2 mmol/L (20-26); ARTERIAL BLOOD O2 SATURATION 95.5 % (94-98); ARTERIAL BLOOD PCO2 42.5 mmHg (35-45); ARTERIAL BLOOD PH 7.42 (7.35-7.45); ARTERIAL BLOOD PO2 76.2 mmHg (80-100); ARTERIAL BLOOD TOTAL CO2 28.5 mmol/L (23-27)
[2018-04-22 04:13] LABS: ARTERIAL BLOOD FIO2 30%
[2018-04-22 04:55] LABS: ABSOLUTE BASOPHILS # (AUTO) 0.1 10^3/uL (0.0-0.2); ABSOLUTE EOSINOPHILS # (AUTO) 0.2 10^3/uL (0.0-0.6); ABSOLUTE LYMPHOCYTES (AUTO) 1.4 10^3/uL (0.5-4.7); ABSOLUTE NEUT (AUTO) 7.1 10^3/uL (1.7-8.2); BASOPHILS % (AUTO) 1.4 % (0-2); HEMATOCRIT 43.1 % (37.9-51.0); HEMOGLOBIN 14.4 g/dL (13.5-17.0); MEAN CORPUSCULAR HEMOGLOBIN 30.2 pg (27.0-33.4); MEAN CORPUSCULAR HGB CONC 33.4 g/dL (32.0-36.0); MEAN CORPUSCULAR VOLUME 91 fl (80-97); MONOCYTES % (AUTO) 10.3 % (3-13); PLATELET COUNT 252 10^3/uL (150-450); RED BLOOD COUNT 4.76 10^6/uL (4.35-5.55); SEGMENTED NEUTROPHILS % (AUTO) 72.3 % (42-78); TOTAL CELLS COUNTED % (AUTO) 100 %; WHITE BLOOD COUNT 9.8 10^3/uL (4.0-10.5)
[2018-04-22 05:23] LABS: ALANINE AMINOTRANSFERASE 262 U/L (21-72); ANION GAP 12 (5-19); ASPARTATE AMINO TRANSFERASE 333 U/L (17-59); BLOOD UREA NITROGEN 15 mg/dL (7-20); CALCIUM 9.5 mg/dL (8.4-10.2); CARBON DIOXIDE 26 mmol/L (22-30); CHLORIDE 106 mmol/L (98-107); GLUCOSE 113 mg/dL (75-110); PHOSPHORUS 4.9 mg/dL (2.5-4.5); POTASSIUM 4.3 mmol/L (3.6-5.0); SODIUM 143.5 mmol/L (137-145)
--- NOTE | 2018-04-22 06:21 | RADIOLOGY REPORT (SQ) ---
EXAM DESCRIPTION: XR CHEST 1 VIEW CLINICAL HISTORY: 47 years Male, resp failure COMPARISON: 2 days prior. NUMBER OF VIEWS/TECHNIQUE: 1/AP FINDINGS: Moderate left lower lobar opacity, normal cardiac silhouette, tip of an endotracheal tube is 6.4 cm from the brandon; consider 1.4 cm advancement of the endotracheal tube. Adequate appearing enteric tube. Suture-shrapnel at bilateral shoulders and right upper abdominal quadrant. No pneumothorax. No acute bone defect. IMPRESSION: No significant change.
[2018-04-22] MEDS: BUDESONIDE NEB 0.5 MG/2 ML AMPUL NEB SCH ×2 (09:03→21:04)
[2018-04-22] MEDS: ACETYLCYSTEINE 20% SOLN 800 MG/4 ML VIAL.NEB NEB SCH (09:05)
[2018-04-22] MEDS: TOBRAMYCIN SULFATE NEB 40 MG/ML 30 ML NEB SCH ×2 (09:05→21:04)
[2018-04-22] MEDS: FUROSEMIDE INJ/PF 20 MG/2 ML SDV IV SCH (09:07)
[2018-04-22] MEDS: SCOPOLAMINE HYDROBROMIDE 1.5 MG PATCH.TD72 TD SCH (09:07)
[2018-04-22] MEDS: PANTOPRAZOLE SODIUM 40 MG VIAL IV SCH (09:07)
[2018-04-22] MEDS: LEVETIRACETAM 1000 MG/NACL-ISO 1,000 MG/100 ML RTUPB IV SCH ×2 (09:08→21:17)
[2018-04-22] MEDS: ACETAMINOPHEN SOLN 325 MG/10.15 ML UDCUP NG PRN ×2 (09:29→13:35)
--- NOTE | 2018-04-22 11:51 | PDOC PROGRESS REPORT ---
Subjective Progress Note for:: 04/22/18 Subjective:: Remained stable on the vent. His eyes are open but he does not interact in any way. Reason For Visit: ALCOHOL WITHDRAWAL,HYPERTENSIVE URGENCY Physical Exam Vital Signs: Temp Pulse Resp BP Pulse Ox 99.9 F 100 16 134/114 H 100 04/20/18 19:38 04/22/18 09:00 04/22/18 11:19 04/22/18 11:19 04/22/18 11:19 Intake & Output 04/21/18 04/22/18 04/23/18 05:59 05:59 05:59 Intake Total 4978 1575 2121 Output Total 3600 2315 1600 Balance 1378 -740 521 Weight 192 lb 7.417 oz 190 lb 11.198 oz General appearance: PRESENT: no acute distress, other - Sedated and on the vent Eye exam: PRESENT: EOMI, nystagmus - Horizontal, PERRLA Respiratory exam: PRESENT: clear to auscultation hilda Cardiovascular exam: PRESENT: RRR GI/Abdominal exam: PRESENT: soft Neurological exam: PRESENT: other - Moving all extremities Skin exam: PRESENT: warm Results Laboratory Results: 04/22/18 04:37 04/22/18 04:37 04/22/18 04/22/18 04/22/18 04:00 04:37 04:37 WBC 9.8 RBC 4.76 Hgb 14.4 Hct 43.1 MCV 91 MCH 30.2 MCHC 33.4 RDW 14.0 Plt Count 252 Seg Neutrophils % 72.3 Lymphocytes % 14.0 Monocytes % 10.3 Eosinophils % 2.0 Basophils % 1.4 Absolute Neutrophils 7.1 Absolute Lymphocytes 1.4 Absolute Monocytes 1.0 Absolute Eosinophils 0.2 Absolute Basophils 0.1 Carbonic Acid 1.28 HCO3/H2CO3 Ratio 21:1 ABG pH 7.42 ABG pCO2 42.5 ABG pO2 76.2 L ABG HCO3 27.2 H ABG O2 Saturation 95.5 ABG Base Excess 2.4 FiO2 30% Sodium 143.5 Potassium 4.3 Chloride 106 Carbon Dioxide 26 Anion Gap 12 BUN 15 Creatinine 0.53 Est GFR ( Amer) > 60 Est GFR (Non-Af Amer) > 60 Glucose 113 H Calcium 9.5 Phosphorus 4.9 H Magnesium 2.0 AST 333 H ALT 262 H 04/12/18 04/17/1804/17/18 03:55 14:40 14:40 Creatine Kinase 316 H 95 CK-MB (CK-2) < 0.22 Troponin I < 0.012 Impressions: Head CT 04/12/18 09:51 IMPRESSION: NORMAL BRAIN CT WITHOUT CONTRAST. EVIDENCE OF ACUTE STROKE: NO. KUB X-Ray 04/17/18 00:00 IMPRESSION: Nasogastric tube tip and side port in the stomach. Chest X-Ray 04/22/18 06:00 IMPRESSION: No significant change. Assessment & Plan - Diagnosis (1) Acute respiratory failure with hypoxia Is this a current diagnosis for this admission?: Yes Plan: I suspect he aspirated on his secretions. Afebrile. Continue respiratory support. Continue empiric antibiotics to complete a 5 day course. Sputum culture grew out Klebsiella and Haemophilus. Cefepime should cover. (2) On mechanically assisted ventilation Is this a current diagnosis for this admission?: Yes Plan: Management per pulmonology (3) Encephalopathy Is this a current diagnosis for this admission?: Yes Plan: Quite persistent. He is well outside the window for alcohol withdrawal, but shows no evidence of cognition. Continue to monitor (4) On tube feeding diet Is this a current diagnosis for this admission?: Yes Plan: Tolerating without problem
[2018-04-22] MEDS ORDERED: ENOXAPARIN SODIUM INJ 40 MG/0.4 ML DISP.SYRIN SUBCUT ONE (12:00)
[2018-04-22] MEDS ORDERED: MAGNESIUM CITRATE 296 ML BOTTLE PO ONE (13:30)
[2018-04-22] MEDS: METOPROLOL TARTRATE PF/INJ 5 MG/5 ML SDV IV PRN (13:36)
[2018-04-22] MEDS: GLYCOPYRROLATE 1 MG TABLET PO SCH ×2 (13:38→17:00)
[2018-04-22] MEDS: THIAMINE HCL 100 MG, FOLIC ACID 1 MG in NORMAL SALINE 250 ML IV SCH (16:59)
[2018-04-23] MEDS: IPRATROPIUM/ALBUTEROL 0.5-2.5 MG/3 ML AMPUL NEB SCH ×4 (02:56→21:01)
[2018-04-23] MEDS: PROPOFOL 100 ML IV PRN ×2 (04:08→08:47)
[2018-04-23] MEDS: CEFEPIME 2 GM/D5W RTU 2 GM/50 ML RTUPB IV SCH ×2 (05:13→17:26)
[2018-04-23] MEDS: BUDESONIDE NEB 0.5 MG/2 ML AMPUL NEB SCH ×2 (07:55→21:01)
[2018-04-23] MEDS: TOBRAMYCIN SULFATE NEB 40 MG/ML 30 ML NEB SCH ×2 (07:55→21:00)
[2018-04-23 09:25] LABS: ABSOLUTE EOSINOPHILS # (AUTO) 0.2 10^3/uL (0.0-0.6); ABSOLUTE LYMPHOCYTES (AUTO) 1.5 10^3/uL (0.5-4.7); ABSOLUTE NEUT (AUTO) 8.6 10^3/uL (1.7-8.2); BASOPHILS % (AUTO) 0.3 % (0-2); EOSINOPHILS % (AUTO) 2.1 % (0-6); HEMATOCRIT 43.5 % (37.9-51.0); HEMOGLOBIN 14.3 g/dL (13.5-17.0); LYMPHOCYTES % (AUTO) 13.5 % (13-45); MEAN CORPUSCULAR HEMOGLOBIN 29.9 pg (27.0-33.4); MEAN CORPUSCULAR HGB CONC 32.9 g/dL (32.0-36.0); MEAN CORPUSCULAR VOLUME 91 fl (80-97); MONOCYTES % (AUTO) 9.2 % (3-13); PLATELET COUNT 268 10^3/uL (150-450); RED BLOOD COUNT 4.79 10^6/uL (4.35-5.55); SEGMENTED NEUTROPHILS % (AUTO) 74.9 % (42-78); TOTAL CELLS COUNTED % (AUTO) 100 %; WHITE BLOOD COUNT 11.4 10^3/uL (4.0-10.5)
--- NOTE | 2018-04-23 09:33 | RADIOLOGY REPORT (SQ) ---
EXAM DESCRIPTION: CHEST SINGLE VIEW COMPLETED DATE/TIME: 04/23/2018 9:13 am REASON FOR STUDY: resp failure COMPARISON: CT chest 07/12/2017 Chest films 04/20/2018, 07/12/2017 EXAM PARAMETERS: NUMBER OF VIEWS: One view. TECHNIQUE: Single frontal radiographic view of the chest acquired. RADIATION DOSE: NA LIMITATIONS: None. FINDINGS: LUNGS AND PLEURA: Partial clearing of the left retrocardiac airspace disease compared to p revious studies. No acute infiltrates. No pleural effusion. No pneumothorax. MEDIASTINUM AND HILAR STRUCTURES: No masses. Contour normal. HEART AND VASCULAR STRUCTURES: Heart normal in size. Normal vasculature. BONES: No acute findings. HARDWARE: Endotracheal tube tip 6 cm above the brandon. Nasogastric tube tip and side port in the sto mach. OTHER: No other significant finding. IMPRESSION: Partial clearing of the left retrocardiac airspace disease compared to previous study. TECHNICAL DOCUMENTATION: JOB ID: [id number] [employer]- All Rights Reserved Reading location - IP/workstation name: [email or web address]
[2018-04-23 09:49] LABS: ANION GAP 11 (5-19); BLOOD UREA NITROGEN 18 mg/dL (7-20); CALCIUM 9.7 mg/dL (8.4-10.2); CARBON DIOXIDE 27 mmol/L (22-30); CHLORIDE 105 mmol/L (98-107); GLUCOSE 97 mg/dL (75-110); PHOSPHORUS 4.6 mg/dL (2.5-4.5); POTASSIUM 4.4 mmol/L (3.6-5.0); SODIUM 142.5 mmol/L (137-145)
[2018-04-23] MEDS ORDERED: POLYETHYLENE GLYCOL 3350 POWDER 17 GM/1 PACKET NG SCH (10:00)
[2018-04-23 10:20] LABS: ARTERIAL BLOOD BASE EXCESS 4.1 mmol/L; ARTERIAL BLOOD H2CO3 1.22 mmol/L (1.05-1.35); ARTERIAL BLOOD HCO3 28.2 mmol/L (20-26); ARTERIAL BLOOD O2 SATURATION 95.7 % (94-98); ARTERIAL BLOOD PCO2 40.6 mmHg (35-45); ARTERIAL BLOOD PH 7.46 (7.35-7.45); ARTERIAL BLOOD PO2 75.1 mmHg (80-100); ARTERIAL BLOOD TOTAL CO2 29.5 mmol/L (23-27)
[2018-04-23 10:21] LABS: ARTERIAL BLOOD FIO2 30%
[2018-04-23] MEDS: LEVETIRACETAM 1000 MG/NACL-ISO 1,000 MG/100 ML RTUPB IV SCH ×2 (11:57→22:28)
[2018-04-23] MEDS: FUROSEMIDE INJ/PF 20 MG/2 ML SDV IV SCH (11:57)
[2018-04-23] MEDS: ENOXAPARIN SODIUM INJ 40 MG/0.4 ML DISP.SYRIN SUBCUT SCH (11:58)
[2018-04-23] MEDS: GLYCOPYRROLATE 1 MG TABLET PO SCH ×3 (12:13→17:25)
[2018-04-23 13:19] LABS: ARTERIAL BLOOD BASE EXCESS 3.2 mmol/L; ARTERIAL BLOOD FIO2 60%; ARTERIAL BLOOD HCO3 27.3 mmol/L (20-26); ARTERIAL BLOOD O2 SATURATION 93.6 % (94-98); ARTERIAL BLOOD PCO2 39.9 mmHg (35-45); ARTERIAL BLOOD PH 7.45 (7.35-7.45); ARTERIAL BLOOD PO2 64.7 mmHg (80-100); ARTERIAL BLOOD TOTAL CO2 28.5 mmol/L (23-27)
--- NOTE | 2018-04-23 13:53 | PDOC PROGRESS REPORT ---
Subjective Progress Note for:: 04/23/18 Subjective:: stable Reason For Visit: ALCOHOL WITHDRAWAL,HYPERTENSIVE URGENCY Physical Exam Vital Signs: Temp Pulse Resp BP Pulse Ox 98.1 F 75 16 107/74 99 04/23/18 08:00 04/23/18 08:00 04/23/18 08:00 04/23/18 08:00 04/23/18 08:00 Intake & Output 04/22/18 04/23/18 04/24/18 06:59 06:59 06:59 Intake Total 3696 3105 Output Total 2915 1810 75 Balance 781 1295 -75 Weight 86.5 kg 87.2 kg General appearance: PRESENT: no acute distress, cooperative, disheveled, well- developed, well-nourished Head exam: PRESENT: atraumatic, normocephalic Eye exam: PRESENT: conjunctiva pale, EOMI. ABSENT: nystagmus, periorbital swelling, scleral icterus Mouth exam: PRESENT: dry mucosa, neck supple, tongue midline, other - ET tube Neck exam: ABSENT: carotid bruit, JVD, lymphadenopathy, thyromegaly, tracheal deviation, tracheostomy Respiratory exam: PRESENT: decreased breath sounds, prolonged expiratory phas, rhonchi, unlabored. ABSENT: retraction, stridor, wheezes Cardiovascular exam: PRESENT: RRR, +S1, +S2 Pulses: PRESENT: normal radial pulses GI/Abdominal exam: PRESENT: normal bowel sounds, soft Extremities exam: ABSENT: calf tenderness, clubbing, joint swelling Musculoskeletal exam: ABSENT: deformity, dislocation Neurological exam: PRESENT: alert, awake Skin exam: PRESENT: dry, warm Results Laboratory Results: 04/22/18 04:37 04/22/18 04:37 04/17/18 16:00 Blood Blood Culture - Final NO GROWTH IN 5 DAYS 04/17/18 14:40 Blood Blood Culture - Final NO GROWTH IN 5 DAYS 04/12/18 04/17/18 04/17/18 03:55 14:40 14:40 Creatine Kinase 316 H 95 CK-MB (CK-2) < 0.22 Troponin I < 0.012 Impressions: Head CT 04/12/18 09:51 IMPRESSION: NORMAL BRAIN CT WITHOUT CONTRAST. EVIDENCE OF ACUTE STROKE: NO. KUB X-Ray 04/17/18 00:00 IMPRESSION: Nasogastric tube tip and side port in the stomach. Chest X-Ray 04/22/18 06:00 IMPRESSION: No significant change. Assessment & Plan - Diagnosis (1) Alcohol withdrawal seizure Qualifiers: Complication of substance-induced condition: with delirium Is this a current diagnosis for this admission?: Yes (2) History of atrial fibrillation Is this a current diagnosis for this admission?: Yes (3) Thrombocytopenia Is this a current diagnosis for this admission?: No (4) Acute respiratory failure with hypoxia Is this a current diagnosis for this admission?: Yes Plan: mucous decreased,min vol,rr,FIO2, airway pressures ok extubate
--- NOTE | 2018-04-23 14:11 | PDOC PROGRESS REPORT ---
Subjective Progress Note for:: 04/23/18 Subjective:: Seen post extubation. He had apparently been swearing at staff earlier, but had nothing to say to me. Reason For Visit: ALCOHOL WITHDRAWAL,HYPERTENSIVE URGENCY Physical Exam Vital Signs: Temp Pulse Resp BP Pulse Ox 99.5 F 101 H 25 H 156/106 H 94 04/23/18 12:00 04/23/18 12:10 04/23/18 12:25 04/23/18 12:10 04/23/18 12:25 Intake & Output 04/22/18 04/23/18 04/24/18 05:59 05:59 05:59 Intake Total 1575 5226 Output Total 2315 2410 780 Balance -740 2816 -780 Weight 192 lb 3.889 oz General appearance: PRESENT: no acute distress. ABSENT: cooperative Respiratory exam: PRESENT: clear to auscultation hilda Cardiovascular exam: PRESENT: RRR GI/Abdominal exam: PRESENT: soft Extremities exam: PRESENT: other - No edema Neurological exam: PRESENT: awake Psychiatric exam: PRESENT: flat affect, unusual affect Skin exam: PRESENT: warm Results Laboratory Results: 04/23/18 09:15 04/23/18 09:15 04/23/18 04/23/18 04/23/18 09:15 09:15 10:04 WBC 11.4 H RBC 4.79 Hgb 14.3 Hct 43.5 MCV 91 MCH 29.9 MCHC 32.9 RDW 14.0 Plt Count 268 Seg Neutrophils % 74.9 Lymphocytes % 13.5 Monocytes % 9.2 Eosinophils % 2.1 Basophils % 0.3 Absolute Neutrophils 8.6 H Absolute Lymphocytes 1.5 Absolute Monocytes 1.0 Absolute Eosinophils 0.2 Absolute Basophils 0.0 Carbonic Acid 1.22 HCO3/H2CO3 Ratio 23:1 ABG pH 7.46 H ABG pCO2 40.6 ABG pO2 75.1 L ABG HCO3 28.2 H ABG O2 Saturation 95.7 ABG Base Excess 4.1 FiO2 30% Sodium 142.5 Potassium 4.4 Chloride 105 Carbon Dioxide 27 Anion Gap 11 BUN 18 Creatinine 0.46 L Est GFR ( Amer) > 60 Est GFR (Non-Af Amer) > 60 Glucose 97 Calcium 9.7 Phosphorus 4.6 H Magnesium 2.1 04/23/18 12:55 WBC RBC Hgb Hct MCV MCH MCHC RDW Plt Count Seg Neutrophils % Lymphocytes % Monocytes % Eosinophils % Basophils % Absolute Neutrophils Absolute Lymphocytes Absolute Monocytes Absolute Eosinophils Absolute Basophils Carbonic Acid 1.20 HCO3/H2CO3 Ratio 22:1 ABG pH 7.45 ABG pCO2 39.9 ABG pO2 64.7 L ABG HCO3 27.3 H ABG O2 Saturation 93.6 L ABG Base Excess 3.2 FiO2 60% Sodium Potassium Chloride Carbon Dioxide Anion Gap BUN Creatinine Est GFR ( Amer) Est GFR (Non-Af Amer) Glucose Calcium Phosphorus Magnesium 04/17/18 16:00 Blood Blood Culture - Final NO GROWTH IN 5 DAYS 04/17/18 14:40 Blood Blood Culture - Final NO GROWTH IN 5 DAYS 04/12/18 04/17/18 04/17/18 03:55 14:40 14:40 Creatine Kinase 316 H 95 CK-MB (CK-2) < 0.22 Troponin I < 0.012 Impressions: Head CT 04/12/18 09:51 IMPRESSION: NORMAL BRAIN CT WITHOUT CONTRAST. EVIDENCE OF ACUTE STROKE: NO. KUB X-Ray 04/17/18 00:00 IMPRESSION: Nasogastric tube tip and side port in the stomach. Chest X-Ray 04/23/18 00:00 IMPRESSION: Partial clearing of the left retrocardiac airspace disease compared to previous study. Assessment & Plan - Diagnosis (1) Acute respiratory failure with hypoxia Is this a current diagnosis for this admission?: Yes Plan: Extubated. Continue to monitor closely. Wean oxygen as tolerated. (2) Encephalopathy Is this a current diagnosis for this admission?: Yes Plan: Quite persistent. He is well outside the window for alcohol withdrawal, but swearing at nurses is, and an odd way, a good sign. Continue to monitor
[2018-04-23] MEDS: POTASSI CL 20 MEQ/D5-1/2NS 1L 1,000 ML IV PRN (14:14)
[2018-04-23] MEDS: THIAMINE HCL 100 MG, FOLIC ACID 1 MG in NORMAL SALINE 250 ML IV SCH (17:27)
[2018-04-23] MEDS ORDERED: OLANZAPINE 5 MG TABLET NG ONE (18:30)
[2018-04-24] MEDS: IPRATROPIUM/ALBUTEROL 0.5-2.5 MG/3 ML AMPUL NEB SCH ×2 (02:18→07:54)
[2018-04-24] MEDS: CEFEPIME 2 GM/D5W RTU 2 GM/50 ML RTUPB IV SCH (04:13)
[2018-04-24 04:33] LABS: ABSOLUTE BASOPHILS # (AUTO) 0.1 10^3/uL (0.0-0.2); ABSOLUTE EOSINOPHILS # (AUTO) 0.2 10^3/uL (0.0-0.6); ABSOLUTE LYMPHOCYTES (AUTO) 1.5 10^3/uL (0.5-4.7); ABSOLUTE MONOCYTES (AUTO) 1.1 10^3/uL (0.1-1.4); ABSOLUTE NEUT (AUTO) 10.8 10^3/uL (1.7-8.2); BASOPHILS % (AUTO) 0.5 % (0-2); EOSINOPHILS % (AUTO) 1.8 % (0-6); HEMATOCRIT 42.3 % (37.9-51.0); HEMOGLOBIN 14.1 g/dL (13.5-17.0); LYMPHOCYTES % (AUTO) 10.9 % (13-45); MEAN CORPUSCULAR HEMOGLOBIN 30.1 pg (27.0-33.4); MEAN CORPUSCULAR HGB CONC 33.4 g/dL (32.0-36.0); MEAN CORPUSCULAR VOLUME 90 fl (80-97); MONOCYTES % (AUTO) 7.7 % (3-13); PLATELET COUNT 246 10^3/uL (150-450); RED BLOOD COUNT 4.69 10^6/uL (4.35-5.55); RED CELL DISTRIBUTION WIDTH 13.8 % (11.5-14.0); SEGMENTED NEUTROPHILS % (AUTO) 79.1 % (42-78); TOTAL CELLS COUNTED % (AUTO) 100 %; WHITE BLOOD COUNT 13.7 10^3/uL (4.0-10.5)
[2018-04-24 04:57] LABS: ANION GAP 14 (5-19); BLOOD UREA NITROGEN 17 mg/dL (7-20); CALCIUM 9.8 mg/dL (8.4-10.2); CARBON DIOXIDE 25 mmol/L (22-30); CHLORIDE 106 mmol/L (98-107); GLUCOSE 97 mg/dL (75-110); POTASSIUM 4.2 mmol/L (3.6-5.0)
[2018-04-24] MEDS ORDERED: OLANZAPINE 2.5 MG TABLET NG SCH (06:00)
--- NOTE | 2018-04-24 06:12 | RADIOLOGY REPORT (SQ) ---
EXAM DESCRIPTION: Single view of the chest CLINICAL HISTORY: resp failure COMPARISON: 04/23/2018 FINDINGS: Single frontal view of the chest. NG tube with tip below the diaphragm. Cardiomediastinal silhouette is stable. Leads overlie the chest. No pneumothorax or pleural effusion. No definite airspace disease identified. No displaced rib fractures identified. Upper abdominal soft tissues are unremarkable. IMPRESSION: 1. Improved aeration the left lung base. No definite airspace disease identified.
[2018-04-24 06:18] LABS: ARTERIAL BLOOD BASE EXCESS 1.5 mmol/L; ARTERIAL BLOOD FIO2 30%; ARTERIAL BLOOD H2CO3 1.26 mmol/L (1.05-1.35); ARTERIAL BLOOD HCO3 26.2 mmol/L (20-26); ARTERIAL BLOOD O2 SATURATION 97.5 % (94-98); ARTERIAL BLOOD PCO2 41.7 mmHg (35-45); ARTERIAL BLOOD PH 7.42 (7.35-7.45); ARTERIAL BLOOD PO2 97.8 mmHg (80-100); ARTERIAL BLOOD TOTAL CO2 27.5 mmol/L (23-27)
[2018-04-24] MEDS: POTASSI CL 20 MEQ/D5-1/2NS 1L 1,000 ML IV PRN (07:26)
[2018-04-24] MEDS: BUDESONIDE NEB 0.5 MG/2 ML AMPUL NEB SCH ×2 (07:54→19:51)
[2018-04-24] MEDS: TOBRAMYCIN SULFATE NEB 40 MG/ML 30 ML NEB SCH (07:55)
[2018-04-24] MEDS: GLYCOPYRROLATE 1 MG TABLET PO SCH (10:43)
[2018-04-24] MEDS: FUROSEMIDE INJ/PF 20 MG/2 ML SDV IV SCH (10:43)
[2018-04-24] MEDS: LEVETIRACETAM 1000 MG/NACL-ISO 1,000 MG/100 ML RTUPB IV SCH (10:44)
[2018-04-24] MEDS: ENOXAPARIN SODIUM INJ 40 MG/0.4 ML DISP.SYRIN SUBCUT SCH (10:55)
[2018-04-24] MEDS ORDERED: OLANZAPINE 2.5 MG TABLET PO ONE (14:00)
[2018-04-24] MEDS: ACETAMINOPHEN 325 MG TABLET PO PRN (14:14)
--- NOTE | 2018-04-24 14:43 | PDOC PROGRESS REPORT ---
Subjective Progress Note for:: 04/24/18 Subjective:: Mood and language which wax and wane from hostile to congenial Reason For Visit: ALCOHOL WITHDRAWAL,HYPERTENSIVE URGENCY Physical Exam Vital Signs: Temp Pulse Resp BP Pulse Ox 99.3 F 103 H 25 H 141/22 H 95 04/24/18 10:00 04/24/18 10:00 04/24/18 10:00 04/24/18 10:00 04/24/18 10:00 Intake & Output 04/23/18 04/24/18 04/25/18 06:59 06:59 06:59 Intake Total 3105 1683 Output Total 1810 1855 250 Balance 1295 -172 -250 Weight 87.2 kg 84.3 kg General appearance: PRESENT: no acute distress, cooperative, disheveled Head exam: PRESENT: atraumatic, normocephalic Eye exam: PRESENT: conjunctiva pale, EOMI, PERRLA. ABSENT: nystagmus, periorbital swelling, scleral icterus Mouth exam: PRESENT: dry mucosa, neck supple, tongue midline Neck exam: ABSENT: carotid bruit, JVD, lymphadenopathy, thyromegaly, tracheal deviation, tracheostomy Respiratory exam: PRESENT: decreased breath sounds, prolonged expiratory phas, rhonchi, unlabored. ABSENT: rales, retraction, stridor, tachypnea Cardiovascular exam: PRESENT: RRR, +S1, +S2, tachycardia Pulses: PRESENT: normal radial pulses GI/Abdominal exam: PRESENT: normal bowel sounds, soft Extremities exam: PRESENT: full ROM. ABSENT: calf tenderness, clubbing Musculoskeletal exam: PRESENT: full ROM. ABSENT: ambulatory, deformity, dislocation Neurological exam: PRESENT: awake, oriented to person, oriented to place. ABSENT: oriented to time, oriented to situation Psychiatric exam: PRESENT: agitated, flat affect Focused psych exam: PRESENT: restlessness Skin exam: PRESENT: dry, warm Results Laboratory Results: 04/24/18 04:15 04/24/18 04:15 04/23/18 04/24/18 04/24/18 12:55 04:15 04:15 WBC 13.7 H RBC 4.69 Hgb 14.1 Hct 42.3 MCV 90 MCH 30.1 MCHC 33.4 RDW 13.8 Plt Count 246 Seg Neutrophils % 79.1 H Lymphocytes % 10.9 L Monocytes % 7.7 Eosinophils % 1.8 Basophils % 0.5 Absolute Neutrophils 10.8 H Absolute Lymphocytes 1.5 Absolute Monocytes 1.1 Absolute Eosinophils 0.2 Absolute Basophils 0.1 Carbonic Acid 1.20 HCO3/H2CO3 Ratio 22:1 ABG pH 7.45 ABG pCO2 39.9 ABG pO2 64.7 L ABG HCO3 27.3 H ABG O2 Saturation 93.6 L ABG Base Excess 3.2 FiO2 60% Sodium 145.0 Potassium 4.2 Chloride 106 Carbon Dioxide 25 Anion Gap 14 BUN 17 Creatinine 0.42 L Est GFR ( Amer) > 60 Est GFR (Non-Af Amer) > 60 Glucose 97 Calcium 9.8 Magnesium 2.0 04/24/18 06:00 WBC RBC Hgb Hct MCV MCH MCHC RDW Plt Count Seg Neutrophils % Lymphocytes % Monocytes % Eosinophils % Basophils % Absolute Neutrophils Absolute Lymphocytes Absolute Monocytes Absolute Eosinophils Absolute Basophils Carbonic Acid 1.26 HCO3/H2CO3 Ratio 20:1 ABG pH 7.42 ABG pCO2 41.7 ABG pO2 97.8 ABG HCO3 26.2 H ABG O2 Saturation 97.5 ABG Base Excess 1.5 FiO2 30% Sodium Potassium Chloride Carbon Dioxide Anion Gap BUN Creatinine Est GFR ( Amer) Est GFR (Non-Af Amer) Glucose Calcium Magnesium 04/12/18 04/17/18 04/17/18 03:55 14:40 14:40 Creatine Kinase 316 H 95 CK-MB (CK-2) < 0.22 Troponin I < 0.012 Impressions: Head CT 04/12/18 09:51 IMPRESSION: NORMAL BRAIN CT WITHOUT CONTRAST. EVIDENCE OF ACUTE STROKE: NO. KUB X-Ray 04/17/18 00:00 IMPRESSION: Nasogastric tube tip and side port in the stomach. Chest X-Ray 04/24/18 06:00 IMPRESSION: 1. Improved aeration the left lung base. No definite airspace disease identified. Assessment & Plan - Diagnosis (1) Alcohol withdrawal seizure Qualifiers: Complication of substance-induced condition: with delirium Is this a current diagnosis for this admission?: Yes Plan: No seizures noted well be on last alcohol intake or. Associated with delirium tremors (2) History of atrial fibrillation Is this a current diagnosis for this admission?: Yes (3) Thrombocytopenia Is this a current diagnosis for this admission?: No (4) Acute respiratory failure with hypoxia Is this a current diagnosis for this admission?: Yes
[2018-04-24] MEDS: OLANZAPINE 2.5 MG TABLET PO SCH (17:15)
--- NOTE | 2018-04-24 19:32 | PDOC PROGRESS REPORT ---
Subjective Progress Note for:: 04/24/18 Subjective:: Awake, nursing staff reports this is roughly his baseline. No focal complaints. Reason For Visit: ALCOHOL WITHDRAWAL,HYPERTENSIVE URGENCY Physical Exam Vital Signs: Temp Pulse Resp BP Pulse Ox 100.0 F 110 H 25 H 140/95 H 95 04/24/18 12:00 04/24/18 12:00 04/24/18 15:00 04/24/18 13:20 04/24/18 13:20 Intake & Output 04/23/18 04/24/18 04/25/18 05:59 05:59 05:59 Intake Total 5226 891 792 Output Total 2410 1855 1780 Balance 0806 -964 -988 Weight 192 lb 3.889 oz 185 lb 13.595 oz General appearance: PRESENT: no acute distress Respiratory exam: PRESENT: clear to auscultation hilda Cardiovascular exam: PRESENT: RRR GI/Abdominal exam: PRESENT: soft Extremities exam: PRESENT: other - No edema Musculoskeletal exam: PRESENT: normal inspection Neurological exam: PRESENT: awake, oriented to person. ABSENT: oriented to place, oriented to time, oriented to situation Psychiatric exam: PRESENT: other - Labile affect Skin exam: PRESENT: warm Results Laboratory Results: 04/24/18 04:15 04/24/18 04:15 04/24/18 04/24/18 04/24/18 04:15 04:15 06:00 WBC 13.7 H RBC 4.69 Hgb 14.1 Hct 42.3 MCV 90 MCH 30.1 MCHC 33.4 RDW 13.8 Plt Count 246 Seg Neutrophils % 79.1 H Lymphocytes % 10.9 L Monocytes % 7.7 Eosinophils % 1.8 Basophils % 0.5 Absolute Neutrophils 10.8 H Absolute Lymphocytes 1.5 Absolute Monocytes 1.1 Absolute Eosinophils 0.2 Absolute Basophils 0.1 Carbonic Acid 1.26 HCO3/H2CO3 Ratio 20:1 ABG pH 7.42 ABG pCO2 41.7 ABG pO2 97.8 ABG HCO3 26.2 H ABG O2 Saturation 97.5 ABG Base Excess 1.5 FiO2 30% Sodium 145.0 Potassium 4.2 Chloride 106 Carbon Dioxide 25 Anion Gap 14 BUN 17 Creatinine 0.42 L Est GFR ( Amer) > 60 Est GFR (Non-Af Amer) > 60 Glucose 97 Calcium 9.8 Magnesium 2.0 04/12/18 04/17/18 04/17/18 03:55 14:40 14:40 Creatine Kinase 316 H 95 CK-MB (CK-2) < 0.22 Troponin I < 0.012 Impressions: Head CT 04/12/18 09:51 IMPRESSION: NORMAL BRAIN CT WITHOUT CONTRAST. EVIDENCE OF ACUTE STROKE: NO. KUB X-Ray 04/17/18 00:00 IMPRESSION: Nasogastric tube tip and side port in the stomach. Chest X-Ray 04/24/18 06:00 IMPRESSION: 1. Improved aeration the left lung base. No definite airspace disease identified. Assessment & Plan - Diagnosis (1) Acute respiratory failure with hypoxia Is this a current diagnosis for this admission?: Yes Plan: Transfer him to the floor. Wean oxygen as tolerated. 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 Certainly has obviously quite clouded sensorium. Time will tell how much of this clears. (3) Physical deconditioning Is this a current diagnosis for this admission?: Yes Plan: Rehab.
[2018-04-24] MEDS: METOPROLOL TARTRATE 25 MG TABLET PO SCH (21:16)
[2018-04-24] MEDS: LEVETIRACETAM 500 MG TABLET PO SCH (21:16)
[2018-04-25 05:08] LABS: ABSOLUTE BASOPHILS # (AUTO) 0.1 10^3/uL (0.0-0.2); ABSOLUTE EOSINOPHILS # (AUTO) 0.2 10^3/uL (0.0-0.6); ABSOLUTE LYMPHOCYTES (AUTO) 1.6 10^3/uL (0.5-4.7); ABSOLUTE NEUT (AUTO) 10.2 10^3/uL (1.7-8.2); BASOPHILS % (AUTO) 0.8 % (0-2); EOSINOPHILS % (AUTO) 1.8 % (0-6); HEMATOCRIT 43.8 % (37.9-51.0); HEMOGLOBIN 14.9 g/dL (13.5-17.0); MEAN CORPUSCULAR HEMOGLOBIN 30.2 pg (27.0-33.4); MEAN CORPUSCULAR VOLUME 89 fl (80-97); MONOCYTES % (AUTO) 7.6 % (3-13); PLATELET COUNT 290 10^3/uL (150-450); RED BLOOD COUNT 4.93 10^6/uL (4.35-5.55); RED CELL DISTRIBUTION WIDTH 13.8 % (11.5-14.0); SEGMENTED NEUTROPHILS % (AUTO) 77.8 % (42-78); TOTAL CELLS COUNTED % (AUTO) 100 %; WHITE BLOOD COUNT 13.1 10^3/uL (4.0-10.5)
[2018-04-25 05:36] LABS: ANION GAP 16 (5-19); BLOOD UREA NITROGEN 14 mg/dL (7-20); CARBON DIOXIDE 25 mmol/L (22-30); CHLORIDE 104 mmol/L (98-107); GLUCOSE 89 mg/dL (75-110); PHOSPHORUS 4.3 mg/dL (2.5-4.5); SODIUM 144.9 mmol/L (137-145)
[2018-04-25] MEDS: OLANZAPINE 2.5 MG TABLET PO SCH ×2 (05:39→21:26)
[2018-04-25] MEDS: BUDESONIDE NEB 0.5 MG/2 ML AMPUL NEB SCH ×2 (09:03→20:08)
[2018-04-25] MEDS ORDERED: IBUPROFEN 400 MG TABLET PO PRN (09:06)
[2018-04-25] MEDS: LEVETIRACETAM 500 MG TABLET PO SCH ×2 (09:54→21:27)
[2018-04-25] MEDS: METOPROLOL TARTRATE 25 MG TABLET PO SCH ×2 (09:54→21:27)
[2018-04-25] MEDS: THIAMINE HCL 100 MG TABLET PO SCH (09:56)
[2018-04-25] MEDS: POLYETHYLENE GLYCOL 3350 POWDER 17 GM/1 PACKET PO SCH (09:56)
[2018-04-25] MEDS: ENOXAPARIN SODIUM INJ 40 MG/0.4 ML DISP.SYRIN SUBCUT SCH (09:58)
--- NOTE | 2018-04-25 10:21 | PDOC PROGRESS REPORT ---
Subjective Progress Note for:: 04/25/18 Subjective:: Mood and language which wax and wane from hostile to congenial UNCHANGED Reason For Visit: ALCOHOL WITHDRAWAL,HYPERTENSIVE URGENCY Physical Exam Vital Signs: Temp Pulse Resp BP Pulse Ox 98.5 F 106 H 20 138/92 H 95 04/25/18 07:18 04/25/18 09:03 04/25/18 09:03 04/25/18 07:18 04/25/18 09:03 Intake & Output 04/24/18 04/25/18 04/26/18 06:59 06:59 06:59 Intake Total 1683 20 Output Total 1855 2680 Balance -172 -2660 Weight 84.3 kg 89.9 kg General appearance: PRESENT: no acute distress, disheveled Head exam: PRESENT: atraumatic, normocephalic Eye exam: PRESENT: conjunctiva pale, EOMI, PERRLA. ABSENT: nystagmus, periorbital swelling, scleral icterus Mouth exam: PRESENT: dry mucosa, neck supple, tongue midline Neck exam: ABSENT: carotid bruit, JVD, lymphadenopathy, thyromegaly, tracheal deviation, tracheostomy Respiratory exam: PRESENT: rhonchi, unlabored. ABSENT: decreased breath sounds , prolonged expiratory phas Cardiovascular exam: PRESENT: irregular rhythm, +S1, +S2 Pulses: PRESENT: normal radial pulses GI/Abdominal exam: PRESENT: normal bowel sounds, soft Extremities exam: PRESENT: full ROM. ABSENT: calf tenderness, clubbing, joint swelling Musculoskeletal exam: PRESENT: full ROM. ABSENT: deformity, dislocation Neurological exam: PRESENT: awake, oriented to person, oriented to place, oriented to time, oriented to situation Psychiatric exam: PRESENT: flat affect Skin exam: PRESENT: dry, warm Results Laboratory Results: 04/25/18 04:17 04/25/18 04:17 04/25/18 04/25/18 04:17 04:17 WBC 13.1 H RBC 4.93 Hgb 14.9 Hct 43.8 MCV 89 MCH 30.2 MCHC 34.0 RDW 13.8 Plt Count 290 Seg Neutrophils % 77.8 Lymphocytes % 12.0 L Monocytes % 7.6 Eosinophils % 1.8 Basophils % 0.8 Absolute Neutrophils 10.2 H Absolute Lymphocytes 1.6 Absolute Monocytes 1.0 Absolute Eosinophils 0.2 Absolute Basophils 0.1 Sodium 144.9 Potassium 4.0 Chloride 104 Carbon Dioxide 25 Anion Gap 16 BUN 14 Creatinine 0.44 L Est GFR ( Amer) > 60 Est GFR (Non-Af Amer) > 60 Glucose 89 Calcium 10.0 Phosphorus 4.3 Magnesium 2.0 Albumin 4.0 04/12/18 04/17/18 04/17/18 03:55 14:40 14:40 Creatine Kinase 316 H 95 CK-MB (CK-2) < 0.22 Troponin I < 0.012 NT-Pro-B Natriuret Pep 04/25/18 04:17 Creatine Kinase CK-MB (CK-2) Troponin I NT-Pro-B Natriuret Pep 91 Impressions: Head CT 04/12/18 09:51 IMPRESSION: NORMAL BRAIN CT WITHOUT CONTRAST. EVIDENCE OF ACUTE STROKE: NO. KUB X-Ray 04/17/18 00:00 IMPRESSION: Nasogastric tube tip and side port in the stomach. Chest X-Ray 04/24/18 06:00 IMPRESSION: 1. Improved aeration the left lung base. No definite airspace disease identified. Assessment & Plan - Diagnosis (1) Alcohol withdrawal seizure Qualifiers: Complication of substance-induced condition: with delirium Is this a current diagnosis for this admission?: No (2) History of atrial fibrillation Is this a current diagnosis for this admission?: Yes Plan: Currently normal sinus rhythm-sinus tachycardia (3) Thrombocytopenia Is this a current diagnosis for this admission?: No (4) Acute respiratory failure with hypoxia Is this a current diagnosis for this admission?: Yes Plan: DOING WELL (5) Altered mental state Qualifiers: Altered mental status type: unspecified Qualified Code(s): R41.82 - Altered mental status, unspecified Is this a current diagnosis for this admission?: Yes Plan: UNCHANGED
--- NOTE | 2018-04-25 10:42 | PDOC PROGRESS REPORT ---
Subjective Progress Note for:: 04/25/18 Subjective:: Complaining of left hip pain. Remains confused. Thinks today is [place]. Reportedly has been less agitated. No other complaints. Denies fevers, chills, CP, SOB, abdominal pain, NV. Reason For Visit: ALCOHOL WITHDRAWAL,HYPERTENSIVE URGENCY Physical Exam Vital Signs: Temp Pulse Resp BP Pulse Ox 98.5 F 106 H 20 138/92 H 95 04/25/18 07:18 04/25/18 09:03 04/25/18 09:03 04/25/18 07:18 04/25/18 09:03 Intake & Output 04/24/18 04/25/18 04/26/18 06:59 06:59 06:59 Intake Total 1683 20 Output Total 1855 2680 Balance -172 -2660 Weight 84.3 kg 89.9 kg General appearance: PRESENT: no acute distress, well-developed, well-nourished Head exam: PRESENT: normocephalic Mouth exam: PRESENT: moist Respiratory exam: PRESENT: clear to auscultation hilda. ABSENT: unlabored Cardiovascular exam: PRESENT: RRR GI/Abdominal exam: PRESENT: soft. ABSENT: tenderness Neurological exam: PRESENT: awake. ABSENT: oriented to person, oriented to place, oriented to time Results Laboratory Results: 04/25/18 04:17 04/25/18 04:17 04/25/18 04/25/18 04:17 04:17 WBC 13.1 H RBC 4.93 Hgb 14.9 Hct 43.8 MCV 89 MCH 30.2 MCHC 34.0 RDW 13.8 Plt Count 290 Seg Neutrophils % 77.8 Lymphocytes % 12.0 L Monocytes % 7.6 Eosinophils % 1.8 Basophils % 0.8 Absolute Neutrophils 10.2 H Absolute Lymphocytes 1.6 Absolute Monocytes 1.0 Absolute Eosinophils 0.2 Absolute Basophils 0.1 Sodium 144.9 Potassium 4.0 Chloride 104 Carbon Dioxide 25 Anion Gap 16 BUN 14 Creatinine 0.44 L Est GFR ( Amer) > 60 Est GFR (Non-Af Amer) > 60 Glucose 89 Calcium 10.0 Phosphorus 4.3 Magnesium 2.0 Albumin 4.0 04/12/18 04/17/18 04/17/18 03:55 14:40 14:40 Creatine Kinase 316 H 95 CK-MB (CK-2) < 0.22 Troponin I < 0.012 NT-Pro-B Natriuret Pep 04/25/18 04:17 Creatine Kinase CK-MB (CK-2) Troponin I NT-Pro-B Natriuret Pep 91 Impressions: Head CT 04/12/18 09:51 IMPRESSION: NORMAL BRAIN CT WITHOUT CONTRAST. EVIDENCE OF ACUTE STROKE: NO. KUB X-Ray 04/17/18 00:00 IMPRESSION: Nasogastric tube tip and side port in the stomach. Chest X-Ray 04/24/18 06:00 IMPRESSION: 1. Improved aeration the left lung base. No definite airspace disease identified. Assessment & Plan - Diagnosis (1) Acute respiratory failure with hypoxia Is this a current diagnosis for this admission?: Yes Plan: Improved. Seen with pulmonology today. Off supplemental O2. Breathing stable. (2) Encephalopathy Is this a current diagnosis for this admission?: Yes Plan: Likely chronic process. Given history of heavy EtOH use, suspect Wernickes. Continue Thiamine 100mg PO daily (3) Alcohol use disorder Is this a current diagnosis for this admission?: Yes Plan: Persistent use. (4) Physical deconditioning Is this a current diagnosis for this admission?: Yes Plan: Will consult physical therapy. Appreciate eval and placement recommendations. - Time Time Spent with patient: Less than 15 minutes Within: within 24 hours, within 48 hours
--- NOTE | 2018-04-25 15:19 | PSYCHOLOGICAL NOTE ---
Psych Note - Psych Note Psych Note: Reason for Consult: abnormal,volatile mental status PRAMOD PRECIADO is a 47 year old male brought to the ED after 2 witnessed generalized tonic-clonic seizures witnessed by EMS Upon evaluation by ED physician patient is postictal and further history not available. Review of prior records shows that patient has a history of chronic alcoholism, seizure disorder, uncontrolled hypertension and had multiple admissions in this institution. When evaluated patient is unable to answer questions appropriately , lethargic and cold withdrawal tremulous. He is arousable establishing eye contact was fine tremors of the lower extremities. Patient was able to identify his birthdate as [birth year]; however, when asked with the "10 meant" patient was unable to identify stating "year." Patient identifies his current location as a trailer thinking that he is at his brother' s trailer. When patient was asked to current year he stated "1956...50," clinician identified patients year is prior to his year at which point the patient stated "I took a little trip." Chart review conducted: Clinician notes patient was intubated on 04/11/2018 until the at 10 AM at which time patient was extubated. However patient needs to be reintubated at 12 noon on the and was not extubated until the . Medication recommendations per [facility]'s contracted psychitrist Dr. Sera MD are as follows: 1. Please increase Zyprexa to 5 mg twice daily for psychosis and mood stabilization 2. Please add Cogentin 1 mg daily for prevention of possible side effects of Zyprexa 3. 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 Patient does not meet IVC criteria per [place] GS 122C. Medication recommendations have been provided. At this time, it appears patient is still having difficulty with orientation. It is noted patient was intubated from the until the of this month (this the exception of 2 hours on the ). Please reconsult for any new concerns. Dr. Cash was consulted and the care management this patient.
[2018-04-25] MEDS ORDERED: HALOPERIDOL LACTATE INJ 5 MG/1 ML VIAL IV ONE (15:45)
[2018-04-25] MEDS ORDERED: CHLORPROMAZINE HCL 50 MG TABLET PO PRN (18:30)
[2018-04-25] MEDS: IPRATROPIUM/ALBUTEROL 0.5-2.5 MG/3 ML AMPUL NEB PRN (20:07)
[2018-04-25] MEDS: BENZTROPINE MESYLATE 1 MG TABLET PO SCH (21:27)
[2018-04-26] MEDS: OLANZAPINE 2.5 MG TABLET PO SCH ×2 (06:48→18:30)
[2018-04-26] MEDS: BUDESONIDE NEB 0.5 MG/2 ML AMPUL NEB SCH ×2 (08:33→20:24)
[2018-04-26] MEDS: IPRATROPIUM/ALBUTEROL 0.5-2.5 MG/3 ML AMPUL NEB PRN ×2 (08:33→20:24)
[2018-04-26] MEDS: METOPROLOL TARTRATE 25 MG TABLET PO SCH ×2 (08:57→22:52)
[2018-04-26] MEDS: THIAMINE HCL 100 MG TABLET PO SCH (08:57)
[2018-04-26] MEDS: LEVETIRACETAM 500 MG TABLET PO SCH ×2 (08:58→22:52)
[2018-04-26] MEDS: ENOXAPARIN SODIUM INJ 40 MG/0.4 ML DISP.SYRIN SUBCUT SCH (08:58)
[2018-04-26] MEDS: POLYETHYLENE GLYCOL 3350 POWDER 17 GM/1 PACKET PO SCH (08:58)
[2018-04-26] MEDS: SCOPOLAMINE HYDROBROMIDE 1.5 MG PATCH.TD72 TD SCH (14:37)
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
[2018-04-26] MEDS: BENZTROPINE MESYLATE 1 MG TABLET PO SCH (22:51)
[2018-04-27] MEDS ORDERED: HALOPERIDOL LACTATE INJ 5 MG/1 ML VIAL ONE (05:11)
[2018-04-27] MEDS ORDERED: HALOPERIDOL LACTATE INJ 5 MG/1 ML VIAL IM ONE (05:15)
[2018-04-27] MEDS: OLANZAPINE 2.5 MG TABLET PO SCH (05:17)
[2018-04-27] MEDS: IPRATROPIUM/ALBUTEROL 0.5-2.5 MG/3 ML AMPUL NEB PRN ×3 (07:56→23:49)
[2018-04-27] MEDS: BUDESONIDE NEB 0.5 MG/2 ML AMPUL NEB SCH ×2 (07:56→19:59)
[2018-04-27] MEDS ORDERED: SCOPOLAMINE HYDROBROMIDE 1.5 MG PATCH.TD72 TD SCH (10:00)
[2018-04-27] MEDS: LEVETIRACETAM 500 MG TABLET PO SCH ×2 (10:22→22:50)
[2018-04-27] MEDS: METOPROLOL TARTRATE 25 MG TABLET PO SCH ×2 (10:22→22:50)
[2018-04-27] MEDS: THIAMINE HCL 100 MG TABLET PO SCH (10:22)
[2018-04-27] MEDS: ENOXAPARIN SODIUM INJ 40 MG/0.4 ML DISP.SYRIN SUBCUT SCH (10:22)
[2018-04-27] MEDS: POLYETHYLENE GLYCOL 3350 POWDER 17 GM/1 PACKET PO SCH (10:22)
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
[2018-04-27] MEDS ORDERED: HALOPERIDOL LACTATE INJ 5 MG/1 ML VIAL IM PRN (17:02)
[2018-04-27] MEDS ORDERED: OLANZAPINE INJ/PF 10 MG SDV IM PRN (17:05)
[2018-04-27] MEDS ORDERED: OLANZAPINE INJ/PF 10 MG SDV IM ONE (19:55)
[2018-04-27] MEDS: BENZTROPINE MESYLATE 1 MG TABLET PO SCH (22:50)
[2018-04-27] MEDS ORDERED: LEVETIRACETAM INJ/PF 500 MG/5 ML SDV IV ONE (23:07)
[2018-04-27] MEDS ORDERED: HALOPERIDOL LACTATE INJ 5 MG/1 ML VIAL IV ONE (23:15)
[2018-04-27] MEDS ORDERED: LEVETIRACETAM 1000 MG/NACL-ISO 1,000 MG/100 ML RTUPB IV ONE (23:15)
[2018-04-28 07:32] LABS: ALANINE AMINOTRANSFERASE 216 U/L (21-72); ALBUMIN 3.6 g/dL (3.5-5.0); ALKALINE PHOSPHATASE 111 U/L (38-126); ANION GAP 12 (5-19); ASPARTATE AMINO TRANSFERASE 191 U/L (17-59); BILIRUBIN,DIRECT 0.6 mg/dL (0.0-0.4); BILIRUBIN,TOTAL 1.2 mg/dL (0.2-1.3); BLOOD UREA NITROGEN 14 mg/dL (7-20); CALCIUM 9.7 mg/dL (8.4-10.2); CARBON DIOXIDE 24 mmol/L (22-30); CHLORIDE 103 mmol/L (98-107); GLUCOSE 91 mg/dL (75-110); PHOSPHORUS 4.9 mg/dL (2.5-4.5); POTASSIUM 4.2 mmol/L (3.6-5.0); TOTAL PROTEIN 7.4 g/dL (6.3-8.2)
[2018-04-28] MEDS: IPRATROPIUM/ALBUTEROL 0.5-2.5 MG/3 ML AMPUL NEB PRN ×2 (08:20→18:22)
[2018-04-28] MEDS: BUDESONIDE NEB 0.5 MG/2 ML AMPUL NEB SCH ×2 (08:20→19:54)
[2018-04-28] MEDS: THIAMINE HCL 100 MG TABLET PO SCH (10:50)
[2018-04-28] MEDS: ENOXAPARIN SODIUM INJ 40 MG/0.4 ML DISP.SYRIN SUBCUT SCH (10:50)
[2018-04-28] MEDS: METOPROLOL TARTRATE 25 MG TABLET PO SCH ×2 (10:50→21:14)
[2018-04-28] MEDS: POLYETHYLENE GLYCOL 3350 POWDER 17 GM/1 PACKET PO SCH (11:00)
[2018-04-28] MEDS: LEVETIRACETAM 1000 MG/NACL-ISO 1,000 MG/100 ML RTUPB IV SCH ×2 (11:06→21:08)
[2018-04-28] MEDS ORDERED: OLANZAPINE INJ/PF 10 MG SDV IM ONE (12:00)
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
[2018-04-28] MEDS ORDERED: KETOROLAC TROMETHAMINE INJ/PF 30 MG/1 ML SDV IV ONE (21:00)
[2018-04-28] MEDS: OLANZAPINE INJ/PF 10 MG SDV IM SCH (21:14)
[2018-04-28] MEDS: BENZTROPINE MESYLATE 1 MG TABLET PO SCH (21:14)
[2018-04-28] MEDS ORDERED: HALOPERIDOL LACTATE INJ 5 MG/1 ML VIAL ONE (22:57)
[2018-04-28] MEDS ORDERED: HALOPERIDOL LACTATE INJ 5 MG/1 ML VIAL IV ONE (23:00)
[2018-04-29] MEDS: BUDESONIDE NEB 0.5 MG/2 ML AMPUL NEB SCH ×2 (08:13→19:48)
[2018-04-29] MEDS: LEVETIRACETAM 1000 MG/NACL-ISO 1,000 MG/100 ML RTUPB IV SCH ×2 (09:39→22:55)
[2018-04-29] MEDS: OLANZAPINE INJ/PF 10 MG SDV IM SCH ×2 (09:42→22:57)
[2018-04-29] MEDS: ENOXAPARIN SODIUM INJ 40 MG/0.4 ML DISP.SYRIN SUBCUT SCH (09:45)
[2018-04-29] MEDS: POLYETHYLENE GLYCOL 3350 POWDER 17 GM/1 PACKET PO SCH (09:55)
[2018-04-29] MEDS: THIAMINE HCL 100 MG TABLET PO SCH (09:55)
[2018-04-29] MEDS: METOPROLOL TARTRATE 25 MG TABLET PO SCH ×2 (09:55→22:56)
[2018-04-29] MEDS: ACETAMINOPHEN 325 MG TABLET PO PRN ×2 (11:25→18:08)
--- NOTE | 2018-04-29 12:04 | PDOC PROGRESS REPORT ---
Subjective Progress Note for:: 04/26/18 Subjective:: Mood and language which wax and wane from hostile to congenial UNCHANGED Reason For Visit: ALCOHOL WITHDRAWAL,HYPERTENSIVE URGENCY Physical Exam Vital Signs: Temp Pulse Resp BP Pulse Ox 99.2 F 101 H 18 126/97 H 99 04/26/18 11:14 04/26/18 11:14 04/26/18 11:14 04/26/18 11:14 04/26/18 11:14 Intake & Output 04/25/18 04/26/18 04/27/18 06:59 06:59 06:59 Intake Total 20 500 354 Output Total 2680 900 200 Balance -2660 -400 154 Weight 89.9 kg 86.8 kg General appearance: PRESENT: no acute distress, cooperative, disheveled, well- developed, well-nourished Head exam: PRESENT: atraumatic, normocephalic Eye exam: PRESENT: conjunctiva pale, EOMI. ABSENT: nystagmus, periorbital swelling Mouth exam: PRESENT: dry mucosa, neck supple, tongue midline Neck exam: ABSENT: carotid bruit, JVD, lymphadenopathy, thyromegaly, tracheal deviation, tracheostomy Respiratory exam: PRESENT: decreased breath sounds, prolonged expiratory phas, rhonchi, unlabored. ABSENT: rales, retraction, stridor Cardiovascular exam: PRESENT: RRR, +S1, +S2 Pulses: PRESENT: normal radial pulses GI/Abdominal exam: PRESENT: normal bowel sounds, soft Extremities exam: ABSENT: calf tenderness, clubbing, joint swelling Musculoskeletal exam: ABSENT: deformity, dislocation Neurological exam: PRESENT: awake, oriented to person, oriented to place Psychiatric exam: PRESENT: agitated Skin exam: PRESENT: dry, warm Results Laboratory Results: 04/25/18 04:17 04/25/18 04:17 04/12/18 04/17/18 04/17/18 03:55 14:40 14:40 Creatine Kinase 316 H 95 CK-MB (CK-2) < 0.22 Troponin I < 0.012 NT-Pro-B Natriuret Pep 04/25/18 04:17 Creatine Kinase CK-MB (CK-2) Troponin I NT-Pro-B Natriuret Pep 91 Impressions: Head CT 04/12/18 09:51 IMPRESSION: NORMAL BRAIN CT WITHOUT CONTRAST. EVIDENCE OF ACUTE STROKE: NO. KUB X-Ray 04/17/18 00:00 IMPRESSION: Nasogastric tube tip and side port in the stomach. Chest X-Ray 04/24/18 06:00 IMPRESSION: 1. Improved aeration the left lung base. No definite airspace disease identified. Assessment & Plan - Diagnosis (1) Alcohol withdrawal seizure Qualifiers: Complication of substance-induced condition: with delirium Is this a current diagnosis for this admission?: No (2) History of atrial fibrillation Is this a current diagnosis for this admission?: Yes Plan: Currently normal sinus rhythm-sinus tachycardia (3) Thrombocytopenia Is this a current diagnosis for this admission?: No (4) Acute respiratory failure with hypoxia Is this a current diagnosis for this admission?: Yes (5) Altered mental state Qualifiers: Altered mental status type: unspecified Qualified Code(s): R41.82 - Altered mental status, unspecified Is this a current diagnosis for this admission?: Yes Plan: Remains very uncooperative overall mental status is slightly improved
--- NOTE | 2018-04-29 12:06 | PDOC PROGRESS REPORT ---
Subjective Progress Note for:: 04/29/18 Subjective:: Mood and language which wax and wane from hostile to congenial UNCHANGED Reason For Visit: ALCOHOL WITHDRAWAL,HYPERTENSIVE URGENCY Physical Exam Vital Signs: Temp Pulse Resp BP Pulse Ox 98.5 F 87 18 129/79 H 94 04/29/18 08:00 04/29/18 08:15 04/29/18 08:15 04/29/18 08:00 04/29/18 08:15 Intake & Output 04/28/18 04/29/18 04/30/18 06:59 06:59 06:59 Intake Total 941 1984 Output Total 800 1999 Balance 141 -15 Weight 88.7 kg 86.7 kg General appearance: PRESENT: no acute distress, disheveled, well-developed, well -nourished Head exam: PRESENT: atraumatic, normocephalic Eye exam: PRESENT: conjunctiva pale, EOMI. ABSENT: nystagmus, periorbital swelling Mouth exam: PRESENT: dry mucosa, neck supple, tongue midline Neck exam: ABSENT: carotid bruit, JVD, lymphadenopathy, thyromegaly, tracheal deviation, tracheostomy Respiratory exam: PRESENT: decreased breath sounds, prolonged expiratory phas, rhonchi, wheezes. ABSENT: rales, retraction, stridor, unlabored Cardiovascular exam: PRESENT: irregular rhythm, +S1, +S2 Pulses: PRESENT: normal radial pulses GI/Abdominal exam: PRESENT: normal bowel sounds, soft Extremities exam: ABSENT: clubbing, full ROM, joint swelling Musculoskeletal exam: ABSENT: deformity, dislocation Neurological exam: PRESENT: awake, oriented to person, oriented to place Psychiatric exam: PRESENT: agitated Skin exam: PRESENT: dry, warm Results Laboratory Results: 04/25/18 04:17 04/28/18 07:01 04/12/18 04/17/18 04/17/18 03:55 14:40 14:40 Creatine Kinase 316 H 95 CK-MB (CK-2) < 0.22 Troponin I < 0.012 NT-Pro-B Natriuret Pep 04/25/18 04:17 Creatine Kinase CK-MB (CK-2) Troponin I NT-Pro-B Natriuret Pep 91 Impressions: Head CT 04/12/18 09:51 IMPRESSION: NORMAL BRAIN CT WITHOUT CONTRAST. EVIDENCE OF ACUTE STROKE: NO. KUB X-Ray 04/17/18 00:00 IMPRESSION: Nasogastric tube tip and side port in the stomach. Chest X-Ray 04/24/18 06:00 IMPRESSION: 1. Improved aeration the left lung base. No definite airspace disease identified. Assessment & Plan - Diagnosis (1) Alcohol withdrawal seizure Qualifiers: Complication of substance-induced condition: with delirium Is this a current diagnosis for this admission?: No (2) History of atrial fibrillation Is this a current diagnosis for this admission?: Yes Plan: Currently normal sinus rhythm-sinus tachycardia (3) Thrombocytopenia Is this a current diagnosis for this admission?: No (4) Acute respiratory failure with hypoxia Is this a current diagnosis for this admission?: No (5) Altered mental state Qualifiers: Altered mental status type: unspecified Qualified Code(s): R41.82 - Altered mental status, unspecified Is this a current diagnosis for this admission?: Yes Plan: Remains very uncooperative overall mental status is slightly improved
--- NOTE | 2018-04-29 12:07 | PDOC PROGRESS REPORT ---
Subjective Progress Note for:: 04/21/18 Subjective:: Intubated and sedated x 48 hrs Reason For Visit: ALCOHOL WITHDRAWAL,HYPERTENSIVE URGENCY Physical Exam Vital Signs: Temp Pulse Resp BP Pulse Ox 99.9 F 98 17 127/91 H 94 04/20/18 19:38 04/21/18 02:45 04/21/18 06:00 04/21/18 05:53 04/21/18 06:00 Intake & Output 04/20/18 04/21/18 04/22/18 06:59 06:59 06:59 Intake Total 2435 3844 Output Total 2545 3200 Balance -110 644 Weight 87.4 kg 87.3 kg General appearance: PRESENT: no acute distress, disheveled Head exam: PRESENT: atraumatic, normocephalic Eye exam: PRESENT: conjunctiva pale. ABSENT: nystagmus, periorbital swelling, scleral icterus Mouth exam: PRESENT: dry mucosa, neck supple, tongue midline, other - ET tube Neck exam: ABSENT: carotid bruit, JVD, lymphadenopathy, thyromegaly, tracheal deviation, tracheostomy Respiratory exam: PRESENT: decreased breath sounds, prolonged expiratory phas, rhonchi, unlabored. ABSENT: retraction, stridor, tachypnea Cardiovascular exam: PRESENT: RRR, +S1, +S2, tachycardia Pulses: PRESENT: normal radial pulses GI/Abdominal exam: PRESENT: normal bowel sounds, soft Extremities exam: ABSENT: calf tenderness, clubbing, joint swelling Musculoskeletal exam: ABSENT: deformity, dislocation Neurological exam: ABSENT: awake Skin exam: PRESENT: dry, warm Results Laboratory Results: 04/21/18 03:53 04/21/18 03:53 04/21/18 04/21/18 04/21/18 03:53 03:53 04:00 WBC 8.6 RBC 4.76 Hgb 14.5 Hct 43.3 MCV 91 MCH 30.4 MCHC 33.4 RDW 13.9 Plt Count 297 Seg Neutrophils % 68.4 Lymphocytes % 16.0 Monocytes % 12.1 Eosinophils % 2.2 Basophils % 1.3 Absolute Neutrophils 5.9 Absolute Lymphocytes 1.4 Absolute Monocytes 1.0 Absolute Eosinophils 0.2 Absolute Basophils 0.1 Carbonic Acid 1.19 HCO3/H2CO3 Ratio 21:1 ABG pH 7.42 ABG pCO2 39.7 ABG pO2 71.1 L ABG HCO3 25.1 ABG O2 Saturation 94.6 ABG Base Excess 0.7 FiO2 30% Sodium 144.9 Potassium 4.3 Chloride 106 Carbon Dioxide 28 Anion Gap 11 BUN 17 Creatinine 0.54 Est GFR ( Amer) > 60 Est GFR (Non-Af Amer) > 60 Glucose 116 H Calcium 9.4 Magnesium 2.2 04/12/18 04/17/18 04/17/18 03:55 14:40 14:40 Creatine Kinase 316 H 95 CK-MB (CK-2) < 0.22 Troponin I < 0.012 Impressions: Head CT 04/12/18 09:51 IMPRESSION: NORMAL BRAIN CT WITHOUT CONTRAST. EVIDENCE OF ACUTE STROKE: NO. KUB X-Ray 04/17/18 00:00 IMPRESSION: Nasogastric tube tip and side port in the stomach. Chest X-Ray 04/20/18 06:00 IMPRESSION: NO CHANGE IN APPEARANCE OF THE CHEST. Assessment & Plan - Diagnosis (1) Alcohol withdrawal seizure Qualifiers: Complication of substance-induced condition: with delirium Is this a current diagnosis for this admission?: Yes Plan: None reported over the last 24 hours (2) History of atrial fibrillation Is this a current diagnosis for this admission?: Yes Plan: Currently normal sinus rhythm-sinus tachycardia (3) Thrombocytopenia Is this a current diagnosis for this admission?: No (4) Acute respiratory failure with hypoxia Is this a current diagnosis for this admission?: Yes Plan: copious secretions 04/17/18 14:40 Gram Stain - Final Tracheal Aspirate Sputum Culture - Final Enterobacter Cloacae Greatly Reduced Normal Bobbi 04/16/18 08:45 Gram Stain - Final Tracheal Aspirate Sputum Culture - Final Klebsiella Pneumoniae Haemophilus Influenzae Reduced Normal Bobbi - Time Total Critical Time (Minutes): 45
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
[2018-04-29] MEDS: SCOPOLAMINE HYDROBROMIDE 1.5 MG PATCH.TD72 TD SCH (13:25)
[2018-04-29] MEDS: IPRATROPIUM/ALBUTEROL 0.5-2.5 MG/3 ML AMPUL NEB PRN (19:48)
[2018-04-29] MEDS: BENZTROPINE MESYLATE 1 MG TABLET PO SCH (22:55)
[2018-04-30] MEDS: ACETAMINOPHEN 325 MG TABLET PO PRN ×2 (00:50→15:46)
[2018-04-30] MEDS: HALOPERIDOL LACTATE INJ 5 MG/1 ML VIAL IV PRN (01:18)
[2018-04-30] MEDS: BUDESONIDE NEB 0.5 MG/2 ML AMPUL NEB SCH ×2 (08:24→20:00)
--- NOTE | 2018-04-30 10:13 | PDOC PROGRESS REPORT ---
Subjective Progress Note for:: 04/30/18 Subjective:: confused agitated Reason For Visit: ALCOHOL WITHDRAWAL,HYPERTENSIVE URGENCY Physical Exam Vital Signs: Temp Pulse Resp BP Pulse Ox 97.5 F 87 16 132/97 H 98 04/30/18 07:24 04/30/18 08:26 04/30/18 08:26 04/30/18 07:24 04/30/18 08:26 Intake & Output 04/29/18 04/30/18 05/01/18 06:59 06:59 06:59 Intake Total 1984 1549 Output Total 1999 2699 Balance -15 -1151 Weight 86.7 kg 87.1 kg General appearance: PRESENT: no acute distress, disheveled, well-developed, well -nourished Head exam: PRESENT: atraumatic, normocephalic Eye exam: PRESENT: conjunctiva pale, EOMI. ABSENT: nystagmus, periorbital swelling Mouth exam: PRESENT: moist, neck supple, tongue midline Neck exam: ABSENT: carotid bruit, JVD, lymphadenopathy, thyromegaly, tracheal deviation, tracheostomy Respiratory exam: PRESENT: decreased breath sounds, prolonged expiratory phas, rhonchi, unlabored. ABSENT: rales, retraction, stridor Cardiovascular exam: PRESENT: RRR, +S1, +S2 Pulses: PRESENT: normal radial pulses GI/Abdominal exam: PRESENT: normal bowel sounds, soft Extremities exam: PRESENT: full ROM. ABSENT: calf tenderness, clubbing Musculoskeletal exam: PRESENT: full ROM. ABSENT: deformity, dislocation Neurological exam: PRESENT: awake Psychiatric exam: PRESENT: agitated, anxious Skin exam: PRESENT: dry, warm Results Laboratory Results: 04/25/18 04:17 04/28/18 07:01 04/12/18 04/17/18 04/17/18 03:55 14:40 14:40 Creatine Kinase 316 H 95 CK-MB (CK-2) < 0.22 Troponin I < 0.012 NT-Pro-B Natriuret Pep 04/25/18 04:17 Creatine Kinase CK-MB (CK-2) Troponin I NT-Pro-B Natriuret Pep 91 Impressions: Head CT 04/12/18 09:51 IMPRESSION: NORMAL BRAIN CT WITHOUT CONTRAST. EVIDENCE OF ACUTE STROKE: NO. KUB X-Ray 04/17/18 00:00 IMPRESSION: Nasogastric tube tip and side port in the stomach. Chest X-Ray 04/24/18 06:00 IMPRESSION: 1. Improved aeration the left lung base. No definite airspace disease identified. Assessment & Plan - Diagnosis (1) Alcohol withdrawal seizure Qualifiers: Complication of substance-induced condition: with delirium Is this a current diagnosis for this admission?: Yes Plan: None reported (2) History of atrial fibrillation Is this a current diagnosis for this admission?: Yes Plan: Currently normal sinus rhythm-sinus tachycardia (3) Thrombocytopenia Is this a current diagnosis for this admission?: No (4) Acute respiratory failure with hypoxia Is this a current diagnosis for this admission?: Yes Plan: resolved will sign off for now thank you for allowing me to see Mr Porter and help participate in his care
[2018-04-30 11:06] LABS: ABSOLUTE BASOPHILS # (AUTO) 0.1 10^3/uL (0.0-0.2); ABSOLUTE EOSINOPHILS # (AUTO) 0.3 10^3/uL (0.0-0.6); ABSOLUTE LYMPHOCYTES (AUTO) 1.5 10^3/uL (0.5-4.7); ABSOLUTE MONOCYTES (AUTO) 0.7 10^3/uL (0.1-1.4); BASOPHILS % (AUTO) 1.2 % (0-2); EOSINOPHILS % (AUTO) 2.7 % (0-6); HEMATOCRIT 42.9 % (37.9-51.0); HEMOGLOBIN 14.7 g/dL (13.5-17.0); LYMPHOCYTES % (AUTO) 13.9 % (13-45); MEAN CORPUSCULAR HEMOGLOBIN 30.4 pg (27.0-33.4); MEAN CORPUSCULAR HGB CONC 34.3 g/dL (32.0-36.0); MEAN CORPUSCULAR VOLUME 89 fl (80-97); MONOCYTES % (AUTO) 6.3 % (3-13); PLATELET COUNT 258 10^3/uL (150-450); RED BLOOD COUNT 4.83 10^6/uL (4.35-5.55); RED CELL DISTRIBUTION WIDTH 13.6 % (11.5-14.0); SEGMENTED NEUTROPHILS % (AUTO) 75.9 % (42-78); TOTAL CELLS COUNTED % (AUTO) 100 %; WHITE BLOOD COUNT 10.6 10^3/uL (4.0-10.5)
[2018-04-30] MEDS: METOPROLOL TARTRATE 25 MG TABLET PO SCH ×2 (11:36→21:24)
[2018-04-30] MEDS: MAGNESIUM OXIDE 400 MG TABLET PO SCH (11:36)
[2018-04-30] MEDS: THIAMINE HCL 100 MG TABLET PO SCH (11:36)
[2018-04-30] MEDS: OLANZAPINE INJ/PF 10 MG SDV IM SCH ×2 (11:38→21:25)
[2018-04-30] MEDS: LEVETIRACETAM 1000 MG/NACL-ISO 1,000 MG/100 ML RTUPB IV SCH ×2 (11:39→21:25)
[2018-04-30] MEDS: ENOXAPARIN SODIUM INJ 40 MG/0.4 ML DISP.SYRIN SUBCUT SCH (11:43)
[2018-04-30] MEDS: POLYETHYLENE GLYCOL 3350 POWDER 17 GM/1 PACKET PO SCH (11:43)
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
[2018-04-30] MEDS: BENZTROPINE MESYLATE 1 MG TABLET PO SCH (21:24)
[2018-05-01] MEDS: HALOPERIDOL LACTATE INJ 5 MG/1 ML VIAL IV PRN (00:01)
[2018-05-01] MEDS ORDERED: HALOPERIDOL LACTATE INJ 5 MG/1 ML VIAL ONE (01:56)
[2018-05-01] MEDS ORDERED: HALOPERIDOL LACTATE INJ 5 MG/1 ML VIAL IV ONE (02:15)
[2018-05-01] MEDS: BUDESONIDE NEB 0.5 MG/2 ML AMPUL NEB SCH ×2 (08:11→20:04)
[2018-05-01] MEDS: IPRATROPIUM/ALBUTEROL 0.5-2.5 MG/3 ML AMPUL NEB PRN (08:12)
[2018-05-01] MEDS: METOPROLOL TARTRATE 25 MG TABLET PO SCH ×2 (09:45→21:40)
[2018-05-01] MEDS: MAGNESIUM OXIDE 400 MG TABLET PO SCH (09:46)
[2018-05-01] MEDS: ENOXAPARIN SODIUM INJ 40 MG/0.4 ML DISP.SYRIN SUBCUT SCH (09:49)
[2018-05-01] MEDS: THIAMINE HCL 100 MG TABLET PO SCH (09:49)
[2018-05-01] MEDS: CHLORPROMAZINE HCL 10 MG TABLET PO PRN (09:49)
[2018-05-01] MEDS: OLANZAPINE INJ/PF 10 MG SDV IM SCH ×2 (09:49→21:41)
[2018-05-01] MEDS: LEVETIRACETAM 1000 MG/NACL-ISO 1,000 MG/100 ML RTUPB IV SCH ×2 (09:50→21:42)
[2018-05-01] MEDS: POLYETHYLENE GLYCOL 3350 POWDER 17 GM/1 PACKET PO SCH (10:00)
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
[2018-05-01] MEDS ORDERED: VALPROATE SODIUM SYRUP 250 MG/5 ML UDCUP PO ONE (15:00)
[2018-05-01] MEDS: BENZTROPINE MESYLATE 1 MG TABLET PO SCH (21:40)
--- NOTE | 2018-05-01 22:38 | EKG REPORT ---
SEVERITY:- ABNORMAL ECG - SINUS TACHYCARDIA PROBABLE LEFT ATRIAL ABNORMALITY NONSPECIFIC T ABNORMALITIES, ANT-LAT LEADS : Confirmed by: Breanne Forbes MD 01-May-2018 22:37:38
[2018-05-02 05:14] LABS: ALANINE AMINOTRANSFERASE 182 U/L (21-72); ALBUMIN 3.9 g/dL (3.5-5.0); ALKALINE PHOSPHATASE 131 U/L (38-126); ANION GAP 13 (5-19); ASPARTATE AMINO TRANSFERASE 160 U/L (17-59); BILIRUBIN,DIRECT 0.5 mg/dL (0.0-0.4); BILIRUBIN,TOTAL 0.8 mg/dL (0.2-1.3); BLOOD UREA NITROGEN 13 mg/dL (7-20); CALCIUM 9.4 mg/dL (8.4-10.2); CARBON DIOXIDE 24 mmol/L (22-30); CHLORIDE 107 mmol/L (98-107); GLUCOSE 102 mg/dL (75-110); PHOSPHORUS 6.3 mg/dL (2.5-4.5); POTASSIUM 4.4 mmol/L (3.6-5.0); SODIUM 144.2 mmol/L (137-145)
[2018-05-02] MEDS: IPRATROPIUM/ALBUTEROL 0.5-2.5 MG/3 ML AMPUL NEB PRN ×2 (08:06→19:50)
[2018-05-02] MEDS: BUDESONIDE NEB 0.5 MG/2 ML AMPUL NEB SCH ×2 (08:06→19:50)
[2018-05-02] MEDS: POLYETHYLENE GLYCOL 3350 POWDER 17 GM/1 PACKET PO SCH (10:01)
[2018-05-02] MEDS: OLANZAPINE INJ/PF 10 MG SDV IM SCH ×2 (10:02→20:42)
[2018-05-02] MEDS: MAGNESIUM OXIDE 400 MG TABLET PO SCH (10:02)
[2018-05-02] MEDS: VALPROATE SODIUM SYRUP 250 MG/5 ML UDCUP PO SCH (10:02)
[2018-05-02] MEDS: METOPROLOL TARTRATE 25 MG TABLET PO SCH ×2 (10:02→20:43)
[2018-05-02] MEDS: THIAMINE HCL 100 MG TABLET PO SCH (10:02)
[2018-05-02] MEDS: ENOXAPARIN SODIUM INJ 40 MG/0.4 ML DISP.SYRIN SUBCUT SCH (10:03)
[2018-05-02] MEDS: LEVETIRACETAM 1000 MG/NACL-ISO 1,000 MG/100 ML RTUPB IV SCH ×2 (10:03→20:35)
[2018-05-02] MEDS: SCOPOLAMINE HYDROBROMIDE 1.5 MG PATCH.TD72 TD SCH (13:06)
[2018-05-02] MEDS: ACETAMINOPHEN 325 MG TABLET PO PRN (16:18)
--- NOTE | 2018-05-02 18:53 | PDOC PROGRESS REPORT ---
Subjective Progress Note for:: 05/02/18 Subjective:: Patient is seen resting in bed sleeping. He awakens to verbal stimuli. He does not answer any questions when asked. He presently is sitting soft restraints for tube protection. He is combative at times as well with the nursing staff. He has a sitter at his bedside. Review of systems cannot be obtained at the present time because of his mentation. Reason For Visit: ALCOHOL WITHDRAWAL,HYPERTENSIVE URGENCY Physical Exam Vital Signs: Temp Pulse Resp BP Pulse Ox 98.4 F 99 17 134/88 H 100 05/02/18 07:37 05/02/18 07:37 05/02/18 07:37 05/02/18 07:37 05/02/18 07:37 Intake & Output 05/01/18 05/02/18 05/03/18 06:59 06:59 06:59 Intake Total 2670 926 Output Total 1000 0 Balance 1670 926 Weight 87 kg 84.7 kg General appearance: PRESENT: no acute distress, well-developed, well-nourished Head exam: PRESENT: atraumatic, normocephalic Eye exam: PRESENT: conjunctiva pink, EOMI, PERRLA. ABSENT: scleral icterus Ear exam: PRESENT: normal external ear exam Mouth exam: PRESENT: moist, tongue midline Neck exam: ABSENT: carotid bruit, JVD, lymphadenopathy, thyromegaly Respiratory exam: PRESENT: clear to auscultation hilda. ABSENT: rales, rhonchi, wheezes Cardiovascular exam: PRESENT: RRR. ABSENT: diastolic murmur, rubs, systolic murmur Pulses: PRESENT: normal dorsalis pedis pul Vascular exam: PRESENT: normal capillary refill Rectal exam: PRESENT: deferred Extremities exam: PRESENT: full ROM Musculoskeletal exam: PRESENT: full ROM, normal inspection Neurological exam: PRESENT: alert, altered, awake, CN II-XII grossly intact Psychiatric exam: PRESENT: agitated, unusual affect Focused psych exam: PRESENT: psychomotor agitation, restlessness Skin exam: PRESENT: dry, intact, warm. ABSENT: cyanosis, rash Results Laboratory Results: 04/30/18 10:40 05/02/18 04:24 05/02/18 04:24 Sodium 144.2 Potassium 4.4 Chloride 107 Carbon Dioxide 24 Anion Gap 13 BUN 13 Creatinine 0.52 Est GFR ( Amer) > 60 Est GFR (Non-Af Amer) > 60 Glucose 102 Calcium 9.4 Phosphorus 6.3 H Magnesium 1.9 Total Bilirubin 0.8 AST 160 H ALT 182 H Alkaline Phosphatase 131 H Total Protein 8.0 Albumin 3.9 04/12/18 04/17/18 04/17/18 03:55 14:40 14:40 Creatine Kinase 316 H 95 CK-MB (CK-2) < 0.22 Troponin I < 0.012 NT-Pro-B Natriuret Pep 04/25/18 04:17 Creatine Kinase CK-MB (CK-2) Troponin I NT-Pro-B Natriuret Pep 91 Impressions: Head CT 04/12/18 09:51 IMPRESSION: NORMAL BRAIN CT WITHOUT CONTRAST. EVIDENCE OF ACUTE STROKE: NO. KUB X-Ray 04/17/18 00:00 IMPRESSION: Nasogastric tube tip and side port in the stomach. Chest X-Ray 04/24/18 06:00 IMPRESSION: 1. Improved aeration the left lung base. No definite airspace disease identified. Assessment & Plan - Diagnosis (1) Alcoholic hepatic failure without coma Is this a current diagnosis for this admission?: Yes Plan: Patient had presented with seizures from alcohol withdrawal requiring intubation for a total of 10 days. He has not had normal mentation since he has been extubated. (2) Altered mental state Qualifiers: Altered mental status type: unspecified Qualified Code(s): R41.82 - Altered mental status, unspecified Is this a current diagnosis for this admission?: Yes Plan: Patient has a history of schizophrenia as well as severe alcohol abuse. Psychiatry has seen the patient and made recommendations for Zyprexa, Depakote and Thorazine. Unfortunately he still mentating normally. Placement needs will be dependent on how this improves or not (3) Alcohol withdrawal seizure Qualifiers: Complication of substance-induced condition: with delirium Qualified Code(s ): F10.231 - Alcohol dependence with withdrawal delirium Is this a current diagnosis for this admission?: Yes Plan: Continue Keppra he has had no recent seizures. (4) Elevated LFTs Is this a current diagnosis for this admission?: Yes Plan: Secondary to cirrhosis and alcohol abuse (5) History of atrial fibrillation Is this a current diagnosis for this admission?: Yes Plan: Presently in normal sinus rhythm. Continue current medications (6) Physical deconditioning Is this a current diagnosis for this admission?: Yes Plan: At the present time physical therapy is not an option due to his combativeness and altered mentation (7) Seizure disorder Is this a current diagnosis for this admission?: Yes Plan: Continue Keppra - Time Time Spent with patient: 25-34 minutes Medications reviewed and adjusted accordingly: Yes Anticipated discharge: Acute Rehab Within: when bed available
[2018-05-02] MEDS: BENZTROPINE MESYLATE 1 MG TABLET PO SCH (20:35)
[2018-05-03] MEDS: CHLORPROMAZINE HCL 10 MG TABLET PO PRN (01:44)
[2018-05-03] MEDS: BUDESONIDE NEB 0.5 MG/2 ML AMPUL NEB SCH ×2 (08:01→19:56)
[2018-05-03] MEDS: IPRATROPIUM/ALBUTEROL 0.5-2.5 MG/3 ML AMPUL NEB PRN ×2 (08:01→19:56)
[2018-05-03] MEDS ORDERED: LEVETIRACETAM 500 MG TABLET PO ONE (10:45)
[2018-05-03] MEDS: VALPROATE SODIUM SYRUP 250 MG/5 ML UDCUP PO SCH (10:54)
[2018-05-03] MEDS: METOPROLOL TARTRATE 25 MG TABLET PO SCH ×2 (10:54→21:42)
[2018-05-03] MEDS: THIAMINE HCL 100 MG TABLET PO SCH (10:55)
[2018-05-03] MEDS: OLANZAPINE INJ/PF 10 MG SDV IM SCH (10:55)
[2018-05-03] MEDS: MAGNESIUM OXIDE 400 MG TABLET PO SCH (10:55)
[2018-05-03] MEDS: ENOXAPARIN SODIUM INJ 40 MG/0.4 ML DISP.SYRIN SUBCUT SCH (10:56)
[2018-05-03] MEDS: POLYETHYLENE GLYCOL 3350 POWDER 17 GM/1 PACKET PO SCH (11:03)
[2018-05-03] MEDS: NICOTINE 21 MG/24 HR PATCH.TD24 TD SCH (18:30)
--- NOTE | 2018-05-03 18:43 | PDOC PROGRESS REPORT ---
Subjective Progress Note for:: 05/03/18 Subjective:: Feeling much better. Psychiatrist discontinued the one-to-one sitter. She is more calm this morning and two-point restraint discontinued. Patient currently getting IM Zyprexa, but willing to take it by mouth. Also Keppra IV will change to p.o. No chest pain or shortness of breath or palpitations. Reason For Visit: ALCOHOL WITHDRAWAL,HYPERTENSIVE URGENCY Physical Exam Vital Signs: Temp Pulse Resp BP Pulse Ox 97.2 F 84 20 127/84 H 97 05/03/18 15:42 05/03/18 15:42 05/03/18 15:42 05/03/18 15:42 05/03/18 15:42 Intake & Output 05/02/18 05/03/18 05/04/18 06:59 06:59 06:59 Intake Total 926 1134 1971 Output Total 0 1100 Balance 926 1134 871 Weight 84.7 kg 86.8 kg GEN: NAD, well-developed, well-nourished CV: RRR, NL S1S2 LUNGS: CTA bilaterally ABDOMEN Soft, NT, +BS EXTERMITIES: No e/c/c NEURO: Alert, oriented 3, nonfocal Results Laboratory Results: 04/30/18 10:40 05/02/18 04:24 04/12/18 04/17/18 04/17/18 03:55 14:40 14:40 Creatine Kinase 316 H 95 CK-MB (CK-2) < 0.22 Troponin I < 0.012 NT-Pro-B Natriuret Pep 04/25/18 04:17 Creatine Kinase CK-MB (CK-2) Troponin I NT-Pro-B Natriuret Pep 91 Impressions: Head CT 04/12/18 09:51 IMPRESSION: NORMAL BRAIN CT WITHOUT CONTRAST. EVIDENCE OF ACUTE STROKE: NO. Chest X-Ray 04/24/18 06:00 IMPRESSION: 1. Improved aeration the left lung base. No definite airspace disease identified. Assessment & Plan - Plan Summary Plan Summary: (1) Alcoholic hepatic failure without coma Is this a current diagnosis for this admission?: Yes Plan: Patient had presented with seizures from alcohol withdrawal requiring intubation for a total of 10 days. He had altered mentation since extubated, but appears to be doing better today. We will try to switch his medications to p.o. (2) Altered mental state Qualifiers: Altered mental status type: unspecified Qualified Code(s): R41.82 - Altered mental status, unspecified Is this a current diagnosis for this admission?: Yes Plan: Patient has a history of schizophrenia as well as severe alcohol abuse. Psychiatry has seen the patient and made recommendations for Zyprexa, Depakote and Thorazine. Again, will adjust medicines to p.o. (3) Alcohol withdrawal seizure Qualifiers: Complication of substance-induced condition: with delirium Qualified Code(s ): F10.231 - Alcohol dependence with withdrawal delirium Is this a current diagnosis for this admission?: Yes Plan: Continue Keppra for change to p.o. He has not had a recent seizures. (4) Elevated LFTs Is this a current diagnosis for this admission?: Yes Plan: Secondary to cirrhosis and alcohol abuse. Follow-up labs in a.m. (5) History of atrial fibrillation Is this a current diagnosis for this admission?: Yes Plan: Presently in normal sinus rhythm. Continue current medications (6) Physical deconditioning Is this a current diagnosis for this admission?: Yes Plan: PT OT evaluation. (7) Seizure disorder Is this a current diagnosis for this admission?: Yes Plan: Continue Keppra
[2018-05-03] MEDS: OLANZAPINE 5 MG TABLET PO SCH (21:41)
[2018-05-03] MEDS: LEVETIRACETAM 500 MG TABLET PO SCH (21:43)
[2018-05-03] MEDS: BENZTROPINE MESYLATE 1 MG TABLET PO SCH (21:44)
[2018-05-04] MEDS: ACETAMINOPHEN 325 MG TABLET PO PRN ×2 (02:24→15:03)
[2018-05-04 04:53] LABS: ABSOLUTE EOSINOPHILS # (AUTO) 0.5 10^3/uL (0.0-0.6); ABSOLUTE LYMPHOCYTES (AUTO) 2.4 10^3/uL (0.5-4.7); ABSOLUTE MONOCYTES (AUTO) 0.7 10^3/uL (0.1-1.4); ABSOLUTE NEUT (AUTO) 4.3 10^3/uL (1.7-8.2); BASOPHILS % (AUTO) 0.5 % (0-2); EOSINOPHILS % (AUTO) 6.1 % (0-6); HEMATOCRIT 39.7 % (37.9-51.0); HEMOGLOBIN 13.5 g/dL (13.5-17.0); LYMPHOCYTES % (AUTO) 30.3 % (13-45); MEAN CORPUSCULAR HEMOGLOBIN 30.6 pg (27.0-33.4); MEAN CORPUSCULAR HGB CONC 34.1 g/dL (32.0-36.0); MEAN CORPUSCULAR VOLUME 90 fl (80-97); MONOCYTES % (AUTO) 8.9 % (3-13); PLATELET COUNT 247 10^3/uL (150-450); RED BLOOD COUNT 4.42 10^6/uL (4.35-5.55); SEGMENTED NEUTROPHILS % (AUTO) 54.2 % (42-78); TOTAL CELLS COUNTED % (AUTO) 100 %; WHITE BLOOD COUNT 7.9 10^3/uL (4.0-10.5)
[2018-05-04 05:11] LABS: ALANINE AMINOTRANSFERASE 113 U/L (21-72); ALBUMIN 3.6 g/dL (3.5-5.0); ALKALINE PHOSPHATASE 168 U/L (38-126); ANION GAP 13 (5-19); ASPARTATE AMINO TRANSFERASE 86 U/L (17-59); BILIRUBIN,DIRECT 0.2 mg/dL (0.0-0.4); BILIRUBIN,TOTAL 0.2 mg/dL (0.2-1.3); BLOOD UREA NITROGEN 8 mg/dL (7-20); CALCIUM 9.8 mg/dL (8.4-10.2); CARBON DIOXIDE 24 mmol/L (22-30); CHLORIDE 105 mmol/L (98-107); GLUCOSE 99 mg/dL (75-110); POTASSIUM 4.5 mmol/L (3.6-5.0); SODIUM 141.7 mmol/L (137-145)
[2018-05-04] MEDS: BUDESONIDE NEB 0.5 MG/2 ML AMPUL NEB SCH ×2 (08:13→20:19)
[2018-05-04] MEDS: LEVETIRACETAM 500 MG TABLET PO SCH ×2 (10:10→20:37)
[2018-05-04] MEDS: METOPROLOL TARTRATE 25 MG TABLET PO SCH ×2 (10:10→20:37)
[2018-05-04] MEDS: OLANZAPINE 5 MG TABLET PO SCH (10:10)
[2018-05-04] MEDS: THIAMINE HCL 100 MG TABLET PO SCH (10:10)
[2018-05-04] MEDS: MAGNESIUM OXIDE 400 MG TABLET PO SCH (10:10)
[2018-05-04] MEDS: ENOXAPARIN SODIUM INJ 40 MG/0.4 ML DISP.SYRIN SUBCUT SCH (10:11)
[2018-05-04] MEDS: VALPROATE SODIUM SYRUP 250 MG/5 ML UDCUP PO SCH (10:11)
[2018-05-04] MEDS: POLYETHYLENE GLYCOL 3350 POWDER 17 GM/1 PACKET PO SCH (10:15)
--- NOTE | 2018-05-04 10:15 | RADIOLOGY REPORT (SQ) ---
EXAM DESCRIPTION: U/S ABDOMEN COMPLETE W/DOPPLER COMPLETED DATE/TIME: 05/04/2018 9:57 am REASON FOR STUDY: Abnormal LFT's COMPARISON: None. TECHNIQUE: Dynamic and static grayscale images acquired of the abdomen and recorded on PACS. Additio nal selected color Doppler and spectral images recorded. LIMITATIONS: None. FINDINGS: PANCREAS: The pancreas is not well visualized due to bowel gas. No definite abnormality i s identified. LIVER: The liver demonstrates normal echogenicity measuring 15.2 cm in length. LIVER VASCULATURE: Normal directional flow of the main portal vein and hepatic veins. GALLBLADDER: The gallbladder is thick-walled measuring 4 mm. The gallbladder is contracted. ULTRASOUND-DETECTED CHACON'S SIGN: Negative. INTRAHEPATIC DUCTS AND COMMON DUCT: CBD the is prominent measuring 0.65 cm. Intrahepatic ducts atiya l caliber. No filling defects. INFERIOR VENA CAVA: Normal flow. AORTA: The proximal abdominal aorta measures 2.1 cm in AP diameter. The mid abdominal aorta measures 2 cm in AP diameter and distally 1.9 cm. RIGHT KIDNEY: The right kidney measures 13.3 cm in length. No hydronephrosis. Normal Doppler flow. LEFT KIDNEY: Left kidney is normal measuring 13.4 cm in length. The left kidney demonstrates normal echogenicity. Normal Doppler flow. SPLEEN: Spleen demonstrates normal echogenicity measuring 12.2 cm in length. IMPRESSION: Contracted thick-walled gallbladder. Clinical correlation needed. If indicated follow- up hepatobiliary scan the or repeat ultrasound in fasting state could be obtained. TECHNICAL DOCUMENTATION: JOB ID: [id number] [employer]- All Rights Reserved Reading location - IP/workstation name: [email or web address]
[2018-05-04] MEDS: CHLORPROMAZINE HCL 10 MG TABLET PO PRN (14:31)
--- NOTE | 2018-05-04 18:51 | PDOC PROGRESS REPORT ---
Subjective Progress Note for:: 05/04/18 Subjective:: Feeling much better. Psychiatrist did discontinue the one-to-one sitter. He is more calm and has been off restraint. Tolerating p.o. Keppra. No chest pain or shortness of breath or palpitations. Wants to go home , but sister states he cannot stay with her because he would just go start drinking again. Awaiting rehab bed. Reason For Visit: ALCOHOL WITHDRAWAL,HYPERTENSIVE URGENCY Physical Exam Vital Signs: Temp Pulse Resp BP Pulse Ox 97.6 F 89 16 142/96 H 100 05/04/18 16:59 05/04/18 16:59 05/04/18 16:59 05/04/18 16:59 05/04/18 16:59 Intake & Output 05/03/18 05/04/18 05/05/18 06:59 06:59 06:59 Intake Total 1134 4411 1512 Output Total 3250 500 Balance 1134 1161 1012 Weight 86.8 kg 87.7 kg GEN: NAD, well-developed, well-nourished CV: RRR, NL S1S2 LUNGS: CTA bilaterally ABDOMEN Soft, NT, +BS EXTERMITIES: No e/c/c NEURO: Alert, oriented 3, nonfocal Results Laboratory Results: 05/04/18 04:07 05/04/18 04:07 05/04/18 05/04/18 04:07 04:07 WBC 7.9 RBC 4.42 Hgb 13.5 Hct 39.7 MCV 90 MCH 30.6 MCHC 34.1 RDW 14.0 Plt Count 247 Seg Neutrophils % 54.2 Lymphocytes % 30.3 Monocytes % 8.9 Eosinophils % 6.1 H Basophils % 0.5 Absolute Neutrophils 4.3 Absolute Lymphocytes 2.4 Absolute Monocytes 0.7 Absolute Eosinophils 0.5 Absolute Basophils 0.0 Sodium 141.7 Potassium 4.5 Chloride 105 Carbon Dioxide 24 Anion Gap 13 BUN 8 Creatinine 0.55 Est GFR ( Amer) > 60 Est GFR (Non-Af Amer) > 60 Glucose 99 Calcium 9.8 Total Bilirubin 0.2 AST 86 H ALT 113 H Alkaline Phosphatase 168 H Total Protein 7.0 Albumin 3.6 04/12/18 04/17/18 04/17/18 03:55 14:40 14:40 Creatine Kinase 316 H 95 CK-MB (CK-2) < 0.22 Troponin I < 0.012 NT-Pro-B Natriuret Pep 04/25/18 04:17 Creatine Kinase CK-MB (CK-2) Troponin I NT-Pro-B Natriuret Pep 91 Impressions: Head CT 04/12/18 09:51 IMPRESSION: NORMAL BRAIN CT WITHOUT CONTRAST. EVIDENCE OF ACUTE STROKE: NO. KUB X-Ray 04/17/18 00:00 IMPRESSION: Nasogastric tube tip and side port in the stomach. Chest X-Ray 04/24/18 06:00 IMPRESSION: 1. Improved aeration the left lung base. No definite airspace disease identified. Abdomen Ultrasound 05/04/18 00:00 IMPRESSION: Contracted thick-walled gallbladder. Clinical correlation needed. If indicated follow-up hepatobiliary scan the or repeat ultrasound in fasting state could be obtained. Assessment & Plan - Plan Summary Plan Summary: (1) Alcoholic hepatic failure without coma Is this a current diagnosis for this admission?: Yes Plan: Patient had presented with seizures from alcohol withdrawal requiring intubation for a total of 10 days. He had altered mentation since extubated, but appears to be doing better today. We will try to switch his medications to p.o. Now doing better, wants to go home, but sister states he cannot stay with her because he would just go start drinking again. Awaiting rehab bed. (2) Altered mental state Qualifiers: Altered mental status type: unspecified Qualified Code(s): R41.82 - Altered mental status, unspecified Is this a current diagnosis for this admission?: Yes Plan: Patient has a history of schizophrenia as well as severe alcohol abuse. Psychiatry has seen the patient and made recommendations for Zyprexa, Depakote and Thorazine. In this be on tolerating. We spoke with psychiatry service and now recommend for thoracic to be discontinued. (3) Alcohol withdrawal seizure Qualifiers: Complication of substance-induced condition: with delirium Qualified Code(s ): F10.231 - Alcohol dependence with withdrawal delirium Is this a current diagnosis for this admission?: Yes Plan: Continue Keppra. He has not had a recent seizures. (4) Elevated LFTs Is this a current diagnosis for this admission?: Yes Plan: Secondary to cirrhosis and alcohol abuse. Follow-up labs in a.m. Abdominal ultrasound done, result as above. (5) History of atrial fibrillation Is this a current diagnosis for this admission?: Yes Plan: Presently in normal sinus rhythm. Continue current medications (6) Physical deconditioning Is this a current diagnosis for this admission?: Yes Plan: PT OT. (7) Seizure disorder Is this a current diagnosis for this admission?: Yes Plan: Continue Keppra
[2018-05-04] MEDS: NICOTINE 21 MG/24 HR PATCH.TD24 TD SCH (19:11)
[2018-05-04] MEDS ORDERED: ARIPIPRAZOLE 5 MG TABLET PO ONE (20:00)
[2018-05-04] MEDS ORDERED: HALOPERIDOL LACTATE INJ 5 MG/1 ML VIAL IV ONE (20:00)
[2018-05-04] MEDS: BENZTROPINE MESYLATE 1 MG TABLET PO SCH (20:38)
[2018-05-05] MEDS: ACETAMINOPHEN 325 MG TABLET PO PRN ×3 (03:12→15:11)
[2018-05-05] MEDS: CHLORPROMAZINE HCL 10 MG TABLET PO PRN ×2 (03:13→15:11)
[2018-05-05] MEDS: BUDESONIDE NEB 0.5 MG/2 ML AMPUL NEB SCH ×2 (08:24→20:03)
[2018-05-05] MEDS: ENOXAPARIN SODIUM INJ 40 MG/0.4 ML DISP.SYRIN SUBCUT SCH (09:45)
[2018-05-05] MEDS: METOPROLOL TARTRATE 25 MG TABLET PO SCH ×2 (09:46→22:04)
[2018-05-05] MEDS: MAGNESIUM OXIDE 400 MG TABLET PO SCH (09:46)
[2018-05-05] MEDS: THIAMINE HCL 100 MG TABLET PO SCH (09:46)
[2018-05-05] MEDS: ARIPIPRAZOLE 5 MG TABLET PO SCH (09:46)
[2018-05-05] MEDS: LEVETIRACETAM 500 MG TABLET PO SCH ×2 (09:46→22:04)
[2018-05-05] MEDS: POLYETHYLENE GLYCOL 3350 POWDER 17 GM/1 PACKET PO SCH (09:47)
[2018-05-05] MEDS: VALPROATE SODIUM SYRUP 250 MG/5 ML UDCUP PO SCH ×2 (09:47→19:47)
[2018-05-05] MEDS ORDERED: HALOPERIDOL LACTATE INJ 5 MG/1 ML VIAL IV ONE (16:00)
--- NOTE | 2018-05-05 16:35 | PDOC PROGRESS REPORT ---
Subjective Progress Note for:: 05/05/18 Subjective:: Patient remains of restraint, but he has been more confused today wanting to go home. Sister, whom he lived with, states he cannot stay with her because she cant keep him from drinking again. Awaiting rehab. Reason For Visit: ALCOHOL WITHDRAWAL,HYPERTENSIVE URGENCY Physical Exam Vital Signs: Temp Pulse Resp BP Pulse Ox 98.0 F 86 16 133/93 H 98 05/05/18 12:00 05/05/18 12:00 05/05/18 12:00 05/05/18 12:00 05/05/18 12:00 Intake & Output 05/04/18 05/05/18 05/06/18 06:59 06:59 06:59 Intake Total 4411 1960 1720 Output Total 3250 2425 950 Balance 1161 -465 770 Weight 87.7 kg 88 kg GEN: NAD, well-developed, well-nourished CV: RRR, NL S1S2 LUNGS: CTA bilaterally ABDOMEN Soft, NT, +BS EXTERMITIES: No e/c/c NEURO: Confused, rambling, wants to go home, no apparent weakness Results Laboratory Results: 05/04/18 04:07 05/04/18 04:07 04/12/18 04/17/18 04/17/18 03:55 14:40 14:40 Creatine Kinase 316 H 95 CK-MB (CK-2) < 0.22 Troponin I < 0.012 NT-Pro-B Natriuret Pep 04/25/18 04:17 Creatine Kinase CK-MB (CK-2) Troponin I NT-Pro-B Natriuret Pep 91 Impressions: Head CT 04/12/18 09:51 IMPRESSION: NORMAL BRAIN CT WITHOUT CONTRAST. EVIDENCE OF ACUTE STROKE: NO. KUB X-Ray 04/17/18 00:00 IMPRESSION: Nasogastric tube tip and side port in the stomach. Chest X-Ray 04/24/18 06:00 IMPRESSION: 1. Improved aeration the left lung base. No definite airspace disease identified. Abdomen Ultrasound 05/04/18 00:00 IMPRESSION: Contracted thick-walled gallbladder. Clinical correlation needed. If indicated follow-up hepatobiliary scan the or repeat ultrasound in fasting state could be obtained. Assessment & Plan - Plan Summary Plan Summary: (1) Alcoholic hepatic failure without coma Is this a current diagnosis for this admission?: Yes Plan: Patient had presented with seizures from alcohol withdrawal requiring intubation for a total of 10 days. He had altered mentation since extubated, but appeared to do well last 2 days, but now with altered mentation again. -Continue psych meds; haldol x 1 now -Consider psych reevaluation if no improvement -Plan is for possible d/c to rehab when stable. (2) Altered mental state Qualifiers: Altered mental status type: unspecified Qualified Code(s): R41.82 - Altered mental status, unspecified Is this a current diagnosis for this admission?: Yes Plan: Patient has a history of schizophrenia as well as severe alcohol abuse. Psychiatry saw the patient and made recommendations for Zyprexa, Depakote and Thorazine. -Thorazine was discontinued per psych recommendation. (3) Alcohol withdrawal seizure Qualifiers: Complication of substance-induced condition: with delirium Qualified Code(s ): F10.231 - Alcohol dependence with withdrawal delirium Is this a current diagnosis for this admission?: Yes Plan: Continue Keppra. He has not had a recent seizures. (4) Elevated LFTs Is this a current diagnosis for this admission?: Yes Plan: Secondary to cirrhosis and alcohol abuse. Follow-up labs in a.m. Abdominal ultrasound done, result as above. (5) History of atrial fibrillation Is this a current diagnosis for this admission?: Yes Plan: Presently in normal sinus rhythm. Continue current medications (6) Physical deconditioning Is this a current diagnosis for this admission?: Yes Plan: PT OT. (7) Seizure disorder Is this a current diagnosis for this admission?: Yes Plan: Continue Keppra
[2018-05-05] MEDS: NICOTINE 21 MG/24 HR PATCH.TD24 TD SCH (16:51)
[2018-05-05] MEDS: BENZTROPINE MESYLATE 1 MG TABLET PO SCH (22:04)
[2018-05-06] MEDS: ACETAMINOPHEN 325 MG TABLET PO PRN (02:30)
[2018-05-06 06:00] LABS: ABSOLUTE EOSINOPHILS # (AUTO) 0.5 10^3/uL (0.0-0.6); ABSOLUTE LYMPHOCYTES (AUTO) 1.8 10^3/uL (0.5-4.7); ABSOLUTE MONOCYTES (AUTO) 0.6 10^3/uL (0.1-1.4); BASOPHILS % (AUTO) 0.2 % (0-2); EOSINOPHILS % (AUTO) 6.8 % (0-6); HEMATOCRIT 39.9 % (37.9-51.0); HEMOGLOBIN 13.4 g/dL (13.5-17.0); LYMPHOCYTES % (AUTO) 26.5 % (13-45); MEAN CORPUSCULAR HGB CONC 33.6 g/dL (32.0-36.0); MEAN CORPUSCULAR VOLUME 89 fl (80-97); MONOCYTES % (AUTO) 8.5 % (3-13); PLATELET COUNT 208 10^3/uL (150-450); RED BLOOD COUNT 4.46 10^6/uL (4.35-5.55); RED CELL DISTRIBUTION WIDTH 13.6 % (11.5-14.0); TOTAL CELLS COUNTED % (AUTO) 100 %; WHITE BLOOD COUNT 6.9 10^3/uL (4.0-10.5)
[2018-05-06 07:23] LABS: ALANINE AMINOTRANSFERASE 84 U/L (21-72); ALBUMIN 3.4 g/dL (3.5-5.0); ALKALINE PHOSPHATASE 181 U/L (38-126); ANION GAP 12 (5-19); ASPARTATE AMINO TRANSFERASE 70 U/L (17-59); BILIRUBIN,DIRECT 0.2 mg/dL (0.0-0.4); BILIRUBIN,TOTAL 0.2 mg/dL (0.2-1.3); BLOOD UREA NITROGEN 5 mg/dL (7-20); CALCIUM 9.6 mg/dL (8.4-10.2); CARBON DIOXIDE 24 mmol/L (22-30); CHLORIDE 106 mmol/L (98-107); GLUCOSE 103 mg/dL (75-110); POTASSIUM 4.1 mmol/L (3.6-5.0); SODIUM 142.2 mmol/L (137-145); TOTAL PROTEIN 6.8 g/dL (6.3-8.2)
[2018-05-06] MEDS: BUDESONIDE NEB 0.5 MG/2 ML AMPUL NEB SCH ×2 (08:29→20:46)
[2018-05-06] MEDS: IPRATROPIUM/ALBUTEROL 0.5-2.5 MG/3 ML AMPUL NEB PRN (08:30)
[2018-05-06] MEDS: MAGNESIUM OXIDE 400 MG TABLET PO SCH ×2 (11:07→18:07)
[2018-05-06] MEDS: LEVETIRACETAM 500 MG TABLET PO SCH ×2 (11:07→21:29)
[2018-05-06] MEDS: THIAMINE HCL 100 MG TABLET PO SCH (11:08)
[2018-05-06] MEDS: METOPROLOL TARTRATE 25 MG TABLET PO SCH ×2 (11:08→21:28)
[2018-05-06] MEDS: ARIPIPRAZOLE 5 MG TABLET PO SCH (11:09)
[2018-05-06] MEDS: VALPROATE SODIUM SYRUP 250 MG/5 ML UDCUP PO SCH ×2 (11:09→18:08)
[2018-05-06] MEDS: ENOXAPARIN SODIUM INJ 40 MG/0.4 ML DISP.SYRIN SUBCUT SCH (11:10)
[2018-05-06] MEDS: POLYETHYLENE GLYCOL 3350 POWDER 17 GM/1 PACKET PO SCH (11:16)
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
[2018-05-06] MEDS: NICOTINE 21 MG/24 HR PATCH.TD24 TD SCH (18:08)
[2018-05-06] MEDS: BENZTROPINE MESYLATE 1 MG TABLET PO SCH (21:28)
[2018-05-06] MEDS ORDERED: BENZTROPINE MESYLATE 1 MG TABLET PO SCH (22:00)
[2018-05-06] MEDS ORDERED: OLANZAPINE 5 MG TABLET PO SCH (22:00)
[2018-05-07] MEDS: ACETAMINOPHEN 325 MG TABLET PO PRN ×2 (02:51→16:02)
[2018-05-07] MEDS: BUDESONIDE NEB 0.5 MG/2 ML AMPUL NEB SCH (08:09)
[2018-05-07] MEDS: ARIPIPRAZOLE 5 MG TABLET PO SCH (10:21)
[2018-05-07] MEDS: METOPROLOL TARTRATE 25 MG TABLET PO SCH (10:22)
[2018-05-07] MEDS: MAGNESIUM OXIDE 400 MG TABLET PO SCH ×2 (10:22→18:06)
[2018-05-07] MEDS: THIAMINE HCL 100 MG TABLET PO SCH (10:22)
[2018-05-07] MEDS: ENOXAPARIN SODIUM INJ 40 MG/0.4 ML DISP.SYRIN SUBCUT SCH (10:23)
[2018-05-07] MEDS: VALPROATE SODIUM SYRUP 250 MG/5 ML UDCUP PO SCH (10:25)
[2018-05-07] MEDS: POLYETHYLENE GLYCOL 3350 POWDER 17 GM/1 PACKET PO SCH (10:26)
[2018-05-07] MEDS: NICOTINE 21 MG/24 HR PATCH.TD24 TD SCH (18:06)
[2018-05-07 18:11] VITALS: BP 124/80
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
[2018-05-08] MEDS ORDERED: METOPROLOL SUCCINATE 25 MG TAB.SR.24H PO SCH (10:00)
[2018-05-08] MEDS ORDERED: DIVALPROEX SODIUM 500 MG TAB.SR.24H PO SCH (10:00)
== END 2018-05-07 18:45 | disposition home or self-care (01) | DRG 896 ==
LOC: ER 14:10 → EH 17:03 → ICU 18:35 → UNDODISIN 04-16 12:30 → 3W 04-24 15:52
PROVIDERS: ADMIT Internal Medicine; ATTEND Internal Medicine
PROC: 5A1955Z Respiratory Ventilation, Greater than 96 Consecutive Hours (ICD-10-PCS; principal; 2018-04-11)
PROC: 0BH17EZ Insertion of Endotracheal Airway into Trachea, Via Natural or Artificial Opening (ICD-10-PCS; 2018-04-11)
PROC: 5A09457 Assistance with Respiratory Ventilation, 24-96 Consecutive Hours, Continuous Positive Airway Pressure (ICD-10-PCS; 2018-04-17)
PROC: 3E0F73Z Introduction of Anti-inflammatory into Respiratory Tract, Via Natural or Artificial Opening (ICD-10-PCS; 2018-04-18)
DX: F10.231 Alcohol dependence with withdrawal delirium (principal); J96.01 Acute respiratory failure with hypoxia; I16.0 Hypertensive urgency; Z78.1 Physical restraint status; I48.91 Unspecified atrial fibrillation; D69.59 Other secondary thrombocytopenia; E83.42 Hypomagnesemia; I11.0 Hypertensive heart disease with heart failure; I50.9 Heart failure, unspecified; F10.232 Alcohol dependence with withdrawal with perceptual disturbance; Y90.0 Blood alcohol level of less than 20 mg/100 ml; K21.9 Gastro-esophageal reflux disease without esophagitis; J44.9 Chronic obstructive pulmonary disease, unspecified; F31.9 Bipolar disorder, unspecified; G40.409 Other generalized epilepsy and epileptic syndromes, not intractable, without status epilepticus; M10.9 Gout, unspecified; L30.9 Dermatitis, unspecified; B96.1 Klebsiella pneumoniae [K. pneumoniae] as the cause of diseases classified elsewhere; B96.3 Hemophilus influenzae [H. influenzae] as the cause of diseases classified elsewhere; F17.210 Nicotine dependence, cigarettes, uncomplicated; K70.40 Alcoholic hepatic failure without coma; H11.31 Conjunctival hemorrhage, right eye; F20.9 Schizophrenia, unspecified; F10.250 Alcohol dependence with alcohol-induced psychotic disorder with delusions
CPT/HCPCS: 31500; 36415; 70450; 71045; 74018; 76700; 80048; 80053; 80069; 80076; 80307; 81001; 82140; 82550; 82553; 82803; 82962; 83735; 83880; 84100; 84443; 84450; 84460; 84484; 85025; 85027; 85610; 87040; 87070; 87077; 87086; 87186; 87205; 93005; 93010; 93976; 94002; 94003; 94640; 94660; 94799; 96372; 96374; 96375; 99291; J0330; J0360; J0692; J1200; J1630; J1650; J1885; J1940; J1953; J2060; J2704; J3411; J3475; J3480; J3490; J7030; J7050; J7620; J7685; S0164